=== PATIENT | male | born 1995 | race Caucasian/White ===

== ENCOUNTER 2018-10-23 14:22 | Emergency (ER) | payer BC, SELFPAY ==
[2018-10-23 14:23] VITALS: BP 130/67; PULSE 97; RESP 18; TEMP 36.3; BMI 27.7
--- NOTE | 2018-10-23 14:44 | RAD_ITS ---
STUDY: X-RAY - RIGHT SHOULDER REASON FOR EXAM: Male, 23 years old. Trauma TECHNIQUE: 4 view(s) of the shoulder. COMPARISON: None. FINDINGS: This ossific density noted along the superolateral aspect of the humeral head possibly relate with a calcific tendinitis however avulsion injury is not excluded. Visualized ribs appear intact. IMPRESSION: Small ossific density noted along the superolateral aspect of the humeral head possibly relate with a calcific tendinitis however avulsion injury is not excluded. Otherwise no evidence for acute fractures Electronically Signed: Micah Mazariegos, at 15:13 EST Tel , Service support , RAD/Shoulder min 2 Views
--- NOTE | 2018-10-23 14:50 | RAD_ITS ---
STUDY: X-RAY CHEST REASON FOR EXAM: Male, 23 years old. Trauma TECHNIQUE: 2 views of the chest were obtained COMPARISON: None. FINDINGS: No lung consolidation, pleural effusion or pneumothorax. Mild perihilar streaky opacities. Cardiac size within normal limits IMPRESSION: No evidence for acute traumatic injury seen. Mild perihilar congestive changes Electronically Signed: Micah Mazariegos, at 15:12 EST Tel , Service support , RAD/Chest PA and Lateral
--- NOTE | 2018-10-23 15:09 | ED.VISSUMM ---
- ER Visit Summary Date of Service: 10/23/18 Chief Complaint: Head and right shoulder injury History of Present Illness: The patient is a 23 M who presents with injury to his head and right shoulder that occurred just prior to arrival. Patient states he was working on his friend's car when it slipped off of the jacks and fell onto him. Patient states that it hit him in the right side of his head and right shoulder. Patient denies any loss of consciousness. Patient denies any nausea or vomiting. Patient has a laceration to his right ear. Patient denies any visual changes. Patient states his shoulder pain is worse with movement. Patient denies any shortness of breath. Patient does admit to some mild neck pain. Physical Examination: Vital signs are stable. Patient is afebrile. Patient is in no acute distress. Pupils are equal, round, reactive to light bilaterally. Extraocular muscles are intact. Oral mucosa is pink and moist. Neck is supple. Trachea is midline. There is no JVD noted. There is no cervical spine tenderness. Heart was regular rate and rhythm. Lungs are clear and equal bilaterally. There is good respiratory effort noted. Abdomen is soft and nontender. Cranial nerves II through XII are intact. There are no focal motor or sensory deficits noted. Skin is warm and dry. There is a 4 cm full-thickness laceration over the right external ear. Laceration extends through the cartilage. There are no foreign bodies noted. The remaining physical exam is within normal limits. There is a 1 cm full-thickness laceration over the left external ear. There is a auricular hematoma developing. The wound has some mild bleeding. There is no erythema noted. Test Results: X-rays of the right shoulder and chest were obtained. There is no acute fracture. There is no pneumothorax noted. CT scan of the brain was obtained. There is no acute intracranial abnormality noted. Emergency Department Course and Treatment: The right ear wound was cleaned and irrigated with copious amounts normal saline. The wound was anesthetized with 1% plain lidocaine locally and with an auricular block. The skin was closed with 16 simple interrupted #5-0 nylon sutures under sterile technique. Bacitracin dressing was applied. The laceration to the left external ear was left open to drain the auricular hematoma. Pressure dressings were applied to both ears. Patient was given a prescription for a short course of [place]. Patient was also given a prescription for Keflex. Patient was instructed to follow-up with his primary care physician in 3-5 days. Patient was also given a referral for plastic surgery. Disposition: Discharged home Impression: 1. Concussion 2. Laceration left ear 3. Laceration right ear 4. Right shoulder contusion This note was generated with [employer] dictation software. It may contain incorrect words, spelling, and punctuation that were not noted in review of the chart prior to signing ED Disposition - Plan for ED Patient: Disposition: Home or Assisted Living Chief Complaint: Head Injury Instructions: ED Concussion, ED Laceration All, ED Hematoma Prescriptions: Hydrocodone Bitart/Apap 5-325 [[place] 5MG-325MG] 1 tab PO Q6H PRN PRN 3 Days #10 tab PRN Reason: Pain Cephalexin [Keflex] 500 mg PO Q6 #40 cap Referrals: [facility] Doctor,Out of [NON-STAFF] - Terrence Roberts MD [STAFF PHYSICIAN] -
--- NOTE | 2018-10-23 15:13 | ED.DCSUM_ITS ---
- ER Visit Summary Date of Service: 10/23/18 Chief Complaint: Head and right shoulder injury History of Present Illness: The patient is a 23 M who presents with injury to his head and right shoulder that occurred just prior to arrival. Patient states he was working on his friend's car when it slipped off of the jacks and fell onto him. Patient states that it hit him in the right side of his head and right shoulder. Patient denies any loss of consciousness. Patient denies any nausea or vomiting. Patient has a laceration to his right ear. Patient denies any visual changes. Patient states his shoulder pain is worse with movement. Patient denies any shortness of breath. Patient does admit to some mild neck pain. Physical Examination: Vital signs are stable. Patient is afebrile. Patient is in no acute distress. Pupils are equal, round, reactive to light bilaterally. Extraocular muscles are intact. Oral mucosa is pink and moist. Neck is supple. Trachea is midline. There is no JVD noted. There is no cervical spine tenderness. Heart was regular rate and rhythm. Lungs are clear and equal bilaterally. There is good respiratory effort noted. Abdomen is soft and nontender. Cranial nerves II through XII are intact. There are no focal motor or sensory deficits noted. Skin is warm and dry. There is a 4 cm full- thickness laceration over the right external ear. Laceration extends through the cartilage. There are no foreign bodies noted. The remaining physical exam is within normal limits. There is a 1 cm full-thickness laceration over the left external ear. There is a auricular hematoma developing. The wound has some mild bleeding. There is no erythema noted. Test Results: X-rays of the right shoulder and chest were obtained. There is no acute fracture. There is no pneumothorax noted. CT scan of the brain was obta ined. There is no acute intracranial abnormality noted. Emergency Department Course and Treatment: The right ear wound was cleaned and irrigated with copious amounts normal saline. The wound was anesthetized with 1% plain lidocaine locally and with an auricular block. The skin was closed with 16 simple interrupted #5-0 nylon sutures under sterile technique. Bacitracin dressing was applied. The laceration to the left external ear was left open to drain the auricular hematoma. Pressure dressings were applied to both ears. Patient was given a prescription for a short course of [place]. Patient was also given a prescription for Keflex. Patient was instructed to follow-up with his primary care physician in 3-5 days. Patient was also given a referral for plastic surgery. Disposition: Discharged home Impression: 1. Concussion 2. Laceration left ear 3. Laceration right ear 4. Right shoulder contusion This note was generated with [employer] dictation software. It may contain incorrect words, spelling, and punctuation that were not noted in review of the chart prior to signing ED Disposition - Plan for ED Patient: Disposition: Home or Assisted Living Chief Complaint: Head Injury Instructions: ED Concussion, ED Laceration All, ED Hematoma Prescriptions: Hydrocodone Bitart/Apap 5-325 [[place] 5MG-325MG] 1 tab PO Q6H PRN PRN 3 Days #10 tab PRN Reason: Pain Cephalexin [Keflex] 500 mg PO Q6 #40 cap Referrals: [facility] Doctor,Out of [NON-STAFF] - Terrence Roberts MD [STAFF PHYSICIAN] -
[2018-10-23] MEDS: Morphine 4 MG/ML Syringe IV ×2 (15:17→17:06)
[2018-10-23 15:23] VITALS: BP 112/78; PULSE 69; RESP 20; O2SAT 99
[2018-10-23 15:36] VITALS: O2SAT 99
--- NOTE | 2018-10-23 16:42 | CT_ITS ---
STUDY: CT BRAIN WITHOUT CONTRAST REASON FOR EXAM: Male, 23 years old. Trauma RADIATION DOSAGE (If Supplied By Facility): CTDIvol = ( 44.99 ) mGy, DLP = ( 931.09 ) mGycm TECHNIQUE: Transaxial CT imaging of the brain was performed without administration of intravenous contrast material. Individualized dose optimization techniques were used for this CT. COMPARISON: None. FINDINGS: There is soft tissue edema and subcutaneous gas anterior to the right ear and surrounding the right ear soft tissues including posterior to the ear. There is no evidence of visualized fluid within the external auditory canal. There is no visualized fracture into the right mastoid air cells. There is no evidence of fluid surrounding the ossicles. The zygomatic arch, temporal mandibular joint appears to be intact. Normal calvarium. There is asymmetry of the ventricles consistent with an anatomic variant. Normal white matter tracts of the cerebral hemispheres. Normal basal ganglia and thalami. Normal brainstem. Normal cerebellum. Is a nonspecific hyperdense appearance of the bilateral MCA arteries. There is no intracranial hemorrhage. There are no findings of an acute ischemic infarction. There is trace mucosal thickening of the sphenoid and ethmoid sinuses. CT/Brain/Head without Contrast IMPRESSION: Right superficial facial soft tissue subcutaneous gas injury of the right ear without evidence of visualized fracture. Nonspecific asymmetry of the ventricles. Given clinical history recommend consideration for follow-up MRI of the brain if clinically appropriate. Electronically Signed: Hanh Jauregui MD at 17:52 EST Tel , Service support ,
[2018-10-23 17:04] VITALS: BP 127/69; PULSE 74; RESP 12; O2SAT 95
[2018-10-23 19:08] VITALS: BP 143/78; BP 143/87; PULSE 72; RESP 21; O2SAT 98
--- OUTSIDE RECORDS SUMMARY | 2019-01-26 11:59 | XMS RPT_ITS ---
:1995 Author Organization [facility] Care Team Providers Name Role Phone THIERNO COLLIER, DR. ALEXA Salazar Attending Unavailable MARINE ADHIKARI Primary Care Unavailable Gaby Rdz Attending Unavailable Alexa Del Castillo Referring Unavailable Primay Care Physicia, No Primary Care Unavailable PROBLEMS PROBLEMS DATE TYPE CONDITION / CODE ATTENDING STATUS SOURCE 10/23/2018 Unknown S06.0X0A - Gaby Rdz Active [facility] without loss of Hospital consciousness, Repository initial encounter / S06.0X0A(ICD-10) PROCEDURES PROCEDURES No Procedure Records FoundRESULTS RESULTS XR RIBS 2 VIEWS Observed: 10/29/2018 Status: F Source: [employer] LEFT/PA CHEST(AO) 12:21 PM [facility] REPOSITORY ORIGINAL XR RIBS 2 VIEWS LEFT/PA CHEST(AO) CLINICAL STATEMENT: back pain. COMPARISON: Chest radiograph 09/15/2014 IMPRESSION: No visible rib fracture. The lungs are clear and well expanded. Interpreted By: Scarlett Leija MD Preliminary Report By: Scarlett Leija MD Electronically Signed By: Scarlett Leija MD Dictated Date: 10/29/2018 12:49:33 PM Prelim Date: 10/29/2018 12:49:33 PM Sign Date: 10/29/2018 12:50:45 PM EMERGENCY DEPARTMENT Observed: 10/23/2018 Status: F Source: [place] SUMMARY 6:43 PM [facility] REPOSITORY [facility] Medical Records Department [address] [place] [address] Emergency Department Summary 10/23/18 1509 MR#: [id number] Acct: [id number] Name: GABY BANG Rep #: [id number] : 1995 23 From: Gaby Rdz DO PCP: Alexa Del Castillo MD Status: REG ER - ER Visit Summary Date of Service: 10/23/18 Chief Complaint: Head and right shoulder injury History of Present Illness: The patient is a 23 M who presents with injury to his head and right shoulder that occurred just prior to arrival. Patient states he was working on his friend's car when it slipped off of the jacks and fell onto him. Patient states that it hit him in the right side of his head and right shoulder. Patient denies any loss of consciousness. Patient denies any nausea or vomiting. Patient has a laceration to his right ear. Patient denies any visual changes. Patient states his shoulder pain is worse with movement. Patient denies any shortness of breath. Patient does admit to some mild neck pain. Physical Examination: Vital signs are stable. Patient is afebrile. Patient is in no acute distress. Pupils are equal, round, reactive to light bilaterally. Extraocular muscles are intact. Oral mucosa is pink and moist. Neck is supple. Trachea is midline. There is no JVD noted. There is no cervical spine tenderness. Heart was regular rate and rhythm. Lungs are clear and equal bilaterally. There is good respiratory effort noted. Abdomen is soft and nontender. Cranial nerves II through XII are intact. There are no focal motor or sensory deficits noted. Skin is warm and dry. There is a 4 cm full- thickness laceration over the right external ear. Laceration extends through the cartilage. There are no foreign bodies noted. The remaining physical exam is within normal limits. There is a 1 cm full-thickness laceration over the left external ear. There is a auricular hematoma developing. The wound has some mild bleeding. There is no erythema noted. Test Results: X-rays of the right shoulder and chest were obtained. There is no acute fracture. There is no pneumothorax noted. CT scan of the brain was obtained. There is no acute intracranial abnormality noted. Emergency Department Course and Treatment: The right ear wound was cleaned and irrigated with copious amounts normal saline. The wound was anesthetized with 1% plain lidocaine locally and with an auricular block. The skin was closed with 16 simple interrupted #5-0 nylon sutures under sterile technique. Bacitracin dressing was applied. The laceration to the left external ear was left open to drain the auricular hematoma. Pressure dressings were applied to both ears. Patient was given a prescription for a short course of [place]. Patient was also given a prescription for Keflex. Patient was instructed to follow- up with his primary care physician in 3-5 days. Patient was also given a referral for plastic surgery. Disposition: Discharged home Impression: 1. Concussion 2. Laceration left ear 3. Laceration right ear 4. Right shoulder contusion This note was generated with [employer] dictation software. It may contain incorrect words, spelling, and punctuation that were not noted in review of the chart prior to signing ED Disposition - Plan for ED Patient: Disposition: Home or Assisted Living Chief Complaint: Head Injury Instructions: ED Concussion, ED Laceration All, ED Hematoma Prescriptions: Hydrocodone Bitart/Apap 5-325 [[place] 5MG-325MG] 1 tab PO Q6H PRN PRN 3 Days #10 tab PRN Reason: Pain Cephalexin [Keflex] 500 mg PO Q6 #40 cap Referrals: [facility] Doctor,Out of [NON-STAFF] - Terrence Roberts MD [STAFF PHYSICIAN] - What to do if you have Problems For any increased pain, shortness of breath, bleeding, nausea or vomiting, chest pain, or any unexpected problems, contact your Primary Care Provider. Call [facility] ([phone]) or report to the closest Emergency Room. Call 911 if necessary. 10/23/18 1773 <Electronically signed by Gaby Rdz DO> Date Gaby Rdz DO Cosigner Signature (If Indicated): Date CC: No Primary Care Physician; Alexa Del Castillo MD BRAIN/HEAD WITHOUT Observed: 10/23/2018 Status: F Source: [place] CONTRAST 4:43 PM [facility] REPOSITORY [facility] Imaging Services [address] [place] [address] Brain/Head without Contrast MR#: [id number] Acct: [id number] Name: GABY BANG Rep #: [id number] : 1995 M 23 From: Hanh Jauregui MD PCP: Alexa Del Castillo MD Status: REG ER Study: Brain/Head without Contrast Date of Exam: 10/23/18 Exam# [id number] Ordering Dr: Gaby Rdz DO STUDY: CT BRAIN WITHOUT CONTRAST REASON FOR EXAM: Male, 23 years old. Trauma RADIATION DOSAGE (If Supplied By Facility): CTDIvol = ( 44.99 ) mGy, DLP = ( 931.09 ) mGycm TECHNIQUE: Transaxial CT imaging of the brain was performed without administration of intravenous contrast material. Individualized dose optimization techniques were used for this CT. COMPARISON: None. FINDINGS: There is soft tissue edema and subcutaneous gas anterior to the right ear and surrounding the right ear soft tissues including posterior to the ear. There is no evidence of visualized fluid within the external auditory canal. There is no visualized fracture into the right mastoid air cells. There is no evidence of fluid surrounding the ossicles. The zygomatic arch, temporal mandibular joint appears to be intact. Normal calvarium. There is asymmetry of the ventricles consistent with an anatomic variant. Normal white matter tracts of the cerebral hemispheres. Normal basal ganglia and thalami. Normal brainstem. Normal cerebellum. Is a nonspecific hyperdense appearance of the bilateral MCA arteries. There is no intracranial hemorrhage. There are no findings of an acute ischemic infarction. There is trace mucosal thickening of the sphenoid and ethmoid sinuses. CT/Brain/Head without Contrast IMPRESSION: Right superficial facial soft tissue subcutaneous gas injury of the right ear without evidence of visualized fracture. Nonspecific asymmetry of the ventricles. Given clinical history recommend consideration for follow- up MRI of the brain if clinically appropriate. Electronically Signed: Hanh Jauregui MD at 17:52 EST Tel , Service support , CC: Alexa Del Castillo MD; Gaby Rdz DO Coloring Room Worker: Signed CHEST PA AND LATERAL Observed: 10/23/2018 Status: F Source: [place] 2:45 PM [facility] REPOSITORY [facility] Imaging Services [address] [place] [address] Chest PA and Lateral MR#: [id number] Acct: [id number] Name: GABY BANG Rep #: [id number] : 1995 M 23 From: Micah Mazariegos MD PCP: OUT OF TOWN DOCTOR Status: PRE ER Study: Chest PA and Lateral Date of Exam: 10/23/18 Exam# [id number] Ordering Dr: Camilo Maldonado MD STUDY: X-RAY CHEST REASON FOR EXAM: Male, 23 years old. Trauma TECHNIQUE: 2 views of the chest were obtained COMPARISON: None. FINDINGS: No lung consolidation, pleural effusion or pneumothorax. Mild perihilar streaky opacities. Cardiac size within normal limits IMPRESSION: No evidence for acute traumatic injury seen. Mild perihilar congestive changes Electronically Signed: Micah Mazariegos, at 15:12 EST Tel , Service support , RAD/Chest PA and Lateral CC: Camilo Maldonado MD; OUT OF TOWN DOCTOR Coloring Room Worker: Signed SHOULDER MIN 2 VIEWS Observed: 10/23/2018 Status: F Source: [place] 2:45 PM [facility] REPOSITORY [facility] Imaging Services [address] [place] [address] Shoulder min 2 Views MR#: [id number] Acct: [id number] Name: GABY BANG Rep #: [id number] : 1995 M 23 From: Micah Mazariegos MD PCP: OUT OF TOWN DOCTOR Status: PRE ER Study: Shoulder min 2 Views Date of Exam: 10/23/18 Exam# [id number] Ordering Dr: Camilo Maldonado MD STUDY: X-RAY - RIGHT SHOULDER REASON FOR EXAM: Male, 23 years old. Trauma TECHNIQUE: 4 view(s) of the shoulder. COMPARISON: None. FINDINGS: This ossific density noted along the superolateral aspect of the humeral head possibly relate with a calcific tendinitis however avulsion injury is not excluded. Visualized ribs appear intact. IMPRESSION: Small ossific density noted along the superolateral aspect of the humeral head possibly relate with a calcific tendinitis however avulsion injury is not excluded. Otherwise no evidence for acute fractures Electronically Signed: Micah Mazariegos, at 15:13 EST Tel , Service support , RAD/Shoulder min 2 Views CC: Camilo Maldonado MD; OUT OF TOWN DOCTOR Coloring Room Worker: Signed PROGRESS Observed: 01/25/2018 Status: COMPLETED Source: [place] 7:46 PM [facility] REPOSITORY O ID: [id number] Author: Juana (Himanshu) CYN [email or web address] Service: (none) Author Type: Nurse Practitioner Type: Progress Notes Filed: 01/25/2018 8:08 PM Note Text: Subjective HPI HPI Gaby Bang is a 22 year old male who presents today for CC of irritation in right eye. This started yesterday he was working under his car, and felt something go in his eye. He is also having tearing and redness Symptoms are worsened by nothing He has tried flushing his eye with slight relief. Risk factors possible scratch from foreign object in eye PMH not significant. He denies any loss of vision or change in vision. No severe pain in eye BP 128/74 Pulse 70 Temp 37.4 ?C (99.3 ?F) (Tympanic) Resp 16 Wt 93.4 kg (206 lb) ALLERGIES No Known Allergies There is no problem list on file for this patient. No family history on file. Social History Marital status: Single Spouse name: Years of education: Number of children: Social History Main Topics Smoking status: Current Some Day Smoker Packs/day: 0.00 Years: 0.00 Types: Cigarettes Smokeless status: Current User Types: Chew Review of Systems Constitutional: Negative. Negative for chills, fever and malaise/fatigue. HENT: Negative for congestion, ear pain, sinus pain and sore throat. Eyes: Positive for discharge and redness. Respiratory: Negative for cough, sputum production, shortness of breath and wheezing. Cardiovascular: Negative for chest pain. Musculoskeletal: Negative for myalgias. Skin: Negative for rash. Neurological: Negative for headaches. Objective Physical Exam Constitutional: He is oriented to person, place, and time and well-developed, well-nourished, and in no distress. HENT: Head: Normocephalic and atraumatic. Right Ear: Tympanic membrane, external ear and ear canal normal. Tympanic membrane is not injected, not erythematous, not retracted and not bulging. No middle ear effusion. Left Ear: Tympanic membrane, external ear and ear canal normal. Tympanic membrane is not injected, not erythematous, not retracted and not bulging. No middle ear effusion. Nose: Nose normal. Right sinus exhibits no maxillary sinus tenderness and no frontal sinus tenderness. Left sinus exhibits no maxillary sinus tenderness and no frontal sinus tenderness. Mouth/Throat: Uvula is midline, oropharynx is clear and moist and mucous membranes are normal. No oropharyngeal exudate, posterior oropharyngeal edema, posterior oropharyngeal erythema or tonsillar abscesses. Eyes: EOM are normal. Pupils are equal, round, and reactive to light. Right eye exhibits discharge (clear). Left eye exhibits no discharge. Right conjunctiva is injected. Left conjunctiva is not injected. Fundoscopic exam: The right eye shows red reflex. The left eye shows red reflex. Upper and lower lids were everted. There is no evidence of injury or foreign material. No hyphema is present. There is no evidence of periorbital cellulitis. Flourescein stain was instilled into the right eye and a Wood's Lamp exam performed. There is small corneal abrasion at 8 o'clock. Neck: Normal range of motion. Neck supple. Pulmonary/Chest: Effort normal. Lymphadenopathy: Head (right side): No submental, no submandibular, no tonsillar, no preauricular and no posterior auricular adenopathy present. Head (left side): No submental, no submandibular, no tonsillar, no preauricular and no posterior auricular adenopathy present. He has no cervical adenopathy. Right: No supraclavicular adenopathy present. Left: No supraclavicular adenopathy present. Neurological: He is alert and oriented to person, place, and time. Skin: Skin is warm and dry. Psychiatric: Affect normal. Nursing note and vitals reviewed. ASSESSMENT/PLAN: 1. Abrasion of right cornea, initial encounter - ICD9: 918.1, ICD10: S05.01XA Cool compresses for eye inflammation/irritation frequently throughout the day. Go to ER for any sudden loss of vision or severe vision changes. Follow up with opthamologist if no improvement or sooner for worsening symptoms. - CIPROFLOXACIN 0.3 % EYE DROPS Diagnosis and treatment plan were discussed and questions were answered to the patient's satisfaction. Pt acknowledged understanding of concepts and follow up plan. Specific signs and symptoms that would indicate the need for higher level of care were discussed in detail warranting prompt ER evaluation. CNOV Observed: 01/25/2018 Status: COMPLETED Source: [place] 7:30 PM [facility] REPOSITORY Office Visit ([facility]) GABY BANG ([id number]) 1995 M Date Time Provider Department 01/25/18 7:30 PM JUANA ROSEN ([facility]) [facility] During your visit today, we recorded the following information about you: Temperature Pulse Respiration Blood pressure 99.3 degrees 70/minute 16/minute 128/74 Weight 93.4 kg Juana Rosen APRN.CNP, APRN.CNP 01/25/2018 7:47 PM Addendum ASSESSMENT/PLAN: 1. Abrasion of right cornea, initial encounter - ICD9: 918.1, ICD10: S05.01XA Cool compresses for eye inflammation/irritation frequently throughout the day. Go to ER for any sudden loss of vision or severe vision changes. Follow up with PCP if no improvement in 1 week. - CIPROFLOXACIN 0.3 % EYE DROPS Juana Rosen APRN.CNP, APRN.CNP 01/25/2018 8:08 PM Signed Subjective HPI HPI Gaby Bang is a 22 year old male who presents today for CC of irritation in right eye. This started yesterday he was working under his car, and felt something go in his eye. He is also having tearing and redness Symptoms are worsened by nothing He has tried flushing his eye with slight relief. Risk factors possible scratch from foreign object in eye PMH not significant. He denies any loss of vision or change in vision. No severe pain in eye BP 128/74 Pulse 70 Temp 37.4 ?C (99.3 ?F) (Tympanic) Resp 16 Wt 93.4 kg (206 lb) ALLERGIES No Known Allergies There is no problem list on file for this patient. No family history on file. Social History Marital status: Single Spouse name: Years of education: Number of children: Social History Main Topics Smoking status: Current Some Day Smoker Packs/day: 0.00 Years: 0.00 Types: Cigarettes Smokeless status: Current User Types: Chew Review of Systems Constitutional: Negative. Negative for chills, fever and malaise/fatigue. HENT: Negative for congestion, ear pain, sinus pain and sore throat. Eyes: Positive for discharge and redness. Respiratory: Negative for cough, sputum production, shortness of breath and wheezing. Cardiovascular: Negative for chest pain. Musculoskeletal: Negative for myalgias. Skin: Negative for rash. Neurological: Negative for headaches. Objective Physical Exam Constitutional: He is oriented to person, place, and time and well-developed, well-nourished, and in no distress. HENT: Head: Normocephalic and atraumatic. Right Ear: Tympanic membrane, external ear and ear canal normal. Tympanic membrane is not injected, not erythematous, not retracted and not bulging. No middle ear effusion. Left Ear: Tympanic membrane, external ear and ear canal normal. Tympanic membrane is not injected, not erythematous, not retracted and not bulging. No middle ear effusion. Nose: Nose normal. Right sinus exhibits no maxillary sinus tenderness and no frontal sinus tenderness. Left sinus exhibits no maxillary sinus tenderness and no frontal sinus tenderness. Mouth/Throat: Uvula is midline, oropharynx is clear and moist and mucous membranes are normal. No oropharyngeal exudate, posterior oropharyngeal edema, posterior oropharyngeal erythema or tonsillar abscesses. Eyes: EOM are normal. Pupils are equal, round, and reactive to light. Right eye exhibits discharge (clear). Left eye exhibits no discharge. Right conjunctiva is injected. Left conjunctiva is not injected. Fundoscopic exam: The right eye shows red reflex. The left eye shows red reflex. Upper and lower lids were everted. There is no evidence of injury or foreign material. No hyphema is present. There is no evidence of periorbital cellulitis. Flourescein stain was instilled into the right eye and a Wood's Lamp exam performed. There is small corneal abrasion at 8 o'clock. Neck: Normal range of motion. Neck supple. Pulmonary/Chest: Effort normal. Lymphadenopathy: Head (right side): No submental, no submandibular, no tonsillar, no preauricular and no posterior auricular adenopathy present. Head (left side): No submental, no submandibular, no tonsillar, no preauricular and no posterior auricular adenopathy present. He has no cervical adenopathy. Right: No supraclavicular adenopathy present. Left: No supraclavicular adenopathy present. Neurological: He is alert and oriented to person, place, and time. Skin: Skin is warm and dry. Psychiatric: Affect normal. Nursing note and vitals reviewed. ASSESSMENT/PLAN: 1. Abrasion of right cornea, initial encounter - ICD9: 918.1, ICD10: S05.01XA Cool compresses for eye inflammation/irritation frequently throughout the day. Go to ER for any sudden loss of vision or severe vision changes. Follow up with opthamologist if no improvement or sooner for worsening symptoms. - CIPROFLOXACIN 0.3 % EYE DROPS Diagnosis and treatment plan were discussed and questions were answered to the patient's satisfaction. Pt acknowledged understanding of concepts and follow up plan. Specific signs and symptoms that would indicate the need for higher level of care were discussed in detail warranting prompt ER evaluation. Referring Provider: SELF [200] Allergies As of Date: 01/25/2018 (No Known Allergies) Date Reviewed: 01/25/2018 Reviewed by: Ananya Chand Ma - Fully Assessed Reason for Visit: Eye Problem [43] Cmt: right eye irritation, ? something in eye x yesterday, still bothering eye Primary Visit Diagnosis:Abrasion of right cornea, initial encounter [S05.01XA] Order(s):ciprofloxacin HCl (CILOXAN) 0.3 % ophthalmic solutionUse 1-2 Drops in the right eye four times daily for 7 days.Disp: 1 BottleRfl: 0 Prescriptions as of 01/25/2018 Sig: NASRIN BACK AND BODY ORAL Take by mouth. IBUPROFEN 800 MG TABLET Take 1 tablet by mouth every * CIPROFLOXACIN 0.3 % EYE DROPS Use 1-2 Drops in the right ey* NAPROXEN ORAL Take by mouth. FLEXERIL ORAL Take by mouth. Problem List As Of Date: 01/25/2018 (None) Other instructions from your clinician: ASSESSMENT/PLAN: 1. Abrasion of right cornea, initial encounter - ICD9: 918.1, ICD10: S05.01XA Cool compresses for eye inflammation/irritation frequently throughout the day. Go to ER for any sudden loss of vision or severe vision changes. Follow up with PCP if no improvement in 1 week. - CIPROFLOXACIN 0.3 % EYE DROPS Prescriptions ordered this encounter Disp Refills Start End CIPROFLOXACIN 0.3 % EYE DROPS 1 Antonio* 0 01/25/2018 02/01/2018 Route: RIGHT EYE Sig: Use 1-2 Drops in the right eye four times daily for 7 days. Encounter Status:Closed by JUANA ROSEN CNP on 01/25/18 ALLERGIES ALLERGIES DATE TYPE / CODE NAME / CODE REACTION SEVERITY SOURCE 10/23/2018 Drug No Known Unknown [facility] Allergy/416 Allergies/Y23922 [facility] [id number](SNOM 0388(RXNORM) Repository ED CT) Drug NO KNOWN [facility] Class/23830 ALLERGIES Main [place] 1003(SNOMED Repository CT) ENCOUNTERS ENCOUNTERS ADMIT/DISCHARGE ACCOUNT NUMBER ADMITTING ENCOUNTER LOCATION SOURCE CLASS 10/29/2018/10/29/20 [id number] Ambulatory BBuilding:RA [address] [facility] Repository 10/23/2018/10/23/20 [id number] Emergency Patricio [facility] [address] [facility] ding:ED Repository 01/25/2018/01/27/20 [id number] Ambulatory [address] Repository PAYERS PAYERS ENCOUNTER GUARANTOR PAYER SUBSCRIBER SOURCE 10/29/2018 GABY D Primary GABY D [facility] PEPPARDDOB: Insurance:[employer]HE[employer] BLUE PEPPARDDOB: Foundation [id number] [employer] [id number] Repository BETTY Number: [address], [place] [id number] [address] Date:2018-10-29 99166Lhj: [phone] [id number] (WP) Name:[facility] [address] [place] [id number]: 10/23/2018 GABY D Primary GABY D [place] [id number] Insurance:ANTHEMPolic PEPPARDDOB: [facility] y Number: [id number] [place], [place] [id number] Repository [address]Ljz: 330) Date:[id number] [phone] () [address] [place] [address] [place] [id number]: 10/23/2018 Secondary NOT GIVENUNK Patricio Insurance:SELF PAY [facility] Number: Effective Repository Date:2018-10-23
== END 2018-10-23 19:11 | disposition home or self-care (01) ==
PROVIDERS: Emergency Provider Emergency Medicine; PCP Family Medicine; Referring Provider Family Medicine
DX: S06.0X0A Concussion without loss of consciousness, initial encounter (principal); S01.311A Laceration without foreign body of right ear, initial encounter; S01.312A Laceration without foreign body of left ear, initial encounter; S40.011A Contusion of right shoulder, initial encounter; M54.2 Cervicalgia; W20.8XXA Other cause of strike by thrown, projected or falling object, initial encounter; Y93.9 Activity, unspecified; Y92.9 Unspecified place or not applicable; Y99.9 Unspecified external cause status; Z72.0 Tobacco use
CPT/HCPCS: 12013; 70450; 71046; 73030; 96374; 96376; 99285; A4216

== ENCOUNTER 2019-05-03 23:14 | Emergency (ER) | payer BC, SELFPAY ==
[2019-05-03 23:15] VITALS: BP 153/89; PULSE 89; RESP 17; TEMP 37.1; O2SAT 100; BMI 31.3
--- NOTE | 2019-05-03 23:36 | RAD_ITS ---
STUDY: X-RAY CHEST REASON FOR EXAM: Male, 24 years old. Left shoulder pain TECHNIQUE: Frontal and lateral COMPARISON: None. FINDINGS: The lungs are clear and expanded. There is no demonstrated pleural abnormality. Normal size heart. Normal mediastinum and reid. Normal visualized pulmonary arteries. Normal visualized aortic arch and descending thoracic aorta. Normal visualized thoracic spine. Normal visualized ribs, clavicles, and shoulders. There is no demonstrated abnormality of the visualized soft tissue structures of the upper abdomen. RAD/Chest PA and Lateral IMPRESSION: Normal x-ray examination of the chest. Electronically Signed: Trevin Siu, at 0:06 EDT Tel , Service support ,
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
[2019-05-03] MEDS: Ketorolac 60 MG/2 ML Vial IM (23:43)
[2019-05-03] MEDS: Orphenadrine 60 MG/2 ML Ampul IM (23:43)
[2019-05-03 23:47] VITALS: BP 153/87; PULSE 74; RESP 18; O2SAT 97
[2019-05-04 00:38] VITALS: BP 152/87; PULSE 78; RESP 16; O2SAT 97
== END 2019-05-04 00:39 | disposition home or self-care (01) ==
PROVIDERS: Emergency Provider Emergency Medicine; Family Provider Family Medicine; PCP Family Medicine
DX: M62.830 Muscle spasm of back (principal); M54.6 Pain in thoracic spine; G89.29 Other chronic pain; Z79.899 Other long term (current) drug therapy
CPT/HCPCS: 71046; 96372; 99282

== ENCOUNTER → 2020-08-03 16:30 | Outpatient (CLI) | payer BC, SELFPAY | PROVIDERS: PCP Family Medicine; Referring Provider Physician Assistant; Visit Provider Physician Assistant | DX: Z11.59 Encounter for screening for other viral diseases (principal) | CPT/HCPCS: 87635; U0003 ==

== ENCOUNTER 2021-05-17 21:21 | Emergency (ER) | payer BC, SELFPAY ==
[2021-05-17 21:23] VITALS: BP 165/90; PULSE 101; RESP 16; TEMP 36.8; O2SAT 96; BMI 32.7
[2021-05-17 21:38] LABS: Mucous, Urine 0 SEEN /hpf (<or=2+); Red Blood Cells-Urine 0 SEEN /hpf (0-5); Squamous Epithelial Cells - UA 0 SEEN /hpf (0-5)
[2021-05-17 21:40] LABS: Color, Urine Yellow (Yellow); Glucose, Dipstick Normal (Normal); Ketone-Dipstick 5 mg/dl (Negative); Leukocyte Esterase-Dipstick 25 /ul (Negative); Nitrite-Dipstick Negative (Negative); Occult Blood-Urine Negative /ul (Negative); Protein-Dipstick 30 mg/dl (Negative); Urine Bilirubin Dipstick Negative (Negative); Urine Clarity Clear (Clear); Urine Urobilinogen 4 mg/dl (Normal)
[2021-05-17 21:53] LABS: Absolute Lymphocyte Count 1.66 X10^3/uL (0.83-4.51); Absolute Neutrophil Count 9.2 X10^3/uL (2.0-7.7); Basophil# 0.06 X10^3/uL; Basophil% 0.5 % (0-1); Eosinophil# 0.21 X10^3/uL; Eosinophils% 1.7 % (0-5); Hematocrit 50.9 % (40-54); Hemoglobin 17.9 g/dL (13.0-16.5); Lymphocyte # 1.66 X10^3/ul (0.83-4.51); Lymphocyte % 13.7 % (19-41); Mean Corp Hgb Conc 35.2 g/dL (32-36); Mean Corpuscular Hgb 35.2 pg (27.0-32.0); Monocyte% 7.4 % (0-10); NRBC Flagged by Analyzer 0 % (0-5); Neutrophil # 9.24 X10^3/uL (2.7-7.7); Neutrophil % 76.4 % (47-70); Platelet Count 321 K/mm3 (150-450); RBC Distribution Width CV 11.8 % (11.6-14.6); RBC Distribution Width SD 43.7 fl (35.1-43.9); Red Blood Count 5.09 M/mm3 (4.6-6.2); White Blood Count 12.1 K/mm3 (4.4-11.0)
[2021-05-17 21:57] LABS: Bacteria 1+ /hpf (None Seen); Calcium Oxalate Crystals Ur 1+ /hpf (<or=2+); White Blood Cells 0-5 SEEN /hpf (0-5)
[2021-05-17 22:44] LABS: Anion Gap 7 (5-15); BUN 14 mg/dL (7-18); BUN/Creat Ratio 15.7 RATIO (10-20); Calcium,Total 9.6 mg/dL (8.5-10.1); Chloride 99 mmol/L (98-107); Creatinine, Serum 0.89 mg/dL (0.70-1.30); EST Glomerular Filtration Rate 108 mL/min (>60); Est Glom Filt Rate - Afr Amer 131 mL/min (>60); Estimated Creatinine Clearance 143.67 ml/min; Glucose 92 mg/dL (74-106); Potassium 3.7 mmol/L (3.5-5.1); Sodium Level 136 mmol/L (136-145)
--- NOTE | 2021-05-17 23:08 | ED.VIS.GI ---
HPI HPI - GI History of Present Illness Chief Complaint: Abd Pain Informant: patient Abdominal Pain/Flank Pain Onset: Days (3) Context: Gradual Onset Timing: Intermittent Quality: Aching Location: RLQ Current Severity: Mild Maximum Severity: Severe Worsened by: - (bearing down to have BM. bending over once.) Relieved by: Nothing Nausea/Vomiting/Emesis GI Symptom: Negative for Nausea and Vomiting Diarrhea/Melena/Hematochezia GI Symptom: Negative for Diarrhea, Melena and Hematochezia Associated Symptoms Associated Symptoms: Negative for Dysuria, Frequency, Hematuria and Urgency Narrative Narrative: Intermittent right lower quadrant pain. Patient concerned about appendicitis. He has had no urinary symptoms, no changes in appetite, no fevers. No history of abdominal surgeries. PFSH PFS Medical History (Updated 05/18/21 @ 01:[address] William Srivastava MD) Hypertension no medical history Home Medications metoprolol succinate 100 mg PO DAILY 05/17/21 [History Last Taken Unknown] ciprofloxacin HCl 500 mg PO BID #20 tablet 05/18/21 [Rx Last Taken Unknown] metronidazole 500 mg PO BID #20 tab 05/18/21 [Rx Last Taken Unknown] Allergy/AdvReac Type Severity Reaction Status Date / Time No Known Allergies Allergy Verified 05/17/21 21:25 Surgical History (Updated 05/17/21 @ 23:[address] William Srivastava MD) H/O knee surgery Social History Smoking Status: Current every day smoker tobacco type: cigarettes ROS ROS ED Constitutional Constitutional ED: Denies chills or fever(s) Eyes Eyes: Denies change in vision or diplopia ENT ENT ED: Denies rhinorrhea or sore throat Cardiovascular Cardiovascular: Denies chest pain or palpitations Respiratory/Chest Respiratory/Chest: Denies cough or dyspnea Gastrointestinal Gastrointestinal: Reports as per HPI and abdominal pain; Denies diarrhea, nausea or vomiting Genitourinary Genitourinary ED: Denies dysuria or hematuria Musculoskeletal Musculoskeletal: Denies back pain or neck pain Integumentary Denies abscess or rash Neurologic Neurologic: Denies headache(s), paresthesias or weakness Psychiatric Psychiatric: Denies anxiety or suicidal thoughts EXAM Physical Exam Const Vital Signs: 05/17/21 21:23 05/18/21 00:33 Temperature 98.3 F Temperature Source Temporal Pulse Rate 101 H 82 Respiratory Rate 16 16 Blood Pressure 165/90 H Blood Pressure Mean 115 Pulse Ox 96 100 Oxygen Delivery Method Room Air Room Air Positive well nourished and well developed General Appearance ED: well developed and NAD HEENT Reports moist mucous membranes normocephalic and atraumatic Eyes PERRL and EOMs intact bilaterally Neck full ROM and supple Resp normal respiratory effort and clear to auscultation bilaterally Cardio regular rate, regular rhythm and no murmurs GI non-distended GI Narrative: Mild tenderness at McBurney's point, no guarding or rebound tenderness, and also mild tenderness LLQ. No other areas of tenderness. Mildly positive Rovsing sign. Negative psoas and obturator signs. Auscultation: normoactive bowel sounds Palpation: soft Back/Spine no CVA tenderness General Back: other FROM Extremity normal to inspection General Extremety ED: Negative for edema, pulses abnormal or tenderness General Extremity: Negative for edema or pulses abnormal Neuro oriented x3, CN's II-XII intact bilaterally and no sensory deficits noted Sensorium / Orientation: awake and alert Motor Exam: strength 5/5 throughout Skin no rashes or lesions noted and no wounds MDM MDM MDM Narrative Medical decision making narrative: CT shows no sign of appendicitis, but he has sigmoid diverticulitis and there is a possible 1.3 cm collection nearby. Given this, the patient should be placed on IV antibiotics and admitted for further evaluation. I discussed with surgery Dr. Kimbrough, she agrees with medical admission and she will consult surgically in the morning. Placed and started on Cipro and Flagyl. He is clinically hemodynamically stable. However, the patient did not want to stay. I discussed with him the importance of being admitted with continued doses of IV antibiotics and surgical evaluation and the possible need for either surgical drainage or interventional radiology involvement. He understands that the standard of care for this problem is as above, as an inpatient. He wants to sign out AGAINST MEDICAL ADVICE, I do agree to prescribe him antibiotics which would at least be in his best interest but as I discussed with him his not the standard of care for this problem. We discussed that he is welcome to change his mind and return to the hospital, especially if he gets worse. Lab Data Attestation: I reviewed the patient's lab results. Labs: Laboratory Results - last 24 hr 05/17/21 05/17/2105/17/21 21:30 21:40 21:40 WBC 12.1 H RBC 5.09 Hgb 17.9 H Hct 50.9 MCV 100.0 H MCH 35.2 H MCHC 35.2 RDW Std Deviation 43.7 RDW Coeff of Kristen 11.8 Plt Count 321 MPV 10.0 Immature Gran % (Auto) 0.300 Neut % (Auto) 76.4 H Lymph % (Auto) 13.7 L [place] % (Auto) 7.4 Eos % (Auto) 1.7 Baso % (Auto) 0.5 Absolute Neuts (auto) 9.2 H Absolute Lymphs (auto) 1.66 Nucleated RBC % 0 Sodium 136 Potassium 3.7 Chloride 99 Carbon Dioxide 30.0 Anion Gap 7 BUN 14 Creatinine 0.89 Estim Creat Clear Calc 143.67 Est GFR (MDRD) Af Amer 131 Est GFR (MDRD) Non-Af 108 BUN/Creatinine Ratio 15.7 Glucose 92 Calcium 9.6 Urine Color Yellow Urine Clarity Clear Urine pH 6.0 Ur Specific [place] 1.020 Urine Protein 30 H Urine Glucose (UA) Normal Urine Ketones 5 H Urine Occult Blood Negative Urine Nitrite Negative Urine Bilirubin Negative Urine Urobilinogen 4 H Ur Leukocyte Esterase 25 H Urine RBC 0 SEEN Urine WBC 0-5 SEEN Ur Squamous Epith Cells 0 SEEN Calcium Oxalate Crystal 1+ Urine Bacteria 1+ Urine Mucus 0 SEEN Radiography Diagnostic Testing: Radiology Impression Abdomen/Pelvis CT 05/17/21 23:27 IMPRESSION: Sigmoid diverticulitis is suspected with possible small collection. Fatty liver. Electronically Signed: Walter Moulton DO at 23:48 EDT Tel [phone], Service support , Discharge Plan Triage Chief Complaint: Abd Pain ED Provider: William Srivastava Dx/Rx/DC Orders Clinical Impression: Diverticulitis of large intestine with abscess Instructions: ED Diverticulitis, AMA Prescriptions: New metronidazole [metronidazole] 500 MG tablet 500 mg PO BID Qty: 20 RF: 0 ciprofloxacin HCl [ciprofloxacin HCl] 500 MG tablet 500 mg PO BID Qty: 20 RF: 0 No Action metoprolol succinate 100 mg Tablet Extended Release 24 Hr 100 mg PO DAILY RF: 0 Primary Care Provider: Evie Cox Referrals: Evie Cox DO [Primary Care Provider] - Amna Kimbrough MD [STAFF PHYSICIAN] - As soon as possible Disposition Disposition: Against Medical Advice Capacity Capacity Assessment Tool Can the patient make a choice & communicate that choice?: Yes Can the patient understand benefits, risks and alternatives?: Yes Can the patient make a logical, rational choice?: Yes Is the choice the patient makes consistent w/ their values?: Yes Is there an impending, emergent risk to the patient?: Yes (early diverticular abscess that could worsen and cause sepsis/) Does the patient have an Advance Directive?: No Is there a Surrogate Available?: No
--- NOTE | 2021-05-17 23:27 | CT_ITS ---
STUDY: CT ABDOMEN AND PELVIS WITH CONTRAST REASON FOR EXAM: Male, 26 years old. RLQ pain RADIATION DOSAGE (If Supplied By Facility): CTDIvol = ( 16.02 ) mGy, DLP = ( 1276.51 ) mGycm TECHNIQUE: Transaxial images were obtained from the dome of the diaphragm to the symphysis pubis without oral contrast. IV 100mL Isovue-370 was administered. Sagittal and coronal images were reconstructed. Individualized dose optimization techniques were used for this CT. COMPARISON: None. FINDINGS: The visualized lung bases are unremarkable. The visualized portions of the heart are within normal limits. Fatty liver. Normal gallbladder and extrahepatic biliary system. Normal spleen. Normal pancreas. Normal bilateral adrenal glands. Normal right kidney. Normal left kidney. Normal visualized stomach. Normal small intestine. There is wall thickening of the sigmoid colon with mild inflammation. As the possible focal 1.3 cm collection. The appendix is visualized and appears normal. Normal abdominal aorta. Normal inferior vena cava. Normal retroperitoneum. Normal urinary bladder. Normal abdominal wall. Normal osseous structures. CT/Abdomen/Pelvis W IV Cont ONLY IMPRESSION: Sigmoid diverticulitis is suspected with possible small collection. Fatty liver. Electronically Signed: Walter Moulton DO at 23:48 EDT Tel [phone], Service support ,
[2021-05-18] MEDS: 0.9% Normal Saline 1,000 ML 999 ML IV (00:16)
[2021-05-18] MEDS: Ciprofloxacin 400 MG/200 ML BAG 200 MG IV (00:17)
[2021-05-18] MEDS: metroNIDAZOLE 500 MG/100 ML BAG 100 MG IV (00:31)
[2021-05-18 00:33] VITALS: PULSE 82; RESP 16; O2SAT 100
[2021-05-18 02:20] VITALS: PULSE 82; RESP 15; O2SAT 96
== END 2021-05-18 02:21 | disposition left against medical advice (07) ==
PROVIDERS: Emergency Provider Emergency Medicine; PCP Family Medicine
DX: K57.20 Diverticulitis of large intestine with perforation and abscess without bleeding (principal); I10 Essential (primary) hypertension; Z79.899 Other long term (current) drug therapy; F17.210 Nicotine dependence, cigarettes, uncomplicated
CPT/HCPCS: 74177; 80048; 81001; 85025; 96365; 96368; 99282; J7030; Q9967; A4216; J0744

== ENCOUNTER → 2021-05-27 18:44 | Outpatient (CLI) | payer BC, SELFPAY ==
[2021-05-23 13:45] VITALS: BMI 32.7
--- NOTE | 2021-05-27 18:59 | CT_ITS ---
HISTORY: Diverticulitis, antibiotic treatment EXAMINATION: CT Abdomen And Pelvis W/ Contrast Injection TECHNIQUE: Helically acquired images were obtained of the abdomen and pelvis following oral and IV contrast. A radiation dose optimization technique was used for this scan. IV Contrast dosage and agent: 100mL Isovue-370 Oral contrast: Yes COMPARISON: 05/17/21 FINDINGS: LOWER CHEST: Lung bases are clear. No cardiomegaly or pericardial effusion. LIVER: Homogeneous. No focal mass. GALLBLADDER AND BILIARY TREE: No calcified gallstones. No gallbladder distension or wall edema. No intra- or extrahepatic biliary ductal dilation. PANCREAS: No focal cystic or solid mass. SPLEEN: Normal size without focal cystic or solid mass. ADRENAL GLANDS: No nodules. KIDNEYS AND URETERS: Normal renal size and position. No hydronephrosis. PERITONEUM: No ascites or free air. BOWEL: Normal appendix. No stomach or bowel distension. Persistent thickening of the proximal sigmoid colonic wall with decreased pericolonic stranding. Enteric contrast is passed throughout the colon to the rectum without evidence of extravasation. LYMPH NODES: No enlarged mesenteric or retroperitoneal lymph nodes. VESSELS: Aorta is non-dilated. URINARY BLADDER: Nondistended. REPRODUCTIVE ORGANS: No pelvic masses. ABDOMINAL WALL: No discrete abdominal or pelvic wall hernia. BONES: No acute or aggressive abnormality. CT/Abdomen/Pelvis WITH Contrast IMPRESSION: Acute sigmoid diverticulitis with interval decrease in pericolonic inflammatory changes. No pelvic abscess or evidence of perforation. Individualized dose optimization techniques were used for this CT. at 1604 Reported and signed by: Shubham Christopher MD Electronically Signed: Shubham Christopher MD at 16:02 EDT Tel , Service support ,
== END ==
PROVIDERS: PCP Family Medicine; Visit Provider Surgery
DX: K57.20 Diverticulitis of large intestine with perforation and abscess without bleeding (principal)
CPT/HCPCS: 74177; Q9967; A4216

== ENCOUNTER 2022-01-21 08:14 | Emergency (ER) | payer BC, SELFPAY ==
[2022-01-21 08:15] VITALS: BP 199/104; PULSE 99; RESP 20; TEMP 36.6; O2SAT 98; BMI 35.6
[2022-01-21 08:17] VITALS: BP 199/104; PULSE 99; RESP 20; TEMP 36.6; O2SAT 98
--- NOTE | 2022-01-21 08:26 | ED.VIS.GI ---
HPI HPI - GI History of Present Illness Chief Complaint: Abd Pain Narrative Narrative: Patient with past medical history of hypertension, presents with abdominal pain that may have started yesterday. He states early this morning it was at its worst. He states he may have been coming down with the flu. He took a Covid test this morning that was negative. He states he had a small amount of a bowel movement today with bright red blood per rectum. He denies any chest pain or shortness of breath. No lightheadedness or dizziness. He was concerned about the abdominal pain that he was having and the bright red blood per rectum because he has a history of diverticulosis and had diverticulitis with microperforation and abscess development last year. He states he did not have any abdominal surgeries. No fevers or chills. No nausea or vomiting. He does not take blood thinners. No exacerbating or alleviating factors to his abdominal pain. He describes it as dull and achy. He denies any dysuria or hematuria. PFSH PFS Medical History Colonic diverticular abscess Hypertension Home Medications metoprolol succinate 100 mg PO DAILY 05/17/21 [History Last Taken Unknown] ciprofloxacin HCl 500 mg PO Q12H #20 tab 01/21/22 [Rx Last Taken Unknown] metronidazole 500 mg PO TID #30 tab 01/21/22 [Rx Last Taken Unknown] Allergy/AdvReac Type Severity Reaction Status Date / Time No Known Allergies Allergy Verified 01/21/22 08:17 Family History Brother Cancer leukemia Uncle Diabetes Cancer skin Mother Cancer skin Surgical History H/O colonoscopy H/O knee surgery Social History Smoking Status: Current every day smoker tobacco type: cigarettes alcohol intake: current alcohol intake frequency: a few times a month substance use type: marijuana ROS ROS ED ROS Narrative Constitutional: No fever, no chills. HEENT: No sore throat. No neck pain. No loss of vision. No rhinorrhea. Cardiovascular: No chest pain. No palpitations. No pedal edema. Respiratory: No cough, no shortness of breath. Abdominal: Diffuse abdominal pain. No nausea. No vomiting. Bright red blood per rectum with bowel movement this morning. Genitourinary: No dysuria. No hematuria. Musculoskeletal: No myalgias. No arthralgias. Neurologic: No headaches. No dizziness. No lightheadedness. Skin: No rash. No change in color. Psychiatric: No depression. No anxiety. EXAM Physical Exam Narrative Exam Narrative: Afebrile. Vital signs noted. HEENT: Normocephalic. Atraumatic. PERRL, EOMI. Neck soft and supple. No point tenderness or step off. Cardiovascular: Regular rate and rhythm. No murmurs, rubs, or gallops appreciated. Respiratory: No tachypnea. Lungs clear to auscultation bilaterally. Gastrointestinal: Abdomen soft, diffuse tenderness to palpation, slightly increased in the left lower quadrant, with normoactive bowel sounds. No rebound or guarding. Neurological: Awake. Alert. Nonfocal, nonlateralizing. Skin: No rash. Normal color. No pallor. Musculoskeletal: No pedal edema. Full range of motion extremities. Const Vital Signs: 01/21/22 08:15 01/21/22 08:17 01/21/22 08:32 Temperature 98 F 98 F Temperature Source Temporal Temporal Pulse Rate 99 99 Respiratory Rate 20 H 20 H Blood Pressure 199/104 H 199/104 H 179/116 H Blood Pressure Mean 135 135 137 Pulse Ox 98 98 Oxygen Delivery Method Room Air Room Air 01/21/22 08:46 01/21/22 09:03 Temperature Temperature Source Pulse Rate Respiratory Rate Blood Pressure 156/109 H 149/103 H Blood Pressure Mean 124 118 Pulse Ox Oxygen Delivery Method MDM MDM MDM Narrative Medical decision making narrative: Given his medical history of diverticulitis, comprehensive work-up was pursued including CBC, CMP, and CT of the abdomen and pelvis with IV contrast. He was administered IV fluids at a rate of 125 mL/h. He has elevated blood pressure of 199/104, so he is administered metoprolol 5 mg intravenously. However, RN reports that patient took his metoprolol 30 minutes prior to arrival. His blood pressure has come down to its own to the 140 systolic. CBC shows normal white count of 10.7, hemoglobin slightly hemoconcentrated at 17.6. Platelet count normal at 210. He is mildly hypokalemic at 3.1. This was replaced orally with 40 mill equivalents. BUN low at 4 with a creatinine of 1.0. CT of the abdomen and pelvis with IV contrast does show sigmoid diverticulitis but no evidence of abscess or perforation. At this point in time, I feel he can be discharged safely home with follow-up. I have deferred rectal examination, as the patient has not had any bloody bowel movements here in the emergency department. I will discuss the patient with Dr. Kimbrough, as the patient states he has been referred to and seen by Dr. Kimbrough in the past. She states that as the patient has not followed up and she did not perform surgery, that he can be referred to the surgeon on-call for follow-up. He was given prescriptions for ciprofloxacin and Flagyl for the next 10 days and told to follow-up with her in the next 2 to 5 days. Return instructions to the emergency department were reviewed. He was also given a note to be off work today and tomorrow. Disposition is discharged home in stable condition. Lab Data Attestation: I reviewed the patient's lab results. Labs: Laboratory Results - last 24 hr 01/21/22 01/21/22 08:50 08:50 WBC 10.7 RBC 4.92 Hgb 17.6 H Hct 48.7 MCV 99.0 H MCH 35.8 H MCHC 36.1 H RDW Std Deviation 43.2 RDW Coeff of Kristen 11.8 Plt Count 210 MPV 10.8 Immature Gran % (Auto) 0.300 Neut % (Auto) 76.7 H Lymph % (Auto) 13.3 L [place] % (Auto) 7.2 Eos % (Auto) 2.1 Baso % (Auto) 0.4 Absolute Neuts (auto) 8.2 H Absolute Lymphs (auto) 1.42 Nucleated RBC % 0 Sodium 138 Potassium 3.1 L Chloride 103 Carbon Dioxide 28.0 Anion Gap 7 BUN 4 L Creatinine 1.02 Estim Creat Clear Calc 121.85 Est GFR (MDRD) Af Amer 111 Est GFR (MDRD) Non-Af 92 BUN/Creatinine Ratio 3.9 L Glucose 161 H Calcium 9.3 Total Bilirubin 0.60 AST 107 H ALT 189 H Alkaline Phosphatase 85 Total Protein 7.4 Albumin 3.4 Globulin 4.0 Albumin/Globulin Ratio 0.8 L Radiography Diagnostic Testing: Clinical Impression(s) from Imaging Studies Abdomen/Pelvis CT 01/21/22 09:15 IMPRESSION: Suspect diverticulitis or infectious colitis of the sigmoid colon. No abscess or perforation. Electronically Signed: Bc Slater MD at 9:50 EDT , Discharge Plan Triage Chief Complaint: Abd Pain ED Provider: Shaq Viveros Dx/Rx/DC Orders Clinical Impression: Sigmoid diverticulitis, Rectal bleeding Instructions: ED Diverticulitis, ED Lower GI Bleeding (Stable) Prescriptions: New ciprofloxacin HCl 500 mg tablet 500 mg PO Q12H Qty: 20 RF: 0 metronidazole 500 mg tablet 500 mg PO TID Qty: 30 RF: 0 No Action metoprolol succinate 100 mg Tablet Extended Release 24 Hr 100 mg PO DAILY RF: 0 Stand Alone Forms: ED Work / School Excuse Primary Care Provider: Evie Cox Referrals: Evie Cox DO [Primary Care Provider] - Klaus Elder MD [STAFF PHYSICIAN] - 3-5 Days Disposition Disposition: Home, Self Care
[2022-01-21 08:32] VITALS: BP 179/116
--- NOTE | 2022-01-21 08:37 | SUR.HOLD ---
PT TOOK HOME DOSE OF [address] EVAN AWARE. WILL MONITOR AND RE-EVALATE PRIOR TO GIVING ER DOSE OF LOPRESSOR.
[2022-01-21 08:46] VITALS: BP 156/109
[2022-01-21] MEDS: 0.9% Normal Saline 1,000 ML 125 ML IV (08:50)
[2022-01-21 09:00] LABS: Absolute Lymphocyte Count 1.42 X10^3/uL (0.83-4.51); Absolute Neutrophil Count 8.2 X10^3/uL (2.0-7.7); Basophil# 0.04 X10^3/uL; Basophil% 0.4 % (0-1); Eosinophil# 0.22 X10^3/uL; Eosinophils% 2.1 % (0-5); Hematocrit 48.7 % (40-54); Hemoglobin 17.6 g/dL (13.0-16.5); Lymphocyte # 1.42 X10^3/ul (0.83-4.51); Lymphocyte % 13.3 % (19-41); Mean Corp Hgb Conc 36.1 g/dL (32-36); Mean Corpuscular Hgb 35.8 pg (27.0-32.0); Mean Platelet Vol. 10.8 fl (6.2-12.0); Monocyte# 0.77 X10^3/uL; Monocyte% 7.2 % (0-10); NRBC Flagged by Analyzer 0 % (0-5); Neutrophil # 8.19 X10^3/uL (2.7-7.7); Neutrophil % 76.7 % (47-70); Platelet Count 210 K/mm3 (150-450); RBC Distribution Width CV 11.8 % (11.6-14.6); RBC Distribution Width SD 43.2 fl (35.1-43.9); Red Blood Count 4.92 M/mm3 (4.6-6.2); White Blood Count 10.7 K/mm3 (4.4-11.0)
[2022-01-21 09:03] VITALS: BP 149/103
--- NOTE | 2022-01-21 09:04 | CCN.REFER ---
VERBAL ORDER BY PROVIDER TO HOLD LOPRESSOR AT THIS TIME
[2022-01-21 09:14] LABS: ALB/GLOB Ratio 0.8 RATIO (0.9-2.4); AST(SGOT) 107 U/L (15-37); Alanine Aminotransfer ALT/SGPT 189 U/L (16-61); Albumin, Serum 3.4 g/dL (3.2-5.0); Alkaline Phosphatase 85 U/L (45-117); Anion Gap 7 (5-15); BUN 4 mg/dL (7-18); BUN/Creat Ratio 3.9 RATIO (10-20); Calcium,Total 9.3 mg/dL (8.5-10.1); Chloride 103 mmol/L (98-107); Creatinine, Serum 1.02 mg/dL (0.70-1.30); EST Glomerular Filtration Rate 92 mL/min (>60); Est Glom Filt Rate - Afr Amer 111 mL/min (>60); Estimated Creatinine Clearance 121.85 ml/min; Glucose 161 mg/dL (74-106); Potassium 3.1 mmol/L (3.5-5.1); Protein, Total 7.4 g/dL (6.4-8.2); Sodium Level 138 mmol/L (136-145)
--- NOTE | 2022-01-21 09:15 | CT_ITS ---
STUDY: CT ABDOMEN AND PELVIS WITH CONTRAST REASON FOR EXAM: Male, 26 years old. Pain, Bleeding RADIATION DOSAGE (If Supplied By Facility): CTDIvol = ( 19.76 ) mGy, DLP = ( 1318.36 ) mGycm TECHNIQUE: Transaxial images were obtained from the dome of the diaphragm to the symphysis pubis without oral contrast. IV 100mL Isovue-300 was administered. Sagittal and coronal images were reconstructed. Individualized dose optimization techniques were used for this CT. COMPARISON: 05/27/2021 FINDINGS: The visualized lung bases are unremarkable. The visualized portions of the heart are within normal limits. Normal liver. Normal gallbladder and extrahepatic biliary system. Normal spleen. Normal pancreas. Normal bilateral adrenal glands. Normal right kidney. Normal left kidney. Normal visualized stomach. Normal small intestine. Wall thickening of the sigmoid colon with subtle stranding of the surrounding fat seen on image 94 suggestive of colitis. Differential diagnosis includes diverticulitis or focal infectious colitis. No loculated fluid collection to suggest abscess. No pneumoperitoneum to suggest perforation. The appendix is visualized and appears normal. Normal abdominal aorta. Normal inferior vena cava. Normal retroperitoneum. Normal urinary bladder. Normal abdominal wall. Normal osseous structures. CT/Abdomen/Pelvis W IV Cont ONLY IMPRESSION: Suspect diverticulitis or infectious colitis of the sigmoid colon. No abscess or perforation. Electronically Signed: Bc Slater MD at 9:50 EDT ,
[2022-01-21] MEDS: Potassium Chloride Oral Tablet 20 MEQ 40 MEQ PO (10:18)
[2022-01-21] MEDS: Ciprofloxacin 500 MG Tablet PO (10:18)
[2022-01-21] MEDS: metroNIDAZOLE 500 MG Tablet PO (10:18)
[2022-01-21 10:40] VITALS: BP 158/107; PULSE 68; RESP 15; O2SAT 97
== END 2022-01-21 10:46 | disposition home or self-care (01) ==
PROVIDERS: Emergency Provider Emergency Medicine; PCP Family Medicine; Visit Provider Emergency Medicine
DX: K57.31 Diverticulosis of large intestine without perforation or abscess with bleeding (principal); E87.6 Hypokalemia; I10 Essential (primary) hypertension; F17.210 Nicotine dependence, cigarettes, uncomplicated; Z79.899 Other long term (current) drug therapy; Z87.19 Personal history of other diseases of the digestive system
CPT/HCPCS: 74177; 80053; 85025; 96361; 96374; 99283; J7030; Q9967; A4216

== ENCOUNTER 2022-05-15 15:19 | Emergency (ER) | payer BC, SELFPAY ==
[2022-05-15 15:20] VITALS: BP 167/110; PULSE 96; RESP 15; TEMP 36.6; O2SAT 97; BMI 33.3
--- NOTE | 2022-05-15 15:57 | US_ITS ---
STUDY: ABDOMINAL ULTRASOUND - RIGHT UPPER QUADRANT REASON FOR VISIT: Male, 27 years old PAIN-ruq TECHNIQUE: Ultrasound evaluation of the right upper quadrant was performed with real-time and static hull-scale imaging. TECHNICAL QUALITY: Adequate. COMPARISON: None. FINDINGS: Liver: The liver measures 22.9 cm. There is increased echogenicity consistent with fatty infiltration. The bile ducts are within normal limits. There is hepatic color flow. The direction of portal flow is hepatopetal. There is no demonstrated mass lesion. Gallbladder: Normal distended gallbladder. The gallbladder wall measures 2 mm. There is a negative sonographic Dominique''s sign. There is no pericholecystic fluid. There are no gallstones. Common Bile Duct (C.B.D.): The common bile duct measures 5 mm. Pancreas: Normal size of the head, body and tail of the pancreas. There is normal echogenicity of the pancreas. There is no demonstrated pancreatic mass or cyst. Right Kidney: Normal size of the right kidney. The right kidney measures 15.7 cm. Normal renal cortex. The right cortex measures 1.2 cm. There is no demonstrated renal mass or cyst. There is no right hydronephrosis. US/Gallbladder IMPRESSION: Fatty infiltration of the liver. Electronically Signed: Bc Slater MD at 17:12 EDT ,
--- NOTE | 2022-05-15 15:59 | EX.ED.DYSGE1 ---
HPI <MADAY Santacruz - Last Filed: 05/15/22 17:48> History of Present Illness Chief Complaint: Abd Pain Narrative Narrative: 27-year-old male presents with upper abdominal pain. Yesterday he ate a [employer] sandwich and then developed the upper abdominal pain that was cramping but gradually resolved throughout the day. Today he felt fine when he woke up but after having a bowel movement around noon the upper abdominal pain returned. He states he only drank water today and did not eat food. No fever, chills, nausea, vomiting, blood in stool or urinary symptoms. Does have history of diverticulitis but states this feels different. No abdominal surgical history. Smokes 1 PPD, drinks 4 beers approximately 3 days/week. PFSH <MADAY Santacruz - Last Filed: 05/15/22 17:48> PFSH Medical History Colonic diverticular abscess Hypertension Home Medications metoprolol succinate 100 mg tablet,extended release 24 hr 100 mg PO DAILY 05/17/21 [History Last Taken Unknown] Allergy/AdvReac Type Severity Reaction Status Date / Time No Known Allergies Allergy Verified 05/15/22 15:21 Family History Brother Cancer leukemia Uncle Diabetes Cancer skin Mother Cancer skin Surgical History H/O colonoscopy H/O knee surgery Social History Smoking Status: Current every day smoker tobacco type: cigarettes alcohol intake: current alcohol intake frequency: a few times a month substance use type: marijuana ROS <MADAY Santacruz - Last Filed: 05/15/22 17:48> ROS ED ROS Narrative Constitutional: Negative for fever, chills, malaise. Eyes: Negative for visual change. ENT: Negative for sore throat, rhinorrhea. CVS: Negative for palpitations, chest pain, syncope. Respiratory: Negative for shortness of breath, cough, orthopnea. GI: Positive for abdominal pain. Negative for nausea, vomiting, diarrhea, constipation, melena, hematochezia. : Negative for dysuria, hematuria or frequency. Neuro: Negative for headache, motor/sensory dysfunction. Skin: Negative for rash, abscess, or wound. Musc: Negative for joint pain, swelling, trauma. Heme: Negative for easy bruising, bleeding, lymphadenopathy. EXAM <MADAY Santacruz - Last Filed: 05/15/22 17:48> Physical Exam Narrative Exam Narrative: CONST: Patient sitting in no acute distress. EYES: Normal inspection. NECK: Normal inspection. RESP: No respiratory distress, CTAB. CVS: Regular rate and rhythm, no murmur, no gallop. ABD: Soft with tenderness in RUQ but no guarding or rebound, negative Dominique sign, nondistended, no hepatosplenomegaly. Back: Normal inspection, no CVA tenderness. EXTREMITIES: Normal appearance, no pedal edema. NEURO: Oriented x4. PSYCH: Normal affect. Const Vital Signs: 05/15/22 15:20 05/15/22 17:51 Temperature 97.8 F Temperature Source Temporal Pulse Rate 96 72 Respiratory Rate 15 16 Blood Pressure 167/110 H 134/86 H Blood Pressure Mean 129 102 Pulse Ox 97 98 Oxygen Delivery Method Room Air Room Air <Dr. Tuan Frances MD - Last Filed: 05/16/22 01:18> Physical Exam Const Vital Signs: 05/15/22 15:20 05/15/22 17:51 Temperature 97.8 F Temperature Source Temporal Pulse Rate 96 72 Respiratory Rate 15 16 Blood Pressure 167/110 H 134/86 H Blood Pressure Mean 129 102 Pulse Ox 97 98 Oxygen Delivery Method Room Air Room Air MDM <MADAY Santacruz - Last Filed: 05/15/22 17:48> [facility] Narrative Medical decision making narrative: Patient presents with upper abdominal pain. He appears well and nontoxic. BP 167/110, otherwise normal vital signs. Hypertension is chronic. Heart is regular and lungs are clear. He has RUQ tenderness but no guarding or rebound and negative Dominique sign. Labs show normal white count, hemoglobin 18.6, elevated MCV. He has hypokalemia 3.1, normal renal function. He does have slight elevation of liver enzymes ALT greater than AST but this is slightly lower than previous. Total bili 2.1, lipase 28. RUQ ultrasound is only remarkable for fatty liver with no gallbladder abnormalities are present. Patient feels improved after IV analgesia and antiemetics and was given oral potassium replacement and is tolerating po intake. At this time he is stable to go home with follow-up with his primary care doctor for right upper quadrant abdominal pain of unknown etiology. We discussed fatty liver and that he will need LFT monitoring. He was discharged in stable condition. Diagnoses 1. Right upper quadrant abdominal pain 2. Transaminitis 3. Fatty liver 4. Hypokalemia Lab Data Attestation: I reviewed the patient's lab results. Labs: Laboratory Results - last 24 hr 05/15/22 05/15/22 16:10 16:10 WBC 11.0 RBC 5.03 Hgb 18.6 H* Hct 50.6 MCV 100.6 H MCH 37.0 H MCHC 36.8 H RDW Std Deviation 44.5 H RDW Coeff of Kristen 11.9 Plt Count 226 MPV 10.4 Immature Gran % (Auto) 0.500 Neut % (Auto) 76.6 H Lymph % (Auto) 15.3 L Power % (Auto) 6.8 Eos % (Auto) 0.5 Baso % (Auto) 0.3 Absolute Neuts (auto) 8.4 H Absolute Lymphs (auto) 1.68 Nucleated RBC % 0 [address] Review May foll Sodium 133 L Potassium 3.1 L Chloride 90 L Carbon Dioxide 36.0 H Anion Gap 7 BUN 14 Creatinine 1.27 Estim Creat Clear Calc 99.78 Est GFR (MDRD) Af Amer 86 Est GFR (MDRD) Non-Af 71 BUN/Creatinine Ratio 11.0 Glucose 132 H Calcium 9.3 Total Bilirubin 2.00 H AST 90 H ALT 125 H Alkaline Phosphatase 73 Total Protein 7.5 Albumin 3.5 Globulin 4.0 Albumin/Globulin Ratio 0.9 Lipase 28 L Radiography Diagnostic Testing: Clinical Impression(s) from Imaging Studies Gallbladder Ultrasound 05/15/22 15:57 IMPRESSION: Fatty infiltration of the liver. Electronically Signed: Bc Slater MD at 17:12 EDT , <Dr. Tuan Frances MD - Last Filed: 05/16/22 01:18> MDM MDM Narrative Medical decision making narrative: Patient presents with upper abdominal pain. He appears well and nontoxic. BP 167/110, otherwise normal vital signs. Hypertension is chronic. Heart is regular and lungs are clear. He has RUQ tenderness but no guarding or rebound and negative Dominique sign. Labs show normal white count, hemoglobin 18.6, elevated MCV. He has hypokalemia 3.1, normal renal function. He does have slight elevation of liver enzymes ALT greater than AST but this is slightly lower than previous. Total bili 2.1, lipase 28. RUQ ultrasound is only remarkable for fatty liver with no gallbladder abnormalities are present. Patient feels improved after IV analgesia and antiemetics and was given oral potassium replacement and is tolerating po intake. At this time he is stable to go home with follow-up with his primary care doctor for right upper quadrant abdominal pain of unknown etiology. We discussed fatty liver and that he will need LFT monitoring. He was discharged in stable condition. Diagnoses 1. Right upper quadrant abdominal pain 2. Transaminitis 3. Fatty liver 4. Hypokalemia I have personally performed a face to face assessment of the patient and have reviewed the RADHA Note. I performed a substantive portion of the visit including all aspects of the following. My kaye findings include: History is remarkable for right upper quadrant pain. This occurred after having eaten [employer]. He is uncertain whether his family history of cholelithiasis. He denies history of gallbladder problems. He has had intermittent problems eating greasy or fried foods. He denies history of peptic ulcer disease or reflux. He denies black or maroon-colored stool. He denies respiratory or cardiac symptoms. Exam is the exam is remarkable for right upper quadrant pain with a clinical Dominique sign. Medical Decision Making differential diagnosis is abdominal pain unknown etiology, biliary disease. Liver disease. Peptic ulcer disease. Other additions or changes: Patient's work-up would indicate that his right upper quadrant is due to fatty liver. He was discharged home with appropriate home-going instructions Lab Data Labs: Laboratory Results - last 24 hr 05/15/22 05/15/22 16:10 16:10 WBC 11.0 RBC 5.03 Hgb 18.6 H* Hct 50.6 MCV 100.6 H MCH 37.0 H MCHC 36.8 H RDW Std Deviation 44.5 H RDW Coeff of Kristen 11.9 Plt Count 226 MPV 10.4 Immature Gran % (Auto) 0.500 Neut % (Auto) 76.6 H Lymph % (Auto) 15.3 L Power % (Auto) 6.8 Eos % (Auto) 0.5 Baso % (Auto) 0.3 Absolute Neuts (auto) 8.4 H Absolute Lymphs (auto) 1.68 Nucleated RBC % 0 [address] Review May foll Sodium 133 L Potassium 3.1 L Chloride 90 L Carbon Dioxide 36.0 H Anion Gap 7 BUN 14 Creatinine 1.27 Estim Creat Clear Calc 99.78 Est GFR (MDRD) Af Amer 86 Est GFR (MDRD) Non-Af 71 BUN/Creatinine Ratio 11.0 Glucose 132 H Calcium 9.3 Total Bilirubin 2.00 H AST 90 H ALT 125 H Alkaline Phosphatase 73 Total Protein 7.5 Albumin 3.5 Globulin 4.0 Albumin/Globulin Ratio 0.9 Lipase 28 L Radiography Diagnostic Testing: Clinical Impression(s) from Imaging Studies Gallbladder Ultrasound 05/15/22 15:57 IMPRESSION: Fatty infiltration of the liver. Electronically Signed: Bc Slater MD at 17:12 EDT , Discharge Plan Triage Chief Complaint: Abd Pain ED Midlevel Provider: Savanna Phillips ED Provider: Tuan Frances Dx/Rx/DC Orders Clinical Impression: Right upper quadrant abdominal pain, Fatty liver disease, nonalcoholic Instructions: Abdominal Pain, Nonalcoholic Fatty Liver ... Prescriptions: No Action metoprolol succinate 100 mg Tablet Extended Release 24 Hr 100 mg PO DAILY Primary Care Provider: Evie Cox Referrals: Evie Cox DO [Primary Care Provider] - Activity Restrictions/Additional Instructions: Today the ultrasound of your gallbladder looked normal. It did show that you have a fatty liver and liver enzymes on the blood work high. You need to follow-up with your doctor to monitor this issue. I also recommend decreasing alcohol use. Today there are no signs of infections and we feel you are safe to go home. If any symptoms worsen come back to the ER. Disposition Disposition: Home, Self Care Discharge Date/Time: 05/15/22 18:00
[2022-05-15 16:16] LABS: Absolute Lymphocyte Count 1.68 X10^3/uL (0.83-4.51); Absolute Neutrophil Count 8.4 X10^3/uL (2.0-7.7); Basophil# 0.03 X10^3/uL; Basophil% 0.3 % (0-1); Eosinophil# 0.06 X10^3/uL; Eosinophils% 0.5 % (0-5); Hematocrit 50.6 % (40-54); Hemoglobin 18.6 g/dL (13.0-16.5); Lymphocyte # 1.68 X10^3/ul (0.83-4.51); Lymphocyte % 15.3 % (19-41); Mean Corp Hgb Conc 36.8 g/dL (32-36); Mean Corpuscular Volume 100.6 fL (80-94); Mean Platelet Vol. 10.4 fl (6.2-12.0); Monocyte# 0.75 X10^3/uL; Monocyte% 6.8 % (0-10); NRBC Flagged by Analyzer 0 % (0-5); Neutrophil # 8.42 X10^3/uL (2.7-7.7); Neutrophil % 76.6 % (47-70); Platelet Count 226 K/mm3 (150-450); RBC Distribution Width CV 11.9 % (11.6-14.6); RBC Distribution Width SD 44.5 fl (35.1-43.9); Red Blood Count 5.03 M/mm3 (4.6-6.2)
[2022-05-15 16:33] LABS: ALB/GLOB Ratio 0.9 RATIO (0.9-2.4); AST(SGOT) 90 U/L (15-37); Alanine Aminotransfer ALT/SGPT 125 U/L (16-61); Albumin, Serum 3.5 g/dL (3.2-5.0); Alkaline Phosphatase 73 U/L (45-117); Anion Gap 7 (5-15); BUN 14 mg/dL (7-18); Calcium,Total 9.3 mg/dL (8.5-10.1); Chloride 90 mmol/L (98-107); Creatinine, Serum 1.27 mg/dL (0.70-1.30); EST Glomerular Filtration Rate 71 mL/min (>60); Est Glom Filt Rate - Afr Amer 86 mL/min (>60); Estimated Creatinine Clearance 99.78 ml/min; Glucose 132 mg/dL (74-106); Lipase 28 U/L (73-393); Potassium 3.1 mmol/L (3.5-5.1); Protein, Total 7.5 g/dL (6.4-8.2); Sodium Level 133 mmol/L (136-145)
[2022-05-15] MEDS: 0.9% Normal Saline 1,000 ML 999 ML IV (16:57)
[2022-05-15] MEDS: Morphine 4 MG/ML Syringe IV (16:57)
[2022-05-15] MEDS: Ondansetron 4 MG/2 ML Vial IV (16:57)
[2022-05-15] MEDS: Potassium Chloride Oral Tablet 20 MEQ 40 MEQ PO (17:48)
[2022-05-15 17:51] VITALS: BP 134/86; PULSE 72; RESP 16; O2SAT 98
[2022-05-19 09:58] LABS: Pathologist Review Reviewed
== END 2022-05-15 18:00 | disposition home or self-care (01) ==
PROVIDERS: Physician Assistant; Emergency Provider Emergency Medicine; PCP Family Medicine; Visit Provider Emergency Medicine
DX: R10.11 Right upper quadrant pain (principal); R74.01 Elevation of levels of liver transaminase levels; K76.0 Fatty (change of) liver, not elsewhere classified; E87.6 Hypokalemia; I10 Essential (primary) hypertension; F17.210 Nicotine dependence, cigarettes, uncomplicated; Z79.899 Other long term (current) drug therapy
CPT/HCPCS: 76705; 80053; 83690; 85025; 96361; 96374; 96375; 99283; J7030; A4216; J2405

== ENCOUNTER 2023-05-12 21:24 | Emergency (ER) | payer OTHER, SELFPAY ==
[2023-05-12 21:25] VITALS: BP 129/75; PULSE 95; RESP 16; TEMP 36.4; O2SAT 97; BMI 31.4
--- NOTE | 2023-05-12 22:29 | CT_ITS ---
STUDY: CT ABDOMEN AND PELVIS WITH CONTRAST REASON FOR EXAM: Male, 28 years old. Abdominal pain RADIATION DOSAGE (If Supplied By Facility): CTDIvol = ( 20.11 ) mGy, DLP = ( 1464.42 ) mGycm TECHNIQUE: Spiral CT imaging of the abdomen and pelvis was performed with intravenous contrast material (100mL Isovue-370 / ), followed by coronal and sagittal reformatting. Individualized dose optimization techniques were used for this CT. COMPARISON: No relevant priors. FINDINGS: LOWER CHEST: Bibasilar atelectasis versus scar formation. 8 mm nodule abutting the right minor fissure. Normal heart. Normal pericardium. LIVER: Normal GALLBLADDER AND BILIARY TREE: Normal gallbladder. Normal biliary ductal system. SPLEEN: Normal PANCREAS: Normal ADRENAL GLANDS: Normal KIDNEYS AND URETERS: Normal kidneys. Normal ureters. BOWEL: Normal stomach. Dilated air and fluid-filled loops of small bowel seen within the left mid abdomen with transition point in the left mid mesentery. There is long segment mucosal wall thickening of the ascending and proximal transverse colon as well as throughout the sigmoid colon. There is moderate diffuse pericolonic laboratory stranding. PERITONEUM: There is a small amount of perihepatic, perisplenic, bilateral paracolic gutter and pelvic free fluid. There is no free intraperitoneal air... LYMPH NODES: Shotty retroperitoneal lymph nodes. No mesenteric adenopathy.. VESSELS: Normal URINARY BLADDER: Normal REPRODUCTIVE ORGANS: Normal ABDOMINAL WALL: Normal BONES: Normal CT/Abdomen/Pelvis W IV Cont ONLY IMPRESSION: 1. Findings concerning for multisegmental colitis likely infectious or inflammatory etiology. 2. Small bowel obstruction with apparent transition point seen in the left mid abdomen. 3. Perihepatic, perisplenic, bilateral paracolic gutter and pelvic free fluid. 4. Shotty retroperitoneal lymph nodes. Electronically Signed: Luis Vaughn MD at 0:22 EDT ,
[2023-05-12] MEDS: 0.9% Normal Saline 1,000 ML 999 ML IV (23:12)
[2023-05-12] MEDS: Ketorolac 30 MG/ML Syringe IV (23:12)
[2023-05-12 23:14] LABS: Absolute Lymphocyte Count 0.88 X10^3/uL (0.83-4.51); Absolute Neutrophil Count 11.5 X10^3/uL (2.0-7.7); Basophil# 0.02 X10^3/uL; Basophil% 0.2 % (0-1); Eosinophil# 0.01 X10^3/uL; Eosinophils% 0.1 % (0-5); Hematocrit 35.8 % (40-54); Hemoglobin 13.2 g/dL (13.0-16.5); Lymphocyte # 0.88 X10^3/ul (0.83-4.51); Mean Corp Hgb Conc 36.9 g/dL (32-36); Mean Corpuscular Hgb 40.2 pg (27.0-32.0); Mean Corpuscular Volume 109.1 fL (80-94); Mean Platelet Vol. 10.7 fl (6.2-12.0); Monocyte# 0.19 X10^3/uL; Monocyte% 1.5 % (0-10); NRBC Flagged by Analyzer 0 % (0-5); Neutrophil # 11.49 X10^3/uL (2.7-7.7); Neutrophil % 90.6 % (47-70); Platelet Count 340 K/mm3 (150-450); RBC Distribution Width CV 13.9 % (11.6-14.6); RBC Distribution Width SD 56.6 fl (35.1-43.9); Red Blood Count 3.28 M/mm3 (4.6-6.2); White Blood Count 12.7 K/mm3 (4.4-11.0)
[2023-05-12 23:15] VITALS: BP 118/76; PULSE 64; RESP 18; TEMP 37.3; O2SAT 95
[2023-05-12 23:26] LABS: Lactic Acid 1.8 mmol/L (0.4-1.9)
[2023-05-12 23:37] LABS: AST(SGOT) 13 U/L (15-37); Alanine Aminotransfer ALT/SGPT 16 U/L (16-61); Albumin, Serum 2.1 g/dL (3.2-5.0); Alkaline Phosphatase 50 U/L (45-117); Anion Gap 11 (5-15); BUN 11 mg/dL (7-18); BUN/Creat Ratio 15.2 RATIO (10-20); Bilirubin, Direct 0.71 mg/dL (0.00-0.30); Chloride 80 mmol/L (98-107); Creatinine, Serum 0.73 mg/dL (0.70-1.30); EST Glomerular Filtration Rate 135 mL/min (>60); Est Glom Filt Rate - Afr Amer 163 mL/min (>60); Estimated Creatinine Clearance 172.03 ml/min; Glucose 132 mg/dL (74-106); Lipase < 10 U/L (13-75); Potassium 1.7 mmol/L (3.5-5.1); Protein, Total 7.1 g/dL (6.4-8.2); Sodium Level 129 mmol/L (136-145)
--- NOTE | 2023-05-12 23:37 | EKG12_ITS ---
Test Reason : DYSRHYTHMIA Blood Pressure : / mmHG Vent. Rate : 076 BPM Atrial Rate : 076 BPM P-R Int : 234 ms QRS Dur : 090 ms QT Int : 458 ms P-R-T Axes : 045 076 -79 degrees QTc Int : 515 ms Sinus rhythm with 1st degree A-V block ST & T wave abnormality, consider inferior ischemia ST & T wave abnormality, consider anterolateral ischemia Prolonged QT Abnormal ECG Confirmed by ERIC HI, ALFONSO ([id number]), purchasing expeditor AZIZA SMITH ([id number]) on 05/13/2023 11:06:46 AM Referred By: THOMPSON Confirmed By:ALFONSO REYES MD
[2023-05-13 00:04] VITALS: BP 131/74; PULSE 94; RESP 18; TEMP 37.1; O2SAT 97
[2023-05-13 00:15] LABS: Magnesium 1.5 mg/dL (1.6-2.6); Potassium 1.8 mmol/L (3.5-5.1)
[2023-05-13] MEDS: Potassium Chloride Oral Tablet 20 MEQ 40 MEQ PO (00:30)
[2023-05-13] MEDS: Potassium Chloride 10mEq/100mL 10 MEQ/100 ML IV.SOLN. 100 MEQ IV BOLUS ×4 (00:56→06:45)
[2023-05-13] MEDS: Magnesium Chloride 64 MG Delay Rel.Tablet 128 MG PO (01:00)
[2023-05-13 01:03] VITALS: BP 108/63; PULSE 76; RESP 14; TEMP 36.7; O2SAT 95
--- NOTE | 2023-05-13 01:47 | EX.ED.DYSGE1 ---
HPI History of Present Illness Chief Complaint: Abd Pain Informant: patient Narrative Narrative: Patient is a 28-year-old male with past medical history of hypertension. He was seen roughly 1 year ago secondary to abdominal pain and found to have diverticulitis with abscess but was placed on antibiotics and did well. He states there is no need for surgical treatment. He reports over the past 2 to 3 days she has had generalized abdominal discomfort with bouts of loose stool/diarrhea. He denies any travel outside the country or recent antibiotic use. He denies any history of autoimmune intestinal disease such as ulcerative colitis or Crohn's disease but states his younger brother was recently diagnosed with Crohn's. He states that over the past 2 to 3 days the pain is slowly increased and the diarrhea has been persistent and with concern he may have diverticulitis once again comes in for evaluation. [facility] Medical History Colonic diverticular abscess Hypertension Home Medications metoprolol succinate 100 mg tablet,extended release 24 hr 100 mg PO DAILY 05/17/21 [History Last Taken 05/13/23] escitalopram oxalate 10 mg tablet 10 mg 05/13/23 [History Last Taken 05/13/23] hydrochlorothiazide 25 mg tablet mg 05/13/23 [History Last Taken 05/13/23] Allergy/AdvReac Type Severity Reaction Status Date / Time No Known Allergies Allergy Verified 05/12/23 21:25 Family History Brother Cancer leukemia Uncle Diabetes Cancer skin Mother Cancer skin Surgical History H/O colonoscopy H/O knee surgery Social History Smoking Status: Current every day smoker tobacco type: cigarettes alcohol intake: current alcohol intake frequency: a few times a month substance use type: marijuana ROS ROS ED Constitutional Constitutional ED: Denies chills or fever(s) ENT ENT ED: Denies sore throat Cardiovascular Cardiovascular: Denies chest pain Respiratory/Chest Respiratory/Chest: Denies cough or dyspnea Gastrointestinal Gastrointestinal: Reports abdominal pain and diarrhea; Denies nausea or vomiting Genitourinary Genitourinary ED: Denies dysuria Musculoskeletal Musculoskeletal: Denies arthralgias or myalgias Integumentary Denies rash Neurologic Neurologic: Denies headache(s), paresthesias or weakness Hematologic/Lymphatic Hematologic/Lymphatic: Denies easy bleeding or easy bruising EXAM Physical Exam Const Vital Signs: 05/12/23 21:25 05/12/23 23:15 05/13/23 00:04 Temperature 97.5 F L 99.2 F H 98.7 F Temperature Source Temporal Oral Oral Pulse Rate 95 64 94 Respiratory Rate 16 18 18 Blood Pressure 129/75 H 118/76 131/74 H Blood Pressure Mean 93 90 93 Pulse Ox 97 95 97 Oxygen Delivery Method Room Air Room Air 05/13/23 01:03 Temperature 98.0 F Temperature Source Oral Pulse Rate 76 Respiratory Rate 14 Blood Pressure 108/63 Blood Pressure Mean 78 Pulse Ox 95 Oxygen Delivery Method Room Air Positive well nourished and well developed General Appearance ED: well developed HEENT HEENT Narrative: Mucous membranes are slightly dry and tacky No oral lesions no airway edema or compromise Eyes PERRL and EOMs intact bilaterally General Eye ED: Negative for scleral icterus Neck supple Resp normal respiratory effort and clear to auscultation bilaterally Cardio regular rate and regular rhythm Rate: other Other Details: Radial pulses are plus 2 out of 4 bilaterally are equal and symmetric GI GI Narrative: Abdomen is soft with slight distention and hyperactive bowel sounds. There is mild diffuse pain on palpation without voluntary guarding or rigidity. No pulsatile mass or fluid wave. No increased tympany noted Palpation: soft Back/Spine no CVA tenderness Extremity normal to inspection Neuro oriented x3, CN's II-XII intact bilaterally and no sensory deficits noted Sensorium / Orientation: alert Motor Exam: strength 5/5 throughout Psych mental status grossly normal Skin no rashes or lesions noted and skin turgor normal General Skin Exam: Negative for jaundice MDM MDM MDM Narrative Medical decision making narrative: Patient presented to the ER afebrile he reported a history of diarrhea associated with generalized abdominal discomfort. This is most likely related to colitis but his differential diagnosis also includes diverticulitis with abscess formation potential small bowel obstruction or partial small bowel obstruction and electrolyte derangement secondary to the diarrhea I did like to perform basic laboratory studies with CT scan. Labs showed slight elevation of the white count at 12.7 but normal lactic acid value. Patient's potassium is low at 1.7 and this was repeated to make sure is not lab error and it was 1.8. Magnesium just slightly down at 1.5. Secondary to these abnormal values patient will need admitted to the hospital. General surgery reviewed the CAT scan which showed diffuse inflammation consistent with colitis but also areas of air-fluid level concerning for small bowel obstruction. With the patient's hypokalemia and severe intestinal inflammation and no history of autoimmune disease General surgery recommends transfer to a higher level of care. The case was discussed with the patient he wishes to go to [facility] and therefore they were contacted. The case was discussed with the internal medicine physician who agrees to accept the patient at this time. Patient received IV hydration and was also given oral and IV potassium and magnesium replacement. At this time I feel that the patient has symptoms secondary to an inflammatory cause and will hold on antibiotics at this time. Also as the patient is not vomiting and only has mild distention we will hold on NG tube placement. History & Record Review Discussion w/independent historian: Patient Lab Data Attestation: I reviewed the patient's lab results. Labs: Laboratory Results - last 24 hr 05/12/23 05/12/23 21:50 23:50 WBC 12.7 H RBC 3.28 L Hgb 13.2 Hct 35.8 L MCV 109.1 H MCH 40.2 H MCHC 36.9 H RDW Std Deviation 56.6 H RDW Coeff of Kristen 13.9 Plt Count 340 MPV 10.7 Immature Gran % (Auto) 0.600 Neut % (Auto) 90.6 H Lymph % (Auto) 7.0 L Bleckley % (Auto) 1.5 Eos % (Auto) 0.1 Baso % (Auto) 0.2 Absolute Neuts (auto) 11.5 H Absolute Lymphs (auto) 0.88 Nucleated RBC % 0 Sodium 129 L Potassium 1.7 L* 1.8 L* Chloride 80 L Carbon Dioxide 38.0 H Anion Gap 11 BUN 11 Creatinine 0.73 Estim Creat Clear Calc 172.03 Est GFR (MDRD) Af Amer 163 Est GFR (MDRD) Non-Af 135 BUN/Creatinine Ratio 15.2 Glucose 132 H Lactic Acid 1.8 Calcium 9.0 Magnesium 1.5 L Total Bilirubin 1.40 H Direct Bilirubin 0.71 H AST 13 L ALT 16 Alkaline Phosphatase 50 Total Protein 7.1 Albumin 2.1 L Globulin 5.0 H Lipase < 10 L Radiography Diagnostic Testing: Clinical Impression(s) from Imaging Studies Abdomen/Pelvis CT 05/12/23 22:29 IMPRESSION: 1. Findings concerning for multisegmental colitis likely infectious or inflammatory etiology. 2. Small bowel obstruction with apparent transition point seen in the left mid abdomen. 3. Perihepatic, perisplenic, bilateral paracolic gutter and pelvic free fluid. 4. Shotty retroperitoneal lymph nodes. Electronically Signed: Luis Vaughn MD at 0:22 EDT , Management Discussion w/another healthcare provider: Hospitalist and Client Support Manager Discharge Plan Triage Chief Complaint: Abd Pain ED Provider: Martell Mi Dx/Rx/DC Orders Clinical Impression: Colitis, Hyponatremia, Mild dehydration, Small bowel obstruction, Acute hypokalemia Prescriptions: No Action metoprolol succinate 100 mg Tablet Extended Release 24 Hr 100 mg PO DAILY hydrochlorothiazide 25 mg tablet Patient Comments: TAKE 1 TABLET BY MOUTH ONCE DAILY escitalopram oxalate 10 mg tablet 10 mg Patient Comments: take 1 tablet by mouth once daily Primary Care Provider: Evie Cox Referrals: Evie Cox DO [Primary Care Provider] - Disposition Disposition: Acute Care Hospital Discharge Location: [facility]
[2023-05-13 02:52] VITALS: BP 116/66; PULSE 75; RESP 17; O2SAT 95
[2023-05-13 03:00] VITALS: BP 126/74; PULSE 78; RESP 14; TEMP 37; O2SAT 92
[2023-05-13 04:00] VITALS: BP 123/63; PULSE 74; RESP 24; TEMP 37; O2SAT 91
[2023-05-13] MEDS: Morphine 4 MG/ML Syringe IV (04:53)
[2023-05-13] MEDS: Ondansetron 4 MG/2 ML Vial IV (04:53)
[2023-05-13 06:04] VITALS: BP 117/68; PULSE 73; RESP 24; O2SAT 95
== END 2023-05-13 07:43 | disposition short-term general hospital (02) ==
PROVIDERS: Emergency Provider Emergency Medicine; PCP Family Medicine; Visit Provider Emergency Medicine
DX: K56.609 Unspecified intestinal obstruction, unspecified as to partial versus complete obstruction (principal); K52.9 Noninfective gastroenteritis and colitis, unspecified; E83.42 Hypomagnesemia; E87.6 Hypokalemia; E87.1 Hypo-osmolality and hyponatremia; E86.0 Dehydration; I10 Essential (primary) hypertension; R10.84 Generalized abdominal pain; Z79.899 Other long term (current) drug therapy; F17.210 Nicotine dependence, cigarettes, uncomplicated
CPT/HCPCS: 74177; 80048; 80076; 83605; 83690; 83735; 84132; 85025; 93005; 96361; 96365; 96366; 96367; 96375; 99285; J7030; J7050; Q9967; A4216; J2405

== ENCOUNTER → 2023-06-03 | Outpatient (CLI) | payer OTHER, SELFPAY ==
--- NOTE | 2023-06-03 13:27 | CT_ITS ---
STUDY: CT ABDOMEN AND PELVIS WITH CONTRAST REASON FOR EXAM: Male, 28 years old. Colitis, abdominal pain, diarrhea RADIATION DOSAGE (If Supplied By Facility): CTDIvol = ( 16.42 ) mGy, DLP = ( 1305.30 ) mGycm TECHNIQUE: Transaxial images were obtained from the dome of the diaphragm to the symphysis pubis without oral contrast. Oral and amp; IV Readi-CAT and amp; 100mL Isovue-300 was administered. Sagittal and coronal images were reconstructed. Individualized dose optimization techniques were used for this CT. COMPARISON: Comparison is made with prior study May 12, 2023. FINDINGS: Tiny bilateral pleural effusions slightly more prominent on the left side with bibasilar atelectasis slightly worse on the left side. The visualized portions of the heart are within normal limits. Normal liver. Normal gallbladder and extrahepatic biliary system. Normal spleen. Normal pancreas. Normal bilateral adrenal glands. Normal right kidney. Normal left kidney. Normal visualized stomach. There is diffuse mural thickening of the colon with increased markings in the surrounding peritoneal fat. Small amount of free fluid is seen in the mesentery. There is mildly dilated distal small bowel loops with thickening of the terminal ileum. There has been improvement as compared to prior study. There is less amount of free fluid in the cul-de-sac. The appendix is visualized and appears normal. Normal abdominal aorta. Normal inferior vena cava. There is borderline retroperitoneal lymphadenopathy with enlarged nodes no greater than 10mm in the short axis diameter. Normal urinary bladder. Normal abdominal wall. Normal osseous structures. CT/Abdomen/Pelvis WITH Contrast IMPRESSION: Persistent colitis as well as inflammatory changes in the distal small bowel loops with the fluid in the abdomen as described although there has been improvement as compared to prior study. Tiny bilateral pleural effusions with bibasilar atelectasis slightly worse on the left side. Electronically Signed: Tip Grigsby MD at 14:00 EDT ,
== END | disposition home or self-care (01) ==
LOC: CT 13:26
PROVIDERS: PCP Family Medicine; Referring Provider Surgery; Visit Provider Surgery
DX: R10.9 Unspecified abdominal pain (principal); K52.9 Noninfective gastroenteritis and colitis, unspecified
CPT/HCPCS: 74177; Q9967

== ENCOUNTER → 2023-06-04 | Outpatient (CLI) | payer OTHER, SELFPAY ==
[2023-06-04 13:46] LABS: Erythrocyte Sedimentation Rate 41 mm/hr (0-20)
[2023-06-04 13:49] LABS: Absolute Lymphocyte Count 1.81 X10^3/uL (0.83-4.51); Absolute Neutrophil Count 6.1 X10^3/uL (2.0-7.7); Basophil# 0.04 X10^3/uL; Basophil% 0.5 % (0-1); Eosinophils% 4.6 % (0-5); Hematocrit 35.2 % (40-54); Hemoglobin 11.7 g/dL (13.0-16.5); Lymphocyte # 1.81 X10^3/ul (0.83-4.51); Lymphocyte % 20.7 % (19-41); Mean Corp Hgb Conc 33.2 g/dL (32-36); Mean Corpuscular Hgb 36.6 pg (27.0-32.0); Mean Platelet Vol. 10.1 fl (6.2-12.0); Monocyte# 0.39 X10^3/uL; Monocyte% 4.5 % (0-10); NRBC Flagged by Analyzer 0 % (0-5); Neutrophil # 6.05 X10^3/uL (2.7-7.7); Platelet Count 458 K/mm3 (150-450); RBC Distribution Width CV 15.2 % (11.6-14.6); RBC Distribution Width SD 62.1 fl (35.1-43.9); White Blood Count 8.8 K/mm3 (4.4-11.0)
[2023-06-04 14:14] LABS: ALB/GLOB Ratio 0.6 RATIO (0.9-2.4); AST(SGOT) 56 U/L (15-37); Alanine Aminotransfer ALT/SGPT 44 U/L (16-61); Albumin, Serum 2.8 g/dL (3.2-5.0); Alkaline Phosphatase 73 U/L (45-117); Anion Gap 7 (5-15); BUN 5 mg/dL (7-18); Calcium,Total 9.4 mg/dL (8.5-10.1); Chloride 102 mmol/L (98-107); Creatinine, Serum 0.62 mg/dL (0.70-1.30); EST Glomerular Filtration Rate 161 mL/min (>60); Est Glom Filt Rate - Afr Amer 195 mL/min (>60); Globulin 4.8 g/dL (2.2-4.2); Glucose 115 mg/dL (74-106); Magnesium 1.9 mg/dL (1.6-2.6); Potassium 3.5 mmol/L (3.5-5.1); Protein, Total 7.6 g/dL (6.4-8.2); Sodium Level 137 mmol/L (136-145)
[2023-06-06 13:07] LABS: Anti-Centromere B Ab <0.2 AI (0.0-0.9); Anti-Chromatin <0.2 AI (0.0-0.9); Anti-Jo <0.2 AI (0.0-0.9); Anti-Scleroderma-70 AB <0.2 AI (0.0-0.9); Anti-dsDNA Ab <1 IU/mL (0-9); RNP Ab 0.3 AI (0.0-0.9); SJOGREN'S Anti-SS-A test < 0.2 AI (0.0-0.9); SJOGREN'S Anti-SS-B test < 0.2 AI (0.0-0.9); Smith Ab <0.2 AI (0.0-0.9)
[2023-06-08 15:07] LABS: Cytoplasmic Ab (C-ANCA) <1:20 titer (Neg:<1:20); Perinuclear Ab (P-ANCA) <1:20 titer (Neg:<1:20)
== END | disposition home or self-care (01) ==
LOC: LAB 13:06
PROVIDERS: PCP Family Medicine; Referring Provider Surgery; Visit Provider Surgery
DX: K52.9 Noninfective gastroenteritis and colitis, unspecified (principal)
CPT/HCPCS: 36415; 80053; 83735; 85025; 85652; 86140; 86225; 86235; 86256; 87086

== ENCOUNTER → 2023-06-05 | Outpatient (CLI) | payer OTHER, SELFPAY | END | disposition home or self-care (01) | PROVIDERS: PCP Family Medicine; Referring Provider Surgery; Visit Provider Surgery | DX: K58.9 Irritable bowel syndrome, unspecified (principal); R19.7 Diarrhea, unspecified | CPT/HCPCS: 83630; 87177; 87209; 87493; 87506 ==

== ENCOUNTER 2023-11-17 07:48 | Inpatient (IN) | payer OTHER, SELFPAY ==
[2023-11-17 07:50] VITALS: BP 151/78; PULSE 83; RESP 16; TEMP 37.1; O2SAT 95; BMI 31.1
--- NOTE | 2023-11-17 08:33 | CT_ITS ---
EXAM: CT ABDOMEN AND PELVIS WITH INTRAVENOUS CONTRAST CLINICAL INDICATION: RLQ pain TECHNIQUE: Helically acquired images were obtained of the abdomen and pelvis with intravenous contrast. This CT exam was performed using one or more of the following dose reduction techniques: automated exposure control, adjustment of the mA and/or kV according to patient size, and/or use of iterative reconstruction technique. CONTRAST: IV 100mL Isovue-300 COMPARISON: CT Abdomen Pelvis dated 06/03/2023 FINDINGS: LOWER THORAX: Normal. Lung bases are clear. No cardiomegaly. No pericardial effusion. ABDOMEN: LIVER: Enlarged steatotic liver again noted. PANCREAS: Normal. No focal cystic or solid mass. SPLEEN: Spleen is enlarged measuring 15.7 cm in length from prior cephalocaudad dimension of 16.6 cm. ADRENALS: Normal. No nodules. KIDNEYS AND URETERS: Normal. Normal renal size and position. No hydronephrosis. STOMACH AND BOWEL: Normal. No bowel distention. No focal inflammatory change. PELVIS: APPENDIX: Appendix is visualized and normal in appearance. BLADDER: Normal. REPRODUCTIVE: Unremarkable as visualized. No mass. ABDOMEN and PELVIS: INTRAPERITONEAL SPACE: Significant interval worsening of the inflammatory changes of the sigmoid colon associated with prominent adjacent edema of the mesentery and small bubbles of adjacent extraluminal gas. Appearance consistent with a contained perforation. Distal small bowel loops appear tethered to the abnormal sigmoid colon raises the possibility of enterocolic fistula. Wall thickening of the distal ileum noted. Persistent wall thickening of the right and left colon also seen. No ascites or other fluid collection. BONES/JOINTS: No suspicious lytic or blastic abnormality. SOFT TISSUES: Normal. No discrete abdominal or pelvic wall hernia. VASCULATURE: Normal. Abdominal aorta is non-dilated. LYMPH NODES: Normal. No enlarged lymph nodes. CT/Abdomen/Pelvis W IV Cont ONLY IMPRESSION: 1. Interval worsening of the inflammatory changes of the sigmoid colon with evidence of adjacent contained perforation. Question of enterocolic fistulization of the sigmoid colon with adjacent distal ileum. Findings likely related to enterocolitis rather than primary diverticulitis. 2. Hepatosplenomegaly with mild hepatic steatosis. 3. Normal appendix. Electronically Signed: Solomon Harrington MD at 9:55 EST Reading Location ID and State: [facility] / [place] Tel , Service support ,
[2023-11-17 08:40] LABS: Absolute Lymphocyte Count 2.25 X10^3/uL (0.83-4.51); Absolute Neutrophil Count 11.4 X10^3/uL (2.0-7.7); Basophil# 0.07 X10^3/uL; Basophil% 0.5 % (0-1); Eosinophil# 0.01 X10^3/uL; Eosinophils% 0.1 % (0-5); Hematocrit 44.1 % (40-54); Lymphocyte # 2.25 X10^3/ul (0.83-4.51); Lymphocyte % 14.9 % (19-41); Mean Corp Hgb Conc 36.3 g/dL (32-36); Mean Corpuscular Volume 101.8 fL (80-94); Mean Platelet Vol. 10.2 fl (6.2-12.0); Monocyte# 1.27 X10^3/uL; Monocyte% 8.4 % (0-10); NRBC Flagged by Analyzer 0 % (0-5); Neutrophil # 11.36 X10^3/uL (2.7-7.7); Neutrophil % 75.4 % (47-70); Platelet Count 419 K/mm3 (150-450); RBC Distribution Width CV 13.5 % (11.6-14.6); Red Blood Count 4.33 M/mm3 (4.6-6.2); White Blood Count 15.1 K/mm3 (4.4-11.0)
[2023-11-17] MEDS: 0.9% Normal Saline (1000mL) 1,000 ML 1000 ML IV (08:40)
--- NOTE | 2023-11-17 08:50 | EDS_ITS ---
HPI HPI - GI History of Present Illness Chief Complaint: Abd Pain Informant: patient Narrative Narrative: Reports intermittent pain in his stomach for the last 2 weeks. States no little bit of blood in his stools yesterday this morning however bright red watery. No anticoagulant's. No abdominal surgeries in the past. He states he had a colonoscopy this past July with polypectomies through [facility]. He follow-up 2 months later with upper scope reporting gastritis changes. He is on medications for this along with hypertension medications. He states brother recently diagnosed with Crohn disease. He states had chills this morning. Last meals 1 AM this morning. Prior similar symptoms: Yes PFSH PFSH Medical History (Updated 11/17/23 @ 10:[address] Ron Arroyo DO) Abdominal pain Colonic diverticular abscess Hypertension Home Medications metoprolol succinate 100 mg tablet,extended release 24 hr 100 mg PO QHS high blood press 05/17/21 [History Last Taken 11/16/23] escitalopram oxalate 10 mg tablet 10 mg PO QHS see physician 05/13/23 [History Last Taken 11/16/23] ascorbic acid (vitamin C) 500 mg tablet (Vitamin C) 1 g PO TID 06/02/23 [History Last Taken 11/16/23] ergocalciferol (vitamin D2) 1,250 mcg (50,000 unit) capsule 50,000 unit PO TUTH 06/02/23 [History Last Taken 11/12/23] ferrous sulfate 325 mg (65 mg iron) tablet (FeroSul) 325 mg PO QHS supplement 06/02/23 [History Last Taken 11/16/23] hyoscyamine sulfate 0.125 mg tablet 0.125 mg PO 4X/DAY 06/02/23 [History Last Taken 11/16/23] Allergy/AdvReac Type Severity Reaction Status Date / Time No Known Allergies Allergy Verified 11/17/23 07:49 Family History Brother Cancer leukemia Uncle Diabetes Cancer skin Mother Cancer skin Surgical History (Updated 11/17/23 @ 13:33 by Daya Chiu) H/O colonoscopy H/O knee surgery Social History Smoking Status: Current every day smoker tobacco type: cigarettes alcohol intake: current alcohol intake frequency: a few times a month substance use type: marijuana ROS ROS ED Constitutional Constitutional ED: Denies chills, fever(s) or sweats Eyes Eyes: Denies change in vision ENT ENT ED: Denies dysphagia or sore throat Cardiovascular Cardiovascular: Denies chest pain, leg edema, palpitations or racing heartbeat Respiratory/Chest Respiratory/Chest: Denies cough, dyspnea or dyspnea on exertion Gastrointestinal Gastrointestinal: Reports abdominal pain and other Details: Rectal bleeding ; Denies diarrhea, nausea or vomiting Genitourinary Genitourinary ED: Denies dysuria, hematuria or urinary frequency Musculoskeletal Musculoskeletal: Denies back pain, extremity pain or neck pain Integumentary Denies rash or wounds Neurologic Neurologic: Denies headache(s), paresthesias or weakness EXAM Physical Exam Const Vital Signs: 11/17/23 07:50 Temperature 98.7 F Temperature Source Temporal Pulse Rate 83 Respiratory Rate 16 Blood Pressure 151/78 H Blood Pressure Mean 102 Pulse Ox 95 Oxygen Delivery Method Room Air Positive well nourished and well developed General Appearance ED: well developed and NAD HEENT Reports dry mucous membranes HEENT Narrative: Mild dry mucosal membranes normocephalic and atraumatic Mouth ED: Yes dry mucous membranes Mouth: dry mucous membranes Eyes PERRL, EOMs intact bilaterally and conjunctivae normal General Eye ED: Yes normal appearance of both eyes Neck no lymphadenopathy and supple General: Negative for tenderness Chest Wall Chest: Negative for tenderness Resp normal respiratory effort and normal air movement Effort and Inspection: symmetric chest movement; Negative for respiratory distress Cardio regular rate, regular rhythm and no murmurs Peripheral Pulses: pulses 2+ throughout GI normal to inspection, nondistended, normoactive bowel sounds GI Narrative: Right lower quadrant tenderness on exam. Palpation: Negative for guarding or rebound tenderness present Back/Spine no CVA tenderness and no thoracic nor lumbar tenderness Extremity normal to inspection General Extremety ED: Negative for edema or tenderness General Extremity: Negative for edema Neuro oriented x3 and no sensory deficits noted Sensorium / Orientation: awake and alert Skin no rashes or lesions noted and no wounds MDM MDM MDM Narrative Medical decision making narrative: Interventions / MDM: Differential diagnosis: Complicated diverticulitis, colitis, electrolyte abnormalities Diagnosis considered but do not suspect: N/A My EKG interpretation: N/A Imaging independently reviewed and interpreted by myself: CT scan abdomen pelvis IV contrast: There is sigmoid thickening and stranding with contained perforation concerns. Also concerns for enteric colonic fistula. External documents reviewed: Records from May [address]23 CT scans with colitis with possible bowel obstruction. His potassium was 1.7 at that time. Test considered but not ordered:N/A ED course: Vital stable slight dry mucosal membranes. On exam has right lower quadrant pain for which she did not notice. Reports rectal bleeding. Clinically not anemic. Will check abdominal labs, will obtain CT scan. Will order IV fluids. 0945: Return from CAT scan. Labs hemoglobin 16 white count 15. Lipase normal liver enzymes normal. Potassium 2.1 magnesium added. His creatinine 0.54. Review of records he had low potassium in May, he had CT scan concerns for diffuse colitis along with potential bowel obstruction he ended being transferred to [facility]. He states he ended getting treated with antibiotics he follow-up for colonoscopies and endoscopy. With his low potassium he was held on his diuretic for his blood pressure at that time. Currently not on a diuretic. Denies any weakness. 1015: Results of CT concerns for recurrent colitis, concerning sigmoid diffuse colitis with contained perforation. There is questionable enterocolic fistulization. White count was 15 however normal pulse and temperature. Respiratory 16. 1 out of 4 SIRS. However with recurrent infections concern provided add lactic acid and blood cultures before antibiotics. Zosyn IV. He started on potassium infusion IV. I discussed with covering surgeon Dr. Lange who will evaluate the patient in the ED. Patient abdomen is soft, not requiring any pain medications. Patient evaluated by surgery, admitted to surgery service for further management. Re-evaluation: stable Disposition discussed with patient/family/significant other: Patient Case discussed with consulting clinician: General surgery This note was generated with [employer] dictation software. It may contain incorrect words, spelling, and punctuation that were not noted in checking the note before signing. Lab Data Attestation: I reviewed the patient's lab results. Labs: Laboratory Results - last 24 hr 11/17/23 11/17/23 08:03 10:14 WBC 15.1 H RBC 4.33 L Hgb 16.0 Hct 44.1 MCV 101.8 H MCH 37.0 H MCHC 36.3 H RDW Std Deviation 51.0 H RDW Coeff of Kristen 13.5 Plt Count 419 MPV 10.2 Immature Gran % (Auto) 0.700 Neut % (Auto) 75.4 H Lymph % (Auto) 14.9 L [place] % (Auto) 8.4 Eos % (Auto) 0.1 Baso % (Auto) 0.5 Absolute Neuts (auto) 11.4 H Absolute Lymphs (auto) 2.25 Nucleated RBC % 0 Sodium 134 L Potassium 2.1 L* Chloride 89 L Carbon Dioxide 37.0 H Anion Gap 8 BUN 6 L Creatinine 0.54 L Estim Creat Clear Calc 232.56 Est GFR (MDRD) Af Amer 227 Est GFR (MDRD) Non-Af 187 BUN/Creatinine Ratio 11.0 Glucose 120 H Lactic Acid 1.1 Calcium 9.2 Magnesium 1.7 Total Bilirubin 2.20 H AST 42 H ALT 50 Alkaline Phosphatase 85 Total Protein 7.3 Albumin 2.6 L Globulin 4.7 H Albumin/Globulin Ratio 0.6 L Lipase < 10 L Radiography Diagnostic Testing: Clinical Impression(s) from Imaging Studies Abdomen/Pelvis CT 11/17/23 08:33 IMPRESSION: 1. Interval worsening of the inflammatory changes of the sigmoid colon with evidence of adjacent contained perforation. Question of enterocolic fistulization of the sigmoid colon with adjacent distal ileum. Findings likely related to enterocolitis rather than primary diverticulitis. 2. Hepatosplenomegaly with mild hepatic steatosis. 3. Normal appendix. Electronically Signed: Solomon Harrington MD at 9:55 EST , Discharge Plan Dx/Rx/DC Orders Clinical Impression: Diverticulitis of large intestine with complication, Colitis, Rectal bleeding, Acute hypokalemia Disposition Disposition: [facility] Discharge Date/Time: 11/17/23 13:12
[2023-11-17 09:10] LABS: ALB/GLOB Ratio 0.6 RATIO (0.9-2.4); AST(SGOT) 42 U/L (15-37); Alanine Aminotransfer ALT/SGPT 50 U/L (16-61); Albumin, Serum 2.6 g/dL (3.2-5.0); Alkaline Phosphatase 85 U/L (45-117); Anion Gap 8 (5-15); BUN 6 mg/dL (7-18); Calcium,Total 9.2 mg/dL (8.5-10.1); Chloride 89 mmol/L (98-107); Creatinine, Serum 0.54 mg/dL (0.70-1.30); EST Glomerular Filtration Rate 187 mL/min (>60); Est Glom Filt Rate - Afr Amer 227 mL/min (>60); Estimated Creatinine Clearance 232.56 ml/min; Globulin 4.7 g/dL (2.2-4.2); Glucose 120 mg/dL (74-106); Lipase < 10 U/L (13-75); Potassium 2.1 mmol/L (3.5-5.1); Protein, Total 7.3 g/dL (6.4-8.2); Sodium Level 134 mmol/L (136-145)
[2023-11-17 09:56] LABS: Magnesium 1.7 mg/dL (1.6-2.6)
[2023-11-17 10:48] LABS: Lactic Acid 1.1 mmol/L (0.4-1.9)
--- NOTE | 2023-11-17 10:48 | HP.PCM.SX_ITS ---
HPI - General HPI Narrative GABY BANG, is a 28 M who presents with abdominal pain. The patient states he is having having abdominal pain since Karishma. He says that it comes and goes and it is painful the next he has not he is or what brought him in the hospital he was he started having blood in his bowel movements yesterday. He describes the pain in his left lower quadrant. He denies nausea or vomiting. He denies fevers or chills. Patient was admitted in [facility] in May with the same issues. He said they kept him for 10 days and he said he might have had E. coli in the stool. At that time he also had GI consultation. He followed up with them in July and had a colonoscopy and they assured him that he did not have Crohn's disease. [facility] Medical History Abdominal pain Colonic diverticular abscess Hypertension Home Medications metoprolol succinate 100 mg tablet,extended release 24 hr 100 mg PO DAILY 05/17/21 [History Last Taken 05/13/23] escitalopram oxalate 10 mg tablet 10 mg PO DAILY 05/13/23 [History Last Taken 11/16/23] ascorbic acid (vitamin C) 500 mg tablet (Vitamin C) 1 g PO TID 06/02/23 [History Last Taken 11/16/23] ergocalciferol (vitamin D2) 1,250 mcg (50,000 unit) capsule 50,000 unit PO TUTH 06/02/23 [History Last Taken 11/12/23] ferrous sulfate 325 mg (65 mg iron) tablet (FeroSul) 325 mg PO DAILY 06/02/23 [History Last Taken 11/16/23] hyoscyamine sulfate 0.125 mg tablet 0.125 mg PO 4X/DAY 06/02/23 [History Last Taken 11/16/23] Allergy/AdvReac Type Severity Reaction Status Date / Time No Known Allergies Allergy Verified 11/17/23 07:49 Family History Brother Cancer leukemia Uncle Diabetes Cancer skin Mother Cancer skin Surgical History H/O colonoscopy H/O knee surgery Social History Smoking Status: Current every day smoker tobacco type: cigarettes alcohol intake: current alcohol intake frequency: a few times a month substance use type: marijuana ROS Constitutional Constitutional: Denies anorexia, chills or fatigue Eyes Eyes: Denies blurry vision ENT HEENT: Denies abnormal hearing Cardiovascular Cardiovascular: Denies chest pain Respiratory/Chest Respiratory/Chest: Denies cough or dyspnea Gastrointestinal Gastrointestinal: Reports abdominal pain and rectal bleeding; Denies coffee ground emesis, nausea or vomiting Genitourinary Genitourinary: Denies difficulty urinating Musculoskeletal Musculoskeletal: Denies abnormal gait Integumentary Integumentary: Denies jaundice Neurologic Neurologic: Denies dizziness Psychiatric Psychiatric: Denies anxiety Endocrine Endocrinology: Denies flushing Vital Signs Vital Signs Vital Signs: 11/17/23 07:50 Temperature 98.7 F Temperature Source Temporal Pulse Rate 83 Respiratory Rate 16 Blood Pressure 151/78 H Blood Pressure Mean 102 Pulse Ox 95 Oxygen Delivery Method Room Air Weight Weight: 242 lb 1.081 oz Body Mass Index (BMI) 31.1 Physical Exam Const oriented x3 and no apparent distress Resp normal respiratory effort GI soft to palpation Palpation: tender LLQ and LUQ Extremity normal to inspection Results Lab / Micro Data 11/17/23 08:03 11/17/23 08:03 Labs: Laboratory Results - last 24 hr 11/17/23 08:03: WBC 15.1 H, RBC 4.33 L, Hgb 16.0, Hct 44.1, MCV 101.8 H, MCH 37.0 H, MCHC 36.3 H, RDW Std Deviation 51.0 H, RDW Coeff of Kristen 13.5, Plt Count 419, MPV 10.2, Immature Gran % (Auto) 0.700, Neut % (Auto) 75.4 H, Lymph % (Auto) 14.9 L, [place] % (Auto) 8.4, Eos % (Auto) 0.1, Baso % (Auto) 0.5, Absolute Neuts (auto) 11.4 H, Absolute Lymphs (auto) 2.25, Nucleated RBC % 0, Sodium 134 L, Potassium 2.1 L*, Chloride 89 L, Carbon Dioxide 37.0 H, Anion Gap 8, BUN 6 L, Creatinine 0.54 L, Estim Creat Clear Calc 232.56, Est GFR (MDRD) Af Amer 227, Est GFR (MDRD) Non-Af 187, BUN/Creatinine Ratio 11.0, Glucose 120 H, Calcium 9.2, Magnesium 1.7, Total Bilirubin 2.20 H, AST 42 H, ALT 50, Alkaline Phosphatase 85, Total Protein 7.3, Albumin 2.6 L, Globulin 4.7 H, Alb umin/Globulin Ratio 0.6 L, Lipase < 10 L Imagaing Radiology Impression Abdomen/Pelvis CT 11/17/23 08:33 IMPRESSION: 1. Interval worsening of the inflammatory changes of the sigmoid colon with evidence of adjacent contained perforation. Question of enterocolic fistulization of the sigmoid colon with adjacent distal ileum. Findings likely related to enterocolitis rather than primary diverticulitis. 2. Hepatosplenomegaly with mild hepatic steatosis. 3. Normal appendix. Electronically Signed: Solomon Harrington MD at 9:55 EST , Assessment & Plan Assessment/Plan (1) Diverticulitis of large intestine with complication: PLAN: The patient is a 28-year-old male who has been seen here several times over the last 3 years with recurrent diverticulitis. The other issue is that he has thickening and inflammation around other segments of his colon. He finally had a colonoscopy after 3 years of canceling his procedures here at [facility]. They assured him that he did not have Crohn's disease. I reviewed the patient CT scan does show that his sigmoid colon is severely thickened with some air bubbles. I believe he has chronic diverticulitis of the sigmoid colon with microperforation and will likely need elective colectomy if he does not freely perforate. Ideally I would treat him with antibiotics and n.p.o. and IV fluids and await his pain to resolve and taken for surgery electively. If the patient truly perforates I would recommend sigmoid colectomy with possible stoma. I also explained that he may have a fistula to his small bowel. I discussed with our GI doctor and he would like to obtain an MRI enterography. I will order this for him and I will admit him to the floor and keep him n.p.o. and IV fluids with antibiotics. I will try to obtain records from [facility]. Elroy Lange MD Pager: [facility] [address] [place] [address], [address] [place] [address] Office:
--- NOTE | 2023-11-17 10:54 | MRI_ITS ---
STUDY: MRI ABDOMEN / PELVIS WITH AND WITHOUT CONTRAST, ENTEROGRAPHY PROTOCOL. REASON FOR EXAM: inflammation of bowel TECHNIQUE: Standardized fat and water weighted pulse sequences were obtained in all 3 orthogonal planes pre and post IV contrast. 22 ml clariscan IV contrast administration ; ENTEROGRAPHY protocol. COMPARISON: CT November 17, 2023, June 03, 2023, January 21, 2022.. FINDINGS: Lung bases: Normal. Liver: Incomplete visualization of the superior liver. Homogeneous parenchyma with hepatomegaly.. No bile ductal dilatation. Gallbladder: Normal. Spleen: Incomplete visualization of the superior spleen normal homogeneous parenchyma. Normal homogeneous parenchyma. Adrenal gland: Normal. Kidneys/bladder: Normal. No hydronephrosis or stone formation.. Unremarkable bladder. Pancreas:Normal. Bowel gas pattern: No acute gastric finding. Distal ileal long segment severe wall thickening greater than 9 mm with transmural hyperenhancement. Extensive distal small bowel mesenteric edema and vascular engorgement. . [Severe wall thickening of approximately 1.4 cm along approximately 10 cm in the sigmoid colon with trilaminar hyperenhancing with extensive surrounding edema. No the stricture is suggested on provided static imaging. No apparent visualization. No perianal abscess or fistula appreciated. Free air: None. Free fluid: None. Adenopathy: No significant pathologic adenopathy detected. Osseous: No acute osseous finding. No ankylosis of imaged portion of the sacroiliac joints. MRI/Enterography Abd/Pel IMPRESSION: Extensive acute inflammation along the distal ileum and sigmoid colon concerning for active Crohn''s disease Electronically Signed: Oli Pate MD at 0:08 EST ,
[2023-11-17] MEDS: Piperacil/Tazobactam 4.5 GM in 0.9% Normal Saline (100mL MB+) 100 ML IV (11:31)
[2023-11-17 12:42] VITALS: BP 138/77; PULSE 84; RESP 16; TEMP 36.4; O2SAT 98
[2023-11-17] MEDS: Potassium Phosphate 40 MM in 0.9% Normal Saline (500mL Bag) 500 ML 62.5 MM IV (12:51)
[2023-11-17 13:03] VITALS: RESP 16
[2023-11-17 13:25] VITALS: BMI 30.7
[2023-11-17 13:26] VITALS: BP 155/88; PULSE 71; RESP 18; TEMP 37.1; O2SAT 97
[2023-11-17] MEDS: 0.9% Normal Saline (1000mL) 1,000 ML 125 ML IV ×2 (13:50→21:56)
[2023-11-17] MEDS: 0.9% Saline Lock 10 ML Syringe IV ×4 (15:20→21:57)
[2023-11-17] MEDS: Glucagon 1 MG/ML Syringe IV (15:20)
[2023-11-17] MEDS: Morphine 2 MG/ML Syringe IV (16:18)
[2023-11-17 18:32] VITALS: BP 132/64; PULSE 100; RESP 18; TEMP 37.3; O2SAT 92
[2023-11-17 20:25] VITALS: BP 135/70; PULSE 96; RESP 18; TEMP 37.8; O2SAT 93
[2023-11-17] MEDS: Acetaminophen 325 MG Tablet 650 MG PO (21:58)
[2023-11-17] MEDS: Piperacil/Tazobactam 3.375 GM in 0.9% Normal Saline (50mL MB+) 50 ML IV (22:01)
[2023-11-17] MEDS: Potassium Chloride 10mEq/100mL 10 MEQ/100 ML IV.SOLN. 100 MEQ IV BOLUS ×2 (22:01→23:24)
--- NOTE | 2023-11-17 23:00 | ED.VIS.GI ---
HPI HPI - GI History of Present Illness Chief Complaint: Abd Pain Informant: patient Narrative Narrative: Delayed note being redone. Patient seen on November 17, 2023. On and off pain since [place] history of diverticulitis. Bright red blood per stool yesterday. Multiple diverticular bouts in the past. He states he did follow-up for colonoscopy. He concern he ate something bad at [place]. Prior similar symptoms: Yes PFSH PFSH Medical History Abdominal pain Anemia Colonic diverticular abscess Diverticulitis of large intestine with abscess H/O diverticulitis of colon History of colitis Hypertension Home Medications metoprolol succinate 100 mg tablet,extended release 24 hr 100 mg PO DAILY high blood press 05/17/21 [History Last Taken 11/16/23] ascorbic acid (vitamin C) 500 mg tablet (Vitamin C) 1 g PO TID supple 06/02/23 [History Last Taken 11/16/23] ergocalciferol (vitamin D2) 1,250 mcg (50,000 unit) capsule 50,000 unit PO TUTH supp 06/02/23 [History Last Taken 11/12/23] ferrous sulfate 325 mg (65 mg iron) tablet (FeroSul) 325 mg PO QHS supplement 06/02/23 [History Last Taken 11/16/23] hyoscyamine sulfate 0.125 mg tablet 0.125 mg PO 4X/DAY spasms 06/02/23 [History Last Taken 11/16/23] escitalopram oxalate 20 mg tablet 20 mg PO DAILY depress 12/20/23 [History Last Taken Unknown] hyoscyamine sulfate 0.125 mg sublingual tablet 0.125 mg sublingual Q4H PRN spasms 12/20/23 [History Last Taken Unknown] Allergy/AdvReac Type Severity Reaction Status Date / Time No Known Allergies Allergy Verified 12/19/23 11:43 Family History Brother Cancer leukemia Uncle Diabetes Cancer skin Mother Cancer skin Surgical History H/O colonoscopy H/O knee surgery Social History Smoking Status: Current every day smoker tobacco type: cigarettes alcohol intake: current alcohol intake frequency: a few times a month substance use type: marijuana ROS ROS ED Constitutional Constitutional ED: Denies chills, fever(s) or sweats Eyes Eyes: Denies change in vision ENT ENT ED: Denies dysphagia or sore throat Cardiovascular Cardiovascular: Denies chest pain, leg edema, palpitations or racing heartbeat Respiratory/Chest Respiratory/Chest: Denies cough, dyspnea or dyspnea on exertion Gastrointestinal Gastrointestinal: Reports abdominal pain and other Details: Bright red blood per rectum ; Denies diarrhea, nausea or vomiting Genitourinary Genitourinary ED: Denies dysuria, hematuria or urinary frequency Musculoskeletal Musculoskeletal: Denies back pain, extremity pain or neck pain Integumentary Denies rash or wounds Neurologic Neurologic: Denies headache(s), paresthesias or weakness EXAM Physical Exam Const Positive well nourished and well developed General Appearance ED: well developed and NAD HEENT Reports moist mucous membranes normocephalic and atraumatic Eyes PERRL, EOMs intact bilaterally and conjunctivae normal General Eye ED: Yes normal appearance of both eyes Neck no lymphadenopathy and supple General: Negative for tenderness Chest Wall Chest: Negative for tenderness Resp normal respiratory effort and normal air movement Effort and Inspection: symmetric chest movement; Negative for respiratory distress Cardio regular rate, regular rhythm and no murmurs Peripheral Pulses: pulses 2+ throughout GI normal to inspection, nondistended, normoactive bowel sounds GI Narrative: Slight tenderness lower abdomen however no is no guarding or rebound. Palpation: Negative for guarding or rebound tenderness present Back/Spine no CVA tenderness and no thoracic nor lumbar tenderness Extremity normal to inspection General Extremety ED: Negative for edema or tenderness General Extremity: Negative for edema Neuro oriented x3 and no sensory deficits noted Sensorium / Orientation: awake and alert Skin no rashes or lesions noted and no wounds MDM MDM MDM Narrative Medical decision making narrative: Interventions / MDM: Differential diagnosis: Complicated diverticulitis, bright red blood per rectum, electrolyte abnormalities Diagnosis considered but do not suspect: N/A My EKG interpretation: N/A Imaging independently reviewed and interpreted by myself: CT abdomen pelvis: Worsening sigmoid diverticulitis with contained perforation. Questionable fistulization per radiology. External documents reviewed: N/A Test considered but not ordered:N/A ED course: Patient tender abdomen bright red blood per rectum history diverticulitis. Abdominal labs normal white count stable hemoglobin. CT scan ordered. Results concerning for contained perforation. Possible fistulization. Discussed with on-call surgeon who evaluated the ED. Antibiotics started. Admitted to surgical service. Re-evaluation: stable Disposition discussed with patient/family/significant other: Patient Case discussed with consulting clinician: General surgery This note was generated with [employer] dictation software. It may contain incorrect words, spelling, and punctuation that were not noted in checking the note before signing. Radiography Diagnostic Testing: Clinical Impression(s) from Imaging Studies Abdomen/Pelvis CT 11/17/23 08:33 IMPRESSION: 1. Interval worsening of the inflammatory changes of the sigmoid colon with evidence of adjacent contained perforation. Question of enterocolic fistulization of the sigmoid colon with adjacent distal ileum. Findings likely related to enterocolitis rather than primary diverticulitis. 2. Hepatosplenomegaly with mild hepatic steatosis. 3. Normal appendix. Electronically Signed: Solomon Harrington MD at 9:55 EST , Enterography MRI 11/17/23 10:54 IMPRESSION: Extensive acute inflammation along the distal ileum and sigmoid colon concerning for active Crohn''s disease Electronically Signed: Oli Pate MD at 0:08 EST , ADDENDUM: 11/18/23 0140 IMPRESSION: undefined Discharge Plan Dx/Rx/DC Orders Clinical Impression: Diverticulitis of large intestine with complication, Colitis, Rectal bleeding, Acute hypokalemia Disposition Disposition: Acute Care Hospital [facility] Discharge Date/Time: 11/17/23 13:12
[2023-11-18] VITALS (7 sets, daily range): BP systolic 116–151; BP diastolic 58–80; PULSE 66–90; RESP 18; TEMP 36.5–37.6; O2SAT 94–97
[2023-11-18] MEDS: Potassium Chloride 10mEq/100mL 10 MEQ/100 ML IV.SOLN. 100 MEQ IV BOLUS ×7 (01:02→22:42)
[2023-11-18] MEDS: 0.9% Saline Lock 10 ML Syringe IV ×2 (02:29→14:13)
[2023-11-18] MEDS: Piperacil/Tazobactam 3.375 GM in 0.9% Normal Saline (50mL MB+) 50 ML IV ×3 (07:00→21:10)
[2023-11-18] MEDS: Acetaminophen 325 MG Tablet 650 MG PO ×2 (07:37→21:10)
--- NOTE | 2023-11-18 07:40 | PCM.PN.SRG ---
Subjective Subjective Patient reports his pain is in the back but he did have another bowel movement mixed with blood overnight. Objective Data Objective Data Vital Signs: Vital Signs Temp Pulse Resp BP Pulse Ox O2 Del Method 99.7 F H 90 18 151/80 H 94 Room Air 11/18/23 07:01 11/18/23 07:01 11/18/23 07:01 11/18/23 07:01 11/18/23 07:01 11/18/23 07:01 Oxygen Delivery Method Room Air Weight: 238 lb 12.17 oz Body Mass Index (BMI) 30.7 Intake & Output: Intake and Output for Last 24 Hours 11/16/23 11/17/23 11/18/23 23:59 23:59 23:59 Intake Total 2713.3333 / 2713.3333 350 / 350 Output Total 700 / 700 Balance 3333 / 2012.3333 350 / 350 Lab / Micro Data 11/17/23 08:03 11/17/23 17:00 Labs: Laboratory Results - last 24 hr 11/17/23 08:03: WBC 15.1 H, RBC 4.33 L, Hgb 16.0, Hct 44.1, MCV 101.8 H, MCH 37.0 H, MCHC 36.3 H, RDW Std Deviation 51.0 H, RDW Coeff of Kristen 13.5, Plt Count 419, MPV 10.2, Immature Gran % (Auto) 0.700, Neut % (Auto) 75.4 H, Lymph % (Auto) 14.9 L, [place] % (Auto) 8.4, Eos % (Auto) 0.1, Baso % (Auto) 0.5, Absolute Neuts (auto) 11.4 H, Absolute Lymphs (auto) 2.25, Nucleated RBC % 0, Sodium 134 L, Potassium 2.1 L*, Chloride 89 L, Carbon Dioxide 37.0 H, Anion Gap 8, BUN 6 L, Creatinine 0.54 L, Estim Creat Clear Calc 232.56, Est GFR (MDRD) Af Amer 227, Est GFR (MDRD) Non-Af 187, BUN/Creatinine Ratio 11.0, Glucose 120 H, Calcium 9.2, Magnesium 1.7, Total Bilirubin 2.20 H, AST 42 H, ALT 50, Alkaline Phosphatase 85, Total Protein 7.3, Albumin 2.6 L, Globulin 4.7 H, Albumin/Globulin Ratio 0.6 L, Lipase < 10 L 11/17/23 10:14: Lactic Acid 1.1 11/17/23 14:15: Magnesium 2.0 11/17/23 17:00: Potassium 2.0 L* Radiography Diagnostic Testing: Radiology Impression Abdomen/Pelvis CT 11/17/23 08:33 IMPRESSION: 1. Interval worsening of the inflammatory changes of the sigmoid colon with evidence of adjacent contained perforation. Question of enterocolic fistulization of the sigmoid colon with adjacent distal ileum. Findings likely related to enterocolitis rather than primary diverticulitis. 2. Hepatosplenomegaly with mild hepatic steatosis. 3. Normal appendix. Electronically Signed: Solomon Harrington MD at 9:55 EST , Enterography MRI 11/17/23 10:54 IMPRESSION: Extensive acute inflammation along the distal ileum and sigmoid colon concerning for active Crohn''s disease Electronically Signed: Oli Pate MD at 0:08 EST , ADDENDUM: 11/18/23 0140 IMPRESSION: undefined Physical Exam Const oriented x3 and no apparent distress Resp normal respiratory effort GI soft to palpation Palpation: tender LLQ Assessment & Plan Assessment/Plan (1) Rectal bleeding: (2) Acute hypokalemia: (3) Colitis: PLAN: Plan The patient had another bloody bowel movement overnight. Awaiting labs. He had a MR enterography yesterday evening. This did not show an obvious fistula tract but it did suggest Crohn's disease. There were some air bubbles indicating a microperforation some trying to avoid steroids if possible. Continue n.p.o. and IV fluids and antibiotics for now. Await GI input. Awaiting records from [facility]. Elroy Lange MD Pager: [facility] [address] [place] [address], [address] [place] [address] Office:
[2023-11-18 08:28] LABS: ALB/GLOB Ratio 0.5 RATIO (0.9-2.4); AST(SGOT) 40 U/L (15-37); Alanine Aminotransfer ALT/SGPT 35 U/L (16-61); Albumin, Serum 1.9 g/dL (3.2-5.0); Alkaline Phosphatase 76 U/L (45-117); Anion Gap 6 (5-15); BUN 6 mg/dL (7-18); BUN/Creat Ratio 13.5 RATIO (10-20); Calcium,Total 7.6 mg/dL (8.5-10.1); Chloride 98 mmol/L (98-107); Creatinine, Serum 0.45 mg/dL (0.70-1.30); EST Glomerular Filtration Rate 236 mL/min (>60); Est Glom Filt Rate - Afr Amer 285 mL/min (>60); Estimated Creatinine Clearance 314.52 ml/min; Globulin 3.7 g/dL (2.2-4.2); Glucose 98 mg/dL (74-106); Magnesium 1.6 mg/dL (1.6-2.6); Phosphorus 2.5 mg/dL (2.5-4.9); Potassium 2.1 mmol/L (3.5-5.1); Protein, Total 5.6 g/dL (6.4-8.2); Sodium Level 137 mmol/L (136-145)
[2023-11-18] MEDS: 0.9% Normal Saline (1000mL) 1,000 ML 125 ML IV (09:16)
[2023-11-18] MEDS: Pantoprazole Sodium 40 MG Tablet PO (09:53)
[2023-11-18] MEDS: Metoprolol(XL)Succ 100 MG Tablet PO (09:53)
[2023-11-18] MEDS: 0.9% Normal Saline (250mL Bag) 250 ML 15 ML IV ×2 (09:55)
[2023-11-18] MEDS: Magnesium Sulfate 2 GM in Dextrose 5%-Water (100mL Bag) 100 ML IV (10:18)
--- NOTE | 2023-11-18 11:15 | CASEMGMT ---
ANDRIA CRYSTAL Assessment: Face to Face with pt for initial transition planning/care coordination assessment. RN MARAH introduced self and role at [facility], pt voices understanding and consents to assessment. Pt is A&O x4 and answers all questions appropriately at this time. Pt lying in bed in no distress. Care providers, pharmacy, and demographics verified/updated. Admitting Dx:diverticulitis with microperforation PCP:Brooke Specialists:AGATHA Humphries Pharmacy:[facility] Insurance:[facility] Prescription Benefit: yes LNOK:Ge Degroot, brother Living Arrangements: Pt lives with parents in a single story home with 5 steps to enter. Pt reports he is I in ADL's and denies concerns at home. Transportation: Pt drives self and denies concerns with transportation. DME:Denies HHC/SNF:Denies hx of Pt states no concerns with going home at time of dc. Pt states no further concerns/needs. CM to follow. Advised pt to ask CM if any further question/concerns/needs arise, voices understanding. Pt Goal:Home Plan:Home
--- NOTE | 2023-11-18 12:55 | PCM.CONS.GEN ---
Assessment & Plan Assessment/Plan (1) Colitis: (2) Acute hypokalemia: PLAN: Plan Patient is a 28-year-old male who presented to [facility] ED on 11/17/2023 with intermittent abdominal pain with bloody stools for 2 weeks. General surgery primary patient. Medicine consulted on hospital day 2 for medical management. 1. Suspected Crohn's disease with suspected microperforation of sigmoid colon ? General surgery primary patient. Gastroenterology following. MRI enterography 11/17 with findings consistent with active Crohn's disease. Continue n.p.o. status for now, defer to GI for need for colonoscopy with biopsy on this admission. Hold on treatment for now in case of need for biopsy. Okay to continue Zosyn for now. 2. Severe hypokalemia ? Potassium 2.1 on admit. Presumed secondary to GI losses in setting of suspected Crohn's disease. Notably had very similar presentation at outside hospital in May, potassium 1.7 at that time. Had improvement with significant potassium supplementation. Patient is likely hundreds of mEq depleted of potassium at this time, will aggressively supplement during this admission. Monitor telemetry. Monitor daily BMP and mag, replace magnesium as needed as well. 3. Hypertension ? On Toprol 100 mg nightly. Normotensive on admission and appeared dry. Blood pressure improving with volume resuscitation. Toprol 50 mg daily for now, can increase back to home dose as needed. 4. Depression ? Stable. Continue home escitalopram. Total clinical time spent by myself addressing the patient's medical issues, reviewing all the data, and collaborating with patient's care team: 35 minutes. HPI Consult Data Date of Consult: 11/18/23 HPI Narrative Reason for Consultation: Medical management HPI Narrative: GABY BANG, is a 28 M who presented to [facility] ED on 11/17/2023 with intermittent stomach pain with bloody stools for about [address] abdomen pelvis on admit showed interval worsening of inflammatory changes of sigmoid colon, concern for contained perforation in sigmoid colon, concern for enterocolic fistulization of sigmoid colon with adjacent distal ileum. Patient was admitted to general surgery service for further management. General surgery discussed with gastroenterology, patient had MRI enterography done on 11/17 that showed extensive acute inflammation along the distal ileum and sigmoid colon concerning for active Crohn's disease. Patient notably was hospitalized at [facility] in May for similar concerns. Apparently had colonoscopy done at that time and was told there is no concern for Crohn's at that point. Has reportedly been having symptoms like this for the last 3 years. Medicine was consulted on hospital day 2 for medical management. Saw patient at the bedside on the afternoon of 11/18. Patient was laying comfortably in bed, in no acute distress. Patient had good level of energy, was conversing normally and appeared to have good insight into his medical condition. He denied any abdominal pain or discomfort at this time. Has not had any bowel movements today. Has not gotten out of bed much but denies any shortness of breath at rest. No other acute concerns at this time. [facility] Medical History (Updated 11/17/23 @ 10:[address] Ron Arroyo DO) Abdominal pain Colonic diverticular abscess Hypertension Home Medications metoprolol succinate 100 mg tablet,extended release 24 hr 100 mg PO QHS high blood press 05/17/21 [History Last Taken 11/16/23] escitalopram oxalate 10 mg tablet 10 mg PO QHS see physician 05/13/23 [History Last Taken 11/16/23] ascorbic acid (vitamin C) 500 mg tablet (Vitamin C) 1 g PO TID 06/02/23 [History Last Taken 11/16/23] ergocalciferol (vitamin D2) 1,250 mcg (50,000 unit) capsule 50,000 unit PO TUTH 06/02/23 [History Last Taken 11/12/23] ferrous sulfate 325 mg (65 mg iron) tablet (FeroSul) 325 mg PO QHS supplement 06/02/23 [History Last Taken 11/16/23] hyoscyamine sulfate 0.125 mg tablet 0.125 mg PO 4X/DAY 06/02/23 [History Last Taken 11/16/23] Allergy/AdvReac Type Severity Reaction Status Date / Time No Known Allergies Allergy Verified 11/17/23 07:49 Family History Brother Cancer leukemia Uncle Diabetes Cancer skin Mother Cancer skin Surgical History (Updated 11/17/23 @ 13:33 by Daya Chiu) H/O colonoscopy H/O knee surgery Social History Smoking Status: Current every day smoker tobacco type: cigarettes alcohol intake: current alcohol intake frequency: a few times a month substance use type: marijuana ROS Constitutional Constitutional: Denies chills, fatigue, fever(s) or weakness Eyes Eyes: Denies change in vision Cardiovascular Cardiovascular: Denies chest pain, edema, lightheadedness or palpitations Respiratory/Chest Respiratory/Chest: Reports shortness of breath with exertion; Denies cough, shortness of breath at rest or wheezing Gastrointestinal Gastrointestinal: Reports hematochezia, loose stools and melena; Denies abdominal pain, constipation, nausea or vomiting Genitourinary Genitourinary: Denies dysuria Musculoskeletal Musculoskeletal: Denies arthralgias or back pain Neurologic Neurologic: Denies dizziness, focal weakness or headache(s) Physical Exam Const alert, oriented x3 and no apparent distress Constitutional Narrative: Pleasant young male, obese, laying comfortably bed, conversing normally, no acute distress. General Appearance: cooperative and comfortable HEENT normocephalic, head/scalp atraumatic, hearing grossly normal bilaterally, nasal mucous membranes and turbinates normal and moist oral mucous membranes Eyes PERRL, EOMs intact bilaterally and conjunctivae normal Neck full ROM, no lymphadenopathy and supple Lymph Lymphatic: no lymphadenopathy noted Chest inspection of chest normal Resp normal respiratory effort, normal air movement, no use of accessory muscles and clear to auscultation bilaterally Cardio regular rate, regular rhythm, no murmurs and peripheral pulses 2+ throughout GI normal to inspection, nondistended, normoactive bowel sounds, soft to palpation, non-tender and non-distended Back/Spine normal ROM Extremity normal to inspection, full ROM and no pedal edema Skin no rashes or lesions noted Neuro no focal motor deficits and no sensory deficits noted Speech: speech normal Psych mental status grossly normal Lab / Micro Data 11/17/23 08:03 11/18/23 16:15 Labs: Laboratory Results - last 24 hr 11/17/23 14:15: Magnesium 2.0 11/17/23 17:00: Potassium 2.0 L* 11/18/23 06:40: Sodium 137, Potassium 2.1 L*, Chloride 98, Carbon Dioxide 33.0 H, Anion Gap 6, BUN 6 L, Creatinine 0.45 L, Estim Creat Clear Calc 314.52, Est GFR (MDRD) Af Amer 285, Est GFR (MDRD) Non-Af 236, BUN/Creatinine Ratio 13.5, Glucose 98, Calcium 7.6 L, Phosphorus 2.5, Magnesium 1.6, Total Bilirubin 2.30 H, AST 40 H, ALT 35, Alkaline Phosphatase 76, Total Protein 5.6 L, Albumin 1.9 L, Globulin 3.7, Albumin/Globulin Ratio 0.5 L Micro: Microbiology 11/17/23 16:24 Stool Enteric Bacteriology - Final Imagaing Radiology Impression Enterography MRI 11/17/23 10:54 IMPRESSION: Extensive acute inflammation along the distal ileum and sigmoid colon concerning for active Crohn''s disease Electronically Signed: Oli Pate MD at 0:08 EST , ADDENDUM: 11/18/23 0140 IMPRESSION: undefined Charges/Coding Visit Charges Inpatient E&M: 90219 Subs Hosp L2
[2023-11-18] MEDS: Lactated Ringers 1,000 ML 125 ML IV ×2 (13:11→21:03)
[2023-11-18] MEDS: Potassium Phosphate 40 MM in 0.9% Normal Saline (500mL Bag) 500 ML 62.5 MM IV (13:59)
[2023-11-18 17:03] LABS: Potassium 2.3 mmol/L (3.5-5.1)
--- NOTE | 2023-11-18 17:10 | NURSING ---
verified with pharmacist kierra, can not run more than 10meq kcl/hr with piv on [employer]. [facility]riel[facility] to start after kphos complete
--- NOTE | 2023-11-18 20:20 | CON.PCM.GI_ITS ---
HPI Consult Data Date of Consult: 11/18/23 HPI Narrative HPI Narrative: GABY BANG, is a 28 M who presents to the ED with worsening abdominal pain. Patient has a 14-year history of worsening abdominal pain and a 5-year history of bloody diarrhea and diagnosis is a diverticulitis. Patient's brother has Crohn's disease and is currently on Rinvoq after failing Humira. He presented for the ER at that time amidst a flu diagnosis because he experienced some bright red blood per rectum. He had a diverticulitis flare about 4 months ago and presented to outside hospital. He followed up with a data analytics chief scientist in [place] who performed a colonoscopy and told him that he did not have inflammatory bowel disease. I do not have the report in hand and have not spoken with the data analytics chief scientist who performed the procedure and was taking care of him. He says he typically has 1 soft or diarrhea bowel movements. He has had nocturnal diarrhea. He typically has about 3 to 4 episodes a year where he needs IV antibiotics for diverticulitis. He denies any rash on extremities, nape of neck or underneath his armpits. He also gets occasional oral ulcers that he calls cold sores. He has no vision changes. He denies any arthralgia or arthritis. He does not take any medicines on a daily basis as except for Celexa and iron when he was a given diagnosis of anemia. Over a year ago he was diagnosed with high blood pressure and has been on metoprolol. After his colonoscopy he was put on high-dose amine for cram being. Since being on iron therapy his bowels have become more solid but they also have become black. He stated that he had a colonoscopy multiple years ago in it was normal. On evaluation in the ED was discovered to have a white blood cell count of 15,000 and he has been intermittently febrile up to a temperature 101. CT scan of the abdomen pelvis on 11/17/2023 displays: Significant interval worsening of the inflammatory changes of the sigmoid colon associated with prominent adjacent edema of the mesentery and small bubbles of adjacent extraluminal gas. Appearance consistent with a contained perforation. Distal small bowel loops appear tethered to the abnormal sigmoid colon raises the possibility of enterocolic fistula. Wall thickening of the distal ileum noted. Persistent wall thickening of the right and left colon also seen. No ascites or other fluid collection. MR enterography on 11/17/2023 displays: No acute gastric finding. Distal ileal long segment severe wall thickening greater than 9 mm with transmural hyperenhancement. Extensive distal small bowel mesenteric edema and vascular engorgement. . [Severe wall thickening of approximately 1.4 cm along approximately 10 cm in the sigmoid colon with trilaminar hyperenhancing with extensive surrounding edema. No the stricture is suggested on provided static imaging. No apparent visualization. No perianal a bscess or fistula appreciated. Addendum: There is confluent edema between the inflamed sigmoid colon and distal ileal inflammation without well-defined fistula tract. This is more conspicuous however on CT where small foci of air are seen along the edema with intermittent pockets of fluid concerning for tortuous fistula tract or sequence of microabscesses. [facility] Medical History (Updated 11/18/23 @ 20:[address] Claude Reyna, DO) Abdominal pain Colonic diverticular abscess Hypertension Home Medications metoprolol succinate 100 mg tablet,extended release 24 hr 100 mg PO QHS high blood press 05/17/21 [History Last Taken 11/16/23] escitalopram oxalate 10 mg tablet 10 mg PO QHS see physician 05/13/23 [History Last Taken 11/16/23] ascorbic acid (vitamin C) 500 mg tablet (Vitamin C) 1 g PO TID 06/02/23 [History Last Taken 11/16/23] ergocalciferol (vitamin D2) 1,250 mcg (50,000 unit) capsule 50,000 unit PO TUTH 06/02/23 [History Last Taken 11/12/23] ferrous sulfate 325 mg (65 mg iron) tablet (FeroSul) 325 mg PO QHS supplement 06/02/23 [History Last Taken 11/16/23] hyoscyamine sulfate 0.125 mg tablet 0.125 mg PO 4X/DAY 06/02/23 [History Last Taken 11/16/23] Allergy/AdvReac Type Severity Reaction Status Date / Time No Known Allergies Allergy Verified 11/17/23 07:49 Family History Brother Cancer leukemia Uncle Diabetes Cancer skin Mother Cancer skin Surgical History (Updated 11/17/23 @ 13:33 by Daya Chiu) H/O colonoscopy H/O knee surgery Social History Smoking Status: Current every day smoker tobacco type: cigarettes alcohol intake: current alcohol intake frequency: a few times a month substance use type: marijuana ROS Constitutional Constitutional: Denies chills, fatigue, fever(s) or weakness Eyes Eyes: Denies change in vision Cardiovascular Cardiovascular: Denies chest pain, edema, lightheadedness or palpitations Respiratory/Chest Respiratory/Chest: Reports shortness of breath with exertion; Denies cough, shortness of breath at rest or wheezing Gastrointestinal Gastrointestinal: Reports hematochezia, loose stools and melena; Denies abdominal pain, constipation, nausea or vomiting Genitourinary Genitourinary: Denies dysuria Musculoskeletal Musculoskeletal: Denies arthralgias or back pain Neurologic Neurologic: Denies dizziness, focal weakness or headache(s) Physical Exam Const alert, oriented x3 and no apparent distress Constitutional Narrative: Pleasant young male, obese, laying comfortably bed, conversing normally, no acute distress. General Appearance: cooperative and comfortable HEENT normocephalic, head/scalp atraumatic, hearing grossly normal bilaterally, nasal mucous membranes and turbinates normal and moist oral mucous membranes Eyes PERRL, EOMs intact bilaterally and conjunctivae normal Neck full ROM, no lymphadenopathy and supple Lymph Lymphatic: no lymphadenopathy noted Chest inspection of chest normal Resp normal respiratory effort, normal air movement, no use of accessory muscles and clear to auscultation bilaterally Cardio regular rate, regular rhythm, no murmurs and peripheral pulses 2+ throughout GI normal to inspection, nondistended, normoactive bowel sounds, soft to palpation, non-tender and non-distended Back/Spine normal ROM Extremity normal to inspection, full ROM and no pedal edema Skin no rashes or lesions noted Neuro no focal motor deficits and no sensory deficits noted Speech: speech normal Psych mental status grossly normal Lab / Micro Data 11/17/23 08:03 11/18/23 16:15 Labs: Laboratory Results - last 24 hr 11/18/23 06:40: Sodium 137, Potassium 2.1 L*, Chloride 98, Carbon Dioxide 33.0 H , Anion Gap 6, BUN 6 L, Creatinine 0.45 L, Estim Creat Clear Calc 314.52, Est GFR (MDRD) Af Amer 285, Est GFR (MDRD) Non-Af 236, BUN/Creatinine Ratio 13.5, Glucose 98, Calcium 7.6 L, Phosphorus 2.5, Magnesium 1.6, Total Bilirubin 2.30 H , AST 40 H, ALT 35, Alkaline Phosphatase 76, Total Protein 5.6 L, Albumin 1.9 L, Globulin 3.7, Albumin/Globulin Ratio 0.5 L 11/18/23 16:15: Potassium 2.3 L* Micro: Microbiology 11/17/23 16:24 Stool Enteric Bacteriology - Final Imagaing Radiology Impression Enterography MRI 11/17/23 10:54 IMPRESSION: Extensive acute inflammation along the distal ileum and sigmoid colon concerning for active Crohn''s disease Electronically Signed: Oli Pate MD at 0:08 EST , ADDENDUM: 11/18/23 0140 IMPRESSION: undefined Assessment & Plan Assessment/Plan (1) Rectal bleeding: (2) Diverticulitis of large intestine with complication: (3) Diarrhea: QUALIFIERS: Diarrhea type: unspecified type Qualified Code(s): R19.7 - Diarrhea, unspecified (4) Colitis: PLAN: Plan 28-year-old with a 14-year history of lower GI bleeding and a several year history of acute recurrent diverticulitis. From looking at the images previously from [id number] that we have in our system and looks as if he has been having sigmoid colitis associated with diverticular disease. This is usually secondary to mucosal prolapse creating a local ischemia and ischemic polypoid formation. The clinical presentation of Crohn's disease and chronic or acute diverticuli tis can be almost identical in presentation. Since they can have similar presentation as the biopsies that really help tell whether this is sigmoid colitis associated with diverticulosis and to develop a of ischemic colitis due to to mucosal prolapse, ulcerative colitis or indeterminate colitis or Crohn's disease of the colon. Approximately 15 to 40% of people with chronic ulcerative colitis can develop diverticulosis associated with ulcerative colitis. I will have to see to report from the previous colonoscopy to see if the terminal ileum was intubated and to see if he had any biochemical workup for inflammatory bowel disease. For now would recommend continued antibiotic therapy. With his fevers and increased white blood cell count I would not recommend steroids at this time. I will send an ANCA, DAVONTE comprehensive profile, IBD SGI from [facility] to see if she has any antibodies associated Crohn's disease, ESR, CRP. Also the differential diagnosis for lower GI bleeding in the setting of inflammation would be infectious colitis so we should check his stools for C. difficile, CMV associated colitis, enteric pathogens, fecal calprotectin and fecal elastase. Charges/Coding Visit Charges Inpatient E&M: 15231 Init Hosp L3
[2023-11-18 21:07] LABS: Absolute Neutrophil Count 5.9 X10^3/uL (2.0-7.7); Basophil# 0.03 X10^3/uL; Basophil% 0.4 % (0-1); Eosinophil# 0.06 X10^3/uL; Eosinophils% 0.8 % (0-5); Hematocrit 35.7 % (40-54); Hemoglobin 12.9 g/dL (13.0-16.5); Lymphocyte % 12.5 % (19-41); Mean Corp Hgb Conc 36.1 g/dL (32-36); Mean Corpuscular Hgb 37.3 pg (27.0-32.0); Mean Corpuscular Volume 103.2 fL (80-94); Mean Platelet Vol. 9.9 fl (6.2-12.0); Monocyte# 0.34 X10^3/uL; Monocyte% 4.7 % (0-10); NRBC Flagged by Analyzer 0 % (0-5); Neutrophil # 5.86 X10^3/uL (2.7-7.7); Neutrophil % 81.3 % (47-70); Platelet Count 236 K/mm3 (150-450); RBC Distribution Width CV 13.5 % (11.6-14.6); RBC Distribution Width SD 51.5 fl (35.1-43.9); Red Blood Count 3.46 M/mm3 (4.6-6.2); White Blood Count 7.2 K/mm3 (4.4-11.0)
[2023-11-18 21:28] LABS: Erythrocyte Sedimentation Rate 24 mm/hr (0-20)
[2023-11-18 21:51] LABS: Lactic Acid 0.9 mmol/L (0.4-1.9)
[2023-11-18 22:43] LABS: ALB/GLOB Ratio 0.6 RATIO (0.9-2.4); AST(SGOT) 39 U/L (15-37); Alanine Aminotransfer ALT/SGPT 35 U/L (16-61); Alkaline Phosphatase 64 U/L (45-117); Anion Gap 6 (5-15); BUN 9 mg/dL (7-18); BUN/Creat Ratio 20.7 RATIO (10-20); Calcium,Total 7.6 mg/dL (8.5-10.1); Chloride 100 mmol/L (98-107); Creatinine, Serum 0.44 mg/dL (0.70-1.30); EST Glomerular Filtration Rate 243 mL/min (>60); Est Glom Filt Rate - Afr Amer 293 mL/min (>60); Estimated Creatinine Clearance 321.67 ml/min; Globulin 3.6 g/dL (2.2-4.2); Glucose 92 mg/dL (74-106); Potassium 2.5 mmol/L (3.5-5.1); Protein, Total 5.6 g/dL (6.4-8.2); Sodium Level 135 mmol/L (136-145)
[2023-11-19] VITALS (9 sets, daily range): BP systolic 127–133; BP diastolic 69–81; PULSE 59–73; RESP 16–18; TEMP 35.8–37.3; O2SAT 94–98
[2023-11-19] MEDS: Potassium Chloride 10mEq/100mL 10 MEQ/100 ML IV.SOLN. 100 MEQ IV BOLUS ×3 (00:06→04:10)
[2023-11-19] MEDS: Lactated Ringers 1,000 ML 125 ML IV ×2 (04:12→12:03)
[2023-11-19] MEDS: Piperacil/Tazobactam 3.375 GM in 0.9% Normal Saline (50mL MB+) 50 ML IV ×3 (05:45→22:59)
[2023-11-19 07:35] LABS: Absolute Lymphocyte Count 0.93 X10^3/uL (0.83-4.51); Absolute Neutrophil Count 4.8 X10^3/uL (2.0-7.7); Basophil# 0.04 X10^3/uL; Basophil% 0.6 % (0-1); Eosinophil# 0.07 X10^3/uL; Eosinophils% 1.1 % (0-5); Hematocrit 32.1 % (40-54); Hemoglobin 11.8 g/dL (13.0-16.5); Lymphocyte # 0.93 X10^3/ul (0.83-4.51); Mean Corp Hgb Conc 36.8 g/dL (32-36); Mean Corpuscular Hgb 37.7 pg (27.0-32.0); Mean Corpuscular Volume 102.6 fL (80-94); Mean Platelet Vol. 10.3 fl (6.2-12.0); Monocyte# 0.35 X10^3/uL; Monocyte% 5.6 % (0-10); NRBC Flagged by Analyzer 0 % (0-5); Neutrophil # 4.81 X10^3/uL (2.7-7.7); Neutrophil % 77.4 % (47-70); Platelet Count 210 K/mm3 (150-450); RBC Distribution Width CV 13.7 % (11.6-14.6); Red Blood Count 3.13 M/mm3 (4.6-6.2); White Blood Count 6.2 K/mm3 (4.4-11.0)
[2023-11-19 08:15] LABS: Anion Gap 7 (5-15); BUN 8 mg/dL (7-18); BUN/Creat Ratio 21.4 RATIO (10-20); Calcium,Total 7.6 mg/dL (8.5-10.1); Chloride 100 mmol/L (98-107); Creatinine, Serum 0.37 mg/dL (0.70-1.30); EST Glomerular Filtration Rate 290 mL/min (>60); Est Glom Filt Rate - Afr Amer 350 mL/min (>60); Estimated Creatinine Clearance 382.52 ml/min; Glucose 82 mg/dL (74-106); Potassium 2.4 mmol/L (3.5-5.1); Sodium Level 136 mmol/L (136-145)
[2023-11-19] MEDS: Potassium Chloride Oral Tablet 20 MEQ 60 MEQ PO ×2 (08:45→14:51)
[2023-11-19] MEDS: Escitalopram Oxalate 10 MG Tablet PO (08:46)
[2023-11-19] MEDS: Metoprolol(XL)Succ 50 MG Tablet PO (08:47)
[2023-11-19] MEDS: Pantoprazole Sodium 40 MG Tablet PO (08:47)
--- NOTE | 2023-11-19 10:38 | PN.SURG_ITS ---
Subjective Subjective Patient reports he is not having any pain today. He did have 2 episodes of blood per rectum overnight. Denies nausea or vomiting. He says he tolerated clears. Objective Data Objective Data Vital Signs: Vital Signs Temp Pulse Resp BP Pulse Ox O2 Del Method 98.4 F 73 16 129/77 H 94 Room Air 11/19/23 08:44 11/19/23 09:45 11/19/23 08:44 11/19/23 08:44 11/19/23 08:44 11/19/23 09:43 Oxygen Delivery Method Room Air Weight: 238 lb 12.17 oz Body Mass Index (BMI) 30.7 Intake & Output: Intake and Output for Last 24 Hours 11/17/23 11/18/23 11/19/23 23:59 23:59 23:59 Intake Total 2713.3333 / 2713.3333 3527.83 / 3527.83 2476.3333 / 2476.3333 Output Total 700 / 700 1150 / 1150 Balance 3 / 2377.83 / 2377.83 2476.3333 / 2476.3333 Lab / Micro Data 11/19/23 07:01 11/19/23 07:01 Labs: Laboratory Results - last 24 hr 11/18/23 16:15: Potassium 2.3 L* 11/18/23 20:50: WBC 7.2, RBC 3.46 L, Hgb 12.9 L, Hct 35.7 L, MCV 103.2 H, MCH 37.3 H, MCHC 36.1 H, RDW Std Deviation 51.5 H, RDW Coeff of Kristen 13.5, Plt Count 236, MPV 9.9, Immature Gran % (Auto) 0.300, Neut % (Auto) 81.3 H, Lymph % (Auto) 12.5 L, Mason % (Auto) 4.7, Eos % (Auto) 0.8, Baso % (Auto) 0.4, Absolute Neuts (auto) 5.9, Absolute Lymphs (auto) 0.90, Nucleated RBC % 0, ESR 24 H, Sodium 135 L, Potassium 2.5 L*, Chloride 100, Carbon Dioxide 29.0, Anion Gap 6, BUN 9, Creatinine 0.44 L, Estim Creat Clear Calc 321.67, Est GFR (MDRD) Af Amer 293, Est GFR (MDRD) Non-Af 243, BUN/Creatinine Ratio 20.7 H, Glucose 92, Lactic Acid 0.9, Calcium 7.6 L, Total Bilirubin 1.50 H, AST 39 H, ALT 35, Alkaline Phosphatase 64, C-React Prot Ext Range 158.00 H, Total Protein 5.6 L, Albumin 2.0 L, Globulin 3.6, Albumin/Globulin Ratio 0.6 L 11/19/23 07:01: WBC 6.2, RBC 3.13 L, Hgb 11.8 L, Hct 32.1 L, MCV 102.6 H, MCH 37.7 H, MCHC 36.8 H, RDW Std Deviation 52.0 H, RDW Coeff of Kristen 13.7, Plt Count 210, MPV 10.3, Immature Gran % (Auto) 0.300, Neut % (Auto) 77.4 H, Lymph % (Auto) 15.0 L, Mason % (Auto) 5.6, Eos % (Auto) 1.1, Baso % (Auto) 0.6, Absolute Neuts (auto) 4.8, Absolute Lymphs (auto) 0.93, Nucleated RBC % 0, Sodium 136, Potassium 2.4 L*, Chloride 100, Carbon Dioxide 29.0, Anion Gap 7, BUN 8, Creatinine 0.37 L, Estim Creat Clear Calc 382.52, Est GFR (MDRD) Af Amer 350, Es t GFR (MDRD) Non-Af 290, BUN/Creatinine Ratio 21.4 H, Glucose 82, Calcium 7.6 L Micro: Microbiology 11/17/23 10:00 Blood Culture (Wb) - Anticubital Right Blood Culture - Preliminary No growth in 48 hours. 11/17/23 10:14 Blood Culture (Wb) - Anticubital Left Blood Culture - Preliminary No growth in 48 hours. 11/18/23 22:47 Stool C. difficile GDH Antigen & Toxins - Final 11/18/23 22:47 Stool Clostridioides difficile (PCR) - Final 11/18/23 22:47 Stool Enteric Bacteriology - Final 11/18/23 22:47 Stool Stool Lactoferrin - Final 11/17/23 16:24 Stool Enteric Bacteriology - Final Physical Exam Const oriented x3 and no apparent distress Resp normal respiratory effort GI soft to palpation and non-tender Assessment & Plan Assessment/Plan (1) Rectal bleeding: (2) Colitis: PLAN: Plan The patient has inflammation of the colon. He had MR enterography which heavily suggested Crohn's disease. It is hard to determine if the bubbles of air are in the fistula tract or if there is a perforation. The patient is not having any tenderness. His white count is normal today. He says he tolerated clears which was started yesterday afternoon. I am going advance his diet to full liquids today and decrease his IV fluids. Continue IV antibiotics. Dr. Elder will be covering tomorrow and the weekend and I recommended continuing full liquids and IV antibiotics and possibly repeating a CT with contrast before starting any steroids. Patient is in agreement with the plan. Elroy Lange MD Pager: [facility] [address] [place] [address], [address] [place] [phone] Office:
--- NOTE | 2023-11-19 15:41 | PCM.PN.HOSP ---
Reason for Visit Reason for Visit: Diagnoses Hypokalemia (11/17/23) Noninfective gastroenteritis and colitis, unspecified (11/17/23) Diverticulitis of large intestine without perforation or abscess without bleeding (11/17/23) Hemorrhage of anus and rectum (11/17/23) Diarrhea, unspecified (11/17/23) Subjective Subjective Patient seen at bedside this morning. Laying comfortably in bed, conversing normally, no acute distress. Patient continues to have minimal abdominal pain today. Has had few episodes of small bloody bowel movements since yesterday evening. He has tolerated a liquid diet well to this point. He is hopeful for getting an answer on next steps and treatment plan in place while here. No other acute concerns morning. Objective Data Objective Data Vital Signs: Vital Signs Temp Pulse Resp BP Pulse Ox O2 Del Method 98 F 71 16 127/69 H 96 Room Air 11/19/23 14:54 11/19/23 15:30 11/19/23 14:54 11/19/23 14:54 11/19/23 14:54 11/19/23 14:54 Oxygen Delivery Method Room Air Weight: 108.3 kg Body Mass Index (BMI) 30.7 Intake & Output: Intake and Output for Last 24 Hours 11/17/23 11/18/23 11/19/23 23:59 23:59 23:59 Intake Total 2713.3333 / 2713.3333 3527.83 / 3527.83 4280.5033 / 4280.5033 Output Total 700 / 700 1150 / 1150 Balance 3 / 2377.83 / 2377.83 4280.5033 / 4280.5033 Lab / Micro Data 11/19/23 07:01 11/19/23 07:01 Labs: Laboratory Results - last 24 hr 11/18/23 16:15: Potassium 2.3 L* 11/18/23 20:50: WBC 7.2, RBC 3.46 L, Hgb 12.9 L, Hct 35.7 L, MCV 103.2 H, MCH 37.3 H, MCHC 36.1 H, RDW Std Deviation 51.5 H, RDW Coeff of Kristen 13.5, Plt Count 236, MPV 9.9, Immature Gran % (Auto) 0.300, Neut % (Auto) 81.3 H, Lymph % (Auto) 12.5 L, Blair % (Auto) 4.7, Eos % (Auto) 0.8, Baso % (Auto) 0.4, Absolute Neuts (auto) 5.9, Absolute Lymphs (auto) 0.90, Nucleated RBC % 0, ESR 24 H, Sodium 135 L, Potassium 2.5 L*, Chloride 100, Carbon Dioxide 29.0, Anion Gap 6, BUN 9, Creatinine 0.44 L, Estim Creat Clear Calc 321.67, Est GFR (MDRD) Af Amer 293, Est GFR (MDRD) Non-Af 243, BUN/Creatinine Ratio 20.7 H, Glucose 92, Lactic Acid 0.9, Calcium 7.6 L, Total Bilirubin 1.50 H, AST 39 H, ALT 35, Alkaline Phosphatase 64, C-React Prot Ext Range 158.00 H, Total Protein 5.6 L, Albumin 2.0 L, Globulin 3.6, Albumin/Globulin Ratio 0.6 L 11/19/23 07:01: WBC 6.2, RBC 3.13 L, Hgb 11.8 L, Hct 32.1 L, MCV 102.6 H, MCH 37.7 H, MCHC 36.8 H, RDW Std Deviation 52.0 H, RDW Coeff of Kristen 13.7, Plt Count 210, MPV 10.3, Immature Gran % (Auto) 0.300, Neut % (Auto) 77.4 H, Lymph % (Auto) 15.0 L, Blair % (Auto) 5.6, Eos % (Auto) 1.1, Baso % (Auto) 0.6, Absolute Neuts (auto) 4.8, Absolute Lymphs (auto) 0.93, Nucleated RBC % 0, Sodium 136, Potassium 2.4 L*, Chloride 100, Carbon Dioxide 29.0, Anion Gap 7, BUN 8, Creatinine 0.37 L, Estim Creat Clear Calc 382.52, Est GFR (MDRD) Af Amer 350, Est GFR (MDRD) Non-Af 290, BUN/Creatinine Ratio 21.4 H, Glucose 82, Calcium 7.6 L Micro: Microbiology 11/17/23 10:00 Blood Culture (Wb) - Anticubital Right Blood Culture - Preliminary No growth in 48 hours. 11/17/23 10:14 Blood Culture (Wb) - Anticubital Left Blood Culture - Preliminary No growth in 48 hours. 11/18/23 22:47 Stool C. difficile GDH Antigen & Toxins - Final 11/18/23 22:47 Stool Clostridioides difficile (PCR) - Final 11/18/23 22:47 Stool Enteric Bacteriology - Final 11/18/23 22:47 Stool Stool Lactoferrin - Final 11/17/23 16:24 Stool Enteric Bacteriology - Final Physical Exam Const alert, oriented x3 and no apparent distress Constitutional Narrative: Pleasant young male, obese, laying comfortably bed, conversing normally, no acute distress. General Appearance: cooperative and comfortable HEENT normocephalic, head/scalp atraumatic, hearing grossly normal bilaterally, nasal mucous membranes and turbinates normal and moist oral mucous membranes Eyes PERRL, EOMs intact bilaterally and conjunctivae normal Neck full ROM, no lymphadenopathy and supple Lymph Lymphatic: no lymphadenopathy noted Chest inspection of chest normal Resp normal respiratory effort, normal air movement, no use of accessory muscles and clear to auscultation bilaterally Cardio regular rate, regular rhythm, no murmurs and peripheral pulses 2+ throughout GI normal to inspection, nondistended, normoactive bowel sounds, soft to palpation, non-tender and non-distended Back/Spine normal ROM Extremity normal to inspection, full ROM and no pedal edema Skin no rashes or lesions noted Neuro no focal motor deficits and no sensory deficits noted Speech: speech normal Psych mental status grossly normal Assessment & Plan Assessment/Plan (1) Colitis: (2) Acute hypokalemia: PLAN: Plan Patient is a 28-year-old male who presented to [facility] ED on 11/17/2023 with intermittent abdominal pain with bloody stools for 2 weeks. General surgery primary patient. Medicine consulted on hospital day 2 for medical management. 1. Colitis with suspected microperforation of sigmoid colon ? General surgery primary patient. Gastroenterology following. MRI enterography 11/17 with findings showed extensive acute inflammation along distal ileum and sigmoid colon. Radiologist had has concern for Crohn's disease, however as noted by Dr. Reyna, findings could also be consistent with acute on chronic diverticulitis. Advanced to liquid diet on 11/19. Still awaiting further records from outside hospital prior to determination on whether patient will need colonoscopy during this admission. Continue treatment with Zosyn. Extensive labs sent by GI, follow-up. Hold on steroids at this time. 2. Severe hypokalemia ? Potassium 2.1 on admit. Presumed secondary to GI losses in setting of suspected Crohn's disease. Notably had very similar presentation at outside hospital in May, potassium 1.7 at that time. Had improvement with significant potassium supplementation. Patient is likely hundreds of mEq depleted of potassium at this time, will aggressively supplement during this admission. Monitor telemetry. Monitor daily BMP and mag, replace magnesium as needed as well. 3. Hypertension ? On Toprol 100 mg nightly. Normotensive on admission and appeared dry. Blood pressure improving with volume resuscitation. Toprol 50 mg daily for now, can increase back to home dose as needed. 4. Depression ? Stable. Continue home escitalopram. Total clinical time spent by myself addressing the patient's medical issues, reviewing all the data, and collaborating with patient's care team: 25 minutes. Charges/Coding Visit Charges Inpatient E&M: 42927 [facility] L1
[2023-11-19] MEDS: Hyoscyamine Sulfate 0.125 MG Tablet PO ×2 (17:36→23:00)
--- NOTE | 2023-11-19 17:51 | EX.PCM.PN.GI ---
Subjective Subjective Patient is having less pain today. He is tolerating a liquid diet. He had 3 bowel movements today and 2 were both bloody bowel movements. Objective Data Objective Data Vital Signs: Vital Signs Temp Pulse Resp BP Pulse Ox O2 Del Method 98 F 71 16 127/69 H 96 Room Air 11/19/23 14:54 11/19/23 15:30 11/19/23 14:54 11/19/23 14:54 11/19/23 14:54 11/19/23 14:54 Oxygen Delivery Method Room Air Weight: 238 lb 12.17 oz Body Mass Index (BMI) 30.7 Intake & Output: Intake and Output for Last 24 Hours 11/17/23 11/18/23 11/19/23 23:59 23:59 23:59 Intake Total 2713.3333 / 2713.3333 3527.83 / 3527.83 4280.5033 / 4280.5033 Output Total 700 / 700 1150 / 1150 Balance 3 / 3333 2377.83 / 2377.83 4280.5033 / 4280.5033 Lab / Micro Data 11/19/23 07:01 11/19/23 07:01 Labs: Laboratory Results - last 24 hr 11/18/23 20:50: WBC 7.2, RBC 3.46 L, Hgb 12.9 L, Hct 35.7 L, MCV 103.2 H, MCH 37.3 H, MCHC 36.1 H, RDW Std Deviation 51.5 H, RDW Coeff of Kristen 13.5, Plt Count 236, MPV 9.9, Immature Gran % (Auto) 0.300, Neut % (Auto) 81.3 H, Lymph % (Auto) 12.5 L, [place] % (Auto) 4.7, Eos % (Auto) 0.8, Baso % (Auto) 0.4, Absolute Neuts (auto) 5.9, Absolute Lymphs (auto) 0.90, Nucleated RBC % 0, ESR 24 H, Sodium 135 L, Potassium 2.5 L*, Chloride 100, Carbon Dioxide 29.0, Anion Gap 6, BUN 9, Creatinine 0.44 L, Estim Creat Clear Calc 321.67, Est GFR (MDRD) Af Amer 293, Est GFR (MDRD) Non-Af 243, BUN/Creatinine Ratio 20.7 H, Glucose 92, Lactic Acid 0.9, Calcium 7.6 L, Total Bilirubin 1.50 H, AST 39 H, ALT 35, Alkaline Phosphatase 64, C-React Prot Ext Range 158.00 H, Total Protein 5.6 L, Albumin 2.0 L, Globulin 3.6, Albumin/Globulin Ratio 0.6 L 11/19/23 07:01: WBC 6.2, RBC 3.13 L, Hgb 11.8 L, Hct 32.1 L, MCV 102.6 H, MCH 37.7 H, MCHC 36.8 H, RDW Std Deviation 52.0 H, RDW Coeff of Kristen 13.7, Plt Count 210, MPV 10.3, Immature Gran % (Auto) 0.300, Neut % (Auto) 77.4 H, Lymph % (Auto) 15.0 L, [place] % (Auto) 5.6, Eos % (Auto) 1.1, Baso % (Auto) 0.6, Absolute Neuts (auto) 4.8, Absolute Lymphs (auto) 0.93, Nucleated RBC % 0, Sodium 136, Potassium 2.4 L*, Chloride 100, Carbon Dioxide 29.0, Anion Gap 7, BUN 8, Creatinine 0.37 L, Estim Creat Clear Calc 382.52, Est GFR (MDRD) Af Amer 350, Est GFR (MDRD) Non-Af 290, BUN/Creatinine Ratio 21.4 H, Glucose 82, Calcium 7.6 L Micro: Microbiology 11/17/23 10:00 Blood Culture (Wb) - Anticubital Right Blood Culture - Preliminary No growth in 48 hours. 11/17/23 10:14 Blood Culture (Wb) - Anticubital Left Blood Culture - Preliminary No growth in 48 hours. 11/18/23 22:47 Stool C. difficile GDH Antigen & Toxins - Final 11/18/23 22:47 Stool Clostridioides difficile (PCR) - Final 11/18/23 22:47 Stool Enteric Bacteriology - Final 11/18/23 22:47 Stool Stool Lactoferrin - Final 11/17/23 16:24 Stool Enteric Bacteriology - Final Physical Exam Const alert, oriented x3 and no apparent distress Constitutional Narrative: no acute distress. General Appearance: cooperative and comfortable HEENT normocephalic, head/scalp atraumatic, hearing grossly normal bilaterally, nasal mucous membranes and turbinates normal and moist oral mucous membranes Eyes PERRL, EOMs intact bilaterally and conjunctivae normal Neck full ROM, no lymphadenopathy and supple Lymph Lymphatic: no lymphadenopathy noted Chest inspection of chest normal Resp normal respiratory effort, normal air movement, no use of accessory muscles and clear to auscultation bilaterally Cardio regular rate, regular rhythm, no murmurs and peripheral pulses 2+ throughout GI normal to inspection, nondistended, normoactive bowel sounds, soft to palpation, non-tender and non-distended Back/Spine normal ROM Extremity normal to inspection, full ROM and no pedal edema Skin no rashes or lesions noted Neuro no focal motor deficits and no sensory deficits noted Speech: speech normal Psych mental status grossly normal Assessment & Plan Assessment/Plan (1) Rectal bleeding: (2) Diverticulitis of large intestine with complication: (3) Diarrhea: QUALIFIERS: Diarrhea type: unspecified type Qualified Code(s): R19.7 - Diarrhea, unspecified (4) Colitis: PLAN: Plan 28-year-old with a 14-year history of lower GI bleeding and a several year history of acute recurrent diverticulitis. From looking at the images previously from [id number] that we have in our system and looks as if he has been having sigmoid colitis associated with diverticular disease. This is usually secondary to mucosal prolapse creating a local ischemia and ischemic polypoid formation. The clinical presentation of Crohn's disease and chronic or acute diverticulitis can be almost identical in presentation. Since they can have similar presentation as the biopsies that really help tell whether this is sigmoid colitis associated with diverticulosis and to develop a of ischemic colitis due to to mucosal prolapse, ulcerative colitis or indeterminate colitis or Crohn's disease of the colon. Approximately 15 to 40% of people with chronic ulcerative colitis can develop diverticulosis associated with ulcerative colitis. I will have to see to report from the previous colonoscopy to see if the terminal ileum was intubated and to see if he had any biochemical workup for inflammatory bowel disease. For now would recommend continued antibiotic therapy. With his fevers and increased white blood cell count I would not recommend steroids at this time. I will send an ANCA, DAVONTE comprehensive profile, IBD SGI from [facility] to see if she has any antibodies associated Crohn's disease, ESR, CRP. Also the differential diagnosis for lower GI bleeding in the setting of inflammation would be infectious colitis so we should check his stools for C. difficile, CMV associated colitis, enteric pathogens, fecal calprotectin and fecal elastase. 11/19-patient's white blood cell count is normal but his ESR and CRP are very high and are consistent with acute colitis. He is fecal lactoferrin positive. He is PCR positive for C. difficile and negative for C. difficile antigen A/B toxins. His stool culture is negative. 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 That is not indication to put him on antibiotics for C. difficile. He remains on antibiotic therapy and continues to improve. I agree with having a CT with rectal contrast to see if there is any signs of microperforation. If his CRP continues to decrease along with his ESR and there is no sign of perforation we can initiate steroid therapy. Workup is pending regarding inflammatory bowel disease. Most of the test are send out test and will take some time to come back. Charges/Coding Visit Charges Inpatient E&M: 86830 Subs Hosp L3
[2023-11-19] MEDS: Acetaminophen 325 MG Tablet 650 MG PO (23:44)
[2023-11-20] VITALS (9 sets, daily range): BP systolic 129–137; BP diastolic 57–74; PULSE 60–81; RESP 16–18; TEMP 36.1–36.7; O2SAT 96–98
[2023-11-20] MEDS: 0.9% Saline Lock 10 ML Syringe IV ×4 (04:38→23:59)
[2023-11-20 05:07] LABS: HEPATITIS B SURFACE AG Negative (Negative); Hep C Antibodies Non Reactive (Non Reactive); Hepatitis A IgM Antibody Negative (Negative); Hepatitis B Core AB IgM Negative (Negative)
[2023-11-20 05:27] LABS: Hematocrit 37.7 % (40-54); Hemoglobin 13.2 g/dL (13.0-16.5); Mean Corpuscular Hgb 36.9 pg (27.0-32.0); Mean Corpuscular Volume 105.3 fL (80-94); Platelet Count 390 K/mm3 (150-450); RBC Distribution Width CV 13.2 % (11.6-14.6); RBC Distribution Width SD 51.7 fl (35.1-43.9); Red Blood Count 3.58 M/mm3 (4.6-6.2); White Blood Count 12.2 K/mm3 (4.4-11.0)
[2023-11-20 06:09] LABS: Anion Gap 7 (5-15); BUN 4 mg/dL (7-18); BUN/Creat Ratio 7.1 RATIO (10-20); Chloride 100 mmol/L (98-107); Creatinine, Serum 0.56 mg/dL (0.70-1.30); EST Glomerular Filtration Rate 181 mL/min (>60); Est Glom Filt Rate - Afr Amer 219 mL/min (>60); Estimated Creatinine Clearance 252.74 ml/min; Glucose 90 mg/dL (74-106); Potassium 2.8 mmol/L (3.5-5.1); Sodium Level 135 mmol/L (136-145)
[2023-11-20] MEDS: Piperacil/Tazobactam 3.375 GM in 0.9% Normal Saline (50mL MB+) 50 ML IV ×3 (06:19→23:22)
[2023-11-20] MEDS: Lactated Ringers 1,000 ML 40 ML IV (06:43)
--- NOTE | 2023-11-20 07:37 | PCM.PN.SRG ---
Subjective Subjective Seen and examined during AM rounds. He is found sitting out of bed to chair. He reports that his abdominal pain remains minimal and he declares that he has not poorly since arrived. Objective Data Objective Data Vital Signs: Vital Signs Temp Pulse Resp BP Pulse Ox O2 Del Method 97.3 F L 60 18 135/57 H 97 Room Air 11/20/23 04:36 11/20/23 04:36 11/20/23 04:36 11/20/23 04:36 11/20/23 04:36 11/20/23 04:36 Oxygen Delivery Method Room Air Weight: 238 lb 12.17 oz Body Mass Index (BMI) 30.7 Intake & Output: Intake and Output for Last 24 Hours 11/18/23 11/19/23 11/20/23 23:59 23:59 23:59 Intake Total 3527.83 / 3527.83 5430.5033 / 5430.5033 731.33 / 731.33 Output Total 1150 / 1150 1400 / 1400 400 / 400 Balance 2377.83 / 2377.83 4030.5033 / 4030.5033 331.33 / 331.33 Lab / Micro Data 11/20/23 05:10 11/20/23 05:10 Labs: Laboratory Results - last 24 hr 11/18/23 20:50: Hepatitis A IgM Ab Negative, Hep Bs Antigen Negative, Hep B Core IgM Ab Negative, Hepatitis C Ab (EIA) Non Reactive, Hep C Ab Comment Comment 11/19/23 07:01: WBC 6.2, RBC 3.13 L, Hgb 11.8 L, Hct 32.1 L, MCV 102.6 H, MCH 37.7 H, MCHC 36.8 H, RDW Std Deviation 52.0 H, RDW Coeff of Kristen 13.7, Plt Count 210, MPV 10.3, Immature Gran % (Auto) 0.300, Neut % (Auto) 77.4 H, Lymph % (Auto) 15.0 L, [place] % (Auto) 5.6, Eos % (Auto) 1.1, Baso % (Auto) 0.6, Absolute Neuts (auto) 4.8, Absolute Lymphs (auto) 0.93, Nucleated RBC % 0, Sodium 136, Potassium 2.4 L*, Chloride 100, Carbon Dioxide 29.0, Anion Gap 7, BUN 8, Creatinine 0.37 L, Estim Creat Clear Calc 382.52, Est GFR (MDRD) Af Amer 350, Est GFR (MDRD) Non-Af 290, BUN/Creatinine Ratio 21.4 H, Glucose 82, Calcium 7.6 L 11/20/23 05:10: WBC 12.2 H, RBC 3.58 L, Hgb 13.2, Hct 37.7 L, MCV 105.3 H, MCH 36.9 H, MCHC 35.0, RDW Std Deviation 51.7 H, RDW Coeff of Kristen 13.2, Plt Count 390, MPV 10.0, Sodium 135 L, Potassium 2.8 L, Chloride 100, Carbon Dioxide 28.0, Anion Gap 7, BUN 4 L, Creatinine 0.56 L, Estim Creat Clear Calc 252.74, Est GFR (MDRD) Af Amer 219, Est GFR (MDRD) Non-Af 181, BUN/Creatinine Ratio 7.1 L, Glucose 90, Calcium 8.0 L, Magnesium 2.0 Micro: Microbiology 11/17/23 10:00 Blood Culture (Wb) - Anticubital Right Blood Culture - Preliminary No growth in 48 hours. 11/17/23 10:14 Blood Culture (Wb) - Anticubital Left Blood Culture - Preliminary No growth in 48 hours. 11/18/23 22:47 Stool C. difficile GDH Antigen & Toxins - Final 11/18/23 22:47 Stool Clostridioides difficile (PCR) - Final 11/18/23 22:47 Stool Enteric Bacteriology - Final 11/18/23 22:47 Stool Stool Lactoferrin - Final 11/17/23 16:24 Stool Enteric Bacteriology - Final Physical Exam Resp normal respiratory effort GI GI Narrative: Nondistended, soft, nontender to palpation x 4 quadrants Assessment & Plan Assessment/Plan (1) Rectal bleeding: (2) Colitis: PLAN: Plan The patient has inflammation of the colon. He had MR enterography which heavily suggested Crohn's disease. It is hard to determine if the bubbles of air are in the fistula tract or if there is a perforation. The patient is not having any tenderness. His white count is mildly elevated today today. He says he tolerated clears but has not had much opportunity/taken much opportunity to try full liquids. He shares that he is still having 2-3 bowel movements per day but seems to appreciate less blood with each bowel movement. Continue full liquids and start supplementation with protein. Planning to repeat CT imaging with oral, rectal, and IV contrast today. Appreciate assistance of gastroenterology. Klaus Elder MD General Surgery Endocrine Surgery Pager: [facility] [address] [place] [address], [address] [place] [address] Office: [phone] Charges/Coding Visit Charges Inpatient E&M: 48656 Subs Hosp L2
[2023-11-20] MEDS: Hyoscyamine Sulfate 0.125 MG Tablet PO ×4 (08:58→23:40)
[2023-11-20] MEDS: Escitalopram Oxalate 10 MG Tablet PO ×2 (08:58→08:59)
[2023-11-20] MEDS: Potassium Chloride Oral Tablet 20 MEQ 60 MEQ PO ×2 (08:58→14:51)
[2023-11-20] MEDS: Metoprolol(XL)Succ 50 MG Tablet PO (09:20)
[2023-11-20] MEDS: Pantoprazole Sodium 40 MG Tablet PO (09:20)
[2023-11-20 11:09] LABS: Anti-Centromere B Ab <0.2 AI (0.0-0.9); Anti-Chromatin <0.2 AI (0.0-0.9); Anti-Jo <0.2 AI (0.0-0.9); Anti-Scleroderma-70 AB <0.2 AI (0.0-0.9); Anti-dsDNA Ab <1 IU/mL (0-9); RNP Ab 0.2 AI (0.0-0.9); SJOGREN'S Anti-SS-A test < 0.2 AI (0.0-0.9); SJOGREN'S Anti-SS-B test < 0.2 AI (0.0-0.9); Smith Ab <0.2 AI (0.0-0.9)
--- NOTE | 2023-11-20 11:46 | CT_ITS ---
STUDY: CT ABDOMEN AND PELVIS WITH CONTRAST REASON FOR EXAM: Male, 28 years old. f/u colitis and possible coloenteric fistula. RADIATION DOSAGE (If Supplied By Facility): CTDIvol = ( 14.54 ) mGy, DLP = ( 1211.14 ) mGycm TECHNIQUE: Transaxial images were obtained from the dome of the diaphragm to the symphysis pubis without oral contrast. 100 CC ISOVUE 300 was administered. Sagittal and coronal images were reconstructed. Individualized dose optimization techniques were used for this CT. COMPARISON: Comparison is made with prior study dated November 17, 2023. FINDINGS: Tiny bilateral pleural effusions. The visualized portions of the heart are within normal limits. Normal liver. Normal gallbladder and extrahepatic biliary system. Normal spleen. Normal pancreas. Normal bilateral adrenal glands. Normal right kidney. Normal left kidney. Normal visualized stomach. Circumferential wall thickening of the terminal ileum. Diffuse colitis worse at the level of the sigmoid colon. Increased markings are seen in the surrounding mesenteric fat in the pelvis suggestive of inflammatory changes. No definite fistulous connection is seen on this examination. Normal abdominal aorta. Normal inferior vena cava. Normal retroperitoneum. Normal urinary bladder. Normal abdominal wall. Normal osseous structures. CT/Abdomen/Pelvis WITH Contrast IMPRESSION: Diffuse colitis worse in the sigmoid colon without thickening of the terminal ileum. No definite choledochoenteric fistula is seen. Electronically Signed: Tip Grigsby MD at 14:48 EST ,
[2023-11-20] MEDS: Morphine 2 MG/ML Syringe IV (15:03)
--- NOTE | 2023-11-20 16:37 | PCM.PN.HOSP ---
Reason for Visit Reason for Visit: Diagnoses Hypokalemia (11/17/23) Noninfective gastroenteritis and colitis, unspecified (11/17/23) Diverticulitis of large intestine without perforation or abscess without bleeding (11/17/23) Hemorrhage of anus and rectum (11/17/23) Diarrhea, unspecified (11/17/23) Subjective Subjective Patient seen at bedside this morning. Laying comfortably bed, conversing normally, no acute distress. Had a few small episodes of bloody diarrhea again overnight. Denies any significant abdominal pain. Denies any fevers or chills. No other acute concerns this time. Objective Data Objective Data Vital Signs: Vital Signs Temp Pulse Resp BP Pulse Ox O2 Del Method 98.1 F 75 18 137/74 H 96 Room Air 11/20/23 10:27 11/20/23 14:00 11/20/23 10:27 11/20/23 10:27 11/20/23 10:27 11/20/23 10:27 Oxygen Delivery Method Room Air Weight: 108.3 kg Body Mass Index (BMI) 30.7 Intake & Output: Intake and Output for Last 24 Hours 11/18/23 11/19/23 11/20/23 23:59 23:59 23:59 Intake Total 3527.83 / 3527.83 5430.5033 / 5430.5033 1131.33 / 1131.33 Output Total 1150 / 1150 1400 / 1400 400 / 400 Balance 2377.83 / 2377.83 4030.5033 / 4030.5033 731.33 / 731.33 Lab / Micro Data 11/20/23 05:10 11/20/23 05:10 Labs: Laboratory Results - last 24 hr 11/18/23 20:50: TIKA-1 Antibody <0.2, SS-A/Ro IgG Antibody < 0.2, SS-B/La IgG Antibody < 0.2, Sm (Mcadams) Antibody <0.2, A[employer]IST Antibody 0.2, Scl-70 Scleroderma Ab <0.2, Double Strand DNA Ab <1, Centromere B Antibody <0.2, Hepatitis A IgM Ab Negative, Hep Bs Antigen Negative, Hep B Core IgM Ab Negative, Hepatitis C Ab (EIA) Non Reactive, Hep C Ab Comment Comment 11/20/23 05:10: WBC 12.2 H, RBC 3.58 L, Hgb 13.2, Hct 37.7 L, MCV 105.3 H, MCH 36.9 H, MCHC 35.0, RDW Std Deviation 51.7 H, RDW Coeff of Kristen 13.2, Plt Count 390, MPV 10.0, Sodium 135 L, Potassium 2.8 L, Chloride 100, Carbon Dioxide 28.0, Anion Gap 7, BUN 4 L, Creatinine 0.56 L, Estim Creat Clear Calc 252.74, Est GFR (MDRD) Af Amer 219, Est GFR (MDRD) Non-Af 181, BUN/Creatinine Ratio 7.1 L, Glucose 90, Calcium 8.0 L, Magnesium 2.0 Micro: Microbiology 11/17/23 10:00 Blood Culture (Wb) - Anticubital Right Blood Culture - Preliminary No growth in 48 hours. 11/17/23 10:14 Blood Culture (Wb) - Anticubital Left Blood Culture - Preliminary No growth in 48 hours. 11/18/23 22:47 Stool C. difficile GDH Antigen & Toxins - Final 11/18/23 22:47 Stool Clostridioides difficile (PCR) - Final 11/18/23 22:47 Stool Enteric Bacteriology - Final 11/18/23 22:47 Stool Stool Lactoferrin - Final 11/17/23 16:24 Stool Enteric Bacteriology - Final Radiography Diagnostic Testing: Radiology Impression Abdomen/Pelvis CT 11/20/23 11:46 IMPRESSION: Diffuse colitis worse in the sigmoid colon without thickening of the terminal ileum. No definite choledochoenteric fistula is seen. Electronically Signed: Tip Grigsby MD at 14:48 EST , Physical Exam Const alert, oriented x3 and no apparent distress Constitutional Narrative: Pleasant young male, obese, laying comfortably bed, conversing normally, no acute distress. General Appearance: cooperative and comfortable HEENT normocephalic, head/scalp atraumatic, hearing grossly normal bilaterally, nasal mucous membranes and turbinates normal and moist oral mucous membranes Eyes PERRL, EOMs intact bilaterally and conjunctivae normal Neck full ROM, no lymphadenopathy and supple Lymph Lymphatic: no lymphadenopathy noted Chest inspection of chest normal Resp normal respiratory effort, normal air movement, no use of accessory muscles and clear to auscultation bilaterally Cardio regular rate, regular rhythm, no murmurs and peripheral pulses 2+ throughout GI normal to inspection, nondistended, normoactive bowel sounds, soft to palpation, non-tender and non-distended Back/Spine normal ROM Extremity normal to inspection, full ROM and no pedal edema Skin no rashes or lesions noted Neuro no focal motor deficits and no sensory deficits noted Speech: speech normal Psych mental status grossly normal Assessment & Plan Assessment/Plan (1) Colitis: (2) Acute hypokalemia: PLAN: Plan Patient is a 28-year-old male who presented to [facility] ED on 11/17/2023 with intermittent abdominal pain with bloody stools for 2 weeks. General surgery primary patient. Medicine consulted on hospital day 2 for medical management. 1. Colitis with suspected microperforation of sigmoid colon ? General surgery primary patient. Gastroenterology following. MRI enterography 11/17 with findings showed extensive acute inflammation along distal ileum and sigmoid colon. Radiologist had has concern for Crohn's disease, however as noted by Dr. Reyna, findings could also be consistent with acute on chronic diverticulitis. Advanced to liquid diet on 11/19, tolerating well. CT abdomen pelvis with oral contrast on 11/20 completed, read pending. Per GI and surgery, if no significant perforation noted on scan, likely planning to start IV steroid therapy. Continue treatment with Zosyn for now. 2. Severe hypokalemia ? Potassium 2.1 on admit. Presumed secondary to GI losses in setting of suspected Crohn's disease. Notably had very similar presentation at outside hospital in May, potassium 1.7 at that time. Had improvement with significant potassium supplementation. Patient is likely hundreds of mEq depleted of potassium at this time, will aggressively supplement during this admission. Monitor telemetry. Monitor daily BMP and mag, replace magnesium as needed as well. 3. Hypertension ? On Toprol 100 mg nightly. Normotensive on admission and appeared dry. Blood pressure improving with volume resuscitation. Toprol 50 mg daily for now, can increase back to home dose as needed. 4. Depression ? Stable. Continue home escitalopram. Total clinical time spent by myself addressing the patient's medical issues, reviewing all the data, and collaborating with patient's care team: 25 minutes. Charges/Coding Visit Charges Inpatient E&M: 01515 Subs Hosp L1
[2023-11-20] MEDS: Ensure Plus High Protein 120 ML LIQUID PO (17:28)
--- NOTE | 2023-11-20 21:00 | PN.GI_ITS ---
Subjective Subjective Patient states that he feels about the same. His abdominal pain is about two out of 10. He's been a febrile and still having bloody bowel movements. Objective Data Objective Data Vital Signs: Vital Signs Temp Pulse Resp BP Pulse Ox O2 Del Method 98.1 F 81 16 129/72 H 96 Room Air 11/20/23 16:30 11/20/23 18:00 11/20/23 16:30 11/20/23 16:30 11/20/23 16:30 11/20/23 16:30 Oxygen Delivery Method Room Air Weight: 238 lb 12.17 oz Body Mass Index (BMI) 30.7 Intake & Output: Intake and Output for Last 24 Hours 11/18/23 11/19/23 11/20/23 23:59 23:59 23:59 Intake Total 3527.83 / 3527.83 5430.5033 / 5430.5033 1781.33 / 1781.33 Output Total 1150 / 1150 1400 / 1400 400 / 400 Balance 2377.83 / 2377.83 4030.5033 / 4030.5033 1381.33 / 1381.33 Lab / Micro Data 11/20/23 05:10 11/20/23 05:10 Labs: Laboratory Results - last 24 hr 11/18/23 20:50: TIKA-1 Antibody <0.2, SS-A/Ro IgG Antibody < 0.2, SS-B/La IgG Antibody < 0.2, Sm (Mcadams) Antibody <0.2, MANUFACTURING APPLICATIONS ENGINEER Antibody 0.2, Scl-70 Scleroderma Ab <0.2, Double Strand DNA Ab <1, Centromere B Antibody <0.2, Hepatitis A IgM Ab Negative, Hep Bs Antigen Negative, Hep B Core IgM Ab Negative, Hepatitis C Ab (EIA) Non Reactive, Hep C Ab Comment Comment 11/20/23 05:10: WBC 12.2 H, RBC 3.58 L, Hgb 13.2, Hct 37.7 L, MCV 105.3 H, MCH 36.9 H, MCHC 35.0, RDW Std Deviation 51.7 H, RDW Coeff of Kristen 13.2, Plt Count 390, MPV 10.0, Sodium 135 L, Potassium 2.8 L, Chloride 100, Carbon Dioxide 28.0, Anion Gap 7, BUN 4 L, Creatinine 0.56 L, Estim Creat Clear Calc 252.74, Est GFR (MDRD) Af Amer 219, Est GFR (MDRD) Non-Af 181, BUN/Creatinine Ratio 7.1 L, Glucose 90, Calcium 8.0 L, Magnesium 2.0 Micro: Microbiology 11/17/23 10:00 Blood Culture (Wb) - Anticubital Right Blood Culture - Preliminary No growth in 48 hours. 11/17/23 10:14 Blood Culture (Wb) - Anticubital Left Blood Culture - Preliminary No growth in 48 hours. 11/18/23 22:47 Stool C. difficile GDH Antigen & Toxins - Final 11/18/23 22:47 Stool Clostridioides difficile (PCR) - Final 11/18/23 22:47 Stool Enteric Bacteriology - Final 11/18/23 22:47 Stool Stool Lactoferrin - Final 11/17/23 16:24 Stool Enteric Bacteriology - Final Radiography Diagnostic Testing: Radiology Impression Abdomen/Pelvis CT 11/20/23 11:46 IMPRESSION: Diffuse colitis worse in the sigmoid colon without thickening of the terminal ileum. No definite choledochoenteric fistula is seen. Electronically Signed: Tip Grigsby MD at 14:48 EST , Physical Exam Const alert, oriented x3 and no apparent distress Constitutional Narrative: No acute distress. General Appearance: cooperative and comfortable HEENT normocephalic, head/scalp atraumatic, hearing grossly normal bilaterally, nasal mucous membranes and turbinates normal and moist oral mucous membranes Eyes PERRL, EOMs intact bilaterally and conjunctivae normal Neck full ROM, no lymphadenopathy and supple Lymph Lymphatic: no lymphadenopathy noted Chest inspection of chest normal Resp normal respiratory effort, normal air movement, no use of accessory muscles and clear to auscultation bilaterally Cardio regular rate, regular rhythm, no murmurs and peripheral pulses 2+ throughout GI normal to inspection, nondistended, normoactive bowel sounds, soft to palpation, non-tender and non-distended Back/Spine normal ROM Extremity normal to inspection, full ROM and no pedal edema Skin no rashes or lesions noted Neuro no focal motor deficits and no sensory deficits noted Speech: speech normal Psych mental status grossly normal Assessment & Plan Assessment/Plan (1) Rectal bleeding: (2) Diverticulitis of large intestine with complication: (3) Diarrhea: QUALIFIERS: Diarrhea type: unspecified type Qualified Code(s): R19.7 - Diarrhea, unspecified (4) Colitis: PLAN: Plan 28-year-old with a 14-year history of lower GI bleeding and a several year history of acute recurrent diverticulitis. From looking at the images previously from [id number] that we have in our system and looks as if he has been having sigmoid colitis associated with diverticular disease. This is usually secondary to mucosal prolapse creating a local ischemia and ischemic polypoid formation. The clinical presentation of Crohn's disease and chronic or acute di verticulitis can be almost identical in presentation. Since they can have similar presentation as the biopsies that really help tell whether this is sigmoid colitis associated with diverticulosis and to develop a of ischemic colitis due to to mucosal prolapse, ulcerative colitis or indeterminate colitis or Crohn's disease of the colon. Approximately 15 to 40% of people with chronic ulcerative colitis can develop diverticulosis associated with ulcerative colitis. I will have to see to report from the previous colonoscopy to see if the terminal ileum was intubated and to see if he had any biochemical workup for inflammatory bowel disease. For now would recommend continued antibiotic therapy. With his fevers and increased white blood cell count I would not recommend steroids at this time. I will send an ANCA, DAVONTE comprehensive profile, IBD SGI from [facility] to see if she has any antibodies associated Crohn's disease, ESR, CRP. Also the differential diagnosis for lower GI bleeding in the setting of inflammation would be infectious colitis so we should check his stools for C. difficile, CMV associated colitis, enteric pathogens, fecal calprotectin and fecal elastase. 11/19-patient's white blood cell count is normal but his ESR and CRP are very high and are consistent with acute colitis. He is fecal lactoferrin positive. He is PCR positive for C. difficile and negative for C. difficile antigen A/B toxins. His stool culture is negative. 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 That is not indication to put him on antibiotics for C. difficile. He remains on antibiotic therapy and continues to improve. I agree with having a CT with rectal contrast to see if there is any signs of microperforation. If his CRP continues to decrease along with his ESR and there is no sign of perforation we can initiate steroid therapy. Workup is pending regarding inflammatory bowel disease. Most of the test are send out test and will take some time to come back. 11/20- Repeat CT scan of the admin pelvis does show inflammatory changes more significant in the sigmoid colon versus determiner ileum consistent with his acute colitis and terminally ileitis. Likely secondary to infection, ischemia, and likely inflammatory bowel disease. I suspect he also has concomitant sigmoid colitis associated with diverticulosis he's responding very well to antibiotic therapy. Recommend to recheck ESR/CRP and repeat potassium as needed. Charges/Coding Visit Charges Inpatient E&M: 35938 Subs Hosp L3
[2023-11-20] MEDS: Acetaminophen 325 MG Tablet 650 MG PO (23:24)
[2023-11-21] VITALS (9 sets, daily range): BP systolic 116–136; BP diastolic 59–80; PULSE 62–84; RESP 16–18; TEMP 35.8–36.4; O2SAT 94–100
[2023-11-21] MEDS: Morphine 2 MG/ML Syringe IV ×4 (02:36→20:22)
[2023-11-21] MEDS: Piperacil/Tazobactam 3.375 GM in 0.9% Normal Saline (50mL MB+) 50 ML IV ×3 (06:19→22:22)
[2023-11-21] MEDS: Lactated Ringers 1,000 ML 40 ML IV (06:21)
[2023-11-21 06:56] LABS: Hematocrit 28.3 % (40-54); Hemoglobin 9.9 g/dL (13.0-16.5); Mean Corpuscular Hgb 37.2 pg (27.0-32.0); Mean Corpuscular Volume 106.4 fL (80-94); Mean Platelet Vol. 10.2 fl (6.2-12.0); Platelet Count 266 K/mm3 (150-450); RBC Distribution Width CV 13.5 % (11.6-14.6); RBC Distribution Width SD 53.1 fl (35.1-43.9); Red Blood Count 2.66 M/mm3 (4.6-6.2); White Blood Count 6.3 K/mm3 (4.4-11.0)
--- NOTE | 2023-11-21 08:35 | PN.SURG_ITS ---
Subjective Subjective Patient seen and examined during AM rounds. He is found resting in bed. He states that his abdominal discomfort after his CT scan is now resolved. He denies any problems with resuming his full liquid diet. He shares that he is still seeing some blood with his bowel movements but that their frequency has decreased and the volume of blood is also decreased. Objective Data Objective Data Vital Signs: Vital Signs Temp Pulse Resp BP Pulse Ox O2 Del Method 96.7 F L 64 18 131/73 H 99 Room Air 11/21/23 06:15 11/21/23 06:15 11/21/23 06:15 11/21/23 06:15 11/21/23 06:15 11/21/23 06:15 Oxygen Delivery Method Room Air Weight: 238 lb 12.17 oz Body Mass Index (BMI) 30.7 Intake & Output: Intake and Output for Last 24 Hours 11/19/23 11/20/23 11/21/23 23:59 23:59 23:59 Intake Total 5430.5033 / 5430.5033 1781.33 / 1781.33 989.33 / 989.33 Output Total 1400 / 1400 400 / 1700 1300 / 1300 Balance 4030.5033 / 4030.5033 1381.33 / 81.33 -310.67 / -310.67 Lab / Micro Data 11/21/23 06:28 11/21/23 06:28 Labs: Laboratory Results - last 24 hr 11/18/23 20:50: TIKA-1 Antibody <0.2, SS-A/Ro IgG Antibody < 0.2, SS-B/La IgG Antibody < 0.2, Sm (Mcadams) Antibody <0.2, FACILITY MAINTENANCE WORKER Antibody 0.2, Scl-70 Scleroderma Ab <0.2, Double Strand DNA Ab <1, Centromere B Antibody <0.2 11/21/23 06:28: WBC 6.3, RBC 2.66 L, Hgb 9.9 L, Hct 28.3 L, MCV 106.4 H, MCH 37.2 H, MCHC 35.0, RDW Std Deviation 53.1 H, RDW Coeff of Kristen 13.5, Plt Count 266, MPV 10.2 Micro: Microbiology 11/17/23 10:00 Blood Culture (Wb) - Anticubital Right Blood Culture - Preliminary No growth in 48 hours. 11/17/23 10:14 Blood Culture (Wb) - Anticubital Left Blood Culture - Preliminary No growth in 48 hours. 11/18/23 22:47 Stool C. difficile GDH Antigen & Toxins - Final 11/18/23 22:47 Stool Clostridioides difficile (PCR) - Final 11/18/23 22:47 Stool Enteric Bacteriology - Final 11/18/23 22:47 Stool Stool Lactoferrin - Final 11/17/23 16:24 Stool Enteric Bacteriology - Final Radiography Diagnostic Testing: Radiology Impression Abdomen/Pelvis CT 11/20/23 11:46 IMPRESSION: Diffuse colitis worse in the sigmoid colon without thickening of the terminal ileum. No definite choledochoenteric fistula is seen. Electronically Signed: Tip Grigsby MD at 14:48 EST , Physical Exam Const oriented x3 and no apparent distress Resp normal respiratory effort GI GI Narrative: Distended, soft, nontender to palpation x 4 quadrants Assessment & Plan Assessment/Plan (1) Rectal bleeding: (2) Colitis: PLAN: Plan The patient has inflammation of the colon. He had MR enterography which heavily suggested Crohn's disease. Fistula suspected but repeat CT yesterday failed to opacify a connection with contrast. Patient had some tenderness immediately following the CT imaging but has returned to a nontender status today. His white count is normal today. He is not tolerating full liquids and protein supplements. He shares that he is still having 2-3 bowel movements per day but that his stools are looser and there is less blood. Continue full liquids and start supplementation with protein. Appreciate assistance of gastroenterology?repeat CRP and ESR per their recommendation now ordered. Klaus Elder MD General Surgery Endocrine Surgery Pager: [facility] [address] [place] [address], [facility], [address] [place] [address] Office: [phone] Charges/Coding Visit Charges Inpatient E&M: 11521 Subs Hosp L2
[2023-11-21 08:37] LABS: Anion Gap 6 (5-15); BUN 2 mg/dL (7-18); BUN/Creat Ratio 4.6 RATIO (10-20); Chloride 106 mmol/L (98-107); Creatinine, Serum 0.43 mg/dL (0.70-1.30); EST Glomerular Filtration Rate 244 mL/min (>60); Est Glom Filt Rate - Afr Amer 295 mL/min (>60); Estimated Creatinine Clearance 329.15 ml/min; Glucose 85 mg/dL (74-106); Potassium 3.1 mmol/L (3.5-5.1); Sodium Level 138 mmol/L (136-145)
[2023-11-21] MEDS: Escitalopram Oxalate 10 MG Tablet PO (08:40)
[2023-11-21] MEDS: Ensure Plus High Protein 120 ML LIQUID PO ×2 (08:40→12:33)
[2023-11-21] MEDS: Pantoprazole Sodium 40 MG Tablet PO (08:40)
[2023-11-21] MEDS: Hyoscyamine Sulfate 0.125 MG Tablet PO ×4 (08:40→22:22)
[2023-11-21] MEDS: Metoprolol(XL)Succ 50 MG Tablet PO (08:40)
[2023-11-21] MEDS: Potassium Chloride Oral Tablet 20 MEQ 60 MEQ PO (10:40)
[2023-11-21 11:39] LABS: Erythrocyte Sedimentation Rate 12 mm/hr (0-20)
--- NOTE | 2023-11-21 11:51 | PN.GI_ITS ---
Subjective Subjective Patient denies any abdominal pain. He would like to have his diet increase. He denies any chest pain or shortness of breath. He still having multiple bloody bowel movements. Objective Data Objective Data Vital Signs: Vital Signs Temp Pulse Resp BP Pulse Ox O2 Del Method 97.1 F L 78 16 129/69 H 100 Room Air 11/21/23 10:47 11/21/23 10:47 11/21/23 10:47 11/21/23 10:47 11/21/23 10:47 11/21/23 10:47 Oxygen Delivery Method Room Air Weight: 238 lb 12.17 oz Body Mass Index (BMI) 30.7 Intake & Output: Intake and Output for Last 24 Hours 11/19/23 11/20/23 11/21/23 23:59 23:59 23:59 Intake Total 5430.5033 / 5430.5033 1781.33 / 1781.33 1039.33 / 1039.33 Output Total 1400 / 1400 400 / 1700 1300 / 1300 Balance 4030.5033 / 4030.5033 1381.33 / 81.33 -260.67 / -260.67 Lab / Micro Data 11/21/23 06:28 11/21/23 06:28 Labs: Laboratory Results - last 24 hr 11/21/23 06:28: WBC 6.3, RBC 2.66 L, Hgb 9.9 L, Hct 28.3 L, MCV 106.4 H, MCH 37.2 H, MCHC 35.0, RDW Std Deviation 53.1 H, RDW Coeff of Kristen 13.5, Plt Count 26 6, MPV 10.2, ESR 12, Sodium 138, Potassium 3.1 L, Chloride 106, Carbon Dioxide 26.0, Anion Gap 6, BUN 2 L, Creatinine 0.43 L, Estim Creat Clear Calc 329.15, Est GFR (MDRD) Af Amer 295, Est GFR (MDRD) Non-Af 244, BUN/Creatinine Ratio 4.6 L, Glucose 85, Calcium 8.0 L Micro: Microbiology 11/17/23 10:00 Blood Culture (Wb) - Anticubital Right Blood Culture - Preliminary No growth in 48 hours. 11/17/23 10:14 Blood Culture (Wb) - Anticubital Left Blood Culture - Preliminary No growth in 48 hours. 11/18/23 22:47 Stool C. difficile GDH Antigen & Toxins - Final 11/18/23 22:47 Stool Clostridioides difficile (PCR) - Final 11/18/23 22:47 Stool Enteric Bacteriology - Final 11/18/23 22:47 Stool Stool Lactoferrin - Final 11/17/23 16:24 Stool Enteric Bacteriology - Final Radiography Diagnostic Testing: Radiology Impression Abdomen/Pelvis CT 11/20/23 11:46 IMPRESSION: Diffuse colitis worse in the sigmoid colon without thickening of the terminal ileum. No definite choledochoenteric fistula is seen. Electronically Signed: Tip Grigsby MD at 14:48 EST , Physical Exam Const oriented x3 and no apparent distress Resp normal respiratory effort GI GI Narrative: Distended, soft, nontender to palpation x 4 quadrants Assessment & Plan Assessment/Plan (1) Rectal bleeding: (2) Diverticulitis of large intestine with complication: (3) Diarrhea: QUALIFIERS: Diarrhea type: unspecified type Qualified Code(s): R19.7 - Diarrhea, unspecified (4) Colitis: PLAN: Plan 28-year-old with a 14-year history of lower GI bleeding and a several year history of acute recurrent diverticulitis. From looking at the images previously from [id number] that we have in our system and looks as if he has been having sigmoid colitis associated with diverticular disease. This is usually secondary to mucosal prolapse creating a local ischemia and ischemic polypoid formation. The clinical presentation of Crohn's disease and chronic or acute diverticulitis can be almost identical in presentation. Since they can have similar presentation as the biopsies that really help tell whether this is sigmoid colitis associated with diverticulosis and to develop a of ischemic colitis due to to mucosal prolapse, ulcerative colitis or indeterminate colitis or Crohn's disease of the colon. Approximately 15 to 40% of people with chronic ulcerative colitis can develop diverticulosis associated with ulcerative colitis. I will have to see to report from the previous colonoscopy to see if the terminal ileum was intubated and to see if he had any biochemical workup for inflammatory bowel disease. For now would recommend continued antibiotic therapy. With his fevers and increased white blood cell count I would not recommend steroids at this time. I will send an ANCA, DAVONTE comprehensive profile, IBD SGI from [facility] to see if she has any antibodies associated Crohn's disease, ESR, CRP. Also the differential diagnosis for lower GI bleeding in the setting of inflammation would be infectious colitis so we should check his stools for C. difficile, CMV assoc iated colitis, enteric pathogens, fecal calprotectin and fecal elastase. 11/19-patient's white blood cell count is normal but his ESR and CRP are very high and are consistent with acute colitis. He is fecal lactoferrin positive. He is PCR positive for C. difficile and negative for C. difficile antigen A/B toxins. His stool culture is negative. 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 That is not indication to put him on antibiotics for C. difficile. He remains on antibiotic therapy and continues to improve. I agree with having a CT with rectal contrast to see if there is any signs of microperforation. If his CRP continues to decrease along with his ESR and there is no sign of perforation we can initiate steroid therapy. Workup is pending regarding inflammatory bowel disease. Most of the test are send out test and will take some time to come back. 11/20- Repeat CT scan of the admin pelvis does show inflammatory changes more significant in the sigmoid colon versus determiner ileum consistent with his acute colitis and terminally ileitis. Likely secondary to infection, ischemia, and likely inflammatory bowel disease. I suspect he also has concomitant sigmoid colitis associated with diverticulosis he's responding very well to antibiotic therapy. Recommend to recheck ESR/CRP and repeat potassium as needed. 11/21-patient continues to improve. He had 2 bloody bowel movements overnight. I am okay with increasing his diet to a soft diet. His ESR has normalized. Awaiting CRP. Continue IV antibiotics. Charges/Coding Visit Charges Inpatient E&M: 13807 Subs Hosp L3
--- NOTE | 2023-11-21 19:59 | PN.HOSP_ITS ---
Reason for Visit Reason for Visit: Diagnoses Hypokalemia (11/17/23) Noninfective gastroenteritis and colitis, unspecified (11/17/23) Diverticulitis of large intestine without perforation or abscess without bleeding (11/17/23) Hemorrhage of anus and rectum (11/17/23) Diarrhea, unspecified (11/17/23) Subjective Subjective Patient was seen and examined today, he does not appear to be in any distress, I talked briefly with general surgery about his care. Patient's white blood cell count today was normal, hemoglobin was 9.9, potassium was slightly low at 3.1- patient was given oral potassium supplementation. Objective Data Objective Data Vital Signs: Vital Signs Temp Pulse Resp BP Pulse Ox O2 Del Method 97 F L 84 16 116/59 L 99 Room Air 11/21/23 14:51 11/21/23 14:51 11/21/23 14:51 11/21/23 14:51 11/21/23 14:51 11/21/23 14:51 Oxygen Delivery Method Room Air Weight: 108.3 kg Body Mass Index (BMI) 30.7 Intake & Output: Intake and Output for Last 24 Hours 11/19/23 11/20/23 11/21/23 23:59 23:59 23:59 Intake Total 5430.5033 / 5430.5033 1781.33 / 1781.33 1839.33 / 1839.33 Output Total 1400 / 1400 400 / 1700 1300 / 1300 Balance 4030.5033 / 4030.5033 1381.33 / 81.33 539.33 / 539.33 Lab / Micro Data 11/21/23 06:28 11/21/23 06:28 Labs: Laboratory Results - last 24 hr 11/21/23 06:28: WBC 6.3, RBC 2.66 L, Hgb 9.9 L, Hct 28.3 L, MCV 106.4 H, MCH 37.2 H, MCHC 35.0, RDW Std Deviation 53.1 H, RDW Coeff of Kristen 13.5, Plt Count 266, MPV 10.2, ESR 12, Sodium 138, Potassium 3.1 L, Chloride 106, Carbon Dioxide 26.0, Anion Gap 6, BUN 2 L, Creatinine 0.43 L, Estim Creat Clear Calc 329.15, Est GFR (MDRD) Af Amer 295, Est GFR (MDRD) Non-Af 244, BUN/Creatinine Ratio 4.6 L, Glucose 85, Calcium 8.0 L Micro: Microbiology 11/17/23 10:00 Blood Culture (Wb) - Anticubital Right Blood Culture - Preliminary No growth in 48 hours. 11/17/23 10:14 Blood Culture (Wb) - Anticubital Left Blood Culture - Preliminary No growth in 48 hours. 11/18/23 22:47 Stool C. difficile GDH Antigen & Toxins - Final 11/18/23 22:47 Stool Clostridioides difficile (PCR) - Final 11/18/23 22:47 Stool Enteric Bacteriology - Final 11/18/23 22:47 Stool Stool Lactoferrin - Final 11/17/23 16:24 Stool Enteric Bacteriology - Final Physical Exam Const alert, oriented x3, no apparent distress and healthy appearing General Appearance: cooperative, well kempt and well developed Orientation / Consciousness: awake, oriented to person, oriented to place and oriented to time HEENT normocephalic, head/scalp atraumatic and moist oral mucous membranes Eyes PERRL, EOMs intact bilaterally and conjunctivae normal Neck supple, no JVD, thyroid normal and no carotid bruits General: trachea midline Resp normal respiratory effort, no retractions, no use of accessory muscles and clear to auscultation bilaterally Auscultation: Negative for rales, rhonchi or wheezes Cardio regular rate, regular rhythm, S1 normal heart sound, S2 normal heart sound, no murmurs, no rub and no gallops GI normal to inspection, nondistended, normoactive bowel sounds, soft to palpation, non-tender and non-distended Extremity no clubbing, cyanosis or edema Skin no rashes or lesions noted General Skin Exam: no breakdown Neuro oriented x3, CN's II-XII intact bilaterally, moves all extremities, no focal motor deficits and no sensory deficits noted Sensorium / Orientation: awake and alert Speech: speech normal Psych affect normal Assessment & Plan Assessment/Plan (1) Colitis: PLAN: Plan 1. Acute colitis and ileitis of the distal ileum-continue IV antibiotics, further treatment per gastroenterology #2 hypokalemia-patient was given oral potassium today, labs will be rechecked #3 essential hypertension-patient is on metoprolol, blood pressure will be monitored #4 chronic depression-patient is currently on Lexapro Total clinical time spent by myself addressing patient's medical issues, reviewing all of his data, and collaborating with patient's care team: 25 minutes Charges/Coding Visit Charges Inpatient E&M: 91373 Subs Hosp L1
[2023-11-21] MEDS: 0.9% Saline Lock 10 ML Syringe IV (20:23)
[2023-11-21] MEDS: Acetaminophen 325 MG Tablet 650 MG PO (22:22)
[2023-11-21] MEDS: Morphine 4 MG/ML Syringe IV (22:22)
[2023-11-22] MEDS: Morphine 4 MG/ML Syringe IV (01:28)
[2023-11-22 03:00] VITALS: BP 133/73; PULSE 68; RESP 16; TEMP 36.1; O2SAT 100
[2023-11-22] MEDS: Acetaminophen 325 MG Tablet 650 MG PO ×3 (06:25→18:23)
[2023-11-22] MEDS: Piperacil/Tazobactam 3.375 GM in 0.9% Normal Saline (50mL MB+) 50 ML IV ×3 (06:25→22:38)
[2023-11-22 07:32] LABS: Erythrocyte Sedimentation Rate 10 mm/hr (0-20)
--- NOTE | 2023-11-22 08:01 | PCM.PN.SRG ---
Subjective Subjective Patient seen and examined during AM rounds. He is found sleeping on my arrival to the room. He immediately arouses and states that he is feeling much better this morning than he had last night. Last night he states he had some more cramping. He does share that he tried to drink some more protein, and suspects this may be what is disagreeing with this system. Despite this cramping he is requesting an increase in his diet. Objective Data Objective Data Vital Signs: Vital Signs Temp Pulse Resp BP Pulse Ox O2 Del Method 96.9 F L 68 16 133/73 H 100 Room Air 11/22/23 03:00 11/22/23 03:00 11/22/23 03:00 11/22/23 03:00 11/22/23 03:00 11/22/23 03:00 Oxygen Delivery Method Room Air Weight: 238 lb 12.17 oz Body Mass Index (BMI) 30.7 Intake & Output: Intake and Output for Last 24 Hours 11/20/23 11/21/23 11/22/23 23:59 23:59 23:59 Intake Total 1781.33 / 1781.33 1839.33 / 2139.33 1150 / 1150 Output Total 400 / 1700 1300 / 1300 900 / 900 Balance 1381.33 / 81.33 539.33 / 839.33 250 / 250 Lab / Micro Data 11/21/23 06:28 11/22/23 06:30 Labs: Laboratory Results - last 24 hr 11/21/23 06:28: ESR 12, Sodium 138, Potassium 3.1 L, Chloride 106, Carbon Dioxide 26.0, Anion Gap 6, BUN 2 L, Creatinine 0.43 L, Estim Creat Clear Calc 329.15, Est GFR (MDRD) Af Amer 295, Est GFR (MDRD) Non-Af 244, BUN/Creatinine Ratio 4.6 L, Glucose 85, Calcium 8.0 L 11/22/23 06:30: ESR 10 Micro: Microbiology 11/17/23 10:00 Blood Culture (Wb) - Anticubital Right Blood Culture - Final No growth in 5 days. 11/17/23 10:14 Blood Culture (Wb) - Anticubital Left Blood Culture - Preliminary No growth in 48 hours. 11/18/23 22:47 Stool C. difficile GDH Antigen & Toxins - Final 11/18/23 22:47 Stool Clostridioides difficile (PCR) - Final 11/18/23 22:47 Stool Enteric Bacteriology - Final 11/18/23 22:47 Stool Stool Lactoferrin - Final 11/17/23 16:24 Stool Enteric Bacteriology - Final Physical Exam Const oriented x3 and no apparent distress Resp normal respiratory effort GI GI Narrative: Nondistended, soft, minimally tender to palpation in the left lower quadrant Assessment & Plan Assessment/Plan (1) Rectal bleeding: (2) Colitis: PLAN: Plan The patient has inflammation of the colon and small bowel. He had MR enterography which heavily suggested Crohn's disease. Fistula suspected but repeat CT failed to opacify a connection with contrast. Patient describes some cramping tenderness yesterday, but that spontaneously resolved today. He shares that he is interested in increasing his diet and specifically would like some applesauce. Based on his abdominal exam and the significant improvement in his inflammatory markers I have discussed a diet advancement with GI and jointly we have decided that this is in patient's best interest to improve his nutrition. He also shares that his bowel movements are somewhat more difficult to pass and he questions whether or not he may be developing constipation. Advance to transitional diet. Changed to Ensure clears Continue other treatment as before but okay to saline lock IV fluids Klaus Elder MD General Surgery Endocrine Surgery Pager: [facility] [address] [place] [address], [address] [place] [address] Office: [phone] Charges/Coding Visit Charges Inpatient E&M: 31063 Subs Hosp L2
[2023-11-22 09:13] VITALS: BP 140/68; PULSE 73; RESP 18; TEMP 36.6; O2SAT 98
[2023-11-22] MEDS: Lactated Ringers 1,000 ML 40 ML IV (09:18)
[2023-11-22 09:19] VITALS: PULSE 73
[2023-11-22] MEDS: Metoprolol(XL)Succ 50 MG Tablet PO (09:19)
[2023-11-22] MEDS: Pantoprazole Sodium 40 MG Tablet PO (09:19)
[2023-11-22] MEDS: Escitalopram Oxalate 10 MG Tablet PO (09:19)
[2023-11-22] MEDS: Hyoscyamine Sulfate 0.125 MG Tablet PO ×4 (09:19→22:38)
[2023-11-22] MEDS: Ensure Clear 120 ML Liquid PO ×3 (09:20→17:02)
[2023-11-22] MEDS: Morphine 2 MG/ML Syringe IV (09:58)
[2023-11-22] MEDS: 0.9% Saline Lock 10 ML Syringe IV (09:58)
[2023-11-22 10:07] LABS: Anion Gap 5 (5-15); BUN 3 mg/dL (7-18); BUN/Creat Ratio 6.6 RATIO (10-20); Calcium,Total 8.3 mg/dL (8.5-10.1); Chloride 106 mmol/L (98-107); Creatinine, Serum 0.46 mg/dL (0.70-1.30); EST Glomerular Filtration Rate 230 mL/min (>60); Est Glom Filt Rate - Afr Amer 279 mL/min (>60); Estimated Creatinine Clearance 307.68 ml/min; Glucose 81 mg/dL (74-106); Magnesium 2.1 mg/dL (1.6-2.6); Potassium 3.7 mmol/L (3.5-5.1); Sodium Level 141 mmol/L (136-145)
[2023-11-22 10:52] LABS: Phosphorus 3.3 mg/dL (2.5-4.9)
[2023-11-22] MEDS: 0.9% Normal Saline (250mL Bag) 250 ML 15 ML IV (11:46)
[2023-11-22] MEDS: oxyCODONE 5 MG Tablet PO ×2 (13:43→20:00)
[2023-11-22 14:30] VITALS: BP 124/76; PULSE 74; RESP 18; TEMP 36.3; O2SAT 98
--- NOTE | 2023-11-22 18:48 | PCM.PN.HOSP ---
Reason for Visit Reason for Visit: Diagnoses Hypokalemia (11/17/23) Noninfective gastroenteritis and colitis, unspecified (11/17/23) Diverticulitis of large intestine without perforation or abscess without bleeding (11/17/23) Hemorrhage of anus and rectum (11/17/23) Diarrhea, unspecified (11/17/23) Subjective Subjective Patient was seen and examined today, he does not complain of abdominal pain to this examiner, abdomen is soft, there is a little bit of tenderness over the left lateral abdomen on palpation. Patient is now on a transitional diet. Objective Data Objective Data Vital Signs: Vital Signs Temp Pulse Resp BP Pulse Ox O2 Del Method 97.4 F L 74 18 124/76 H 98 Room Air 11/22/23 14:30 11/22/23 14:30 11/22/23 14:30 11/22/23 14:30 11/22/23 14:30 11/22/23 14:30 Oxygen Delivery Method Room Air Weight: 108.3 kg Body Mass Index (BMI) 30.7 Intake & Output: Intake and Output for Last 24 Hours 11/20/23 11/21/23 11/22/23 23:59 23:59 23:59 Intake Total 1781.33 / 1781.33 1839.33 / 2139.33 2291.83 / 2291.83 Output Total 400 / 1700 1300 / 1300 3000 / 3000 Balance 1381.33 / 81.33 539.33 / 839.33 -708.17 / -708.17 Lab / Micro Data 11/21/23 06:28 11/22/23 06:30 Labs: Laboratory Results - last 24 hr 11/22/23 06:30: ESR 10, Sodium 141, Potassium 3.7, Chloride 106, Carbon Dioxide 30.0, Anion Gap 5, BUN 3 L, Creatinine 0.46 L, Estim Creat Clear Calc 307.68, Est GFR (MDRD) Af Amer 279, Est GFR (MDRD) Non-Af 230, BUN/Creatinine Ratio 6.6 L, Glucose 81, Calcium 8.3 L, Phosphorus 3.3, Magnesium 2.1, C-React Prot Ext Range 30.40 H Micro: Microbiology 11/17/23 10:14 Blood Culture (Wb) - Anticubital Left Blood Culture - Final No growth in 5 days. 11/17/23 10:00 Blood Culture (Wb) - Anticubital Right Blood Culture - Final No growth in 5 days. 11/18/23 22:47 Stool C. difficile GDH Antigen & Toxins - Final 11/18/23 22:47 Stool Clostridioides difficile (PCR) - Final 11/18/23 22:47 Stool Enteric Bacteriology - Final 11/18/23 22:47 Stool Stool Lactoferrin - Final 11/17/23 16:24 Stool Enteric Bacteriology - Final Physical Exam Const alert, oriented x3, no apparent distress and healthy appearing General Appearance: cooperative, well kempt and well developed Orientation / Consciousness: awake, oriented to person, oriented to place and oriented to time HEENT normocephalic and moist oral mucous membranes Eyes PERRL, EOMs intact bilaterally and conjunctivae normal Neck supple, no JVD, thyroid normal and no carotid bruits General: trachea midline Resp normal respiratory effort and clear to auscultation bilaterally Auscultation: Negative for rales, rhonchi or wheezes Cardio regular rate, regular rhythm, no murmurs, no rub and no gallops GI normal to inspection, nondistended, normoactive bowel sounds, soft to palpation, non-tender and non-distended Extremity no clubbing, cyanosis or edema Skin no rashes or lesions noted General Skin Exam: no breakdown Neuro oriented x3, CN's II-XII intact bilaterally, no focal motor deficits and no sensory deficits noted Sensorium / Orientation: awake and alert Speech: speech normal Psych affect normal Assessment & Plan Assessment/Plan (1) Colitis: PLAN: Plan 1. Acute colitis and ileitis of the distal ileum-continue IV antibiotics, further treatment per gastroenterology #2 hypokalemia-corrected #3 essential hypertension-patient is on metoprolol, blood pressure will be monitored #4 chronic depression-patient is currently on Lexapro Total clinical time spent by myself addressing patient's medical issues, reviewing all of his data, and collaborating with patient's care team: 25 minutes Charges/Coding Visit Charges Inpatient E&M: 66543 [facility] Hosp L1
[2023-11-22 20:09] VITALS: BP 126/73; PULSE 68; RESP 18; TEMP 36.7; O2SAT 97
[2023-11-23] VITALS (8 sets, daily range): BP systolic 103–140; BP diastolic 53–64; PULSE 68–82; RESP 16–18; TEMP 36.7–37.3; O2SAT 96–100
[2023-11-23] MEDS: oxyCODONE 5 MG Tablet PO ×2 (04:05→21:51)
[2023-11-23] MEDS: Acetaminophen 325 MG Tablet 650 MG PO ×3 (04:05→21:50)
[2023-11-23] MEDS: Piperacil/Tazobactam 3.375 GM in 0.9% Normal Saline (50mL MB+) 50 ML IV ×3 (05:24→21:43)
[2023-11-23] MEDS: Ensure Clear 120 ML Liquid PO ×3 (09:52→18:39)
[2023-11-23] MEDS: Morphine 2 MG/ML Syringe IV (09:53)
[2023-11-23] MEDS: 0.9% Saline Lock 10 ML Syringe IV ×3 (09:54→21:26)
[2023-11-23] MEDS: Pantoprazole Sodium 40 MG Tablet PO (10:01)
[2023-11-23] MEDS: Escitalopram Oxalate 10 MG Tablet PO (10:01)
[2023-11-23] MEDS: Metoprolol(XL)Succ 50 MG Tablet PO (10:01)
--- NOTE | 2023-11-23 10:14 | PN.SURG_ITS ---
Subjective Subjective The patient had some right lower quadrant discomfort and cramping over the weekend. He reports he still had a small amount of blood but it is improving but he is not having any bowel movements. He denies significant abdominal pain or nausea or vomiting. Objective Data Objective Data Vital Signs: Vital Signs Temp Pulse Resp BP Pulse Ox O2 Del Method 98.4 F 82 18 121/61 H 97 Room Air 11/23/23 02:15 11/23/23 10:01 11/23/23 02:15 11/23/23 10:01 11/23/23 02:15 11/23/23 03:00 Oxygen Delivery Method Room Air Weight: 238 lb 12.17 oz Body Mass Index (BMI) 30.7 Intake & Output: Intake and Output for Last 24 Hours 11/21/23 11/22/23 11/23/23 23:59 23:59 23:59 Intake Total 1839.33 / 2139.33 2291.83 / 2591.83 950 / 950 Output Total 1300 / 1300 3000 / 3000 Balance 539.33 / 839.33 -708.17 / -408.17 950 / 950 Lab / Micro Data 11/21/23 06:28 11/22/23 06:30 Labs: Laboratory Results - last 24 hr 11/22/23 06:30: Phosphorus 3.3 Micro: Microbiology 11/17/23 10:14 Blood Culture (Wb) - Anticubital Left Blood Culture - Final No growth in 5 days. 11/17/23 10:00 Blood Culture (Wb) - Anticubital Right Blood Culture - Final No growth in 5 days. 11/18/23 22:47 Stool C. difficile GDH Antigen & Toxins - Final 11/18/23 22:47 Stool Clostridioides difficile (PCR) - Final 11/18/23 22:47 Stool Enteric Bacteriology - Final 11/18/23 22:47 Stool Stool Lactoferrin - Final 11/17/23 16:24 Stool Enteric Bacteriology - Final Physical Exam Const oriented x3 and no apparent distress Resp normal respiratory effort GI soft to palpation Extremity normal to inspection Assessment & Plan Assessment/Plan (1) Rectal bleeding: PLAN: The patient had a repeat CT scan with rectal contrast on Thursday that did not show any worsening of the perforation. It also did not elucidate a fistula tract. The patient seems to be doing well with normal white count and minimal abdominal pain in the right lower quadrant. He he has been moved to transitional diet. I discussed starting steroids with a GI doctor and the GI doctor recommended colonoscopy with biopsies first. Elroy Lange MD Pager: [facility] [address] [place] [address] [address] [place] [phone] Office:
[2023-11-23] MEDS: Hyoscyamine Sulfate 0.125 MG Tablet PO ×4 (11:14→21:45)
[2023-11-23] MEDS: Bisacodyl 5 MG Tablet 20 MG PO (15:04)
--- NOTE | 2023-11-23 16:21 | EX.PCM.PN.GI ---
Subjective Subjective Patient is feeling a lot better. He is tolerating a diet. We did question starting him on steroid therapy. His CRP and ESR are improving nicely with antibiotic therapy. Workup for inflammatory bowel disease including IBD SGI is pending. Objective Data Objective Data Vital Signs: Vital Signs Temp Pulse Resp BP Pulse Ox O2 Del Method 99.2 F H 80 18 103/53 L 100 Room Air 11/23/23 15:19 11/23/23 15:19 11/23/23 15:19 11/23/23 15:19 11/23/23 15:19 11/23/23 15:19 Oxygen Delivery Method Room Air Weight: 238 lb 12.17 oz Body Mass Index (BMI) 30.7 Intake & Output: Intake and Output for Last 24 Hours 11/21/23 11/22/23 11/23/23 23:59 23:59 23:59 Intake Total 1839.33 / 2139.33 2291.83 / 2591.83 1190 / 1190 Output Total 1300 / 1300 3000 / 3000 Balance 539.33 / 839.33 -708.17 / -408.17 1190 / 1190 Lab / Micro Data 11/21/23 06:28 11/22/23 06:30 Micro: Microbiology 11/17/23 10:14 Blood Culture (Wb) - Anticubital Left Blood Culture - Final No growth in 5 days. 11/17/23 10:00 Blood Culture (Wb) - Anticubital Right Blood Culture - Final No growth in 5 days. 11/18/23 22:47 Stool C. difficile GDH Antigen & Toxins - Final 11/18/23 22:47 Stool Clostridioides difficile (PCR) - Final 11/18/23 22:47 Stool Enteric Bacteriology - Final 11/18/23 22:47 Stool Stool Lactoferrin - Final 11/17/23 16:24 Stool Enteric Bacteriology - Final Physical Exam Const oriented x3 and no apparent distress Resp normal respiratory effort GI soft to palpation Extremity normal to inspection Assessment & Plan Assessment/Plan (1) Rectal bleeding: (2) Diverticulitis of large intestine with complication: (3) Diarrhea: QUALIFIERS: Diarrhea type: unspecified type Qualified Code(s): R19.7 - Diarrhea, unspecified (4) Colitis: PLAN: Plan 28-year-old with a 14-year history of lower GI bleeding and a several year history of acute recurrent diverticulitis. From looking at the images previously from [id number] that we have in our system and looks as if he has been having sigmoid colitis associated with diverticular disease. This is usually secondary to mucosal prolapse creating a local ischemia and ischemic polypoid formation. The clinical presentation of Crohn's disease and chronic or acute diverticulitis can be almost identical in presentation. Since they can have similar presentation as the biopsies that really help tell whether this is sigmoid colitis associated with diverticulosis and to develop a of ischemic colitis due to to mucosal prolapse, ulcerative colitis or indeterminate colitis or Crohn's disease of the colon. Approximately 15 to 40% of people with chronic ulcerative colitis can develop diverticulosis associated with ulcerative colitis. I will have to see to report from the previous colonoscopy to see if the terminal ileum was intubated and to see if he had any biochemical workup for inflammatory bowel disease. For now would recommend continued antibiotic therapy. With his fevers and increased white blood cell count I would not recommend steroids at this time. I will send an ANCA, DAVONTE comprehensive profile, IBD SGI from [facility] to see if she has any antibodies associated Crohn's disease, ESR, CRP. Also the differential diagnosis for lower GI bleeding in the setting of inflammation would be infectious colitis so we should check his stools for C. difficile, CMV associated colitis, enteric pathogens, fecal calprotectin and fecal elastase. 11/19-patient's white blood cell count is normal but his ESR and CRP are very high and are consistent with acute colitis. He is fecal lactoferrin positive. He is PCR positive for C. difficile and negative for C. difficile antigen A/B toxins. His stool culture is negative. 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 That is not indication to put him on antibiotics for C. difficile. He remains on antibiotic therapy and continues to improve. I agree with having a CT with rectal contrast to see if there is any signs of microperforation. If his CRP continues to decrease along with his ESR and there is no sign of perforation we can initiate steroid therapy. Workup is pending regarding inflammatory bowel disease. Most of the test are send out test and will take some time to come back. 11/20- Repeat CT scan of the admin pelvis does show inflammatory changes more significant in the sigmoid colon versus determiner ileum consistent with his acute colitis and terminally ileitis. Likely secondary to infection, ischemia, and likely inflammatory bowel disease. I suspect he also has concomitant sigmoid colitis associated with diverticulosis he's responding very well to antibiotic therapy. Recommend to recheck ESR/CRP and repeat potassium as needed. 11/21-patient continues to improve. He had 2 bloody bowel movements overnight. I am okay with increasing his diet to a soft diet. His ESR has normalized. Awaiting CRP. Continue IV antibiotics. 11/23-plan is for colonoscopy tomorrow to get biopsies and look for classic signs of inflammatory bowel disease. Charges/Coding Visit Charges Inpatient E&M: 08269 Subs Hosp L3
[2023-11-23] MEDS: Polyethylene Glycol 3350 BOWEL PREP PO (18:38)
--- NOTE | 2023-11-23 19:56 | PCM.PN.HOSP ---
Reason for Visit Reason for Visit: Diagnoses Hypokalemia (11/17/23) Noninfective gastroenteritis and colitis, unspecified (11/17/23) Diverticulitis of large intestine without perforation or abscess without bleeding (11/17/23) Hemorrhage of anus and rectum (11/17/23) Diarrhea, unspecified (11/17/23) Subjective Subjective Patient was seen and examined today, had a brief conversation with gastroenterology, there is a colonoscope plan for the patient tomorrow. Patient states he has some gas pains today but he complains of constipation. Objective Data Objective Data Vital Signs: Vital Signs Temp Pulse Resp BP Pulse Ox O2 Del Method 99.2 F H 80 18 103/53 L 100 Room Air 11/23/23 15:19 11/23/23 15:19 11/23/23 15:19 11/23/23 15:19 11/23/23 15:19 11/23/23 15:19 Oxygen Delivery Method Room Air Weight: 108.3 kg Body Mass Index (BMI) 30.7 Intake & Output: Intake and Output for Last 24 Hours 11/21/23 11/22/23 11/23/23 23:59 23:59 23:59 Intake Total 1839.33 / 2139.33 2291.83 / 2591.83 1480 / 1480 Output Total 1300 / 1300 3000 / 3000 Balance 539.33 / 839.33 -708.17 / -408.17 1480 / 1480 Lab / Micro Data 11/21/23 06:28 11/22/23 06:30 Micro: Microbiology 11/17/23 10:14 Blood Culture (Wb) - Anticubital Left Blood Culture - Final No growth in 5 days. 11/17/23 10:00 Blood Culture (Wb) - Anticubital Right Blood Culture - Final No growth in 5 days. 11/18/23 22:47 Stool C. difficile GDH Antigen & Toxins - Final 11/18/23 22:47 Stool Clostridioides difficile (PCR) - Final 11/18/23 22:47 Stool Enteric Bacteriology - Final 11/18/23 22:47 Stool Stool Lactoferrin - Final 11/17/23 16:24 Stool Enteric Bacteriology - Final Physical Exam Const alert, oriented x3, no apparent distress and healthy appearing General Appearance: cooperative, well kempt and well developed Orientation / Consciousness: awake, oriented to person, oriented to place and oriented to time HEENT normocephalic and moist oral mucous membranes Eyes PERRL, EOMs intact bilaterally and conjunctivae normal Neck supple, no JVD, thyroid normal and no carotid bruits General: trachea midline Resp normal respiratory effort and clear to auscultation bilaterally Auscultation: Negative for rales, rhonchi or wheezes Cardio regular rate, regular rhythm, no murmurs, no rub and no gallops GI normal to inspection, nondistended, normoactive bowel sounds, soft to palpation, non-tender and non-distended Extremity no clubbing, cyanosis or edema Skin no rashes or lesions noted General Skin Exam: no breakdown Neuro oriented x3, CN's II-XII intact bilaterally, no focal motor deficits and no sensory deficits noted Sensorium / Orientation: awake and alert Speech: speech normal Psych affect normal Assessment & Plan Assessment/Plan (1) Colitis: PLAN: Plan 1. Acute colitis and ileitis of the distal ileum-continue IV antibiotics, further treatment per gastroenterology, patient will undergo colonoscopy tomorrow #2 hypokalemia-corrected #3 essential hypertension-patient is on metoprolol, blood pressure will be monitored #4 chronic depression-patient is currently on Lexapro Total clinical time spent by myself addressing patient's medical issues, reviewing all of his data, and collaborating with patient's care team: 25 minutes [employer] Executive Reflex Medical hold order details:: IF a medical hold is selected below, a suggested order for a MEDICAL HOLD will reflex upon signing the document. Next of kin: [place] law dictates a PRIORITY LIST for identifying legal decision-maker/legal next of kin in the following order (LNOK): 1st: The patient?s legal guardian, if any 2nd: The patient's spouse (if status is questionable, consult Risk Management) 3rd: The patient?s adult child(saw) (majority, if multiple children) 4th: The patient?s parents 5th: The patient?s adult siblings (majority, if multiple children siblings) Charges/Coding Visit Charges Inpatient E&M: 40119 Subs Hosp L1
[2023-11-24] VITALS (11 sets, daily range): BP systolic 106–127; BP diastolic 48–78; PULSE 75–89; RESP 14–18; TEMP 36.1–36.9; O2SAT 93–100; BMI 30.7
[2023-11-24 00:07] LABS: Calprotectin, Stool 1200 ug/g (0-120)
[2023-11-24] MEDS: Acetaminophen 325 MG Tablet 650 MG PO ×3 (03:02→22:40)
[2023-11-24] MEDS: Piperacil/Tazobactam 3.375 GM in 0.9% Normal Saline (50mL MB+) 50 ML IV ×3 (06:33→22:35)
[2023-11-24] MEDS: Pantoprazole Sodium 40 MG Tablet PO (08:15)
[2023-11-24] MEDS: Metoprolol(XL)Succ 50 MG Tablet PO (08:15)
[2023-11-24] MEDS: Escitalopram Oxalate 10 MG Tablet PO (08:15)
[2023-11-24] MEDS: Dicyclomine 10 MG Capsule PO (08:16)
--- NOTE | 2023-11-24 10:27 | NURSING ---
OFF UNIT VIA BED FOR COLONSCOPY
[2023-11-24] MEDS: Lactated Ringers 1,000 ML 15 ML IV (10:54)
--- NOTE | 2023-11-24 11:16 | PN.SURG_ITS ---
Subjective Subjective Patient feeling same as yesterday. Tolerated bowel prep. Objective Data Objective Data Vital Signs: Vital Signs Temp Pulse Resp BP Pulse Ox O2 Del Method 97.0 F L 85 14 119/70 97 Room Air 11/24/23 09:26 11/24/23 09:26 11/24/23 09:26 11/24/23 09:26 11/24/23 09:26 11/24/23 09:30 Oxygen Delivery Method Room Air Weight: 238 lb 12.17 oz Body Mass Index (BMI) 30.7 Intake & Output: Intake and Output for Last 24 Hours 11/22/23 11/23/23 11/24/23 23:59 23:59 23:59 Intake Total 2291.83 / 2591.83 1480 / 1480 99.17 / 99.17 Output Total 3000 / 3000 Balance -708.17 / -408.17 1480 / 1480 99.17 / 99.17 Lab / Micro Data 11/21/23 06:28 11/22/23 06:30 Labs: Laboratory Results - last 24 hr 11/18/23 22:47: Stool Calprotectin 1200 H Micro: Microbiology 11/17/23 10:14 Blood Culture (Wb) - Anticubital Left Blood Culture - Final No growth in 5 days. 11/17/23 10:00 Blood Culture (Wb) - Anticubital Right Blood Culture - Final No growth in 5 days. 11/18/23 22:47 Stool C. difficile GDH Antigen & Toxins - Final 11/18/23 22:47 Stool Clostridioides difficile (PCR) - Final 11/18/23 22:47 Stool Enteric Bacteriology - Final 11/18/23 22:47 Stool Stool Lactoferrin - Final 11/17/23 16:24 Stool Enteric Bacteriology - Final Physical Exam Const oriented x3 and no apparent distress Resp normal respiratory effort GI soft to palpation Assessment & Plan Assessment/Plan (1) Colitis: PLAN: Patient is having colonoscopy with biopsies today. If Dr. Reyna would like he can start the patient on steroids whenever he would like. Continue antispasmodics and IV antibiotics. Okay to resume diet per Dr. Reyna once patient done with scope. Elroy Lange MD Pager: [facility] [address] [place] [address], [address] [place] [phone] Office: [employer] Custodian Reflex Medical hold order details:: IF a medical hold is selected below, a suggested order for a MEDICAL HOLD will reflex upon signing the document. Next of kin: [place] law dictates a PRIORITY LIST for identifying legal decision-maker/legal next of kin in the following order (LNOK): 1st: The patient?s legal guardian, if any 2nd: The patient's spouse (if status is questionable, consult Risk Management) 3rd: The patient?s adult child(saw) (majority, if multiple children) 4th: The patient?s parents 5th: The patient?s adult siblings (majority, if multiple children siblings)
--- NOTE | 2023-11-24 11:30 | COLBX_PTH ---
PATHOLOGY RESULTS PATIENT: GABY BANG LOC: MS3 U#:[id number] AGE/SX: 28/M ROOM: [facility] RE11/17/[address]: Dr. Elroy Lange MD : 1995 BED: 1 DIS: 11/28/2023 SPEC #: [id number] RECD: 11/25/23 08:30 STATUS: [place] HU #: [id number] SLIME: 11/24/23 11:[address]: Elroy Lange DEPT: SURGICAL PATHOLOGY RECD BY: Kristal Herrera ENTERED: 11/25/23 08:31 SP TYPE: COLON BX OTHR DR: Dr. Art Mart, DO Dr. Evie Cox, DO Dr. Bhavin Tellez, DO Tissues: Ileum, NOS COLON BIOPSY Sigmoid colon biopsy Procedures: Surgery Specimen Level IV HEADER OPERATION: Colonoscopy, stool culture, biopsy PRE-OP DIAGNOSIS: Rectal bleeding, diverticulitis of large intestine, diarrhea, colitis TISSUE SUBMITTED: A - Terminal ileum biopsy, B - Random colon biopsy, C - Sigmoid colon biopsy MICROSCOPIC DIAGNOSIS A. Terminal ileum, biopsy: A fragment of small intestinal mucosa, no pathologic diagnosis. B. Colon, random biopsy: Fragments of colonic mucosa, no pathologic diagnosis. C. Sigmoid colon, biopsy: Fragments of colonic mucosa, no pathologic diagnosis. KETAN:anshu 11/26/2023 MICROSCOPIC DESCRIPTION Slides are reviewed. GROSS DESCRIPTION A - Received in fixative is one container labeled with the patient's name and designated biopsy terminal ileum. The specimen consists of one irregular fragment of light smallwood soft tissue that measures 0.3 x 0.3 x 0.1 cm. The specimen is totally submitted in one cassette. B - Received in fixative is one container labeled with the patient's name and designated biopsy random colon. The specimen consists of multiple irregular fragments of light smallwood soft tissue that in aggregate measure 2.0 x 0.5 x 0.1 cm. The specimen is totally submitted in one cassette. C - Received in fixative is one container labeled with the patient's name and designated biopsy sigmoid colon. The specimen consists of two irregular fragments of light smallwood soft tissue that in aggregate measure 0.4 x 0.3 x 0.1 cm. The specimen is totally submitted in one cassette. / KETAN:anshu 11/25/2023 TC:4 CPT: 32326 x3
[2023-11-24] MEDS: Hyoscyamine Sulfate 0.125 MG Tablet PO ×2 (13:14→22:39)
[2023-11-24] MEDS: 0.9% Saline Lock 10 ML Syringe IV (13:19)
[2023-11-24] MEDS: Morphine 2 MG/ML Syringe IV (13:19)
[2023-11-24] MEDS: Ensure Clear 120 ML Liquid PO ×2 (14:38→18:17)
--- NOTE | 2023-11-24 16:08 | CASEMGMT ---
Social Work SW spoke w/pt and pt's father, as pt's father had questions about insurance. 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 SW educated pt and pt's father about COBRA, and that he would be able to pay to keep his insurance active. SW also spoke w/them about looking into insurance through the Affordable Care Act should it be needed. Both state understanding, no further questions at this time. YANCY Hand
[2023-11-24 16:45] LABS: Anion Gap 10 (5-15); BUN 5 mg/dL (7-18); BUN/Creat Ratio 6.5 RATIO (10-20); Calcium,Total 8.2 mg/dL (8.5-10.1); Chloride 106 mmol/L (98-107); Creatinine, Serum 0.77 mg/dL (0.70-1.30); EST Glomerular Filtration Rate 125 mL/min (>60); Est Glom Filt Rate - Afr Amer 151 mL/min (>60); Estimated Creatinine Clearance 179.24 ml/min; Glucose 175 mg/dL (74-106); Potassium 2.7 mmol/L (3.5-5.1); Sodium Level 138 mmol/L (136-145)
--- NOTE | 2023-11-24 16:52 | PN.HOSP_ITS ---
Reason for Visit Reason for Visit: Diagnoses Hypokalemia (11/17/23) Noninfective gastroenteritis and colitis, unspecified (11/17/23) Diverticulitis of large intestine without perforation or abscess without bleeding (11/17/23) Hemorrhage of anus and rectum (11/17/23) Diarrhea, unspecified (11/17/23) Subjective Subjective Patient was seen and examined today, he underwent a colonoscopy which she states showed diverticulosis and inflammation, he said he was told he did not have Crohn's disease. Patient was told that he would be placed on steroids, patient's potassium was low at 2.7, I have ordered oral potassium and will repeat the patient's labs tomorrow Objective Data Objective Data Vital Signs: Vital Signs Temp Pulse Resp BP Pulse Ox O2 Del Method 97.8 F 76 14 121/67 H 98 Room Air 11/24/23 15:13 11/24/23 15:13 11/24/23 15:13 11/24/23 15:13 11/24/23 15:13 11/24/23 15:13 Oxygen Delivery Method Room Air Weight: 102.54 kg Body Mass Index (BMI) 30.7 Intake & Output: Intake and Output for Last 24 Hours 11/22/23 11/23/23 11/24/23 23:59 23:59 23:59 Intake Total 2291.83 / 2591.83 1480 / 1480 99.17 / 99.17 Output Total 3000 / 3000 450 / 450 Balance -708.17 / -408.17 1480 / 1480 -350.83 / -350.83 Lab / Micro Data 11/25/23 07:17 11/25/23 07:17 Labs: Laboratory Results - last 24 hr 11/18/23 20:50: Miscellaneous Test 11/18/23 22:47: Stool Calprotectin 1200 H 11/24/23 15:08: Sodium 138, Potassium 2.7 L*, Chloride 106, Carbon Dioxide 22.0, Anion Gap 10, BUN 5 L, Creatinine 0.77, Estim Creat Clear Calc 179.24, Est GFR (MDRD) Af Amer 151, Est GFR (MDRD) Non-Af 125, BUN/Creatinine Ratio 6.5 L, Glucose 175 H, Calcium 8.2 L Micro: Microbiology 11/17/23 10:14 Blood Culture (Wb) - Anticubital Left Blood Culture - Final No growth in 5 days. 11/17/23 10:00 Blood Culture (Wb) - Anticubital Right Blood Culture - Final No growth in 5 days. 11/18/23 22:47 Stool C. difficile GDH Antigen & Toxins - Final 11/18/23 22:47 Stool Clostridioides difficile (PCR) - Final 11/18/23 22:47 Stool Enteric Bacteriology - Final 11/18/23 22:47 Stool Stool Lactoferrin - Final 11/17/23 16:24 Stool Enteric Bacteriology - Final Physical Exam Const alert, oriented x3, no apparent distress and healthy appearing General Appearance: cooperative, well kempt and well developed Orientation / Consciousness: awake, oriented to person, oriented to place and oriented to time HEENT normocephalic and moist oral mucous membranes Eyes PERRL, EOMs intact bilaterally and conjunctivae normal Neck supple, no JVD, thyroid normal and no carotid bruits General: trachea midline Resp normal respiratory effort and clear to auscultation bilaterally Auscultation: Negative for rales, rhonchi or wheezes Cardio regular rate, regular rhythm, no murmurs, no rub and no gallops GI normal to inspection, nondistended, normoactive bowel sounds, soft to palpation, non-tender and non-distended Extremity no clubbing, cyanosis or edema Skin no rashes or lesions noted General Skin Exam: no breakdown Neuro oriented x3, CN's II-XII intact bilaterally, no focal motor deficits and no sensory deficits noted Sensorium / Orientation: awake and alert Speech: speech normal Psych affect normal Assessment & Plan Assessment/Plan (1) Rectal bleeding: (2) Colitis: PLAN: Plan 1. Acute colitis and diverticulitis-further medication adjustment per gastroenterology, general surgery is following also #2 hypokalemia-corrected #3 essential hypertension-patient is on metoprolol, blood pressure will be monitored #4 chronic depression-patient is currently on Lexapro Total clinical time spent by myself addressing patient's medical issues, reviewing all of his data, and collaborating with patient's care team: 25 minutes [employer] Reflex Medical hold order details:: IF a medical hold is selected below, a suggested order for a MEDICAL HOLD will reflex upon signing the document. Next of kin: [place] law dictates a PRIORITY LIST for identifying legal decision-maker/legal next of kin in the following order (LNOK): 1st: The patient?s legal guardian, if any 2nd: The patient's spouse (if status is questionable, consult Risk Management) 3rd: The patient?s adult child(saw) (majority, if multiple children) 4th: The patient?s parents 5th: The patient?s adult siblings (majority, if multiple children siblings) Charges/Coding Visit Charges Inpatient E&M: 33259 Subs Hosp L1
[2023-11-24] MEDS: Potassium Chloride Oral Tablet 20 MEQ 60 MEQ PO (18:15)
[2023-11-24] MEDS: Potassium Chloride Oral Tablet 20 MEQ 40 MEQ PO (22:35)
[2023-11-24] MEDS: oxyCODONE 5 MG Tablet PO (22:40)
[2023-11-25 04:54] VITALS: BP 108/64; PULSE 68; RESP 18; TEMP 36.6; O2SAT 99
[2023-11-25] MEDS: Piperacil/Tazobactam 3.375 GM in 0.9% Normal Saline (50mL MB+) 50 ML IV ×3 (04:59→21:31)
--- NOTE | 2023-11-25 06:40 | OP.COLON_ITS ---
Patient Name: Hang Degroot Procedure Date: 11/24/2023 11:04 AM Date of : 1995 Age: 28 Procedure: Colonoscopy Indications: Abnormal CT of the GI tract Providers: Claude Reyna DO Medicines: Monitored Anesthesia Care Patient Profile: This is a 28 year old male. Refer to note in patient chart for documentation of history and physical. Last Colonoscopy: date unknown. Unable to locate last colonoscopy report. Complications: No immediate complications. Procedure: Pre-Anesthesia Assessment: - Prior to the procedure, a History and Physical was performed, and patient medications and allergies were reviewed. The patient is competent. The risks and benefits of the procedure and the sedation options and risks were discussed with the patient. All questions were answered and informed consent was obtained. Patient identification and proposed procedure were verified by the physician in the pre-procedure area. Mental Status Examination: alert and oriented. Airway Examination: normal oropharyngeal airway and neck mobility. Respiratory Examination: clear to auscultation. CV Examination: normal. Prophylactic Antibiotics: The patient does not require prophylactic antibiotics. Prior Anticoagulants: The patient has taken no anticoagulant or antiplatelet agents. After reviewing the risks and benefits, the patient was deemed in satisfactory condition to undergo the procedure. The anesthesia plan was to use monitored anesthesia care (MAC). Immediately prior to administration of medications, the patient was re-assessed for adequacy to receive sedatives. The heart rate, respiratory rate, oxygen saturations, blood pressure, adequacy of pulmonary ventilation, and response to care were monitored throughout the procedure. The physical status of the patient was re-assessed after the procedure. After I obtained informed consent, the scope was passed under direct vision. Throughout the procedure, the patient's blood pressure, pulse, and oxygen saturations were monitored continuously. The colonoscope was introduced through the anus and advanced to 10 cm into the ileum. The colonoscopy was performed without difficulty. The patient tolerated the procedure well. The quality of the bowel preparation was adequate. Scope In: 11:49:34 AM Scope Out: 12:23:40 PM Total Procedure Duration Time 0 hours 34 minutes 6 seconds Findings: The perianal and digital rectal examinations were normal. A few small-mouthed diverticula were found in the sigmoid colon. Localized severe inflammation characterized by erosions and granularity was found in the sigmoid colon. Biopsies were taken with a cold forceps for histology. Verification of patient identification for the specimen was done. Estimated blood loss was minimal. The terminal ileum appeared normal. Biopsies were taken with a cold forceps for histology. Verification of patient identification for the specimen was done. Estimated blood loss was minimal. Impression: - Diverticulosis in the sigmoid colon. - Localized severe inflammation was found in the sigmoid colon. Biopsied. - The examined portion of the ileum was normal. Biopsied. Recommendation: - [facility]. - Use Lialda 1.2 gm at 2 tabs PO daily daily. - Repeat colonoscopy is recommended to check healing. The colonoscopy date will be determined after pathology results from today's exam become available for review. - Continue present medications. Procedure Code(s): --- Professional --- 07105, Colonoscopy, flexible; with biopsy, single or multiple CPT copyright 2021 [employer]. All rights reserved. The codes documented in this report are preliminary and upon yeast distiller review may be revised to meet current compliance requirements. Claude Reyna DO 11/25/2023 6:40:04 AM This report has been signed electronically. Number of Addenda: 0 Note Initiated On: 11/24/2023 11:04 AM
--- NOTE | 2023-11-25 06:41 | OP.CCLET_ITS ---
11/25/2023 Evie Peterson Do Re : Colonoscopy procedure for Hang Degroot Dear Nicholas This procedure was performed on Friday, November 24, 2023. My impressions and recommendations are as follows: Impressions : - Diverticulosis in the sigmoid colon. - Localized severe inflammation was found in the sigmoid colon. Biopsied. - The examined portion of the ileum was normal. Biopsied. Recommendations : - [facility]. - Use Lialda 1.2 gm at 2 tabs PO daily daily. - Repeat colonoscopy is recommended to check healing. The colonoscopy date will be determined after pathology results from today's exam become available for review. - Continue present medications. My findings are described in the full procedure note, which is enclosed. If I can be of further assistance, please feel free to contact me at . Sincerely, Claude Reyna, 11/25/2023 6:40:04 AM This report has been signed electronically.
[2023-11-25 07:32] VITALS: BP 138/82; PULSE 71; RESP 18; TEMP 36.6; O2SAT 98
[2023-11-25] MEDS: Ensure Clear 120 ML Liquid PO ×3 (07:40→16:54)
[2023-11-25 08:10] LABS: Absolute Neutrophil Count 6.5 X10^3/uL (2.0-7.7); Basophil# 0.04 X10^3/uL; Basophil% 0.4 % (0-1); Eosinophil# 0.11 X10^3/uL; Eosinophils% 1.1 % (0-5); Hematocrit 24.1 % (40-54); Lymphocyte % 23.1 % (19-41); Mean Corp Hgb Conc 33.2 g/dL (32-36); Mean Corpuscular Hgb 36.7 pg (27.0-32.0); Mean Corpuscular Volume 110.6 fL (80-94); Mean Platelet Vol. 10.6 fl (6.2-12.0); Monocyte# 0.91 X10^3/uL; Monocyte% 9.2 % (0-10); NRBC Flagged by Analyzer 0 % (0-5); Neutrophil # 6.51 X10^3/uL (2.7-7.7); Neutrophil % 65.5 % (47-70); Platelet Count 427 K/mm3 (150-450); RBC Distribution Width CV 13.9 % (11.6-14.6); RBC Distribution Width SD 56.1 fl (35.1-43.9); Red Blood Count 2.18 M/mm3 (4.6-6.2); White Blood Count 9.9 K/mm3 (4.4-11.0)
[2023-11-25 08:30] LABS: Anion Gap 5 (5-15); BUN 4 mg/dL (7-18); Calcium,Total 8.8 mg/dL (8.5-10.1); Chloride 108 mmol/L (98-107); Creatinine, Serum 0.58 mg/dL (0.70-1.30); EST Glomerular Filtration Rate 176 mL/min (>60); Est Glom Filt Rate - Afr Amer 213 mL/min (>60); Estimated Creatinine Clearance 237.95 ml/min; Glucose 119 mg/dL (74-106); Potassium 3.5 mmol/L (3.5-5.1); Sodium Level 137 mmol/L (136-145)
[2023-11-25 09:08] LABS: Cytoplasmic Ab (C-ANCA) <1:20 titer (Neg:<1:20); Deamidated Gliadin IgA 13 units (0-19); Deamidated Gliadin IgG 3 units (0-19); Endomysial Antibody IgA Negative (Negative); Immunoglobulin A 417 mg/dL (90-386); Immunoglobulin E 202 IU/mL (6-495); Immunoglobulin G 994 mg/dL (603-1613); Immunoglobulin M 176 mg/dL (20-172); Perinuclear Ab (P-ANCA) <1:20 titer (Neg:<1:20); QNTFERON TB Mitogen Value > 10.00 IU/mL (.); QNTFERON TB Nil Value 0.18 IU/mL (.); QNTFERON TB1+ Ag Value 0.21 IU/mL (.); QNTFERON TB2+ Ag Value 0.23 IU/mL (.); QNTIFERON TB Positive Criteria Negative (Negative); t-Transglutaminase IgA <2 U/mL (0-3)
[2023-11-25 10:45] VITALS: PULSE 80
[2023-11-25] MEDS: Escitalopram Oxalate 10 MG Tablet PO (10:45)
[2023-11-25] MEDS: Pantoprazole Sodium 40 MG Tablet PO (10:45)
[2023-11-25] MEDS: Metoprolol(XL)Succ 50 MG Tablet PO (10:45)
[2023-11-25] MEDS: Hyoscyamine Sulfate 0.125 MG Tablet PO ×2 (10:47→15:52)
[2023-11-25] MEDS: Mesalamine 1.2 GM Tablet 2.39999999999999991 GM PO (10:51)
[2023-11-25] MEDS: oxyCODONE 5 MG Tablet PO ×2 (10:52→18:24)
[2023-11-25 13:44] VITALS: BP 128/64; PULSE 80; RESP 18; TEMP 36.8; O2SAT 94
[2023-11-25] MEDS: Morphine 2 MG/ML Syringe IV ×2 (13:49→20:46)
[2023-11-25] MEDS: 0.9% Saline Lock 10 ML Syringe IV (13:49)
--- NOTE | 2023-11-25 14:20 | PCM.PN.SRG ---
Subjective Subjective Patient evaluated in conjunction with Dr. Elder this morning. Patient is feeling improved. He notes very minimal amount of blood per rectum. He stated he did not have any bleeding during his colonoscopy prep. Patient notes his abdominal pain has improved since admission. he notes minimal amount of tenderness in the right lower quadrant. Patient did have a colonoscopy with Dr. Reyna this morning which demonstrated severe diverticulitis with sigmoid colitis associated with diverticulosis and mild ischemic colitis. No signs of Crohn's were seen during the scope. He denies any nausea, vomiting with diet. he is tolerating a transitional diet well. Objective Data Objective Data Vital Signs: Vital Signs Temp Pulse Resp BP Pulse Ox O2 Del Method 98.2 F 80 18 128/64 H 94 Room Air 11/25/23 13:44 11/25/23 13:44 11/25/23 13:44 11/25/23 13:44 11/25/23 13:44 11/25/23 13:44 Oxygen Delivery Method Room Air Weight: 226 lb 1 oz Body Mass Index (BMI) 30.7 Intake & Output: Intake and Output for Last 24 Hours 11/23/23 11/24/23 11/25/23 23:59 23:59 23:59 Intake Total 1480 / 1480 324.67 / 324.67 460 / 460 Output Total 450 / 450 Balance 1480 / 1480 -125.33 / -125.33 460 / 460 Lab / Micro Data 11/25/23 07:17 11/25/23 07:17 Labs: Laboratory Results - last 24 hr 11/18/23 20:50: IgG 994, IgA 417 H, IgM 176 H, IgE 202, c-ANCA Antibody <1:20, Atypical p-ANCA <1:20, p-ANCA Antibody <1:20, Endomysial IgA Ab Negative, Tiss Transglutamin IgG 3, Tiss Transglutamin IgA <2, Anti-Gliadin IgG Ab 3, Anti-Gliadin IgA Ab 13, TB Test (QFT) Nil 0.18, TB Test (QFT) Mitogen > 10.00, TB Test (QFT) Ag 1 0.21, TB Test (QFT) Ag 2 0.23, TB Test (QFT) Comment, TB Positive Criteria Negative 11/24/23 15:08: Sodium 138, Potassium 2.7 L*, Chloride 106, Carbon Dioxide 22.0, Anion Gap 10, BUN 5 L, Creatinine 0.77, Estim Creat Clear Calc 179.24, Est GFR (MDRD) Af Amer 151, Est GFR (MDRD) Non-Af 125, BUN/Creatinine Ratio 6.5 L, Glucose 175 H, Calcium 8.2 L 11/25/23 07:17: WBC 9.9, RBC 2.18 L, Hgb 8.0 L, Hct 24.1 L, MCV 110.6 H, MCH 36.7 H, MCHC 33.2 D, RDW Std Deviation 56.1 H, RDW Coeff of Kristne 13.9, Plt Count 427, MPV 10.6, Immature Gran % (Auto) 0.700, Neut % (Auto) 65.5, Lymph % (Auto) 23.1, [place] % (Auto) 9.2, Eos % (Auto) 1.1, Baso % (Auto) 0.4, Absolute Neuts (auto) 6.5, Absolute Lymphs (auto) 2.30, Nucleated RBC % 0, Sodium 137, Potassium 3.5, Chloride 108 H, Carbon Dioxide 24.0, Anion Gap 5, BUN 4 L, Creatinine 0.58 L, Estim Creat Clear Calc 237.95, Est GFR (MDRD) Af Amer 213, Est GFR (MDRD) Non-Af 176, BUN/Creatinine Ratio 7.0 L, Glucose 119 H, Calcium 8.8 Micro: Microbiology 11/18/23 22:47 Stool Ova and Parasites - Final 11/17/23 10:14 Blood Culture (Wb) - Anticubital Left Blood Culture - Final No growth in 5 days. 11/17/23 10:00 Blood Culture (Wb) - Anticubital Right Blood Culture - Final No growth in 5 days. 11/18/23 22:47 Stool C. difficile GDH Antigen & Toxins - Final 11/18/23 22:47 Stool Clostridioides difficile (PCR) - Final 11/18/23 22:47 Stool Enteric Bacteriology - Final 11/18/23 22:47 Stool Stool Lactoferrin - Final 11/17/23 16:24 Stool Enteric Bacteriology - Final Physical Exam GI GI Narrative: Abdomen- soft, slight tenderness in the left lower quadrant upon palpation. Positive bowel sounds. Non-distended. Assessment & Plan Assessment/Plan (1) Diverticulitis of large intestine with complication: PLAN: I am following this patient in conjunction with Dr. Elder in Dr. Lange's absence Patient seems to be improving on IV antibiotics Colonoscopy diagnosed patient with severe sigmoid diverticulitis. Continue IV antibiotics. Dr. Reyna recommended mesalamine 2.4 g per day, hyoscyamine 0.125 mg twice daily with colace 100 mg daily. Along with Augmentin x 10 days at discharge. Patient's lab work was reviewed with a Hgb of 8.0. Recommend repeat blood work tomorrow morning Probable discharge tomorrow [employer] Gastroenterology Nurse Practitioner Reflex Medical hold order details:: IF a medical hold is selected below, a suggested order for a MEDICAL HOLD will reflex upon signing the document. Next of kin: [place] law dictates a PRIORITY LIST for identifying legal decision-maker/legal next of kin in the following order (LNOK): 1st: The patient?s legal guardian, if any 2nd: The patient's spouse (if status is questionable, consult Risk Management) 3rd: The patient?s adult child(saw) (majority, if multiple children) 4th: The patient?s parents 5th: The patient?s adult siblings (majority, if multiple children siblings) Charges/Coding Visit Charges Inpatient E&M: 91979 Subs Hosp L2
--- NOTE | 2023-11-25 14:55 | PN.GI_ITS ---
Subjective Subjective Patient does complain of some mild abdominal pain. He has not been able to take his hyoscyamine or Bentyl since being in the hospital. He underwent colonoscopy all way to the terminal ileum. He is still saying some mild blood in his stool , but it is almost 90% better than when he came into the hospital. Objective Data Objective Data Vital Signs: Vital Signs Temp Pulse Resp BP Pulse Ox O2 Del Method 98.2 F 80 18 128/64 H 94 Room Air 11/25/23 13:44 11/25/23 13:44 11/25/23 13:44 11/25/23 13:44 11/25/23 13:44 11/25/23 13:44 Oxygen Delivery Method Room Air Weight: 226 lb 1 oz Body Mass Index (BMI) 30.7 Intake & Output: Intake and Output for Last 24 Hours 11/23/23 11/24/23 11/25/23 23:59 23:59 23:59 Intake Total 1480 / 1480 324.67 / 324.67 460 / 460 Output Total 450 / 450 Balance 1480 / 1480 -125.33 / -125.33 460 / 460 Lab / Micro Data 11/25/23 07:17 11/25/23 07:17 Labs: Laboratory Results - last 24 hr 11/18/23 20:50: IgG 994, IgA 417 H, IgM 176 H, IgE 202, c-ANCA Antibody <1:20, Atypical p-ANCA <1:20, p-ANCA Antibody <1:20, Endomysial IgA Ab Negative, Tiss Transglutamin IgG 3, Tiss Transglutamin IgA <2, Anti-Gliadin IgG Ab 3, Anti- Gliadin IgA Ab 13, TB Test (QFT) Nil 0.18, TB Test (QFT) Mitogen > 10.00, TB Test (QFT) Ag 1 0.21, TB Test (QFT) Ag 2 0.23, TB Test (QFT) Comment, TB Positive Criteria Negative 11/24/23 15:08: Sodium 138, Potassium 2.7 L*, Chloride 106, Carbon Dioxide 22.0, Anion Gap 10, BUN 5 L, Creatinine 0.77, Estim Creat Clear Calc 179.24, Est GFR (MDRD) Af Amer 151, Est GFR (MDRD) Non-Af 125, BUN/Creatinine Ratio 6.5 L, Glucose 175 H, Calcium 8.2 L 11/25/23 07:17: WBC 9.9, RBC 2.18 L, Hgb 8.0 L, Hct 24.1 L, MCV 110.6 H, MCH 36.7 H, MCHC 33.2 D, RDW Std Deviation 56.1 H, RDW Coeff of Kristen 13.9, Plt Count 427, MPV 10.6, Immature Gran % (Auto) 0.700, Neut % (Auto) 65.5, Lymph % (Auto) 23.1, [place] % (Auto) 9.2, Eos % (Auto) 1.1, Baso % (Auto) 0.4, Absolute Neuts (auto) 6.5, Absolute Lymphs (auto) 2.30, Nucleated RBC % 0, Sodium 137, Potassium 3.5, Chloride 108 H, Carbon Dioxide 24.0, Anion Gap 5, BUN 4 L, Creatinine 0.58 L, Estim Creat Clear Calc 237.95, Est GFR (MDRD) Af Amer 213, Est GFR (MDRD) Non-Af 176, BUN/Creatinine Ratio 7.0 L, Glucose 119 H, Calcium 8.8 Micro: Microbiology 11/18/23 22:47 Stool Ova and Parasites - Final 11/17/23 10:14 Blood Culture (Wb) - Anticubital Left Blood Culture - Final No growth in 5 days. 11/17/23 10:00 Blood Culture (Wb) - Anticubital Right Blood Culture - Final No growth in 5 days. 11/18/23 22:47 Stool C. difficile GDH Antigen & Toxins - Final 11/18/23 22:47 Stool Clostridioides difficile (PCR) - Final 11/18/23 22:47 Stool Enteric Bacteriology - Final 11/18/23 22:47 Stool Stool Lactoferrin - Final 11/17/23 16:24 Stool Enteric Bacteriology - Final Physical Exam Const oriented x3 and no apparent distress Resp normal respiratory effort GI soft to palpation Assessment & Plan Assessment/Plan (1) Rectal bleeding: (2) Diverticulitis of large intestine with complication: (3) Diarrhea: QUALIFIERS: Diarrhea type: unspecified type Qualified Code(s): R19.7 - Diarrhea, unspecified (4) Colitis: PLAN: Plan 28-year-old with a 14-year history of lower GI bleeding and a several year history of acute recurrent diverticulitis. From looking at the images previously from [id number] that we have in our system and looks as if he has been having sigmoid colitis associated with diverticular disease. This is usually secondary to mucosal prolapse creating a local ischemia and ischemic polypoid formation. The clinical presentation of Crohn's disease and chronic or acute diverticulitis can be almost identical in presentation. Since they can have similar presentation as the biopsies that really help tell whether this is sigmoid colitis associated with diverticulosis and to develop a of ischemic colitis due to to mucosal prolapse, ulcerative colitis or indeterminate colitis or Crohn's disease of the colon. Approximately 15 to 40% of people with chronic ulcerative colitis can develop diverticulosis associated with ulcerative colitis. I will have to see to report from the previous colonoscopy to see if the terminal ileum was intubated and to see if he had any biochemical workup for inflammatory bowel disease. For now would recommend continued antibiotic therapy. With his fevers and increased white blood cell count I would not recommend steroids at this time. I will send an ANCA, DAVONTE comprehensive profile, IBD SGI from [facility] to see if she has any antibodies associated Crohn's disease, ESR, CRP. Also the differential diagnosis for lower GI bleeding in the setting of inflammation would be infec tious colitis so we should check his stools for C. difficile, CMV associated colitis, enteric pathogens, fecal calprotectin and fecal elastase. 11/19-patient's white blood cell count is normal but his ESR and CRP are very high and are consistent with acute colitis. He is fecal lactoferrin positive. He is PCR positive for C. difficile and negative for C. difficile antigen A/B toxins. His stool culture is negative. 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 That is not indication to put him on antibiotics for C. difficile. He remains on antibiotic therapy and continues to improve. I agree with having a CT with rectal contrast to see if there is any signs of microperforation. If his CRP continues to decrease along with his ESR and there is no sign of perforation we can initiate steroid therapy. Workup is pending regarding inflammatory bowel disease. Most of the test are send out test and will take some time to come back. 11/20- Repeat CT scan of the admin pelvis does show inflammatory changes more significant in the sigmoid colon versus determiner ileum consistent with his acute colitis and terminally ileitis. Likely secondary to infection, ischemia, and likely inflammatory bowel disease. I suspect he also has concomitant sigmoid colitis associated with diverticulosis he's responding very well to antibiotic therapy. Recommend to recheck ESR/CRP and repeat potassium as needed. 11/21-patient continues to improve. He had 2 bloody bowel movements overnight. I am okay with increasing his diet to a soft diet. His ESR has normalized. Awaiting CRP. Continue IV antibiotics. 11/23-plan is for colonoscopy tomorrow to get biopsies and look for classic signs of inflammatory bowel disease. 11/25-severe diverticulitis with sigmoid colitis associated with diverticulosis and also mild ischemic colitis. I do not think he has Crohn's disease from the colonoscopy. There was no inflammation grossly seen in his terminal ileum. I think he would benefit from mesalamine 2.4 g a day and hyoscyamine 0.125 mg twice daily or dicyclomine 10 mg 3 times daily with Colace 100 mg a day. Continue antibiotics with Zosyn and transition to Augmentin for 10 days after he gets out of the hospital. He will continue to take the probiotic that he serafin gonsalves takes at home. Charges/Coding Visit Charges Inpatient E&M: 93347 Subs Hosp L3
--- NOTE | 2023-11-25 19:57 | PN.HOSP_ITS ---
Reason for Visit Reason for Visit: Diagnoses Hypokalemia (11/17/23) Noninfective gastroenteritis and colitis, unspecified (11/17/23) Diverticulitis of large intestine without perforation or abscess without bleeding (11/17/23) Hemorrhage of anus and rectum (11/17/23) Diarrhea, unspecified (11/17/23) Subjective Subjective Patient was seen and examined today, notes from gastroenterology reflect that he has diverticulitis associated colitis, they placed him on mesalamine 2.4 g daily. Patient states he still having blood in his stool and he still does not feel well. Patient remains on IV Zosyn at this time Objective Data Objective Data Vital Signs: Vital Signs Temp Pulse Resp BP Pulse Ox O2 Del Method 98.2 F 80 18 128/64 H 94 Room Air 11/25/23 13:44 11/25/23 13:44 11/25/23 13:44 11/25/23 13:44 11/25/23 13:44 11/25/23 13:44 Oxygen Delivery Method Room Air Weight: 102.54 kg Body Mass Index (BMI) 30.7 Intake & Output: Intake and Output for Last 24 Hours 11/23/23 11/24/23 11/25/23 23:59 23:59 23:59 Intake Total 1480 / 1480 324.67 / 324.67 910 / 910 Output Total 450 / 450 Balance 1480 / 1480 -125.33 / -125.33 910 / 910 Lab / Micro Data 11/25/23 07:17 11/25/23 07:17 Labs: Laboratory Results - last 24 hr 11/18/23 20:50: IgG 994, IgA 417 H, IgM 176 H, IgE 202, c-ANCA Antibody <1:20, Atypical p-ANCA <1:20, p-ANCA Antibody <1:20, Endomysial IgA Ab Negative, Tiss Transglutamin IgG 3, Tiss Transglutamin IgA <2, Anti-Gliadin IgG Ab 3, Anti- Gliadin IgA Ab 13, TB Test (QFT) Nil 0.18, TB Test (QFT) Mitogen > 10.00, TB Test (QFT) Ag 1 0.21, TB Test (QFT) Ag 2 0.23, TB Test (QFT) Comment, TB Positive Criteria Negative 11/25/23 07:17: WBC 9.9, RBC 2.18 L, Hgb 8.0 L, Hct 24.1 L, MCV 110.6 H, MCH 36.7 H, MCHC 33.2 D, RDW Std Deviation 56.1 H, RDW Coeff of Kristen 13.9, Plt Count 427, MPV 10.6, Immature Gran % (Auto) 0.700, Neut % (Auto) 65.5, Lymph % (Auto) 23.1, [place] % (Auto) 9.2, Eos % (Auto) 1.1, Baso % (Auto) 0.4, Absolute Neuts (auto) 6.5, Absolute Lymphs (auto) 2.30, Nucleated RBC % 0, Sodium 137, Potassium 3.5, Chloride 108 H, Carbon Dioxide 24.0, Anion Gap 5, BUN 4 L, Creatinine 0.58 L, Estim Creat Clear Calc 237.95, Est GFR (MDRD) Af Amer 213, Est GFR (MDRD) Non-Af 176, BUN/Creatinine Ratio 7.0 L, Glucose 119 H, Calcium 8.8 Micro: Microbiology 11/18/23 22:47 Stool Ova and Parasites - Final 11/17/23 10:14 Blood Culture (Wb) - Anticubital Left Blood Culture - Final No growth in 5 days. 11/17/23 10:00 Blood Culture (Wb) - Anticubital Right Blood Culture - Final No growth in 5 days. 11/18/23 22:47 Stool C. difficile GDH Antigen & Toxins - Final 11/18/23 22:47 Stool Clostridioides difficile (PCR) - Final 11/18/23 22:47 Stool Enteric Bacteriology - Final 11/18/23 22:47 Stool Stool Lactoferrin - Final 11/17/23 16:24 Stool Enteric Bacteriology - Final Physical Exam Const alert, oriented x3, no apparent distress and healthy appearing General Appearance: cooperative, well kempt and well developed Orientation / Consciousness: awake, oriented to person, oriented to place and oriented to time HEENT normocephalic, head/scalp atraumatic and moist oral mucous membranes Eyes PERRL, EOMs intact bilaterally and conjunctivae normal Neck supple, no JVD, thyroid normal and no carotid bruits General: trachea midline Resp normal respiratory effort and clear to auscultation bilaterally Auscultation: Negative for rales, rhonchi or wheezes Cardio regular rate, regular rhythm, no murmurs, no rub and no gallops GI normal to inspection, nondistended, normoactive bowel sounds, soft to palpation, non-tender and non-distended Extremity no clubbing, cyanosis or edema Skin no rashes or lesions noted General Skin Exam: no breakdown Neuro oriented x3, CN's II-XII intact bilaterally, no focal motor deficits and no sensory deficits noted Sensorium / Orientation: awake and alert Speech: speech normal Psych affect normal Assessment & Plan Assessment/Plan (1) Rectal bleeding: (2) Colitis: PLAN: Plan 1. Acute diverticulitis with [id number] will remain on antibiotics at the present time and mesalamine, patient is also on Levsin, I talked briefly with general surgery about his care today. #2 hypokalemia-corrected #3 essential hypertension-patient is on metoprolol, blood pressure will be monitored #4 chronic depression-patient is currently on Lexapro Total clinical time spent by myself addressing patient's medical issues, reviewing all of his data, and collaborating with patient's care team: 25 minutes Capacity Legal Gas Collection System Operator Reflex Medical hold order details:: IF a medical hold is selected below, a suggested order for a MEDICAL HOLD will reflex upon signing the document. Next of kin: [place] law dictates a PRIORITY LIST for identifying legal decision-maker/legal next of kin in the following order (LNOK): 1st: The patient?s legal guardian, if any 2nd: The patient's spouse (if status is questionable, consult Risk Management) 3rd: The patient?s adult child(saw) (majority, if multiple children) 4th: The patient?s parents 5th: The patient?s adult siblings (majority, if multiple children siblings) Charges/Coding Visit Charges Inpatient E&M: 21787 Subs Hosp L1
[2023-11-25 20:40] VITALS: BP 133/70; PULSE 72; RESP 16; TEMP 36.8; O2SAT 99
[2023-11-25] MEDS: Acetaminophen 325 MG Tablet 650 MG PO (20:47)
[2023-11-26 02:40] VITALS: BP 127/72; PULSE 79; RESP 16; TEMP 36.9; O2SAT 97
[2023-11-26] MEDS: Hyoscyamine Sulfate 0.125 MG Tablet PO ×4 (02:58→19:08)
[2023-11-26] MEDS: Acetaminophen 325 MG Tablet 650 MG PO ×4 (02:58→20:37)
[2023-11-26] MEDS: Morphine 2 MG/ML Syringe IV ×2 (02:58→06:43)
[2023-11-26] MEDS: Piperacil/Tazobactam 3.375 GM in 0.9% Normal Saline (50mL MB+) 50 ML IV ×3 (05:24→22:35)
[2023-11-26 07:40] VITALS: BP 120/72; PULSE 73; RESP 18; TEMP 36.8; O2SAT 98
[2023-11-26] MEDS: Ensure Clear 120 ML Liquid PO ×3 (07:51→16:39)
[2023-11-26] MEDS: oxyCODONE 5 MG Tablet PO ×3 (07:52→22:39)
[2023-11-26 07:55] LABS: Absolute Lymphocyte Count 1.87 X10^3/uL (0.83-4.51); Absolute Neutrophil Count 5.5 X10^3/uL (2.0-7.7); Basophil# 0.03 X10^3/uL; Basophil% 0.4 % (0-1); Eosinophil# 0.07 X10^3/uL; Eosinophils% 0.9 % (0-5); Hematocrit 23.4 % (40-54); Hemoglobin 7.9 g/dL (13.0-16.5); Lymphocyte # 1.87 X10^3/ul (0.83-4.51); Lymphocyte % 23.1 % (19-41); Mean Corp Hgb Conc 33.8 g/dL (32-36); Mean Corpuscular Hgb 36.7 pg (27.0-32.0); Mean Corpuscular Volume 108.8 fL (80-94); Mean Platelet Vol. 10.5 fl (6.2-12.0); Monocyte% 7.4 % (0-10); NRBC Flagged by Analyzer 0 % (0-5); Neutrophil # 5.49 X10^3/uL (2.7-7.7); Neutrophil % 67.6 % (47-70); Platelet Count 434 K/mm3 (150-450); RBC Distribution Width CV 13.2 % (11.6-14.6); RBC Distribution Width SD 53.3 fl (35.1-43.9); Red Blood Count 2.15 M/mm3 (4.6-6.2); White Blood Count 8.1 K/mm3 (4.4-11.0)
[2023-11-26 08:38] LABS: Anion Gap 5 (5-15); BUN 3 mg/dL (7-18); Chloride 105 mmol/L (98-107); EST Glomerular Filtration Rate 206 mL/min (>60); Est Glom Filt Rate - Afr Amer 249 mL/min (>60); Estimated Creatinine Clearance 276.03 ml/min; Glucose 90 mg/dL (74-106); Potassium 3.3 mmol/L (3.5-5.1); Sodium Level 136 mmol/L (136-145)
[2023-11-26] MEDS: Pantoprazole Sodium 40 MG Tablet PO (09:10)
[2023-11-26] MEDS: Mesalamine 1.2 GM Tablet 2.39999999999999991 GM PO (09:10)
[2023-11-26] MEDS: Escitalopram Oxalate 10 MG Tablet PO (09:10)
[2023-11-26 09:11] VITALS: PULSE 73
[2023-11-26] MEDS: Metoprolol(XL)Succ 50 MG Tablet PO (09:11)
--- NOTE | 2023-11-26 11:16 | PN.SURG_ITS ---
Subjective Subjective Patient still reports he is having cramping and right lower quadrant pain. He reports he is still having some blood in his stool. Objective Data Objective Data Vital Signs: Vital Signs Temp Pulse Resp BP Pulse Ox O2 Del Method 98.3 F 73 18 120/72 98 Room Air 11/26/23 07:40 11/26/23 09:11 11/26/23 07:40 11/26/23 07:40 11/26/23 07:40 11/26/23 07:40 Oxygen Delivery Method Room Air Weight: 226 lb 1 oz Body Mass Index (BMI) 30.7 Intake & Output: Intake and Output for Last 24 Hours 11/24/23 11/25/23 11/26/23 23:59 23:59 23:59 Intake Total 324.67 / 324.67 910 / 910 100 / 100 Output Total 450 / 450 Balance -125.33 / -125.33 910 / 910 100 / 100 Lab / Micro Data 11/26/23 07:30 11/26/23 07:30 Labs: Laboratory Results - last 24 hr 11/26/23 07:30: WBC 8.1, RBC 2.15 L, Hgb 7.9 L, Hct 23.4 L, MCV 108.8 H, MCH 36.7 H, MCHC 33.8, RDW Std Deviation 53.3 H, RDW Coeff of Kristen 13.2, Plt Count 434, MPV 10.5, Immature Gran % (Auto) 0.600, Neut % (Auto) 67.6, Lymph % (Auto) 23.1, [place] % (Auto) 7.4, Eos % (Auto) 0.9, Baso % (Auto) 0.4, Absolute Neuts (auto) 5.5, Absolute Lymphs (auto) 1.87, Nucleated RBC % 0, Sodium 136, Potassium 3.3 L, Chloride 105, Carbon Dioxide 26.0, Anion Gap 5, BUN 3 L, Creatinine 0.50 L, Estim Creat Clear Calc 276.03, Est GFR (MDRD) Af Amer 249, Est GFR (MDRD) Non-Af 206, BUN/Creatinine Ratio 6.0 L, Glucose 90, Calcium 9.0 Micro: Microbiology 11/18/23 22:47 Stool Ova and Parasites - Final 11/17/23 10:14 Blood Culture (Wb) - Anticubital Left Blood Culture - Final No growth in 5 days. 11/17/23 10:00 Blood Culture (Wb) - Anticubital Right Blood Culture - Final No growth in 5 days. 11/18/23 22:47 Stool C. difficile GDH Antigen & Toxins - Final 11/18/23 22:47 Stool Clostridioides difficile (PCR) - Final 11/18/23 22:47 Stool Enteric Bacteriology - Final 11/18/23 22:47 Stool Stool Lactoferrin - Final 11/17/23 16:24 Stool Enteric Bacteriology - Final Physical Exam Const oriented x3 and no apparent distress Resp normal respiratory effort GI soft to palpation and non-tender Assessment & Plan Assessment/Plan (1) Rectal bleeding: PLAN: Awaiting pathology but GI is not thinking that Crohn's is the diagnosis. Patient showed me a stool this morning there was still some blood in it. His hemoglobin dropped to 8 yesterday and it is stable today at 7.9 but I would like to observe him for 1 more day given that he had cramping and blood in his stool still. Await final path from the colonoscopy Elroy Lange MD Pager: [facility] [address] [place] [address], [address] [place] [address] Office: Capacity Legal Application Development Project Manager Reflex Medical hold order details:: IF a medical hold is selected below, a suggested order for a MEDICAL HOLD will reflex upon signing the document. Next of kin: [place] law dictates a PRIORITY LIST for identifying legal decision-maker/legal next of kin in the following order (LNOK): 1st: The patient?s legal guardian, if any 2nd: The patient's spouse (if status is questionable, consult Risk Management) 3rd: The patient?s adult child(saw) (majority, if multiple children) 4th: The patient?s parents 5th: The patient?s adult siblings (majority, if multiple children siblings)
[2023-11-26] MEDS: Potassium Chloride Oral Tablet 20 MEQ 60 MEQ PO (11:25)
[2023-11-26 13:11] VITALS: BP 121/65; PULSE 78; RESP 18; TEMP 36.8; O2SAT 99
--- NOTE | 2023-11-26 17:11 | PN.GI_ITS ---
Subjective Subjective Patient is still having some crampy abdominal pain and some intermittent lower GI bleeding. He is not eating much. He denies any fever or chills. Objective Data Objective Data Vital Signs: Vital Signs Temp Pulse Resp BP Pulse Ox O2 Del Method 98.2 F 78 18 121/65 H 99 Room Air 11/26/23 13:11 11/26/23 13:11 11/26/23 13:11 11/26/23 13:11 11/26/23 13:11 11/26/23 13:11 Oxygen Delivery Method Room Air Weight: 226 lb 1 oz Body Mass Index (BMI) 30.7 Intake & Output: Intake and Output for Last 24 Hours 11/24/23 11/25/23 11/26/23 23:59 23:59 23:59 Intake Total 324.67 / 324.67 910 / 910 100 / 100 Output Total 450 / 450 Balance -125.33 / -125.33 910 / 910 100 / 100 Lab / Micro Data 11/26/23 07:30 11/26/23 07:30 Labs: Laboratory Results - last 24 hr 11/26/23 07:30: WBC 8.1, RBC 2.15 L, Hgb 7.9 L, Hct 23.4 L, MCV 108.8 H, MCH 36.7 H, MCHC 33.8, RDW Std Deviation 53.3 H, RDW Coeff of Kristen 13.2, Plt Count 434, MPV 10.5, Immature Gran % (Auto) 0.600, Neut % (Auto) 67.6, Lymph % (Auto) 23.1, [place] % (Auto) 7.4, Eos % (Auto) 0.9, Baso % (Auto) 0.4, Absolute Neuts (auto) 5.5, Absolute Lymphs (auto) 1.87, Nucleated RBC % 0, Sodium 136, Potassium 3.3 L, Chloride 105, Carbon Dioxide 26.0, Anion Gap 5, BUN 3 L, Creatinine 0.50 L, Estim Creat Clear Calc 276.03, Est GFR (MDRD) Af Amer 249, Est GFR (MDRD) Non-Af 206, BUN/Creatinine Ratio 6.0 L, Glucose 90, Calcium 9.0 Micro: Microbiology 11/18/23 22:47 Stool Ova and Parasites - Final 11/17/23 10:14 Blood Culture (Wb) - Anticubital Left Blood Culture - Final No growth in 5 days. 11/17/23 10:00 Blood Culture (Wb) - Anticubital Right Blood Culture - Final No growth in 5 days. 11/18/23 22:47 Stool C. difficile GDH Antigen & Toxins - Final 11/18/23 22:47 Stool Clostridioides difficile (PCR) - Final 11/18/23 22:47 Stool Enteric Bacteriology - Final 11/18/23 22:47 Stool Stool Lactoferrin - Final 11/17/23 16:24 Stool Enteric Bacteriology - Final Physical Exam Const alert, oriented x3, no apparent distress and healthy appearing General Appearance: cooperative, well kempt and well developed Orientation / Consciousness: awake, oriented to person, oriented to place and oriented to time HEENT normocephalic, head/scalp atraumatic and moist oral mucous membranes Eyes PERRL, EOMs intact bilaterally and conjunctivae normal Neck supple, no JVD, thyroid normal and no carotid bruits General: trachea midline Resp normal respiratory effort and clear to auscultation bilaterally Auscultation: Negative for rales, rhonchi or wheezes Cardio regular rate, regular rhythm, no murmurs, no rub and no gallops GI normal to inspection, nondistended, normoactive bowel sounds, soft to palpation, non-tender and non-distended Extremity no clubbing, cyanosis or edema Skin no rashes or lesions noted General Skin Exam: no breakdown Neuro oriented x3, CN's II-XII intact bilaterally, no focal motor deficits and no sensory deficits noted Sensorium / Orientation: awake and alert Speech: speech normal Psych affect normal Assessment & Plan Assessment/Plan (1) Rectal bleeding: (2) Diverticulitis of large intestine with complication: (3) Diarrhea: QUALIFIERS: Diarrhea type: unspecified type Qualified Code(s): R19.7 - Diarrhea, unspecified (4) Colitis: PLAN: Plan 28-year-old with a 14-year history of lower GI bleeding and a several year history of acute recurrent diverticulitis. From looking at the images previously from [id number] that we have in our system and looks as if he has been having sigmoid colitis associated with diverticular disease. This is usually secondary to mucosal prolapse creating a local ischemia and ischemic polypoid formation. The clinical presentation of Crohn's disease and chronic or acute diverticulitis can be almost identical in presentation. Since they can have similar presentation as the biopsies that really help tell whether this is sigmoid colitis associated with diverticulosis and to develop a of ischemic col itis due to to mucosal prolapse, ulcerative colitis or indeterminate colitis or Crohn's disease of the colon. Approximately 15 to 40% of people with chronic ulcerative colitis can develop diverticulosis associated with ulcerative colitis. I will have to see to report from the previous colonoscopy to see if the terminal ileum was intubated and to see if he had any biochemical workup for inflammatory bowel disease. For now would recommend continued antibiotic therapy. With his fevers and increased white blood cell count I would not recommend steroids at this time. I will send an ANCA, DAVONTE comprehensive profile, IBD SGI from [facility] to see if she has any antibodies associated Crohn's disease, ESR, CRP. Also the differential diagnosis for lower GI bleeding in the setting of inflammation would be infectious colitis so we should check his stools for C. difficile, CMV associated colitis, enteric pathogens, fecal calprotectin and fecal elastase. 11/19-patient's white blood cell count is normal but his ESR and CRP are very high and are consistent with acute colitis. He is fecal lactoferrin positive. He is PCR positive for C. difficile and negative for C. difficile antigen A/B to chris. His stool culture is negative. 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 That is not indication to put him on antibiotics for C. difficile. He remains on antibiotic therapy and continues to improve. I agree with having a CT with rectal contrast to see if there is any signs of microperforation. If his CRP continues to decrease along with his ESR and there is no sign of perforation we can initiate steroid therapy. Workup is pending regarding inflammatory bowel disease. Most of the test are send out test and will take some time to come back. 11/20- Repeat CT scan of the admin pelvis does show inflammatory changes more significant in the sigmoid colon versus determiner ileum consistent with his acute colitis and terminally ileitis. Likely secondary to infection, ischemia, and likely inflammatory bowel disease. I suspect he also has concomitant sigmoid colitis associated with diverticulosis he's responding very well to antibiotic therapy. Recommend to recheck ESR/CRP and repeat potassium as needed. 11/21-patient continues to improve. He had 2 bloody bowel movements overnight. I am okay with increasing his diet to a soft diet. His ESR has normalized. Awaiting CRP. Continue IV antibiotics. 11/23-plan is for colonoscopy tomorrow to get biopsies and look for classic signs of inflammatory bowel disease. 11/25-severe diverticulitis with sigmoid colitis associated with diverticulosis and also mild ischemic colitis. I do not think he has Crohn's disease from the colonoscopy. There was no inflammation grossly seen in his terminal ileum. I think he would benefit from mesalamine 2.4 g a day and hyoscyamine 0.125 mg twice daily or dicyclomine 10 mg 3 times daily with Colace 100 mg a day. Continue antibiotics with Zosyn and transition to Augmentin for 10 days after he gets out of the hospital. He will continue to take the probiotic that he already takes at home. 11/26-he is still having crampy abdominal pain. He was started on mesalamine and I will start him on dicyclomine. He remains afebrile. His biochemical workup did show an elevated IgM and IgA associated with acute inflammation in the GI tract. Typically indicates a bacterial infection. He also had his IBD SGI which is suggestive of Crohn's disease. In the setting of acute diverticulitis with sigmoid colitis I would keep him only on mesalamine at this time. There is some question of possible small bowel inflammatory bowel disease such as Crohn's disease. However I would not start him on steroids at this time. The only anti-inflammatory in the setting of perforated diverticulitis that I would recommend at this time is maybe budesonide but I would like to see how he does on mesalamine first and an antispasmodic. As I believe the bleeding is coming from ischemic colitis from the sigmoid colon with sigmoid colitis in the left side of the colon associated with diverticulosis. Charges/Coding Visit Charges Inpatient E&M: 65868 Subs Hosp L3
--- NOTE | 2023-11-26 18:09 | PCM.PN.HOSP ---
Reason for Visit Reason for Visit: Diagnoses Hypokalemia (11/17/23) Noninfective gastroenteritis and colitis, unspecified (11/17/23) Diverticulitis of large intestine without perforation or abscess without bleeding (11/17/23) Hemorrhage of anus and rectum (11/17/23) Diarrhea, unspecified (11/17/23) Subjective Subjective Patient was seen and examined today, I briefly talked with general surgery, they feel uncomfortable with the patient going home because he still having rectal bleeding. Objective Data Objective Data Vital Signs: Vital Signs Temp Pulse Resp BP Pulse Ox O2 Del Method 98.2 F 78 18 121/65 H 99 Room Air 11/26/23 13:11 11/26/23 13:11 11/26/23 13:11 11/26/23 13:11 11/26/23 13:11 11/26/23 13:11 Oxygen Delivery Method Room Air Weight: 102.54 kg Body Mass Index (BMI) 30.7 Intake & Output: Intake and Output for Last 24 Hours 11/24/23 11/25/23 11/26/23 23:59 23:59 23:59 Intake Total 324.67 / 324.67 910 / 910 100 / 100 Output Total 450 / 450 Balance -125.33 / -125.33 910 / 910 100 / 100 Lab / Micro Data 11/26/23 07:30 11/26/23 07:30 Labs: Laboratory Results - last 24 hr 11/26/23 07:30: WBC 8.1, RBC 2.15 L, Hgb 7.9 L, Hct 23.4 L, MCV 108.8 H, MCH 36.7 H, MCHC 33.8, RDW Std Deviation 53.3 H, RDW Coeff of Kristen 13.2, Plt Count 434, MPV 10.5, Immature Gran % (Auto) 0.600, Neut % (Auto) 67.6, Lymph % (Auto) 23.1, [place] % (Auto) 7.4, Eos % (Auto) 0.9, Baso % (Auto) 0.4, Absolute Neuts (auto) 5.5, Absolute Lymphs (auto) 1.87, Nucleated RBC % 0, Sodium 136, Potassium 3.3 L, Chloride 105, Carbon Dioxide 26.0, Anion Gap 5, BUN 3 L, Creatinine 0.50 L, Estim Creat Clear Calc 276.03, Est GFR (MDRD) Af Amer 249, Est GFR (MDRD) Non-Af 206, BUN/Creatinine Ratio 6.0 L, Glucose 90, Calcium 9.0 Micro: Microbiology 11/18/23 22:47 Stool Ova and Parasites - Final 11/17/23 10:14 Blood Culture (Wb) - Anticubital Left Blood Culture - Final No growth in 5 days. 11/17/23 10:00 Blood Culture (Wb) - Anticubital Right Blood Culture - Final No growth in 5 days. 11/18/23 22:47 Stool C. difficile GDH Antigen & Toxins - Final 11/18/23 22:47 Stool Clostridioides difficile (PCR) - Final 11/18/23 22:47 Stool Enteric Bacteriology - Final 11/18/23 22:47 Stool Stool Lactoferrin - Final 11/17/23 16:24 Stool Enteric Bacteriology - Final Physical Exam Const alert, oriented x3, no apparent distress and healthy appearing General Appearance: cooperative, well kempt and well developed Orientation / Consciousness: awake, oriented to person, oriented to place and oriented to time HEENT normocephalic, head/scalp atraumatic and moist oral mucous membranes Eyes PERRL, EOMs intact bilaterally and conjunctivae normal Neck supple, no JVD, thyroid normal and no carotid bruits General: trachea midline Resp normal respiratory effort, no retractions, no use of accessory muscles and clear to auscultation bilaterally Auscultation: Negative for rales, rhonchi or wheezes Cardio regular rate, regular rhythm, S1 normal heart sound, S2 normal heart sound, no murmurs, no rub and no gallops GI normal to inspection, nondistended, normoactive bowel sounds, soft to palpation, non-tender and non-distended Extremity no clubbing, cyanosis or edema Skin no rashes or lesions noted General Skin Exam: no breakdown Neuro oriented x3, CN's II-XII intact bilaterally, no focal motor deficits and no sensory deficits noted Sensorium / Orientation: awake and alert Speech: speech normal Psych affect normal Assessment & Plan Assessment/Plan (1) Rectal bleeding: (2) Colitis: PLAN: Plan 1. Acute diverticulitis with [id number] will remain on antibiotics at the present time and mesalamine, patient is also on Levsin, I talked briefly with general surgery about his care today. #2 hypokalemia-corrected #3 essential hypertension-patient is on metoprolol, blood pressure will be monitored #4 chronic depression-patient is currently on Lexapro #5 acute anemia secondary to rectal bleeding-patient's hemoglobin today was 7.9, he does not require transfusion at this time, CBC will be rechecked tomorrow Total clinical time spent by myself addressing patient's medical issues, reviewing all of his data, and collaborating with patient's care team: 25 minutes Capacity Legal Gear Cutting Machine Set Up Operator Reflex Medical hold order details:: IF a medical hold is selected below, a suggested order for a MEDICAL HOLD will reflex upon signing the document. Next of kin: [place] law dictates a PRIORITY LIST for identifying legal decision-maker/legal next of kin in the following order (LNOK): 1st: The patient?s legal guardian, if any 2nd: The patient's spouse (if status is questionable, consult Risk Management) 3rd: The patient?s adult child(saw) (majority, if multiple children) 4th: The patient?s parents 5th: The patient?s adult siblings (majority, if multiple children siblings) Charges/Coding Visit Charges Inpatient E&M: 18032 Subs Hosp L1
[2023-11-26 18:58] LABS: Erythrocyte Sedimentation Rate 31 mm/hr (0-20)
[2023-11-26] MEDS: 0.9% Saline Lock 10 ML Syringe IV ×2 (20:38→22:35)
[2023-11-26 20:41] VITALS: BP 126/67; PULSE 82; PULSE 90; RESP 16; TEMP 36.8; O2SAT 98
[2023-11-27] MEDS: Hyoscyamine Sulfate 0.125 MG Tablet PO ×4 (00:29→20:14)
[2023-11-27 02:53] VITALS: BP 121/68; PULSE 80; RESP 18; TEMP 36.6; O2SAT 98
[2023-11-27] MEDS: Acetaminophen 325 MG Tablet 650 MG PO ×4 (02:57→22:14)
[2023-11-27 06:26] LABS: Absolute Lymphocyte Count 2.02 X10^3/uL (0.83-4.51); Absolute Neutrophil Count 6.9 X10^3/uL (2.0-7.7); Basophil# 0.04 X10^3/uL; Basophil% 0.4 % (0-1); Eosinophil# 0.08 X10^3/uL; Eosinophils% 0.8 % (0-5); Hemoglobin 7.7 g/dL (13.0-16.5); Lymphocyte # 2.02 X10^3/ul (0.83-4.51); Lymphocyte % 20.4 % (19-41); Mean Corp Hgb Conc 33.5 g/dL (32-36); Mean Corpuscular Hgb 36.3 pg (27.0-32.0); Mean Corpuscular Volume 108.5 fL (80-94); Mean Platelet Vol. 10.3 fl (6.2-12.0); Monocyte# 0.81 X10^3/uL; Monocyte% 8.2 % (0-10); NRBC Flagged by Analyzer 0 % (0-5); Neutrophil % 69.7 % (47-70); Platelet Count 401 K/mm3 (150-450); RBC Distribution Width CV 13.6 % (11.6-14.6); RBC Distribution Width SD 54.2 fl (35.1-43.9); Red Blood Count 2.12 M/mm3 (4.6-6.2); White Blood Count 9.9 K/mm3 (4.4-11.0)
[2023-11-27] MEDS: Dicyclomine 10 MG Capsule 20 MG PO ×3 (06:29→17:02)
[2023-11-27] MEDS: Piperacil/Tazobactam 3.375 GM in 0.9% Normal Saline (50mL MB+) 50 ML IV ×3 (06:32→22:14)
[2023-11-27 06:45] LABS: Anion Gap 5 (5-15); BUN 5 mg/dL (7-18); BUN/Creat Ratio 10.2 RATIO (10-20); Calcium,Total 8.3 mg/dL (8.5-10.1); Chloride 107 mmol/L (98-107); Creatinine, Serum 0.49 mg/dL (0.70-1.30); EST Glomerular Filtration Rate 212 mL/min (>60); Est Glom Filt Rate - Afr Amer 257 mL/min (>60); Estimated Creatinine Clearance 281.66 ml/min; Glucose 94 mg/dL (74-106); Potassium 3.5 mmol/L (3.5-5.1); Sodium Level 138 mmol/L (136-145)
--- NOTE | 2023-11-27 07:21 | PCM.PN.SRG ---
Subjective Subjective Patient reports his cramping improved. He did have still a little bit of blood overnight but it was less than yesterday. Objective Data Objective Data Vital Signs: Vital Signs Temp Pulse Resp BP Pulse Ox O2 Del Method 97.8 F 80 18 121/68 H 98 Room Air 11/27/23 02:53 11/27/23 02:53 11/27/23 02:53 11/27/23 02:53 11/27/23 02:53 11/27/23 02:53 Oxygen Delivery Method Room Air Weight: 226 lb 1 oz Body Mass Index (BMI) 30.7 Intake & Output: Intake and Output for Last 24 Hours 11/25/23 11/26/23 11/27/23 23:59 23:59 23:59 Intake Total 910 / 910 150 / 150 50 / 50 Balance 910 / 910 150 / 150 50 / 50 Lab / Micro Data 11/27/23 06:05 11/27/23 06:05 Labs: Laboratory Results - last 24 hr 11/26/23 07:30: WBC 8.1, RBC 2.15 L, Hgb 7.9 L, Hct 23.4 L, MCV 108.8 H, MCH 36.7 H, MCHC 33.8, RDW Std Deviation 53.3 H, RDW Coeff of Kristen 13.2, Plt Count 434, MPV 10.5, Immature Gran % (Auto) 0.600, Neut % (Auto) 67.6, Lymph % (Auto) 23.1, Alger % (Auto) 7.4, Eos % (Auto) 0.9, Baso % (Auto) 0.4, Absolute Neuts (auto) 5.5, Absolute Lymphs (auto) 1.87, Nucleated RBC % 0, ESR 31 H, Sodium 136, Potassium 3.3 L, Chloride 105, Carbon Dioxide 26.0, Anion Gap 5, BUN 3 L, Creatinine 0.50 L, Estim Creat Clear Calc 276.03, Est GFR (MDRD) Af Amer 249, Est GFR (MDRD) Non-Af 206, BUN/Creatinine Ratio 6.0 L, Glucose 90, Calcium 9.0, C-React Prot Ext Range 55.10 H 11/27/23 06:05: WBC 9.9, RBC 2.12 L, Hgb 7.7 L, Hct 23.0 L, MCV 108.5 H, MCH 36.3 H, MCHC 33.5, RDW Std Deviation 54.2 H, RDW Coeff of Kristen 13.6, Plt Count 401, MPV 10.3, Immature Gran % (Auto) 0.500, Neut % (Auto) 69.7, Lymph % (Auto) 20.4, Alger % (Auto) 8.2, Eos % (Auto) 0.8, Baso % (Auto) 0.4, Absolute Neuts (auto) 6.9, Absolute Lymphs (auto) 2.02, Nucleated RBC % 0, Sodium 138, Potassium 3.5, Chloride 107, Carbon Dioxide 26.0, Anion Gap 5, BUN 5 L, Creatinine 0.49 L, Estim Creat Clear Calc 281.66, Est GFR (MDRD) Af Amer 257, Est GFR (MDRD) Non-Af 212, BUN/Creatinine Ratio 10.2, Glucose 94, Calcium 8.3 L Micro: Microbiology 11/18/23 22:47 Stool Ova and Parasites - Final 11/17/23 10:14 Blood Culture (Wb) - Anticubital Left Blood Culture - Final No growth in 5 days. 11/17/23 10:00 Blood Culture (Wb) - Anticubital Right Blood Culture - Final No growth in 5 days. 11/18/23 22:47 Stool C. difficile GDH Antigen & Toxins - Final 11/18/23 22:47 Stool Clostridioides difficile (PCR) - Final 11/18/23 22:47 Stool Enteric Bacteriology - Final 11/18/23 22:47 Stool Stool Lactoferrin - Final 11/17/23 16:24 Stool Enteric Bacteriology - Final Physical Exam Const oriented x3 and no apparent distress Resp normal respiratory effort GI soft to palpation and non-tender Assessment & Plan Assessment/Plan (1) Colitis: PLAN: The patient's IBD expanded panel came back positive for all 4 markers for Crohn's disease and negative for p-ANCA. The biopsy came back negative for Crohn's disease. Patient is now on mesalamine and Bentyl. I will discharge him home today if that is okay with the other services. Patient will follow-up with Dr. Reyna for chronic medications. The patient will follow-up with me and I will establish a referral to a tertiary center for surgery. Elroy Lange MD Pager: [facility] [address] [place] [address], [address] [place] [phone] Office: Capacity Legal Service Line Layer Reflex Medical hold order details:: IF a medical hold is selected below, a suggested order for a MEDICAL HOLD will reflex upon signing the document. Next of kin: [place] law dictates a PRIORITY LIST for identifying legal decision-maker/legal next of kin in the following order (LNOK): 1st: The patient?s legal guardian, if any 2nd: The patient's spouse (if status is questionable, consult Risk Management) 3rd: The patient?s adult child(saw) (majority, if multiple children) 4th: The patient?s parents 5th: The patient?s adult siblings (majority, if multiple children siblings)
[2023-11-27 07:58] VITALS: BP 114/71; PULSE 80; RESP 16; TEMP 36.7; O2SAT 99
[2023-11-27] MEDS: Ensure Clear 120 ML Liquid PO ×3 (08:09→17:04)
[2023-11-27 08:15] VITALS: BP 114/71; PULSE 80
[2023-11-27] MEDS: Metoprolol(XL)Succ 50 MG Tablet PO (08:15)
[2023-11-27] MEDS: Pantoprazole Sodium 40 MG Tablet PO (08:15)
[2023-11-27] MEDS: Escitalopram Oxalate 10 MG Tablet PO (08:16)
[2023-11-27] MEDS: Mesalamine 1.2 GM Tablet 2.39999999999999991 GM PO (08:16)
[2023-11-27] MEDS: oxyCODONE 5 MG Tablet PO ×3 (10:56→23:20)
--- NOTE | 2023-11-27 13:17 | CASEMGMT ---
Insurance review for hospitals In-network with?[facility] Choice insurance if transfer is recommended is as follows:?[facility], [facility], [facility], [facility], [facility], [facility], [facility] ([facility]), [facility], [facility], and . Iman Brower, Discharge Planning Asst.
[2023-11-27 14:22] VITALS: BP 118/62; PULSE 88; RESP 16; TEMP 37.1; O2SAT 98
--- NOTE | 2023-11-27 15:02 | DS.PCM_ITS ---
Providers Date of Admission: 11/17/23 Primary Care Physician: Dr. Evie Cox, Consultations 11/17/23 13:25 Consult: Gastroenterology Routine Consulting Provider: Marcelo [facility] Reason for Consult: colon thickening EMERGENT Consult: No Notified: Yes Date Notified: 11/17/23 Time Notified: 10:58 Method of Notification: Verbal 11/18/23 12:08 Consult: Hospitalist Routine Consulting Provider: Art Mart Reason for Consult: Medical Management EMERGENT Consult: No Notified: Yes Date Notified: 11/18/23 Time Notified: 12:08 Method of Notification: Verbal Reason For Visit: DIVERTICULITIS WITH MICROPERFORATION Diagnosis Discharge Diagnosis (1) Colitis: Status: Acute Code(s): K52.9 - Noninfective gastroenteritis and colitis, unspecified Plan: The patient's IBD expanded panel came back positive for all 4 markers for Cr ohn's disease and negative for p-ANCA. The biopsy came back negative for Crohn's disease. Patient is now on mesalamine and Bentyl. I will discharge him home today if that is okay with the other services. Patient will follow-up with Dr. Reyna for chronic medications. The patient will follow-up with me and I will establish a referral to a tertiary center for surgery. Elroy Lange MD Pager: [facility] [address] [place] [address], [address] [place] [address] Office: Medications at Discharge Home Medications metoprolol succinate 100 mg tablet,extended release 24 hr 100 mg PO QHS high blood press 05/17/21 escitalopram oxalate 10 mg tablet 10 mg PO QHS see physician 05/13/23 ascorbic acid (vitamin C) 500 mg tablet (Vitamin C) 1 g PO TID 06/02/23 ergocalciferol (vitamin D2) 1,250 mcg (50,000 unit) capsule 50,000 unit PO TUTH 06/02/23 ferrous sulfate 325 mg (65 mg iron) tablet (FeroSul) 325 mg PO QHS supplement 06/02/23 hyoscyamine sulfate 0.125 mg tablet 0.125 mg PO 4X/DAY 06/02/23 Hospital Course Summary of Care Provided Hospital Course: The patient was admitted with possible microperforation of the sigmoid colon with some bubbles that were extraluminal. The patient also was recently seen at [facility]. Their GI doctors believed he did not have Crohn's disease. He was admitted here and treated conservatively with antibiotics and n.p.o. GI was consulted here. They felt that this did look like Crohn's based on the imaging. After the patient had his potassium repleted after several days and his pain decreased and his white count was normalized he had a colonoscopy. Biopsies were obtained. Biopsies were normal and did not show Crohn's disease but he also had an IBD extended panel and all of the Crohn's markers were elevated. The patient also had elevated CRP and ESR. They went down when he was feeling better and now they are coming back up and he is having some cramping. He is still having bleeding per rectum. At this point I would like to transfer the patient to a tertiary center for evaluation by a surgeon who treats Crohn's patient to see if he needs sigmoid colectomy but there was concern for fistula to right colon and terminal ileum. I will transfer the patient to tertiary center for treatment. Weight / BMI Weight Weight: 226 lb 1 oz Body Mass Index (BMI) 30.7 ABG / Lab / Microbiology Data 11/27/23 06:05 11/27/23 06:05 Laboratory: Laboratory Results - last 24 hr 11/26/23 07:30: ESR 31 H, C-React Prot Ext Range 55.10 H 11/27/23 06:05: WBC 9.9, RBC 2.12 L, Hgb 7.7 L, Hct 23.0 L, MCV 108.5 H, MCH 36.3 H, MCHC 33.5, RDW Std Deviation 54.2 H, RDW Coeff of Kristen 13.6, Plt Count 401, MPV 10.3, Immature Gran % (Auto) 0.500, Neut % (Auto) 69.7, Lymph % (Auto) 20.4, Taliaferro % (Auto) 8.2, Eos % (Auto) 0.8, Baso % (Auto) 0.4, Absolute Neuts (auto) 6.9, Absolute Lymphs (auto) 2.02, Nucleated RBC % 0, Sodium 138, Potassium 3.5, Chloride 107, Carbon Dioxide 26.0, Anion Gap 5, BUN 5 L, Creatinine 0.49 L, Estim Creat Clear Calc 281.66, Est GFR (MDRD) Af Amer 257, Est GFR (MDRD) Non-Af 212, BUN/Creatinine Ratio 10.2, Glucose 94, Calcium 8.3 L Microbiology: Microbiology 11/18/23 22:47 Stool Ova and Parasites - Final 11/17/23 10:14 Blood Culture (Wb) - Anticubital Left Blood Culture - Final No growth in 5 days. 11/17/23 10:00 Blood Culture (Wb) - Anticubital Right Blood Culture - Final No growth in 5 days. 11/18/23 22:47 Stool C. difficile GDH Antigen & Toxins - Final 11/18/23 22:47 Stool Clostridioides difficile (PCR) - Final 11/18/23 22:47 Stool Enteric Bacteriology - Final 11/18/23 22:47 Stool Stool Lactoferrin - Final 11/17/23 16:24 Stool Enteric Bacteriology - Final Meaningful Use Info Meaningful Use Diagnoses (Choose all that apply): None applicable Discharge Plan Admission Admit Date/Time: 11/17/23 10:56 Attending Provider: Elroy Lange Primary Care Provider: Evie Cox Consulting Providers: Art Mart; Bhavin Tellez Instructions Forms: Work / School Excuse Discharge Orders/Prescriptions Prescriptions: No Action ascorbic acid (vitamin C) [Vitamin C] 500 mg tablet 1 g PO TID Patient Comments: TAKE with IRON hyoscyamine sulfate 0.125 mg tablet 0.125 mg PO 4X/DAY Patient Comments: take 1 tablet four times a day if needed for SPASM(S) ferrous sulfate [FeroSul] 325 mg (65 mg iron) tablet 325 mg PO QHS Patient Comments: TAKE with VITAMIN C ergocalciferol (vitamin D2) 1,250 mcg (50,000 unit) capsule 50,000 unit PO TUTH metoprolol succinate 100 mg Tablet Extended Release 24 Hr 100 mg PO QHS escitalopram oxalate 10 mg tablet 10 mg PO QHS Referrals / Follow Up: Evie Cox DO [Primary Care Provider] - Disposition Disposition (needs filled in before D/C Order can be placed): [facility]
--- NOTE | 2023-11-27 18:08 | PCM.PN.BLA ---
Progress Note The patient is still having ongoing cramping and some blood in his stool. I do not believe he is fully resolved. At this point the patient may need transfer. I discussed this with GI and the hospitalist. I also discussed with the patient. I was able to get the patient accepted to [facility] to the medicine group. He is awaiting transfer. They may need to perform surgery on his sigmoid colon or start anti-inflammatory medications. All of the images were pushed to [facility]. Elroy Lange MD Pager: [facility] [address] [place] [address], [address] [place] [address] Office:
--- NOTE | 2023-11-27 19:14 | PN.HOSP_ITS ---
Reason for Visit Reason for Visit: Diagnoses Hypokalemia (11/17/23) Noninfective gastroenteritis and colitis, unspecified (11/17/23) Diverticulitis of large intestine without perforation or abscess without bleeding (11/17/23) Hemorrhage of anus and rectum (11/17/23) Diarrhea, unspecified (11/17/23) Subjective Subjective Patient was seen and examined today, his father was in the room at the time of my examination. I talked briefly with general surgery about his care today, general surgery recommends sending him out to another hospital for another opinion regarding his GI problem, his path report from his recent colonoscopy shows no abnormality, patient's colonoscopy report however indicates patient had inflammation in the sigmoid area along with diverticulosis. Patient's blood studies regarding inflammatory bowel disease returned, 4 of the 5 markers were positive for Crohn's disease. According to general surgery, they wanted to sta rt IV corticosteroids on the patient but gastroenterology advised against it. Objective Data Objective Data Vital Signs: Vital Signs Temp Pulse Resp BP Pulse Ox O2 Del Method 98.8 F 88 16 118/62 98 Room Air 11/27/23 14:22 11/27/23 14:22 11/27/23 14:22 11/27/23 14:22 11/27/23 14:22 11/27/23 14:22 Oxygen Delivery Method Room Air Weight: 102.54 kg Body Mass Index (BMI) 30.7 Intake & Output: Intake and Output for Last 24 Hours 11/25/23 11/26/23 11/27/23 23:59 23:59 23:59 Intake Total 910 / 910 150 / 150 1000 / 1000 Output Total 700 / 700 Balance 910 / 910 150 / 150 300 / 300 Lab / Micro Data 11/27/23 06:05 11/27/23 06:05 Labs: Laboratory Results - last 24 hr 11/27/23 06:05: WBC 9.9, RBC 2.12 L, Hgb 7.7 L, Hct 23.0 L, MCV 108.5 H, MCH 36.3 H, MCHC 33.5, RDW Std Deviation 54.2 H, RDW Coeff of Kristen 13.6, Plt Count 401, MPV 10.3, Immature Gran % (Auto) 0.500, Neut % (Auto) 69.7, Lymph % (Auto) 20.4, Wharton % (Auto) 8.2, Eos % (Auto) 0.8, Baso % (Auto) 0.4, Absolute Neuts (auto) 6.9, Absolute Lymphs (auto) 2.02, Nucleated RBC % 0, Sodium 138, Potassium 3.5, Chloride 107, Carbon Dioxide 26.0, Anion Gap 5, BUN 5 L, Creatinine 0.49 L, Estim Creat Clear Calc 281.66, Est GFR (MDRD) Af Amer 257, Est GFR (MDRD) Non-Af 212, BUN/Creatinine Ratio 10.2, Glucose 94, Calcium 8.3 L Micro: Microbiology 11/18/23 22:47 Stool Ova and Parasites - Final 11/17/23 10:14 Blood Culture (Wb) - Anticubital Left Blood Culture - Final No growth in 5 days. 11/17/23 10:00 Blood Culture (Wb) - Anticubital Right Blood Culture - Final No growth in 5 days. 11/18/23 22:47 Stool C. difficile GDH Antigen & Toxins - Final 11/18/23 22:47 Stool Clostridioides difficile (PCR) - Final 11/18/23 22:47 Stool Enteric Bacteriology - Final 11/18/23 22:47 Stool Stool Lactoferrin - Final 11/17/23 16:24 Stool Enteric Bacteriology - Final Physical Exam Const alert, oriented x3, no apparent distress and healthy appearing General Appearance: cooperative, well kempt and well developed Orientation / Consciousness: awake, oriented to person, oriented to place and oriented to time HEENT normocephalic, head/scalp atraumatic and moist oral mucous membranes Eyes PERRL, EOMs intact bilaterally and conjunctivae normal Neck supple, no JVD, thyroid normal and no carotid bruits General: trachea midline Resp normal respiratory effort, no retractions, no use of accessory muscles and clear to auscultation bilaterally Auscultation: Negative for rales, rhonchi or wheezes Cardio regular rate, regular rhythm, S1 normal heart sound, S2 normal heart sound, no murmurs, no rub and no gallops GI normal to inspection, nondistended, normoactive bowel sounds, soft to palpation, non-tender and non-distended Extremity no clubbing, cyanosis or edema Skin no rashes or lesions noted General Skin Exam: no breakdown Neuro oriented x3, CN's II-XII intact bilaterally, moves all extremities, no focal motor deficits and no sensory deficits noted Sensorium / Orientation: awake and alert Speech: speech normal Psych affect normal Assessment & Plan Assessment/Plan (1) Rectal bleeding: (2) Colitis: PLAN: Plan 1. Acute diverticulitis with [id number] will remain on antibiotics at the present time and mesalamine, patient is also on Levsin, I talked briefly with general surgery about his care today. Patient's hemoglobin today was 7.7, his CBC will be repeated tomorrow #2 hypokalemia-corrected #3 essential hypertension-patient is on metoprolol, blood pressure will be monitored #4 chronic depression-patient is currently on Lexapro #5 acute anemia secondary to rectal bleeding-patient's hemoglobin today was 7.7, he does not require transfusion at this time, CBC will be rechecked tomorrow Total clinical time spent by myself addressing patient's medical issues, reviewing all of his data, and collaborating with patient's care team: 25 minutes Charges/Coding Visit Charges Inpatient E&M: 06050 Subs Hosp L1
[2023-11-27 20:10] VITALS: BP 130/73; PULSE 81; RESP 18; TEMP 36.8; O2SAT 97
[2023-11-28] MEDS: Hyoscyamine Sulfate 0.125 MG Tablet PO ×4 (00:28→18:07)
[2023-11-28 02:28] VITALS: BP 130/69; PULSE 73; RESP 16; TEMP 37.1; O2SAT 97
[2023-11-28] MEDS: Acetaminophen 325 MG Tablet 650 MG PO ×3 (02:37→15:23)
[2023-11-28] MEDS: Piperacil/Tazobactam 3.375 GM in 0.9% Normal Saline (50mL MB+) 50 ML IV ×2 (05:53→13:55)
[2023-11-28] MEDS: Dicyclomine 10 MG Capsule 20 MG PO ×3 (05:53→15:23)
[2023-11-28] MEDS: oxyCODONE 5 MG Tablet PO ×3 (06:00→18:07)
[2023-11-28 06:05] LABS: Absolute Lymphocyte Count 1.76 X10^3/uL (0.83-4.51); Absolute Neutrophil Count 6.8 X10^3/uL (2.0-7.7); Basophil# 0.03 X10^3/uL; Basophil% 0.3 % (0-1); Eosinophils% 1.1 % (0-5); Hematocrit 22.5 % (40-54); Hemoglobin 7.5 g/dL (13.0-16.5); Lymphocyte # 1.76 X10^3/ul (0.83-4.51); Lymphocyte % 18.6 % (19-41); Mean Corp Hgb Conc 33.3 g/dL (32-36); Mean Corpuscular Hgb 36.1 pg (27.0-32.0); Mean Corpuscular Volume 108.2 fL (80-94); Mean Platelet Vol. 10.2 fl (6.2-12.0); Monocyte# 0.73 X10^3/uL; Monocyte% 7.7 % (0-10); NRBC Flagged by Analyzer 0 % (0-5); Neutrophil # 6.77 X10^3/uL (2.7-7.7); Neutrophil % 71.6 % (47-70); Platelet Count 385 K/mm3 (150-450); RBC Distribution Width CV 13.2 % (11.6-14.6); RBC Distribution Width SD 52.7 fl (35.1-43.9); Red Blood Count 2.08 M/mm3 (4.6-6.2); White Blood Count 9.5 K/mm3 (4.4-11.0)
[2023-11-28 06:32] LABS: Anion Gap 7 (5-15); BUN 5 mg/dL (7-18); BUN/Creat Ratio 9.5 RATIO (10-20); Calcium,Total 8.4 mg/dL (8.5-10.1); Chloride 107 mmol/L (98-107); Creatinine, Serum 0.53 mg/dL (0.70-1.30); EST Glomerular Filtration Rate 194 mL/min (>60); Est Glom Filt Rate - Afr Amer 235 mL/min (>60); Glucose 104 mg/dL (74-106); Potassium 3.4 mmol/L (3.5-5.1); Sodium Level 140 mmol/L (136-145)
[2023-11-28 08:30] VITALS: BP 136/75; PULSE 73; RESP 18; TEMP 37.1; O2SAT 97
[2023-11-28] MEDS: Potassium Chloride Oral Tablet 20 MEQ 40 MEQ PO (08:31)
[2023-11-28] MEDS: Ensure Clear 120 ML Liquid PO ×3 (08:31→16:41)
[2023-11-28 08:35] VITALS: PULSE 78
[2023-11-28] MEDS: Mesalamine 1.2 GM Tablet 2.39999999999999991 GM PO (08:35)
[2023-11-28] MEDS: Metoprolol(XL)Succ 50 MG Tablet PO (08:35)
[2023-11-28] MEDS: Pantoprazole Sodium 40 MG Tablet PO (08:36)
[2023-11-28] MEDS: Escitalopram Oxalate 10 MG Tablet PO (08:36)
--- NOTE | 2023-11-28 08:44 | PCM.PN.SRG ---
Subjective Subjective Awaiting transfer bed to [facility], patient states still having lower abdominal pain and occasional bloody bowel movements, hemoglobin 7.5 from 7.7 yesterday. Objective Data Objective Data Vital Signs: Vital Signs Temp Pulse Resp BP Pulse Ox O2 Del Method 98.8 F 78 16 130/69 H 97 Room Air 11/28/23 02:28 11/28/23 08:35 11/28/23 02:28 11/28/23 02:28 11/28/23 02:28 11/28/23 02:41 Oxygen Delivery Method Room Air Weight: 226 lb 1 oz Body Mass Index (BMI) 30.7 Intake & Output: Intake and Output for Last 24 Hours 11/26/23 11/27/23 11/28/23 23:59 23:59 23:59 Intake Total 150 / 150 1000 / 1000 1550 / 1550 Output Total 700 / 700 Balance 150 / 150 300 / 300 1550 / 1550 Lab / Micro Data 11/28/23 05:48 11/28/23 05:48 Labs: Laboratory Results - last 24 hr 11/28/23 05:48: WBC 9.5, RBC 2.08 L, Hgb 7.5 L, Hct 22.5 L, MCV 108.2 H, MCH 36.1 H, MCHC 33.3, RDW Std Deviation 52.7 H, RDW Coeff of Kristen 13.2, Plt Count 385, MPV 10.2, Immature Gran % (Auto) 0.700, Neut % (Auto) 71.6 H, Lymph % (Auto) 18.6 L, Kings % (Auto) 7.7, Eos % (Auto) 1.1, Baso % (Auto) 0.3, Absolute Neuts (auto) 6.8, Absolute Lymphs (auto) 1.76, Nucleated RBC % 0, Sodium 140, Potassium 3.4 L, Chloride 107, Carbon Dioxide 26.0, Anion Gap 7, BUN 5 L, Creatinine 0.53 L, Estim Creat Clear Calc 260.40, Est GFR (MDRD) Af Amer 235, Est GFR (MDRD) Non-Af 194, BUN/Creatinine Ratio 9.5 L, Glucose 104, Calcium 8.4 L Micro: Microbiology 11/18/23 22:47 Stool Ova and Parasites - Final 11/17/23 10:14 Blood Culture (Wb) - Anticubital Left Blood Culture - Final No growth in 5 days. 11/17/23 10:00 Blood Culture (Wb) - Anticubital Right Blood Culture - Final No growth in 5 days. 11/18/23 22:47 Stool C. difficile GDH Antigen & Toxins - Final 11/18/23 22:47 Stool Clostridioides difficile (PCR) - Final 11/18/23 22:47 Stool Enteric Bacteriology - Final 11/18/23 22:47 Stool Stool Lactoferrin - Final 11/17/23 16:24 Stool Enteric Bacteriology - Final Physical Exam Const oriented x3 and no apparent distress Resp normal respiratory effort GI soft to palpation Palpation: tender LLQ Assessment & Plan Assessment/Plan (1) Colitis: PLAN: Awaiting transfer bed at [facility]. Continue transitional diet Hemoglobin 7.5 from 7.7 we will continue to monitor Continue pain control Continue IV Zosyn and mesalamine Continue PPI, hold any anticoagulation for DVT prophylaxis due to bleeding and anemia Amna Kimbrough M.D. Pager: [phone] [facility] [address] [place] [address], [facility], [address] [place] [address] Office: [phone] Charges/Coding Visit Charges Inpatient E&M: 39437 Subs Hosp L2
--- NOTE | 2023-11-28 11:32 | PCM.PN.HOSP ---
Reason for Visit Reason for Visit: Diagnoses Hypokalemia (11/17/23) Noninfective gastroenteritis and colitis, unspecified (11/17/23) Diverticulitis of large intestine without perforation or abscess without bleeding (11/17/23) Hemorrhage of anus and rectum (11/17/23) Diarrhea, unspecified (11/17/23) Subjective Subjective Patient seen at bedside this morning. Sitting up comfortably in bed, conversing normally, no acute distress. Patient has continued intra-abdominal cramping this morning, slightly worse than yesterday. Has not had any bloody bowel movements this morning. Has been tolerating p.o. intake without issue. Patient feels fatigued but otherwise has no other significant pain or discomfort. He is somewhat frustrated by his prolonged hospitalization and hopeful for transfer to [facility] here soon. No other acute concerns morning. Objective Data Objective Data Vital Signs: Vital Signs Temp Pulse Resp BP Pulse Ox O2 Del Method 98.8 F 78 18 136/75 H 97 Room Air 11/28/23 08:30 11/28/23 08:35 11/28/23 08:30 11/28/23 08:30 11/28/23 08:30 11/28/23 08:30 Oxygen Delivery Method Room Air Weight: 102.54 kg Body Mass Index (BMI) 30.7 Intake & Output: Intake and Output for Last 24 Hours 11/26/23 11/27/23 11/28/23 23:59 23:59 23:59 Intake Total 150 / 150 1000 / 1000 1600 / 1600 Output Total 700 / 700 Balance 150 / 150 300 / 300 1600 / 1600 Lab / Micro Data 11/28/23 05:48 11/28/23 05:48 Labs: Laboratory Results - last 24 hr 11/28/23 05:48: WBC 9.5, RBC 2.08 L, Hgb 7.5 L, Hct 22.5 L, MCV 108.2 H, MCH 36.1 H, MCHC 33.3, RDW Std Deviation 52.7 H, RDW Coeff of Kristen 13.2, Plt Count 385, MPV 10.2, Immature Gran % (Auto) 0.700, Neut % (Auto) 71.6 H, Lymph % (Auto) 18.6 L, Sampson % (Auto) 7.7, Eos % (Auto) 1.1, Baso % (Auto) 0.3, Absolute Neuts (auto) 6.8, Absolute Lymphs (auto) 1.76, Nucleated RBC % 0, Sodium 140, Potassium 3.4 L, Chloride 107, Carbon Dioxide 26.0, Anion Gap 7, BUN 5 L, Creatinine 0.53 L, Estim Creat Clear Calc 260.40, Est GFR (MDRD) Af Amer 235, Est GFR (MDRD) Non-Af 194, BUN/Creatinine Ratio 9.5 L, Glucose 104, Calcium 8.4 L Micro: Microbiology 11/18/23 22:47 Stool Ova and Parasites - Final 11/17/23 10:14 Blood Culture (Wb) - Anticubital Left Blood Culture - Final No growth in 5 days. 11/17/23 10:00 Blood Culture (Wb) - Anticubital Right Blood Culture - Final No growth in 5 days. 11/18/23 22:47 Stool C. difficile GDH Antigen & Toxins - Final 11/18/23 22:47 Stool Clostridioides difficile (PCR) - Final 11/18/23 22:47 Stool Enteric Bacteriology - Final 11/18/23 22:47 Stool Stool Lactoferrin - Final 11/17/23 16:24 Stool Enteric Bacteriology - Final Physical Exam Const alert, oriented x3, no apparent distress and average body habitus Constitutional Narrative: Pleasant young male, sitting comfortably in bed, conversing normally, no acute distress. General Appearance: cooperative and comfortable HEENT normocephalic, head/scalp atraumatic, hearing grossly normal bilaterally, nasal mucous membranes and turbinates normal and moist oral mucous membranes Eyes PERRL, EOMs intact bilaterally and conjunctivae normal Neck full ROM, no lymphadenopathy and supple Lymph Lymphatic: no lymphadenopathy noted Chest inspection of chest normal Resp normal respiratory effort, normal air movement, no use of accessory muscles and clear to auscultation bilaterally Cardio regular rate, regular rhythm, no murmurs and peripheral pulses 2+ throughout GI GI Narrative: Mildly tender to palpation diffusely, somewhat worse in lower quadrants. Soft, nondistended on palpation. Normoactive bowel sounds. Back/Spine normal ROM Extremity normal to inspection, full ROM and no pedal edema Skin no rashes or lesions noted Neuro no focal motor deficits and no sensory deficits noted Speech: speech normal Psych mental status grossly normal Assessment & Plan Assessment/Plan (1) Colitis: (2) Rectal bleeding: (3) Acute hypokalemia: (4) Anemia: PLAN: Plan Patient is a 28-year-old male who presented to [facility] ED on 11/17/2023 with intermittent abdominal pain and bloody stools. General surgery primary patient, medicine consulted for medical management. 1. Colitis with rectal bleeding Patient with history of recurrent diverticulitis. Presented with 2-week history of intermittent abdominal pain and bloody stools. General surgery primary, gastroenterology following. Has had prolonged hospital course with extensive workup, see surgery and GI notes for further details. Difficult to determine diagnosis, per GI seems most consistent with severe diverticulitis with sigmoid colitis and mild ischemic colitis but cannot rule out Crohn's disease. ? Surgery and GI following. Planning for transfer to [facility] when bed becomes available for further evaluation. Continue IV Zosyn and methylamine. Continue PPI. Continue transitional diet. 2. Anemia ? Presumed secondary to GI blood loss. Hemoglobin 16.0 on admit, presumed hemoconcentrated, baseline hemoglobin 11-13. Hemoglobin has slowly downtrended during hospitalization. Most recent hemoglobin 7.5 on 11/28. Monitor daily CBC. Treating colitis as above. Holding any anticoagulation for DVT prophylaxis due to bleeding and anemia. 3. Hypokalemia, improving ? Presumed secondary to significant GI losses. Potassium 2.0 on admit. Improved with aggressive repletion. Most recent potassium 3.4 on 11/28, continue to replete as needed. 4. Hypertension ? Continue home metoprolol. 5. Depression ? Continue home Lexapro. DVT prophylaxis: Encouraged ambulation CODE STATUS: Full code, verified Expected disposition: Transfer to [facility] when bed becomes available Total clinical time spent by myself addressing the patient's medical issues, reviewing all the data, and collaborating with patient's care team: 35 minutes. Charges/Coding Visit Charges Inpatient E&M: 49560 Subs Hosp L2
[2023-11-28 14:30] VITALS: BP 130/70; PULSE 88; RESP 16; TEMP 36.9; O2SAT 98
[2023-11-28] MEDS: Ondansetron 4 MG/2 ML Vial IV (15:23)
--- NOTE | 2023-11-28 16:36 | NURSING ---
report called and given to Michaela at [facility] [id number]
--- NOTE | 2023-11-28 18:13 | NURSING ---
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
== END 2023-11-28 18:19 | disposition short-term general hospital (02) | DRG 385 ==
LOC: ED 08:40 → MS3 12:44
PROVIDERS: Hospitalist; Internal Medicine Gastroenterology; Physician Assistant; Surgery; Admitting Provider Surgery; Emergency Provider Emergency Medicine; PCP Family Medicine; Visit Provider Surgery
PROC: 0DJD8ZZ Inspection of Lower Intestinal Tract, Via Natural or Artificial Opening Endoscopic (ICD-10-PCS; CPT 45378; principal; 2023-11-24 11:25)
DX: K50.111 Crohn's disease of large intestine with rectal bleeding (principal); K57.21 Diverticulitis of large intestine with perforation and abscess with bleeding; K55.9 Vascular disorder of intestine, unspecified; K50.118 Crohn's disease of large intestine with other complication; K50.113 Crohn's disease of large intestine with fistula; I10 Essential (primary) hypertension; F32.A Depression, unspecified; E87.6 Hypokalemia; F17.210 Nicotine dependence, cigarettes, uncomplicated; Z79.899 Other long term (current) drug therapy
CPT/HCPCS: 36415; 74177; 74183; 80048; 80053; 80074; 82784; 82785; 83516; 83605; 83630; 83690; 83735; 83993; 84100; 84132; 85025; 85027; 85652; 86140; 86225; 86235; 86255; 86256; 86480; 87040; 87177; 87209; 87493; 87506; 88305; 99284; 99406; A9575; J7030; J7040; J7050; J7120; Q9967; A4216; J1610; J2405

== ENCOUNTER 2023-12-19 11:42 | Inpatient (IN) | payer OTHER, SELFPAY ==
[2023-12-19 11:43] VITALS: BP 131/77; PULSE 69; RESP 14; TEMP 37.2; O2SAT 99; BMI 30.5
--- NOTE | 2023-12-19 12:45 | CT_ITS ---
STUDY: CT ABDOMEN AND PELVIS WITH CONTRAST - URINARY TRACT REASON FOR EXAM: Male, 28 years old. Abdominal pain RADIATION DOSAGE (If Supplied By Facility): CTDIvol = ( 17.24 ) mGy, DLP = ( 1179.43 ) mGycm TECHNIQUE: IV 100mL [id number]-[id number] was administered. Transaxial images were obtained from the dome of the diaphragm to the symphysis pubis in the arterial, nephrographic and excretory phases. Multiplanar coronal and sagittal images were reformatted. Individualized Dose Optimization Techniques Were Used For This CT. COMPARISON: November 17 and 2023 and MRI dated November 17, 2023 FINDINGS: There are small bilateral pleural effusions. The visualized portions of the heart are within normal limits. There is decreased attenuation of the liver consistent with steatosis. The gallbladder is contracted. There are gallstones within the gallbladder. There is trace pericholecystic fluid. Normal spleen. Normal pancreas. Normal bilateral adrenal glands. Normal visualized stomach. There is circumferential wall thickening of the distal ileum. There is diverticulosis, with persistent thickening of the sigmoid colon wall, and pericolonic inflammation changes consistent with acute diverticulitis. The anterior to the sigmoid colon and abutting the urinary bladder there is an extraluminal focus of air that is walled off. There are additional foci of air ventral to the sigmoid colon and slightly right of midline the The appendix is visualized and appears normal. Normal abdominal aorta. No retroperitoneal adenopathy. There is mild right-sided hydronephrosis. Normal left kidney. Normal urinary bladder. Normal abdominal wall. Normal osseous structures. CT/Abdomen/Pelvis W IV Cont ONLY IMPRESSION: Acute diverticulitis of the sigmoid colon associated inflammation of the distal ileum, likely reactive, and extraluminal air consistent with prior perforation. Mild right-sided hydronephrosis. Contracted gallbladder associated with gallstones and trace pericholecystic fluid may be reactive. Fatty infiltration of the liver. Small bilateral pleural effusions. N.B. : The above Results were Read Back by Natasha Montague MD to Arnulfo Sheldon NP, and understanding confirmed on 12/19/2023 15:00:26 (ET). Electronically Signed: Natasha Montague MD at 15:02 EST ,
--- NOTE | 2023-12-19 12:47 | EX.ED.DYSGE1 ---
HPI <KAYLYN Elizalde - Last Filed: 12/19/23 22:17> History of Present Illness Chief Complaint: Abd Pain Narrative Narrative: Patient is a 28-year-old male with history of hypertension, history of diverticulitis with abscess who sees GI at the [facility]. Patient recently discharged from the [facility] main on December 05, 2023. Patient was recently put on Cipro, Flagyl and is currently on vancomycin for C. difficile. Patient states that he is here because he is having significant lower abdominal pain that is bending him over. Patient called his GI specialist who told him to go the emergency department for further workup. Patient states that he is having normal bowel movements, no blood, no fever or chills, nausea or vomiting. Patient is having significant belly pain as to why is here. PFSH <KAYLYN Elizalde - Last Filed: 12/19/23 22:17> [facility] Medical History Abdominal pain Colonic diverticular abscess Hypertension Home Medications metoprolol succinate 100 mg tablet,extended release 24 hr 100 mg PO DAILY high blood press 05/17/21 [History Last Taken 11/16/23] ascorbic acid (vitamin C) 500 mg tablet (Vitamin C) 1 g PO TID supple 06/02/23 [History Last Taken 11/16/23] ergocalciferol (vitamin D2) 1,250 mcg (50,000 unit) capsule 50,000 unit PO TUTH supp 06/02/23 [History Last Taken 11/12/23] ferrous sulfate 325 mg (65 mg iron) tablet (FeroSul) 325 mg PO QHS supplement 06/02/23 [History Last Taken 11/16/23] hyoscyamine sulfate 0.125 mg tablet 0.125 mg PO 4X/DAY spasms 06/02/23 [History Last Taken 11/16/23] escitalopram oxalate 20 mg tablet 20 mg PO DAILY depress 12/20/23 [History Last Taken Unknown] hyoscyamine sulfate 0.125 mg sublingual tablet 0.125 mg sublingual Q4H PRN spasms 12/20/23 [History Last Taken Unknown] Allergy/AdvReac Type Severity Reaction Status Date / Time No Known Allergies Allergy Verified 12/19/23 11:43 Family History Brother Cancer leukemia Uncle Diabetes Cancer skin Mother Cancer skin Surgical History H/O colonoscopy H/O knee surgery Social History Smoking Status: Current every day smoker tobacco type: cigarettes alcohol intake: current alcohol intake frequency: a few times a month substance use type: marijuana ROS <KAYLYN Elizalde - Last Filed: 12/19/23 22:17> ROS ED ROS Narrative Constitutional: No fever, no chills. HEENT: No sore throat. No neck pain. No loss of vision. No rhinorrhea. Cardiovascular: No chest pain. No palpitations. No pedal edema. Respiratory: No cough, no shortness of breath. Abdominal: Positive for lower abdominal pain, lower abdominal cramping. No nausea. No vomiting. Genitourinary: No dysuria. No hematuria. Musculoskeletal: No myalgias. No arthralgias. Neurologic: No headaches. No dizziness. No lightheadedness. Skin: No rash. No change in color. Psychiatric: No depression. No anxiety. EXAM <KAYLYN Elizalde - Last Filed: 12/19/23 22:17> Physical Exam Narrative Exam Narrative: Afebrile. Vital signs noted. HEENT: Normocephalic. Atraumatic. PERRL, EOMI. Neck soft and supple. No point tenderness or step off. Cardiovascular: Regular rate and rhythm. No murmurs, rubs, or gallops appreciated. Respiratory: No tachypnea. Lungs clear to auscultation bilaterally. Gastrointestinal: Abdomen soft, tenderness to the lower abdominal area, no peritoneal signs, patient does have normoactive bowel sounds. No rebound or guarding. Neurological: Awake. Alert. Nonfocal, nonlateralizing. Skin: No rash. Normal color. No pallor. Musculoskeletal: No pedal edema. Full range of motion extremities. Const Vital Signs: 12/19/23 11:43 12/19/23 20:25 12/19/23 20:00 Temperature 99 F 98 F Temperature Source Temporal Oral Pulse Rate 69 89 89 Respiratory Rate 14 18 16 Blood Pressure 131/77 H 113/69 118/75 Blood Pressure Mean 95 83 89 Pulse Ox 99 99 98 Oxygen Delivery Method Room Air Room Air Room Air Positive well nourished and well developed General Appearance ED: well developed <Dr. Kieran Martínez MD - Last Filed: 12/19/23 15:22> Physical Exam Const Vital Signs: 12/19/23 11:43 12/19/23 20:25 12/19/23 20:00 Temperature 99 F 98 F Temperature Source Temporal Oral Pulse Rate 69 89 89 Respiratory Rate 14 18 16 Blood Pressure 131/77 H 113/69 118/75 Blood Pressure Mean 95 83 89 Pulse Ox 99 99 98 Oxygen Delivery Method Room Air Room Air Room Air <Dr. Aime Garcia DO - Last Filed: 12/21/23 08:58> Physical Exam Const Vital Signs: 12/19/23 11:43 12/19/23 20:25 12/19/23 20:00 Temperature 99 F 98 F Temperature Source Temporal Oral Pulse Rate 69 89 89 Respiratory Rate 14 18 16 Blood Pressure 131/77 H 113/69 118/75 Blood Pressure Mean 95 83 89 Pulse Ox 99 99 98 Oxygen Delivery Method Room Air Room Air Room Air MDM <KAYLYN Elizalde - Last Filed: 12/19/23 22:17> MDM Lab Data Labs: Laboratory Results - last 24 hr 12/19/23 12/19/23 13:00 17:12 WBC 15.5 H RBC 3.41 L Hgb 11.8 L Hct 35.2 L MCV 103.2 H MCH 34.6 H MCHC 33.5 RDW Std Deviation 47.3 H RDW Coeff of Kristen 12.4 Plt Count 327 MPV 10.7 Immature Gran % (Auto) 0.500 Neut % (Auto) 89.9 H Lymph % (Auto) 6.6 L Pope % (Auto) 2.9 Eos % (Auto) 0.0 Baso % (Auto) 0.1 Absolute Neuts (auto) 13.9 H Absolute Lymphs (auto) 1.02 Nucleated RBC % 0 Sodium 140 Potassium 3.6 Chloride 107 Carbon Dioxide 29.0 Anion Gap 4 L BUN 6 L Creatinine 0.67 L Estim Creat Clear Calc 205.09 Est GFR (MDRD) Af Amer 177 Est GFR (MDRD) Non-Af 147 BUN/Creatinine Ratio 8.9 L Glucose 160 H Lactic Acid 2.2 H* 0.8 Calcium 9.3 Total Bilirubin 0.40 AST 13 L ALT 32 Alkaline Phosphatase 91 Total Protein 6.8 Albumin 2.7 L Globulin 4.1 Albumin/Globulin Ratio 0.7 L Lipase 29 Radiography Diagnostic Testing: Clinical Impression(s) from Imaging Studies Abdomen/Pelvis CT 12/19/23 12:45 IMPRESSION: Acute diverticulitis of the sigmoid colon associated inflammation of the distal ileum, likely reactive, and extraluminal air consistent with prior perforation. Mild right-sided hydronephrosis. Contracted gallbladder associated with gallstones and trace pericholecystic fluid may be reactive. Fatty infiltration of the liver. Small bilateral pleural effusions. N.B. : The above Results were Read Back by Natasha Montague MD to Arnulfo Sheldon NP, and understanding confirmed on 12/19/2023 15:00:26 (ET). Electronically Signed: Natasha Montague MD at 15:02 EST , ADDENDUM: 12/19/23 1509 IMPRESSION: Acute diverticulitis of the sigmoid colon associated inflammation of the distal ileum, likely reactive, and extraluminal air consistent with prior perforation. Mild right-sided hydronephrosis. Contracted gallbladder associated with gallstones and trace pericholecystic fluid may be reactive. Fatty infiltration of the liver. Small bilateral pleural effusions. N.B. : The above Results were Read Back by Natasha Montague MD to Arnulfo Sheldon NP, and understanding confirmed on 12/19/2023 15:00:26 (ET). Electronically Signed: Natasha Montague MD at 15:02 EST , Treatment and Re-Evaluation :: Patient peers generally well, patient peers nontoxic, vital signs are stable. Presenting to the emerged part with lower abdominal pain, patient does have a history of diverticulitis with abscess, possible bowel obstruction. Patient is currently on multiple antibiotics such as Cipro, Flagyl, vancomycin. Patient differential diagnosis includes sequelae of multiple antibiotic use, C. difficile, gastroenteritis, diverticulitis, perforation, free air. Patient will receive basic laboratory values including lactic acid, patient received a CT scan of the abdomen pelvis with IV contrast. Given IV fluids, Zofran as well as morphine, patient be reevaluated. Insert the radiology exams ordered for this patient will be read by the emergency department attending. From these reads a plan of care will be put into place. Patient CBC shows a leukocytosis with a white blood count of 15.5. Hemoglobin 11.8. Patient's potassium is unremarkable, lactic acid was 2.2. Creatinine 0.67 which is baseline. Lipase negative. Patient CT scan of the abdomen pelvis shows acute diverticulitis of the sigmoid colon associated inflammation of the distal ileum likely reactive. Extraluminal air consistent with prior perforation mild right-sided hydronephrosis contracted gallbladder associate with gallstones. On reevaluation, the patient is still having significant pain. I will need to reach out to [facility] for further recommendation. I was able to talk to colorectal surgery, I spoke with Dr. Lyon, he will accept the patient. Currently waiting for a bed at the [facility]. I spoke with the patient he is in agreement. He remained stable. If the patient does not receive a bed in the next 1 hour, I will call her hospitalist to have him admitted, he can then be transferred from there. Reevaluation of the patient at 8 PM, patient is resting in the room, patient is in no distress. Patient is currently excepted to the [facility] however currently waiting for a bed. Patient needs to be in the emergency department 6 hours after the acceptance to [facility]. Patient vital signs remained stable. Patient's pain as long she is not moving is under control. Abdominal exam is unchanged, patient does have some less pain at this time. No peritoneal signs. Patient will need to be admitted to the hospital after 6 hours of waiting for a bed. <Dr. Kieran Martínez MD - Last Filed: 12/19/23 15:22> [facility] MDM Narrative Medical decision making narrative: I have personally performed a face to face assessment of the patient and have reviewed the RADHA Note. I performed a substantive portion of the visit including all aspects of the following. My kaye findings include: History is 28-year-old male has been worked up both here and at the [facility] and was recently admitted at the [facility] for diverticulitis. He is on Cipro and Flagyl. He is also vancomycin for C. difficile. He has had upper and lower endoscopy and return interment if he may have inflammatory bowel disease there is some family history. Presents today with more left lower abdominal pain. Exam is [well-appearing 28-year-old male. Vital signs stable afebrile. H EENT exam unremarkable. Neck nontender. Lungs clear. Heart regular rhythm no murmur rate about 70. Abdomen is soft diffusely tender most so in the left lower quadrant. No peritoneal signs. No distention. No obstruction. No specific right upper or right lower quadrant tenderness. No hernia or mass. Moving all 4 Extremities. Nontender no edema.Neurologically is awake alert no focal motor deficits.] Medical Decision Making [ 28-year-old recent hospitalization [facility] for diverticulitis and also being evaluated for possible inflammatory bowel disease. Presents today abdominal pain. She is already on Cipro, Flagyl and vancomycin. CAT scan labs are pending.] Other additions or changes: [None] History & Record Review Discussion w/independent historian: Patient Additional record(s) reviewed:: Prior inpatient record, Prior outpatient record, Prior ED visit and Prior labs Lab Data Attestation: I reviewed the patient's lab results. Lab results narrative: CBC shows no elevated white count 15.5. H&H 11.8 and 35. Platelets 327. Electrolytes show gap 4. Normal BUN of 6 creatinine 0.6. Glucose 160. Liver enzymes normal. Labs: Laboratory Results - last 24 hr 12/19/23 12/19/23 13:00 17:12 WBC 15.5 H RBC 3.41 L Hgb 11.8 L Hct 35.2 L MCV 103.2 H MCH 34.6 H MCHC 33.5 RDW Std Deviation 47.3 H RDW Coeff of Kristen 12.4 Plt Count 327 MPV 10.7 Immature Gran % (Auto) 0.500 Neut % (Auto) 89.9 H Lymph % (Auto) 6.6 L Pope % (Auto) 2.9 Eos % (Auto) 0.0 Baso % (Auto) 0.1 Absolute Neuts (auto) 13.9 H Absolute Lymphs (auto) 1.02 Nucleated RBC % 0 Sodium 140 Potassium 3.6 Chloride 107 Carbon Dioxide 29.0 Anion Gap 4 L BUN 6 L Creatinine 0.67 L Estim Creat Clear Calc 205.09 Est GFR (MDRD) Af Amer 177 Est GFR (MDRD) Non-Af 147 BUN/Creatinine Ratio 8.9 L Glucose 160 H Lactic Acid 2.2 H* 0.8 Calcium 9.3 Total Bilirubin 0.40 AST 13 L ALT 32 Alkaline Phosphatase 91 Total Protein 6.8 Albumin 2.7 L Globulin 4.1 Albumin/Globulin Ratio 0.7 L Lipase 29 Radiography Diagnostic Testing: Clinical Impression(s) from Imaging Studies Abdomen/Pelvis CT 12/19/23 12:45 IMPRESSION: Acute diverticulitis of the sigmoid colon associated inflammation of the distal ileum, likely reactive, and extraluminal air consistent with prior perforation. Mild right-sided hydronephrosis. Contracted gallbladder associated with gallstones and trace pericholecystic fluid may be reactive. Fatty infiltration of the liver. Small bilateral pleural effusions. N.B. : The above Results were Read Back by Natasha Montague MD to Arnulfo Sheldon NP, and understanding confirmed on 12/19/2023 15:00:26 (ET). Electronically Signed: Natasha Montague MD at 15:02 EST , ADDENDUM: 12/19/23 1509 IMPRESSION: Acute diverticulitis of the sigmoid colon associated inflammation of the distal ileum, likely reactive, and extraluminal air consistent with prior perforation. Mild right-sided hydronephrosis. Contracted gallbladder associated with gallstones and trace pericholecystic fluid may be reactive. Fatty infiltration of the liver. Small bilateral pleural effusions. N.B. : The above Results were Read Back by Natasha Montague MD to Arnulfo Sheldon NP, and understanding confirmed on 12/19/2023 15:00:26 (ET). Electronically Signed: Natasha Montague MD at 15:02 EST , <Dr. Aime Garcia, DO - Last Filed: 12/21/23 08:58> [facility] Lab Data Labs: Laboratory Results - last 24 hr 12/19/23 12/19/23 13:00 17:12 WBC 15.5 H RBC 3.41 L Hgb 11.8 L Hct 35.2 L MCV 103.2 H MCH 34.6 H MCHC 33.5 RDW Std Deviation 47.3 H RDW Coeff of Kristen 12.4 Plt Count 327 MPV 10.7 Immature Gran % (Auto) 0.500 Neut % (Auto) 89.9 H Lymph % (Auto) 6.6 L Pope % (Auto) 2.9 Eos % (Auto) 0.0 Baso % (Auto) 0.1 Absolute Neuts (auto) 13.9 H Absolute Lymphs (auto) 1.02 Nucleated RBC % 0 Sodium 140 Potassium 3.6 Chloride 107 Carbon Dioxide 29.0 Anion Gap 4 L BUN 6 L Creatinine 0.67 L Estim Creat Clear Calc 205.09 Est GFR (MDRD) Af Amer 177 Est GFR (MDRD) Non-Af 147 BUN/Creatinine Ratio 8.9 L Glucose 160 H Lactic Acid 2.2 H* 0.8 Calcium 9.3 Total Bilirubin 0.40 AST 13 L ALT 32 Alkaline Phosphatase 91 Total Protein 6.8 Albumin 2.7 L Globulin 4.1 Albumin/Globulin Ratio 0.7 L Lipase 29 Radiography Diagnostic Testing: Clinical Impression(s) from Imaging Studies Abdomen/Pelvis CT 12/19/23 12:45 IMPRESSION: Acute diverticulitis of the sigmoid colon associated inflammation of the distal ileum, likely reactive, and extraluminal air consistent with prior perforation. Mild right-sided hydronephrosis. Contracted gallbladder associated with gallstones and trace pericholecystic fluid may be reactive. Fatty infiltration of the liver. Small bilateral pleural effusions. N.B. : The above Results were Read Back by Natasha Montague MD to Arnulfo Sheldon NP, and understanding confirmed on 12/19/2023 15:00:26 (ET). Electronically Signed: Natasha Montague MD at 15:02 EST , ADDENDUM: 12/19/23 1509 IMPRESSION: Acute diverticulitis of the sigmoid colon associated inflammation of the distal ileum, likely reactive, and extraluminal air consistent with prior perforation. Mild right-sided hydronephrosis. Contracted gallbladder associated with gallstones and trace pericholecystic fluid may be reactive. Fatty infiltration of the liver. Small bilateral pleural effusions. N.B. : The above Results were Read Back by Natasha Montague MD to Arnulfo Sheldon NP, and understanding confirmed on 12/19/2023 15:00:26 (ET). Electronically Signed: Natasha Montague MD at 15:02 EST , Treatment and Re-Evaluation :: Patient peers generally well, patient peers nontoxic, vital signs are stable. Presenting to the emerged part with lower abdominal pain, patient does have a history of diverticulitis with abscess, possible bowel obstruction. Patient is currently on multiple antibiotics such as Cipro, Flagyl, vancomycin. Patient differential diagnosis includes sequelae of multiple antibiotic use, C. difficile, gastroenteritis, diverticulitis, perforation, free air. Patient will receive basic laboratory values including lactic acid, patient received a CT scan of the abdomen pelvis with IV contrast. Given IV fluids, Zofran as well as morphine, patient be reevaluated. Insert the radiology exams ordered for this patient will be read by the emergency department attending. From these reads a plan of care will be put into place. Patient CBC shows a leukocytosis with a white blood count of 15.5. Hemoglobin 11.8. Patient's potassium is unremarkable, lactic acid was 2.2. Creatinine 0.67 which is baseline. Lipase negative. Patient CT scan of the abdomen pelvis shows acute diverticulitis of the sigmoid colon associated inflammation of the distal ileum likely reactive. Extraluminal air consistent with prior perforation mild right-sided hydronephrosis contracted gallbladder associate with gallstones. On reevaluation, the patient is still having significant pain. I will need to reach out to [facility] for further recommendation. I was able to talk to colorectal surgery, I spoke with Dr. Lyon, he will accept the patient. Currently waiting for a bed at the [facility]. I spoke with the patient he is in agreement. He remained stable. If the patient does not receive a bed in the next 1 hour, I will call her hospitalist to have him admitted, he can then be transferred from there. Reevaluation of the patient at 8 PM, patient is resting in the room, patient is in no distress. Patient is currently excepted to the [facility] however currently waiting for a bed. Patient needs to be in the emergency department 6 hours after the acceptance to [facility]. Patient vital signs remained stable. Patient's pain as long she is not moving is under control. Abdominal exam is unchanged, patient does have some less pain at this time. No peritoneal signs. Patient will need to be admitted to the hospital after 6 hours of waiting for a bed. Dr. Garcia dictating: Patient signed out to me for monitoring and is currently awaiting a bed at [facility]. He has been stable and his vital signs have been normal. He did receive a dose of morphine in the ER and then later a dose of Dilaudid secondary to pain. At the 6-hour noemi of waiting he was admitted to the floor for monitoring to the hospitalist. I discussed this with the surgeon on-call (Dr. Elder) who is aware that the patient is going to be here and will see and examine the patient while he is being monitored. Patient was already given antibiotics. Discharge Plan Dx/Rx/DC Orders Clinical Impression: Acute diverticulitis of intestine, Abdominal pain Disposition Disposition: Acute Care Hospital [facility] Discharge Date/Time: 12/20/23 00:18
[2023-12-19] MEDS: Ondansetron 4 MG/2 ML Vial IV (13:01)
[2023-12-19] MEDS: 0.9% Normal Saline (1000mL) 1,000 ML 1000 ML IV (13:01)
[2023-12-19] MEDS: Morphine 4 MG/ML Syringe IV ×2 (13:02→23:24)
[2023-12-19 13:10] LABS: Absolute Lymphocyte Count 1.02 X10^3/uL (0.83-4.51); Absolute Neutrophil Count 13.9 X10^3/uL (2.0-7.7); Basophil# 0.02 X10^3/uL; Basophil% 0.1 % (0-1); Hematocrit 35.2 % (40-54); Hemoglobin 11.8 g/dL (13.0-16.5); Lymphocyte # 1.02 X10^3/ul (0.83-4.51); Lymphocyte % 6.6 % (19-41); Mean Corp Hgb Conc 33.5 g/dL (32-36); Mean Corpuscular Hgb 34.6 pg (27.0-32.0); Mean Corpuscular Volume 103.2 fL (80-94); Mean Platelet Vol. 10.7 fl (6.2-12.0); Monocyte# 0.45 X10^3/uL; Monocyte% 2.9 % (0-10); NRBC Flagged by Analyzer 0 % (0-5); Neutrophil # 13.92 X10^3/uL (2.7-7.7); Neutrophil % 89.9 % (47-70); Platelet Count 327 K/mm3 (150-450); RBC Distribution Width CV 12.4 % (11.6-14.6); RBC Distribution Width SD 47.3 fl (35.1-43.9); Red Blood Count 3.41 M/mm3 (4.6-6.2); White Blood Count 15.5 K/mm3 (4.4-11.0)
[2023-12-19 13:25] LABS: ALB/GLOB Ratio 0.7 RATIO (0.9-2.4); AST(SGOT) 13 U/L (15-37); Alanine Aminotransfer ALT/SGPT 32 U/L (16-61); Albumin, Serum 2.7 g/dL (3.2-5.0); Alkaline Phosphatase 91 U/L (45-117); Anion Gap 4 (5-15); BUN 6 mg/dL (7-18); BUN/Creat Ratio 8.9 RATIO (10-20); Calcium,Total 9.3 mg/dL (8.5-10.1); Chloride 107 mmol/L (98-107); Creatinine, Serum 0.67 mg/dL (0.70-1.30); EST Glomerular Filtration Rate 147 mL/min (>60); Est Glom Filt Rate - Afr Amer 177 mL/min (>60); Estimated Creatinine Clearance 205.09 ml/min; Globulin 4.1 g/dL (2.2-4.2); Glucose 160 mg/dL (74-106); Lipase 29 U/L (13-75); Potassium 3.6 mmol/L (3.5-5.1); Protein, Total 6.8 g/dL (6.4-8.2); Sodium Level 140 mmol/L (136-145)
[2023-12-19 13:33] LABS: Lactic Acid 2.2 mmol/L (0.4-1.9)
[2023-12-19] MEDS: HYDROmorphone 0.5 MG/0.5 ML SYRINGE IV ×2 (14:04→16:45)
[2023-12-19] MEDS: Piperacil/Tazobactam 3.375 GM in 0.9% Normal Saline (50mL MB+) 50 ML IV (16:53)
[2023-12-19 17:04] LABS: Reflex Lactate? Y
[2023-12-19 18:02] LABS: Lactic Acid 0.8 mmol/L (0.4-1.9)
[2023-12-19 20:00] VITALS: BP 118/75; PULSE 89; RESP 16; TEMP 36.6; O2SAT 98
[2023-12-19 20:25] VITALS: BP 113/69; PULSE 89; RESP 18; O2SAT 99
--- NOTE | 2023-12-19 21:18 | ED.RN ---
ED Dispo filled out for pt D/C and then admission. Pt now being transferred to [facility], documentation undone.
[2023-12-19 22:00] VITALS: BP 120/67; PULSE 59; RESP 16; TEMP 36.6; O2SAT 98
[2023-12-19 22:32] VITALS: RESP 16
--- NOTE | 2023-12-19 23:21 | PCM.HP.STD ---
HPI - General General Date of Admission: 12/19/23 Date of Service: 12/19/23 Chief Complaint: Bilateral abdominal pain HPI Narrative GABY BANG, is a 28 M with history of colonic diverticular abscess came to ED for abdominal pain which is ongoing intermittently for 1 week. He describes abdominal pain in the lower quadrants very severe 7-8/10 at rest and gets worse 10 out of 10 on moving. Verity severity becomes generalized. Denies fever or chills. No nausea or vomiting. He states his bowel movement is regular, well-formed with no blood. Prior to this, patient was in the [facility] being managed by GI and surgeon for diverticulitis with abscess and found to have C. difficile and was discharged on December 05, 2023 on Cipro Flagyl and oral vancomycin. Patient is smokes 2 to 3 cigarettes currently but was smoking more. Family history: His brother has Crohn's disease and grandmother had diverticulitis but she was in 60s. ED physician discussed with the surgeon and patient was recommended transfer to [facility] but admitted here interim as they do not have a bed but is not operative list. Patient was given Zosyn and Dilaudid in ED. [facility] Medical History Abdominal pain Colonic diverticular abscess Hypertension Home Medications metoprolol succinate 100 mg tablet,extended release 24 hr 100 mg PO DAILY high blood press 05/17/21 [History Last Taken 11/16/23] ascorbic acid (vitamin C) 500 mg tablet (Vitamin C) 1 g PO TID supple 06/02/23 [History Last Taken 11/16/23] ergocalciferol (vitamin D2) 1,250 mcg (50,000 unit) capsule 50,000 unit PO TUTH supp 06/02/23 [History Last Taken 11/12/23] ferrous sulfate 325 mg (65 mg iron) tablet (FeroSul) 325 mg PO QHS supplement 06/02/23 [History Last Taken 11/16/23] hyoscyamine sulfate 0.125 mg tablet 0.125 mg PO 4X/DAY spasms 06/02/23 [History Last Taken 11/16/23] escitalopram oxalate 20 mg tablet 20 mg PO DAILY depress 12/20/23 [History Last Taken Unknown] hyoscyamine sulfate 0.125 mg sublingual tablet 0.125 mg sublingual Q4H PRN spasms 12/20/23 [History Last Taken Unknown] Allergy/AdvReac Type Severity Reaction Status Date / Time No Known Allergies Allergy Verified 12/19/23 11:43 Family History Brother Cancer leukemia Uncle Diabetes Cancer skin Mother Cancer skin Surgical History H/O colonoscopy H/O knee surgery Social History Smoking Status: Current every day smoker tobacco type: cigarettes alcohol intake: current alcohol intake frequency: a few times a month substance use type: marijuana ROS ROS Narrative Constitutional: Reports fatigue and weakness. No fever. HEENT: Reports systems reviewed and no addt'l complaints, except as documented Respiratory/Chest: No acute shortness of breath or respiratory distress or wheezing. CVS: Denies chest pain pressure or tightness Gastrointestinal: Abdominal pain as described in HPI. Denies coffee ground emesis, hematemesis or vomiting Genitourinary: Patient states when he urinates he feels lower abdominal/hypogastric area pain. Denies burning urination or new urinary tract symptoms Musculoskeletal: Denies acute joint pain or limited range of motion. No acute injury Neurologic: Denies seizure-like symptoms. skin: No ulcer. No rash Endocrinology: Reports systems reviewed and no addt'l complaints, except as documented Hematologic/Lymphatic: Reports systems reviewed and no addt'l complaints, except as documented Rest 14 ROS are negative except as mentioned in HPI Vital Signs Vital Signs Vital Signs: 12/19/23 11:43 12/19/23 20:25 12/19/23 20:00 Temperature 99 F 98 F Temperature Source Temporal Oral Pulse Rate 69 89 89 Respiratory Rate 14 18 16 Blood Pressure 131/77 H 113/69 118/75 Blood Pressure Mean 95 83 89 Pulse Ox 99 99 98 Oxygen Delivery Method Room Air Room Air Room Air 12/19/23 22:32 12/19/23 22:00 Temperature 97.8 F Temperature Source Oral Pulse Rate 59 L Respiratory Rate 16 16 Blood Pressure 120/67 Blood Pressure Mean 84 Pulse Ox 98 Oxygen Delivery Method Room Air Room Air Weight Weight: 231 lb 7.766 oz Body Mass Index (BMI) 30.5 Physical Exam Narrative General: Alert, Oriented x3, Cooperative HEENT: Atraumatic, PERRLA, EOMI, Normocephalic Oral: Oral mucosa dry. No Gingival or Mucosal Lesions/ Ulcerations Neck: Supple, No JVD, Negative Carotid Bruits Chest wall/Lungs: Air entry equal in bilateral lung bases. No crepitation/rhonchi Cardiovascular: Regular rate, Regular Rhythm, Normal S1, Normal S2, No M/G/R Abdomen: Soft but very tender predominantly in both lower quadrants. Bowel sounds present. Non-Distended : No dysuria. No renal angle tenderness. No suprapubic tenderness. Extremities: No edema, Capillary Refill Less than 3 Seconds Skin: No rashes, No breakdown Musculoskeletal: No Tenderness to Palpation of Joints or Extremities Neurological: Cranial nerves II-XII grossly intact, DTR 2+/4. No acute focal neurological deficit. Psych/Mental Status: Normal Affect, Appropriate. Results Lab / Micro Data 12/19/23 13:00 12/19/23 13:00 Labs: Laboratory Results - last 24 hr 12/19/23 13:00: WBC 15.5 H, RBC 3.41 L, Hgb 11.8 L, Hct 35.2 L, MCV 103.2 H, MCH 34.6 H, MCHC 33.5, RDW Std Deviation 47.3 H, RDW Coeff of Kristen 12.4, Plt Count 327, MPV 10.7, Immature Gran % (Auto) 0.500, Neut % (Auto) 89.9 H, Lymph % (Auto) 6.6 L, Dickinson % (Auto) 2.9, Eos % (Auto) 0.0, Baso % (Auto) 0.1, Absolute Neuts (auto) 13.9 H, Absolute Lymphs (auto) 1.02, Nucleated RBC % 0, Sodium 140, Potassium 3.6, Chloride 107, Carbon Dioxide 29.0, Anion Gap 4 L, BUN 6 L, Creatinine 0.67 L, Estim Creat Clear Calc 205.09, Est GFR (MDRD) Af Amer 177, Est GFR (MDRD) Non-Af 147, BUN/Creatinine Ratio 8.9 L, Glucose 160 H, Lactic Acid 2.2 H*, Calcium 9.3, Total Bilirubin 0.40, AST 13 L, ALT 32, Alkaline Phosphatase 91, Total Protein 6.8, Albumin 2.7 L, Globulin 4.1, Albumin/Globulin Ratio 0.7 L, Lipase 29 12/19/23 17:12: Lactic Acid 0.8 Imaging Radiology Impression Abdomen/Pelvis CT 12/19/23 12:45 IMPRESSION: Acute diverticulitis of the sigmoid colon associated inflammation of the distal ileum, likely reactive, and extraluminal air consistent with prior perforation. Mild right-sided hydronephrosis. Contracted gallbladder associated with gallstones and trace pericholecystic fluid may be reactive. Fatty infiltration of the liver. Small bilateral pleural effusions. N.B. : The above Results were Read Back by Natasha Montague MD to Arnulfo Sheldon NP, and understanding confirmed on 12/19/2023 15:00:26 (ET). Electronically Signed: Natasha Montague MD at 15:02 EST , ADDENDUM: 12/19/23 1509 IMPRESSION: Acute diverticulitis of the sigmoid colon associated inflammation of the distal ileum, likely reactive, and extraluminal air consistent with prior perforation. Mild right-sided hydronephrosis. Contracted gallbladder associated with gallstones and trace pericholecystic fluid may be reactive. Fatty infiltration of the liver. Small bilateral pleural effusions. N.B. : The above Results were Read Back by Natasha Montague MD to Arnulfo Sheldon NP, and understanding confirmed on 12/19/2023 15:00:26 (ET). Electronically Signed: Natasha Montague MD at 15:02 EST , Assessment & Plan Assessment/Plan (1) Diverticulitis of large intestine with complication: PLAN: Plan This is a 28-year-old gentleman being admitted for abdominal pain on and off with recent hospitalization in [facility]. 1. Acute diverticulitis of sigmoid colon complicated with probability of microperforation: Patient was recently in [facility] in November was found to have sigmoid diverticulitis with abscess probably that is getting walled off. CT abdomen done in ED shows persistent thickening of sigmoid colonic wall with pericolonic inflammatory changes. Extraluminal focus of air between sigmoid colon and urinary bladder that is walled off. Extraluminal air suggestive of possible microperforation therefore patient is [facility]. His hoop puncher there is Dr. Lara and [place] rectal surgeon Dr. Sean Duarte. ED physician already has discussed with surgeon Dr. Klaus Elder. Patient is admitted on [facility]Sur given that he has been staying in ED for a long time awaiting bed to [facility] Although he is on high priority list of transfer. Patient was given dose of IV Zosyn in ED. Started on cefepime 2 g IV every 8 hourly and metronidazole 5 mg IV every 8 hourly. IV fluid normal saline with 20 mEq KCl. Patient lactic acid was elevated 2.2, leukocytosis with neutrophil 90%. Repeat lactic acid came normal. Lipase is normal. 2. Recent history of C. difficile colitis: Patient also diagnosed with C. difficile and is being followed by ID Dr. Agustina Clark in [facility]. He was given 54 tablets of vancomycin 125 mg 4 times daily but he might have missed some tablets. Continue vancomycin 125 mg for 2 more days while he is here. 3. Hypertension: Blood pressure normal 113/69 4. Hyperglycemia: Glucose 160 mg/dL in BMP. A1c tomorrow AM. 5. Chronic smoker: Currently smoking 2 cigarettes/day. Nicotine ordered 6 DVT prophylaxis moderate risk due to inflammation in colon therefore enoxaparin 40 mg subcu daily. CODE STATUS: Full code verified. Does not have living will or advanced directive or power of attorney law clerk for health. Laboratory Results 12/19/23 13:00: WBC 15.5 H, RBC 3.41 L, Hgb 11.8 L, Hct 35.2 L, MCV 103.2 H, MCH 34.6 H, MCHC 33.5, RDW Std Deviation 47.3 H, RDW Coeff of Kristen 12.4, Plt Count 327, MPV 10.7, Immature Gran % (Auto) 0.500, Neut % (Auto) 89.9 H, Lymph % (Auto) 6.6 L, Dickinson % (Auto) 2.9, Eos % (Auto) 0.0, Baso % (Auto) 0.1, Absolute Neuts (auto) 13.9 H, Absolute Lymphs (auto) 1.02, Nucleated RBC % 0, Sodium 140, Potassium 3.6, Chloride 107, Carbon Dioxide 29.0, Anion Gap 4 L, BUN 6 L, Creatinine 0.67 L, Estim Creat Clear Calc 205.09, Est GFR (MDRD) Af Amer 177, Est GFR (MDRD) Non-Af 147, BUN/Creatinine Ratio 8.9 L, Glucose 160 H, Lactic Acid 2.2 H*, Calcium 9.3, Total Bilirubin 0.40, AST 13 L, ALT 32, Alkaline Phosphatase 91, Total Protein 6.8, Albumin 2.7 L, Globulin 4.1, Albumin/Globulin Ratio 0.7 L, Lipase 29 12/19/23 17:12: Lactic Acid 0.8 Clinical Impression(s) from Imaging Studies Abdomen/Pelvis CT 12/19/23 12:45 IMPRESSION: IMPRESSION: Acute diverticulitis of the sigmoid colon associated inflammation of the distal ileum, likely reactive, and extraluminal air consistent with prior perforation. Mild right-sided hydronephrosis. Contracted gallbladder associated with gallstones and trace pericholecystic fluid may be reactive. Fatty infiltration of the liver. Small bilateral pleural effusions. Charges/Coding Visit Charges Inpatient E&M: 38243 Init Hosp L3
[2023-12-19] MEDS: 0.9% Normal Saline (1000mL) 1,000 ML 150 ML IV (23:26)
[2023-12-19 23:27] VITALS: BP 113/69; PULSE 89; RESP 18; TEMP 36.6; O2SAT 99
[2023-12-20 00:30] VITALS: BMI 29.2
[2023-12-20 00:39] VITALS: BP 121/72; PULSE 80; RESP 18; TEMP 36.6; O2SAT 98
[2023-12-20] MEDS: Cefepime HCl 2 GM in 0.9% Normal Saline (100mL MB+) 100 ML IV ×4 (01:02→21:03)
[2023-12-20] MEDS: HYDROmorphone 1 MG/ML Syringe IV ×5 (01:02→21:03)
[2023-12-20] MEDS: 0.9% Saline Lock 10 ML Syringe IV (01:03)
[2023-12-20 01:12] LABS: Magnesium 2.2 mg/dL (1.6-2.6)
[2023-12-20] MEDS: KCL 20MEQ in 0.9% NS 20 MEQ/1,000 ML IV.SOLN. 150 MEQ IV ×2 (01:42→09:18)
[2023-12-20] MEDS: metroNIDAZOLE 500 MG/100 ML BAG 100 MG IV ×3 (05:54→21:04)
[2023-12-20] MEDS: Vancomycin 125 MG/5 ML Susp PO.SYRINGE PO ×3 (05:54→18:14)
[2023-12-20 06:02] VITALS: BP 125/74; PULSE 59; RESP 18; TEMP 36.6; O2SAT 98
[2023-12-20 06:38] LABS: Absolute Lymphocyte Count 1.88 X10^3/uL (0.83-4.51); Absolute Neutrophil Count 4.9 X10^3/uL (2.0-7.7); Basophil# 0.02 X10^3/uL; Basophil% 0.3 % (0-1); Eosinophil# 0.11 X10^3/uL; Eosinophils% 1.5 % (0-5); Hematocrit 31.4 % (40-54); Lymphocyte # 1.88 X10^3/ul (0.83-4.51); Lymphocyte % 25.9 % (19-41); Mean Corp Hgb Conc 31.8 g/dL (32-36); Mean Corpuscular Hgb 33.8 pg (27.0-32.0); Mean Corpuscular Volume 106.1 fL (80-94); Mean Platelet Vol. 10.6 fl (6.2-12.0); Monocyte# 0.36 X10^3/uL; NRBC Flagged by Analyzer 0 % (0-5); Neutrophil # 4.85 X10^3/uL (2.7-7.7); Neutrophil % 66.9 % (47-70); Platelet Count 252 K/mm3 (150-450); RBC Distribution Width CV 12.5 % (11.6-14.6); RBC Distribution Width SD 49.2 fl (35.1-43.9); Red Blood Count 2.96 M/mm3 (4.6-6.2); White Blood Count 7.3 K/mm3 (4.4-11.0)
[2023-12-20 07:11] LABS: ALB/GLOB Ratio 0.7 RATIO (0.9-2.4); AST(SGOT) 12 U/L (15-37); Alanine Aminotransfer ALT/SGPT 29 U/L (16-61); Albumin, Serum 2.4 g/dL (3.2-5.0); Alkaline Phosphatase 69 U/L (45-117); Anion Gap 3 (5-15); BUN 9 mg/dL (7-18); BUN/Creat Ratio 16.6 RATIO (10-20); Calcium,Total 8.4 mg/dL (8.5-10.1); Chloride 109 mmol/L (98-107); Creatinine, Serum 0.54 mg/dL (0.70-1.30); EST Glomerular Filtration Rate 188 mL/min (>60); Est Glom Filt Rate - Afr Amer 228 mL/min (>60); Estimated Creatinine Clearance 249.49 ml/min; Globulin 3.5 g/dL (2.2-4.2); Glucose 88 mg/dL (74-106); Phosphorus 3.4 mg/dL (2.5-4.9); Potassium 3.3 mmol/L (3.5-5.1); Protein, Total 5.9 g/dL (6.4-8.2); Sodium Level 142 mmol/L (136-145)
--- NOTE | 2023-12-20 07:24 | PCM.PN.HOSP ---
Reason for Visit Reason for Visit: Diagnoses Diverticulitis of large intestine without perforation or abscess without bleeding (12/19/23) Subjective Subjective Patient is a 28-year-old gentleman admitted with abdominal pain diagnosed with acute diverticulitis with suspected contained perforation. Started on broad-spectrum antibiotic therapy admitted to regular nursing floor with consultation placed to general surgery Objective Data Objective Data Vital Signs: Vital Signs Temp Pulse Resp BP Pulse Ox O2 Del Method 98 F 59 L 18 125/74 H 98 Room Air 12/20/23 06:02 12/20/23 06:02 12/20/23 06:02 12/20/23 06:02 12/20/23 06:02 12/20/23 06:02 Oxygen Delivery Method Room Air Weight: 100.607 kg Body Mass Index (BMI) 29.2 Intake & Output: Intake and Output for Last 24 Hours 12/18/23 12/19/23 12/20/23 23:59 23:59 23:59 Intake Total 1050 / 1050 470 / 470 Balance 1050 / 1050 470 / 470 Lab / Micro Data 12/20/23 06:23 12/20/23 06:23 Labs: Laboratory Results - last 24 hr 12/19/23 13:00: WBC 15.5 H, RBC 3.41 L, Hgb 11.8 L, Hct 35.2 L, MCV 103.2 H, MCH 34.6 H, MCHC 33.5, RDW Std Deviation 47.3 H, RDW Coeff of Kristen 12.4, Plt Count 327, MPV 10.7, Immature Gran % (Auto) 0.500, Neut % (Auto) 89.9 H, Lymph % (Auto) 6.6 L, Rains % (Auto) 2.9, Eos % (Auto) 0.0, Baso % (Auto) 0.1, Absolute Neuts (auto) 13.9 H, Absolute Lymphs (auto) 1.02, Nucleated RBC % 0, Sodium 140, Potassium 3.6, Chloride 107, Carbon Dioxide 29.0, Anion Gap 4 L, BUN 6 L, Creatinine 0.67 L, Estim Creat Clear Calc 205.09, Est GFR (MDRD) Af Amer 177, Est GFR (MDRD) Non-Af 147, BUN/Creatinine Ratio 8.9 L, Glucose 160 H, Lactic Acid 2.2 H*, Calcium 9.3, Total Bilirubin 0.40, AST 13 L, ALT 32, Alkaline Phosphatase 91, Total Protein 6.8, Albumin 2.7 L, Globulin 4.1, Albumin/Globulin Ratio 0.7 L, Lipase 29 12/19/23 17:12: Lactic Acid 0.8 12/20/23 00:50: Magnesium 2.2 12/20/23 06:23: WBC 7.3, RBC 2.96 L, Hgb 10.0 L, Hct 31.4 L, MCV 106.1 H, MCH 33.8 H, MCHC 31.8 L D, RDW Std Deviation 49.2 H, RDW Coeff of Kristen 12.5, Plt Count 252, MPV 10.6, Immature Gran % (Auto) 0.400, Neut % (Auto) 66.9, Lymph % (Auto) 25.9, Rains % (Auto) 5.0, Eos % (Auto) 1.5, Baso % (Auto) 0.3, Absolute Neuts (auto) 4.9, Absolute Lymphs (auto) 1.88, Nucleated RBC % 0, Sodium 142, Potassium 3.3 L, Chloride 109 H, Carbon Dioxide 30.0, Anion Gap 3 L, BUN 9, Creatinine 0.54 L, Estim Creat Clear Calc 249.49, Est GFR (MDRD) Af Amer 228, Est GFR (MDRD) Non-Af 188, BUN/Creatinine Ratio 16.6, Glucose 88, Calcium 8.4 L, Phosphorus 3.4, Total Bilirubin 0.50, AST 12 L, ALT 29, Alkaline Phosphatase 69, Total Protein 5.9 L, Albumin 2.4 L, Globulin 3.5, Albumin/Globulin Ratio 0.7 L Radiography Diagnostic Testing: Radiology Impression Abdomen/Pelvis CT 12/19/23 12:45 IMPRESSION: Acute diverticulitis of the sigmoid colon associated inflammation of the distal ileum, likely reactive, and extraluminal air consistent with prior perforation. Mild right-sided hydronephrosis. Contracted gallbladder associated with gallstones and trace pericholecystic fluid may be reactive. Fatty infiltration of the liver. Small bilateral pleural effusions. N.B. : The above Results were Read Back by Natasha Montague MD to Arnulfo Sheldon NP, and understanding confirmed on 12/19/2023 15:00:26 (ET). Electronically Signed: Natasha Montague MD at 15:02 EST , ADDENDUM: 12/19/23 1509 IMPRESSION: Acute diverticulitis of the sigmoid colon associated inflammation of the distal ileum, likely reactive, and extraluminal air consistent with prior perforation. Mild right-sided hydronephrosis. Contracted gallbladder associated with gallstones and trace pericholecystic fluid may be reactive. Fatty infiltration of the liver. Small bilateral pleural effusions. N.B. : The above Results were Read Back by Natasha Montague MD to Arnulfo Sheldon NP, and understanding confirmed on 12/19/2023 15:00:26 (ET). Electronically Signed: Natasha Montague MD at 15:02 EST , Physical Exam Narrative GENERAL: cooperative HEENT: Atraumatic; normocephalic EYES; Anicteric, Normal Conjunctiva NECK; supple, normal thyroid, RESPIRATORY: Diminished to auscultation CARDIOVASCULAR: Regular S1 S2, GI: soft, normoactive bowel sounds, RLQ tenderness : No Renal angle tenderness; EXTREMITIES: No edema, no clubbing, MUSCULOSKELETAL: no muscle wasting NEURO: Awake; no lateralizing signs. SKIN: No Rash PSYCH; Flat affect Assessment & Plan Assessment/Plan (1) Diverticulitis of large intestine with complication: PLAN: Plan Patient is a 28-year-old gentleman admitted with abdominal pain diagnosed with acute diverticulitis with suspected contained perforation. Started on broad-spectrum antibiotic therapy admitted to regular nursing floor with consultation placed to general surgery 1. Acute diverticulitis with suspected microperforation ? CT of the abdomen and pelvis obtained in the ED demonstrated Acute diverticulitis of the sigmoid colon associated inflammation of the distal ileum, likely reactive, and extraluminal air consistent with prior perforation. Patient admitted to regular nursing floor started on cefepime and metronidazole with consultation placed to general surgery. Patient had had a similar presentation 2 months prior and was managed at the [facility] 2. Recent C. difficile colitis ? Patient is on vancomycin plan is to complete therapy on 12/21/2023 3. Hypertension - Blood pressure controlled, home medications continued with dose adjustment as needed 4. Abnormal gallbladder findings on CAT scan ? CT did show Contracted gallbladder associated with gallstones and trace pericholecystic fluid may be reactive. General surgery on board 5. Mild right-sided hydronephrosis. 6. Nonalcoholic fatty liver disease ? Will continue with monitoring patient to follow-up with primary care physician for subsequent care 7. Anemia - Secondary to chronic disorder monitoring H&H and transfuse if patient becomes symptomatic or hemoglobin falls below 7 8. Hypokalemia -Corrected per protocol 9. Tobacco dependence - Counseled on cessation, offered nicotine patch for tobacco cravings 10. DVT prophylaxis - On enoxaparin Time spent in the patient's overall evaluation,decision-making process, review of diagnostic data, adjustment of management, discussion with other providers, nursing nursing and ancillary staff involved in patient's care documentation, 50 Minutes Charges/Coding Visit Charges Inpatient E&M: 29137 [facility] L3
[2023-12-20] MEDS: Enoxaparin 40 MG/0.4 ML Syringe SC (09:04)
[2023-12-20 09:05] VITALS: PULSE 59
[2023-12-20] MEDS: Metoprolol(XL)Succ 100 MG Tablet PO (09:05)
[2023-12-20 09:20] VITALS: BP 125/76; PULSE 59; RESP 16; TEMP 36.7; O2SAT 97
--- NOTE | 2023-12-20 09:48 | CON.PCM.SX_ITS ---
Assessment & Plan Assessment/Plan (1) Colitis: PLAN: Patient is a 28-year-old male with his second presentation in 2 months for diverticulitis versus inflammatory bowel disease versus colitis not otherwise specified with apparent secondary implication of the terminal ileum. CT imaging yesterday also shows evidence of extraluminal air over the bladder suggestive of a contained perforation. Today, patient is clinically stable but remains quite tender on exam. His laboratories today suggest response to antibiotics as well as IV fluid rehydration (patient has had a drop in his hemoglobin of nearly 2 points despite denying any signs of bleeding per his GI tract) as per HPI, I have previously cared for Mr. Bang and do remain concerned for possible underlying inflammatory bowel disease due to a number of atypical features for diverticulitis?including patient's anemia, imaging that repeatedly appears to show inflammatory involvement of the terminal ileal segment, recently positive expanded IBD panel (4 out of 4 positive), and positive family history for inflammatory bowel disease. It is out of this concern and I have reiterated a recommendation to have patient evaluated at a tertiary facility and agree with transfer to [facility] colorectal surgery. In the interim, agree with present treatment measures including n.p.o. status, empiric IV antibiotics/IV fluids, and monitoring exam/labs. Given the evidence of extraluminal air would not advise continuing steroid therapy as initiated by outside facility. I have shared with Mr. Bang that if his clinical condition were to deteriorate prior to transfer I would be planning for a segmental colectomy with diverting colostomy and plans for any more definitive surgery after the inflammatory phase past. He states an understanding of this information and shares an interest in transfer. (2) Abnormal CT of the abdomen: HPI Consult Data Date of Consult: 12/20/23 HPI Narrative Reason for Consultation: Colitis/diverticulitis/possible exacerbation of inflammatory bowel disease HPI Narrative: GABY BANG, is a 28 M who presented to [facility] yesterday after a several day leading up of stabbing lower abdominal pain. Patient is known to me from a prior outpatient consultation visit February 2022 and more recently a inpatient stay at this facility November 2023. During his stay here he underwent multiple CT scans as well as a colonoscopy with gastroenterology. His findings were somewhat equivocal given that the biopsies during his colonoscopy were completely within normal limits, however, expanded IBD panel was positive on all 4 antibodies measured and his MR kurtzography study was also suggestive of inflammatory bowel disease. He was directly transferred from that inpatient stay to [facility] where he reports he underwent repeat CT imaging as well as an attempted colonoscopy. He shares that a colonoscopy could not be completed because of the strictured segment within the sigmoid colon at 25 cm. He reports that the findings of his care team were overall inconclusive but he was placed on prednisone to try to decrease the inflammation. He states that he underwent treatment for C. difficile colitis but finished his last dose of antibiotics yesterday and has not had any loose stools recently. He shares that he was due for repeat CT imaging on 01/11/2024 and then potential repeat colonoscopy (contingent on CT findings) 02/01/2024. He notes that his care team was comprised of both GI and colorectal surgery. He states that the ladder had intended to potentially pursue an operation in 3 to 4 months once inflammatory phase had subsided. Patient's ER workup was notable for CBC with leukocytosis of 15.5. CT imaging demonstrated inflammatory changes of the sigmoid colon and likely secondarily the terminal ileum. Additionally, radiology noted some extraluminal air over the dome of the bladder. Given, the experience through the above hospital stays, transfer was sought with [facility] and patient has been accepted but is awaiting bed placement. Due to the delay in receiving this bed assignment he has been admitted here to [facility] for ongoing treatment. FORMERLY [facility], [facility]1983 Medical History Abdominal pain Colonic diverticular abscess Hypertension Home Medications metoprolol succinate 100 mg tablet,extended release 24 hr 100 mg PO DAILY high blood press 05/17/21 [History Last Taken 11/16/23] ascorbic acid (vitamin C) 500 mg tablet (Vitamin C) 1 g PO TID supple 06/02/23 [History Last Taken 11/16/23] ergocalciferol (vitamin D2) 1,250 mcg (50,000 unit) capsule 50,000 unit PO TUTH supp 06/02/23 [History Last Taken 11/12/23] ferrous sulfate 325 mg (65 mg iron) tablet (FeroSul) 325 mg PO QHS supplement 06/02/23 [History Last Taken 11/16/23] hyoscyamine sulfate 0.125 mg tablet 0.125 mg PO 4X/DAY spasms 06/02/23 [History Last Taken 11/16/23] escitalopram oxalate 20 mg tablet 20 mg PO DAILY depress 12/20/23 [History Last Taken Unknown] hyoscyamine sulfate 0.125 mg sublingual tablet 0.125 mg sublingual Q4H PRN spasms 12/20/23 [History Last Taken Unknown] Allergy/AdvReac Type Severity Reaction Status Date / Time No Known Allergies Allergy Verified 12/19/23 11:43 Family History Brother Cancer leukemia Uncle Diabetes Cancer skin Mother Cancer skin Surgical History H/O colonoscopy H/O knee surgery Social History Smoking Status: Current every day smoker tobacco type: cigarettes alcohol intake: current alcohol intake frequency: a few times a month substance use type: marijuana ROS Constitutional Constitutional: Denies fever(s) Gastrointestinal Gastrointestinal: Reports abdominal pain and other Details: Expresses an appetite ; Denies diarrhea, hematochezia, melena or rectal bleeding Genitourinary Genitourinary: Reports dysuria Physical Exam Const alert and oriented x3 Constitutional Narrative: Mild distress from abdominal discomfort General Appearance: cooperative GI GI Narrative: Nondistended, tender to palpation times all 4 quadrants but greatest in lower ab dominal quadrants. Voluntary guarding present. Medical Records Data Medical Nutrition Assessment Dietitian: Malnutrition Criteria Met Start: 12/20/23 09:28 Freq: Status: Active Protocol: Document 12/20/23 09:28 (Rec: 12/20/23 09:28 [id number]) Nutrition Malnutrition Evidence of Malnutrition Exists Yes Malnutrition (severe): Acute Illness/Injury Evidenced By Suboptimal Energy Intake ( Severe),Weight Loss (Severe) Clinical Problem Acute Disease or Injury Related Malnutrition Etiology severe, acute malnutrition related to inadequate energy intake d/t GI dysfunction Signs/Symptoms as evidenced by estimated PO intake meeting <75% of estimated energy needs > 1 week, unintentional 7.7kg/7% wt loss x 1 month Status Active Problem Recommendation Dietitian Recommendations/Changes Recommend advance diet as tolerated to transitional; ensure w/ medpass when diet advanced. If prolonged NPO status anticipated, recommend nutrition support- consult RDN for further recommendations/ management as indicated. Lab / Micro Data 12/20/23 06:23 12/20/23 06:23 Labs: Laboratory Results - last 24 hr 12/19/23 13:00: WBC 15.5 H, RBC 3.41 L, Hgb 11.8 L, Hct 35.2 L, MCV 103.2 H, MCH 34.6 H, MCHC 33.5, RDW Std Deviation 47.3 H, RDW Coeff of Kristen 12.4, Plt Count 327, MPV 10.7, Immature Gran % (Auto) 0.500, Neut % (Auto) 89.9 H, Lymph % (Auto) 6.6 L, [place] % (Auto) 2.9, Eos % (Auto) 0.0, Baso % (Auto) 0.1, Absolute Neuts (auto) 13.9 H, Absolute Lymphs (auto) 1.02, Nucleated RBC % 0, Sodium 140, Potassium 3.6, Chloride 107, Carbon Dioxide 29.0, Anion Gap 4 L, BUN 6 L, Creatinine 0.67 L, Estim Creat Clear Calc 205.09, Est GFR (MDRD) Af Amer 177, Est GFR (MDRD) Non-Af 147, BUN/Creatinine Ratio 8.9 L, Glucose 160 H, Lactic Acid 2.2 H*, Calcium 9.3, Total Bilirubin 0.40, AST 13 L, ALT 32, Alkaline Phosphatase 91, Total Protein 6.8, Albumin 2.7 L, Globulin 4.1, Albumin/Globulin Ratio 0.7 L, Lipase 29 12/19/23 17:12: Lactic Acid 0.8 12/20/23 00:50: Magnesium 2.2 12/20/23 06:23: WBC 7.3, RBC 2.96 L, Hgb 10.0 L, Hct 31.4 L, MCV 106.1 H, MCH 33.8 H, MCHC 31.8 L D, RDW Std Deviation 49.2 H, RDW Coeff of Kristen 12.5, Plt Count 252, MPV 10.6, Immature Gran % (Auto) 0.400, Neut % (Auto) 66.9, Lymph % (Auto) 25.9, [place] % (Auto) 5.0, Eos % (Auto) 1.5, Baso % (Auto) 0.3, Absolute Neuts (auto) 4.9, Absolute Lymphs (auto) 1.88, Nucleated RBC % 0, Sodium 142, Potassium 3.3 L, Chloride 109 H, Carbon Dioxide 30.0, Anion Gap 3 L, BUN 9, Creatinine 0.54 L, Estim Creat Clear Calc 249.49, Est GFR (MDRD) Af Amer 228, Est GFR (MDRD) Non-Af 188, BUN/Creatinine Ratio 16.6, Glucose 88, Calcium 8.4 L, Phosphorus 3.4, Total Bilirubin 0.50, AST 12 L, ALT 29, Alkaline Phosphatase 69, Total Protein 5.9 L, Albumin 2.4 L, Globulin 3.5, Albumin/Globulin Ratio 0.7 L Imaging Radiology Impression Abdomen/Pelvis CT 12/19/23 12:45 IMPRESSION: Acute diverticulitis of the sigmoid colon associated inflammation of the distal ileum, likely reactive, and extraluminal air consistent with prior perforation. Mild right-sided hydronephrosis. Contracted gallbladder associated with gallstones and trace pericholecystic fluid may be reactive. Fatty infiltration of the liver. Small bilateral pleural effusions. N.B. : The above Results were Read Back by Natasha Montague MD to Arnulfo Sheldon NP, and understanding confirmed on 12/19/2023 15:00:26 (ET). Electronically Signed: Natasha Montague MD at 15:02 EST , ADDENDUM: 12/19/23 1509 IMPRESSION: Acute diverticulitis of the sigmoid colon associated inflammation of the distal ileum, likely reactive, and extraluminal air consistent with prior perforation. Mild right-sided hydronephrosis. Contracted gallbladder associated with gallstones and trace pericholecystic fluid may be reactive. Fatty infiltration of the liver. Small bilateral pleural effusions. N.B. : The above Results were Read Back by Natasha Montague MD to Arnulfo Sheldon NP, and understanding confirmed on 12/19/2023 15:00:26 (ET). Electronically Signed: Natasha Montague MD at 15:02 EST , Charges/Coding Visit Charges Inpatient E&M: 66919 Init Hosp L2
[2023-12-20] MEDS: Acetaminophen 325 MG Tablet 650 MG PO ×2 (10:57→18:13)
[2023-12-20] MEDS: proCHLORPERazine 10 MG/2 ML Vial 5 MG IV (12:57)
[2023-12-20 15:26] VITALS: BP 128/90; PULSE 60; RESP 18; TEMP 36.6; O2SAT 96
[2023-12-20 21:15] VITALS: BP 128/68; PULSE 60; RESP 16; TEMP 36.8; O2SAT 98
[2023-12-21] VITALS (9 sets, daily range): BP systolic 113–125; BP diastolic 56–84; PULSE 49–66; RESP 16–18; TEMP 36.4–37.2; O2SAT 95–100
[2023-12-21] MEDS: Vancomycin 125 MG/5 ML Susp PO.SYRINGE PO ×5 (00:42→23:50)
[2023-12-21] MEDS: HYDROmorphone 1 MG/ML Syringe IV ×6 (00:42→21:28)
[2023-12-21] MEDS: Cefepime HCl 2 GM in 0.9% Normal Saline (100mL MB+) 100 ML IV ×3 (05:32→21:20)
[2023-12-21] MEDS: metroNIDAZOLE 500 MG/100 ML BAG 100 MG IV ×3 (05:54→22:08)
--- NOTE | 2023-12-21 06:27 | NURSING ---
Text sent to Dr. Kidd regarding pts NPO status and no running IV fluid order.
[2023-12-21] MEDS: Pantoprazole Sodium 40 MG Tablet PO (07:49)
[2023-12-21] MEDS: Acetaminophen 325 MG Tablet 650 MG PO ×3 (07:49→20:03)
[2023-12-21] MEDS: Enoxaparin 40 MG/0.4 ML Syringe SC (07:49)
[2023-12-21] MEDS: Dext 5%-0.45% NS 1,000 ML 75 ML IV ×2 (07:50→23:50)
[2023-12-21] MEDS: Potassium Chloride Oral Tablet 20 MEQ 40 MEQ PO ×2 (07:50→09:16)
--- NOTE | 2023-12-21 07:56 | PCM.PN.SRG ---
Subjective Subjective Patient evaluated in conjunction with Dr. Elder. He is awaiting transfer to [facility]. Patient states his pain is a 5 out of 10 at rest and 7 out of 10 with movement. He denies nausea, vomiting, fever. He states he is hungry. Objective Data Objective Data Vital Signs: Vital Signs Temp Pulse Resp BP Pulse Ox O2 Del Method 99.0 F 60 16 114/56 L 97 Room Air 12/21/23 04:00 12/21/23 04:00 12/21/23 04:00 12/21/23 04:00 12/21/23 04:00 12/21/23 04:00 Oxygen Delivery Method Room Air Weight: 221 lb 12.807 oz Body Mass Index (BMI) 29.2 Intake & Output: Intake and Output for Last 24 Hours 12/19/23 12/20/23 12/21/23 23:59 23:59 23:59 Intake Total 1050 / 1050 3070 / 3070 230 / 230 Balance 1050 / 1050 3070 / 3070 230 / 230 Medical Nutrition Assessment Dietitian: Malnutrition Criteria Met Start: 12/20/23 09:28 Freq: Status: Active Protocol: Document 12/20/23 09:28 AG (Rec: 12/20/23 09:28 [id number]) Nutrition Malnutrition Evidence of Malnutrition Exists Yes Malnutrition (severe): Acute Illness/Injury Evidenced By Suboptimal Energy Intake ( Severe),Weight Loss (Severe) Clinical Problem Acute Disease or Injury Related Malnutrition Etiology severe, acute malnutrition related to inadequate energy intake d/t GI dysfunction Signs/Symptoms as evidenced by estimated PO intake meeting <75% of estimated energy needs > 1 week, unintentional 7.7kg/7% wt loss x 1 month Status Active Problem Recommendation Dietitian Recommendations/Changes Recommend advance diet as tolerated to transitional; ensure w/ medpass when diet advanced. If prolonged NPO status anticipated, recommend nutrition support- consult RDN for further recommendations/ management as indicated. Lab / Micro Data 12/20/23 06:23 12/20/23 06:23 Physical Exam GI GI Narrative: Abdomen- tenderness to palpation, left lower quadrant Assessment & Plan Assessment/Plan (1) Colitis: PLAN: I have evaluated this patient in conjunction with Dr. Elder. He has independently evaluated this patient. Awaiting transfer to [facility] Continue NPO at this time No surgical intervention planned at this time We will continue to monitor this patient Charges/Coding Visit Charges Inpatient E&M: 32832 [facility] Hosp L1
--- NOTE | 2023-12-21 08:56 | PCM.PN.HOSP ---
Reason for Visit Reason for Visit: Diagnoses Noninfective gastroenteritis and colitis, unspecified (12/19/23) Diverticulitis of large intestine without perforation or abscess without bleeding (12/19/23) Abnormal findings on diagnostic imaging of other abdominal regions, including retroperitoneum (12/19/23) Subjective Subjective Still with abdominal pain primarily left lower quadrant. Pain is constant but worse with movement. States that the loosefitting jeans that he has on are the most comfortable and has to wear suspenders to support him. Cannot tolerate a belt. Objective Data Objective Data Vital Signs: Vital Signs Temp Pulse Resp BP Pulse Ox O2 Del Method 36.6 C 57 L 18 125/75 H 97 Room Air 12/21/23 07:45 12/21/23 07:45 12/21/23 07:45 12/21/23 07:45 12/21/23 07:45 12/21/23 07:45 Oxygen Delivery Method Room Air Weight: 100.607 kg Body Mass Index (BMI) 29.2 Intake & Output: Intake and Output for Last 24 Hours 12/19/23 12/20/23 12/21/23 23:59 23:59 23:59 Intake Total 1050 / 1050 3070 / 3070 230 / 230 Balance 1050 / 1050 3070 / 3070 230 / 230 Medical Nutrition Assessment Dietitian: Malnutrition Criteria Met Start: 12/20/23 09:28 Freq: Status: Active Protocol: Document 12/20/23 09:28 (Rec: 12/20/23 09:28 [id number]) Nutrition Malnutrition Evidence of Malnutrition Exists Yes Malnutrition (severe): Acute Illness/Injury Evidenced By Suboptimal Energy Intake ( Severe),Weight Loss (Severe) Clinical Problem Acute Disease or Injury Related Malnutrition Etiology severe, acute malnutrition related to inadequate energy intake d/t GI dysfunction Signs/Symptoms as evidenced by estimated PO intake meeting <75% of estimated energy needs > 1 week, unintentional 7.7kg/7% wt loss x 1 month Status Active Problem Recommendation Dietitian Recommendations/Changes Recommend advance diet as tolerated to transitional; ensure w/ medpass when diet advanced. If prolonged NPO status anticipated, recommend nutrition support- consult RDN for further recommendations/ management as indicated. Lab / Micro Data 12/20/23 06:23 12/20/23 06:23 Physical Exam Const alert and no apparent distress HEENT head/scalp atraumatic Eyes PERRL Resp normal respiratory effort and no retractions Cardio regular rate, regular rhythm, S1 normal heart sound and S2 normal heart sound GI GI Narrative: LLQ abdominal pain w rebound Assessment & Plan Assessment/Plan (1) Diverticulitis of large intestine with complication: PLAN: Plan Acute diverticulitis with suspected microperforation CT of the abdomen and pelvis obtained in the ED demonstrated Acute diverticulitis of the sigmoid colon associated inflammation of the distal ileum, likely reactive, and extraluminal air consistent with prior perforation. Cefepime and metronidazole TF to [facility] pending NPO Chronic/other conditions: Recent C. difficile colitis? Patient is on vancomycin plan is to complete therapy on 12/21/2023 Hypertension- Blood pressure controlled, home medications continued with dose adjustment as needed Abnormal gallbladder findings on CAT scan? CT did show Contracted gallbladder associated with gallstones and trace pericholecystic fluid may be reactive. General surgery on board Nonalcoholic fatty liver disease? Will continue with monitoring patient to follow-up with primary care physician for subsequent care anemia- Secondary to chronic disorder monitoring H&H and transfuse if patient becomes symptomatic or hemoglobin falls below 7 Hypokalemia-Corrected per protocol Tobacco dependence - Counseled on cessation, offered nicotine patch for tobacco cravings DVT prophylaxis- On enoxaparin Charges/Coding Visit Charges Inpatient E&M: 55406 Subs Hosp L2
[2023-12-21] MEDS: 0.9% Saline Lock 10 ML Syringe IV ×4 (09:16→21:28)
[2023-12-21] MEDS: proCHLORPERazine 10 MG/2 ML Vial 5 MG IV (12:24)
--- NOTE | 2023-12-21 14:20 | CASEMGMT ---
Readmission Note: Index: 11/17-11/28/23. Dx: Diverticulitis with Microperforation Readmission: 12/19/23. Dx: Sigmoid Diverticulitis Pt with a history of ABD pain, colonic diverticular abscess, C-Diff, and HTN was admitted on the above noted dates for the corresponding dx?s. Pt was DC from [facility] on 11/28 and was transferred to [facility] for further evaluation. Pt was DC from [facility] on 12/05/23 with Cipro, Flagyl, and Vanc. Pt then returned to [facility] on 12/19 with ABD pain that has been ongoing intermittently for around 1 week [employer]. Face to face at this time with the pt. Pt is A&Ox4 and is resting comfortably in bed and is calm. Pt states that he was able to take all of his medications as ordered. Pt states that he is a smoker but has not been smoking as much lately. Pt states he smokes 2-3 cigarettes per day. During this stay, the plan is to transfer the pt back to [facility] for further evaluation. We are waiting on a bed at this time. Pt denies any needs from this RN CM.
[2023-12-21] MEDS: SimETHICONE 80 MG Chewable Tablet PO (18:40)
[2023-12-22] MEDS: HYDROmorphone 1 MG/ML Syringe IV ×7 (00:58→22:30)
[2023-12-22] MEDS: SimETHICONE 80 MG Chewable Tablet PO ×4 (01:01→20:12)
[2023-12-22] MEDS: Acetaminophen 325 MG Tablet 650 MG PO ×4 (02:17→23:47)
[2023-12-22 04:18] VITALS: BP 113/77; PULSE 63; RESP 16; TEMP 36.6; O2SAT 94
[2023-12-22] MEDS: Cefepime HCl 2 GM in 0.9% Normal Saline (100mL MB+) 100 ML IV ×3 (05:11→20:06)
[2023-12-22] MEDS: Vancomycin 125 MG/5 ML Susp PO.SYRINGE PO ×4 (05:12→23:47)
[2023-12-22] MEDS: metroNIDAZOLE 500 MG/100 ML BAG 100 MG IV ×3 (06:07→22:32)
[2023-12-22 07:14] LABS: Basophil# 0.03 X10^3/uL; Basophil% 0.4 % (0-1); Eosinophil# 0.19 X10^3/uL; Eosinophils% 2.2 % (0-5); Hematocrit 34.9 % (40-54); Hemoglobin 11.4 g/dL (13.0-16.5); Mean Corp Hgb Conc 32.7 g/dL (32-36); Mean Corpuscular Hgb 33.1 pg (27.0-32.0); Mean Corpuscular Volume 101.5 fL (80-94); Mean Platelet Vol. 10.6 fl (6.2-12.0); Monocyte# 0.51 X10^3/uL; NRBC Flagged by Analyzer 0 % (0-5); Neutrophil # 6.03 X10^3/uL (2.7-7.7); Neutrophil % 70.9 % (47-70); Platelet Count 295 K/mm3 (150-450); RBC Distribution Width CV 12.1 % (11.6-14.6); RBC Distribution Width SD 45.1 fl (35.1-43.9); Red Blood Count 3.44 M/mm3 (4.6-6.2); White Blood Count 8.5 K/mm3 (4.4-11.0)
--- NOTE | 2023-12-22 07:27 | PN.SURG_ITS ---
Subjective Subjective Patient is a 28 y/o M I am following in conjunction with Dr. Elder. Patient denies nausea, vomiting with clear liquid diet. He notes passing flatus and having formed bowel movements without any blood. He denies feeling feverish. He notes 3 out of 10 pain at rest and 7-8 out of 10 pain with movement. Objective Data Objective Data Vital Signs: Vital Signs Temp Pulse Resp BP Pulse Ox O2 Del Method 97.9 F 63 16 113/77 94 Room Air 12/22/23 04:18 12/22/23 04:18 12/22/23 04:18 12/22/23 04:18 12/22/23 04:18 12/22/23 04:18 Oxygen Delivery Method Room Air Weight: 221 lb 12.807 oz Body Mass Index (BMI) 29.2 Intake & Output: Intake and Output for Last 24 Hours 12/20/23 12/21/23 12/22/23 23:59 23:59 23:59 Intake Total 3070 / 3070 2271.25 / 2271.25 100 / 100 Balance 3070 / 3070 2271.25 / 2271.25 100 / 100 Medical Nutrition Assessment Dietitian: Malnutrition Criteria Met Start: 12/20/23 09:28 Freq: Status: Active Protocol: Document 12/20/23 09:28 AG (Rec: 12/20/23 09:28 [id number]) Nutrition Malnutrition Evidence of Malnutrition Exists Yes Malnutrition (severe): Acute Illness/Injury Evidenced By Suboptimal Energy Intake ( Severe),Weight Loss (Severe) Clinical Problem Acute Disease or Injury Related Malnutrition Etiology severe, acute malnutrition related to inadequate energy intake d/t GI dysfunction Signs/Symptoms as evidenced by estimated PO intake meeting <75% of estimated energy needs > 1 week, unintentional 7.7kg/7% wt loss x 1 month Status Active Problem Recommendation Dietitian Recommendations/Changes Recommend advance diet as tolerated to transitional; ensure w/ medpass when diet advanced. If prolonged NPO status anticipated, recommend nutrition support- consult RDN for further recommendations/ management as indicated. Lab / Micro Data 12/22/23 07:00 12/20/23 06:23 Labs: Laboratory Results - last 24 hr 12/22/23 07:00: WBC 8.5, RBC 3.44 L, Hgb 11.4 L, Hct 34.9 L, MCV 101.5 H, MCH 33.1 H, MCHC 32.7, RDW Std Deviation 45.1 H, RDW Coeff of Kristen 12.1, Plt Count 295, MPV 10.6, Immature Gran % (Auto) 0.500, Neut % (Auto) 70.9 H, Lymph % (Auto) 20.0, [place] % (Auto) 6.0, Eos % (Auto) 2.2, Baso % (Auto) 0.4, Absolute Neuts (auto) 6.0, Absolute Lymphs (auto) 1.70, Nucleated RBC % 0 Physical Exam GI GI Narrative: Abdomen- soft, tender in the left lower quadrant with guarding. Hypoactive bowel sounds Assessment & Plan Assessment/Plan (1) Diverticulitis of large intestine with complication: PLAN: I am following this patient in conjunction with Dr. Elder. He has independently evaluated this patient Plan to increase diet to full liquids Awaiting bed at [facility] for transfer as patient has been accepted Labs pending Encouraged patient to be sitting in the chair and ambulating today Plan for repeat CT scan tomorrow of ab/pel if patient continues to be here We will continue to monitor this patient Charges/Coding Visit Charges Inpatient E&M: 06564 Subs Hosp L1
[2023-12-22 07:40] LABS: Anion Gap 4 (5-15); BUN 5 mg/dL (7-18); BUN/Creat Ratio 8.7 RATIO (10-20); Chloride 105 mmol/L (98-107); Creatinine, Serum 0.58 mg/dL (0.70-1.30); EST Glomerular Filtration Rate 176 mL/min (>60); Est Glom Filt Rate - Afr Amer 213 mL/min (>60); Estimated Creatinine Clearance 232.28 ml/min; Glucose 99 mg/dL (74-106); Potassium 3.8 mmol/L (3.5-5.1); Sodium Level 139 mmol/L (136-145)
[2023-12-22 07:41] VITALS: O2SAT 94
--- NOTE | 2023-12-22 07:50 | PCM.PN.HOSP ---
Reason for Visit Reason for Visit: Diagnoses Noninfective gastroenteritis and colitis, unspecified (12/19/23) Diverticulitis of large intestine without perforation or abscess without bleeding (12/19/23) Abnormal findings on diagnostic imaging of other abdominal regions, including retroperitoneum (12/19/23) Subjective Subjective Still with left lower quadrant abdominal pain. Worse with movement send still going to the restroom but overall slightly improved. Has been since advance to clear liquid diet which she is tolerating. Objective Data Objective Data Vital Signs: Vital Signs Temp Pulse Resp BP Pulse Ox O2 Del Method 36.6 C 63 16 113/77 94 Room Air 12/22/23 04:18 12/22/23 04:18 12/22/23 04:18 12/22/23 04:18 12/22/23 07:41 12/22/23 07:41 Oxygen Delivery Method Room Air Weight: 100.607 kg Body Mass Index (BMI) 29.2 Intake & Output: Intake and Output for Last 24 Hours 12/20/23 12/21/23 12/22/23 23:59 23:59 23:59 Intake Total 3070 / 3070 2271.25 / 2271.25 100 / 100 Balance 3070 / 3070 2271.25 / 2271.25 100 / 100 Medical Nutrition Assessment Dietitian: Malnutrition Criteria Met Start: 12/20/23 09:28 Freq: Status: Active Protocol: Document 12/20/23 09:28 (Rec: 12/20/23 09:28 [id number]) Nutrition Malnutrition Evidence of Malnutrition Exists Yes Malnutrition (severe): Acute Illness/Injury Evidenced By Suboptimal Energy Intake ( Severe),Weight Loss (Severe) Clinical Problem Acute Disease or Injury Related Malnutrition Etiology severe, acute malnutrition related to inadequate energy intake d/t GI dysfunction Signs/Symptoms as evidenced by estimated PO intake meeting <75% of estimated energy needs > 1 week, unintentional 7.7kg/7% wt loss x 1 month Status Active Problem Recommendation Dietitian Recommendations/Changes Recommend advance diet as tolerated to transitional; ensure w/ medpass when diet advanced. If prolonged NPO status anticipated, recommend nutrition support- consult RDN for further recommendations/ management as indicated. Lab / Micro Data 12/22/23 07:00 12/22/23 07:00 Labs: Laboratory Results - last 24 hr 12/22/23 07:00: WBC 8.5, RBC 3.44 L, Hgb 11.4 L, Hct 34.9 L, MCV 101.5 H, MCH 33.1 H, MCHC 32.7, RDW Std Deviation 45.1 H, RDW Coeff of Kristen 12.1, Plt Count 295, MPV 10.6, Immature Gran % (Auto) 0.500, Neut % (Auto) 70.9 H, Lymph % (Auto) 20.0, Green % (Auto) 6.0, Eos % (Auto) 2.2, Baso % (Auto) 0.4, Absolute Neuts (auto) 6.0, Absolute Lymphs (auto) 1.70, Nucleated RBC % 0, Sodium 139, Potassium 3.8, Chloride 105, Carbon Dioxide 30.0, Anion Gap 4 L, BUN 5 L, Creatinine 0.58 L, Estim Creat Clear Calc 232.28, Est GFR (MDRD) Af Amer 213, Est GFR (MDRD) Non-Af 176, BUN/Creatinine Ratio 8.7 L, Glucose 99, Calcium 9.0 Physical Exam Const alert and no apparent distress Resp normal respiratory effort, no retractions and no use of accessory muscles Cardio regular rate, regular rhythm, S1 normal heart sound and S2 normal heart sound GI normal to inspection, nondistended, normoactive bowel sounds, soft to palpation and non-distended GI Narrative: Left lower quadrant abdominal tenderness. Appears improved from the 12th. Extremity normal to inspection Neuro Sensorium / Orientation: awake and alert Assessment & Plan Assessment/Plan (1) Diverticulitis of large intestine with complication: PLAN: Plan Acute diverticulitis with suspected microperforation CT of the abdomen and pelvis obtained in the ED demonstrated Acute diverticulitis of the sigmoid colon associated inflammation of the distal ileum, likely reactive, and extraluminal air consistent with prior perforation. Cefepime and metronidazole TF to [facility] pending Clear liquid diet continue D5 1/2 NS Chronic/other conditions: Recent C. difficile colitis? Patient is on vancomycin plan is to complete therapy on 12/21/2023 Hypertension- Blood pressure controlled, home medications continued with dose adjustment as needed Abnormal gallbladder findings on CAT scan? CT did show Contracted gallbladder associated with gallstones and trace pericholecystic fluid may be reactive. General surgery on board Nonalcoholic fatty liver disease? Will continue with monitoring patient to follow-up with primary care physician for subsequent care anemia- Secondary to chronic disorder monitoring H&H and transfuse if patient becomes symptomatic or hemoglobin falls below 7 Hypokalemia-Corrected per protocol Tobacco dependence - Counseled on cessation, offered nicotine patch for tobacco cravings DVT prophylaxis- On enoxaparin Charges/Coding Visit Charges Inpatient E&M: 28191 Subs Hosp L2
[2023-12-22 08:40] VITALS: BP 118/77; PULSE 60; RESP 16; TEMP 36.6; O2SAT 98
[2023-12-22 08:41] VITALS: PULSE 60
[2023-12-22] MEDS: Metoprolol(XL)Succ 100 MG Tablet PO (08:41)
[2023-12-22] MEDS: Pantoprazole Sodium 40 MG Tablet PO (08:41)
[2023-12-22] MEDS: Enoxaparin 40 MG/0.4 ML Syringe SC (08:41)
[2023-12-22] MEDS: 0.9% Saline Lock 10 ML Syringe IV ×4 (09:17→22:30)
[2023-12-22 12:45] VITALS: BP 119/78; PULSE 56; RESP 18; TEMP 36.7; O2SAT 100
[2023-12-22 20:03] VITALS: BP 122/79; PULSE 66; RESP 18; TEMP 36.8; O2SAT 97
[2023-12-22] MEDS: proCHLORPERazine 10 MG/2 ML Vial 5 MG IV (22:36)
[2023-12-23 03:00] VITALS: BP 114/55; PULSE 63; RESP 18; TEMP 36.6; O2SAT 99
[2023-12-23] MEDS: HYDROmorphone 1 MG/ML Syringe IV ×4 (03:00→21:28)
[2023-12-23] MEDS: metroNIDAZOLE 500 MG/100 ML BAG 100 MG IV ×3 (05:42→21:28)
[2023-12-23] MEDS: Vancomycin 125 MG/5 ML Susp PO.SYRINGE PO ×4 (05:42→22:41)
[2023-12-23] MEDS: Cefepime HCl 2 GM in 0.9% Normal Saline (100mL MB+) 100 ML IV ×3 (06:48→22:41)
[2023-12-23 07:13] VITALS: BP 127/81; PULSE 50; RESP 12; TEMP 36.5; O2SAT 100
--- NOTE | 2023-12-23 07:25 | PN.SURG_ITS ---
Subjective Subjective Patient is a 28 y/o M I am following in conjunction with Dr. Elder. Patient denies nausea, vomiting with full liquid diet. He notes passing flatus and having formed bowel movements without any blood. He denies feeling feverish. He notes 3 out of 10 pain at rest and 7-8 out of 10 pain with movement and bowel movements. He notes he is slightly improved. Objective Data Objective Data Vital Signs: Vital Signs Temp Pulse Resp BP Pulse Ox O2 Del Method 97.9 F 63 18 114/55 L 99 Room Air 12/23/23 03:00 12/23/23 03:00 12/23/23 03:00 12/23/23 03:00 12/23/23 03:00 12/23/23 03:00 Oxygen Delivery Method Room Air Weight: 221 lb 12.807 oz Body Mass Index (BMI) 29.2 Intake & Output: Intake and Output for Last 24 Hours 12/21/23 12/22/23 12/23/23 23:59 23:59 23:59 Intake Total 2271.25 / 2271.25 1600 / 1600 200 / 200 Balance 2271.25 / 2271.25 1600 / 1600 200 / 200 Medical Nutrition Assessment Dietitian: Malnutrition Criteria Met Start: 12/20/23 09:28 Freq: Status: Active Protocol: Document 12/20/23 09:28 (Rec: 12/20/23 09:28 [id number]) Nutrition Malnutrition Evidence of Malnutrition Exists Yes Malnutrition (severe): Acute Illness/Injury Evidenced By Suboptimal Energy Intake ( Severe),Weight Loss (Severe) Clinical Problem Acute Disease or Injury Related Malnutrition Etiology severe, acute malnutrition related to inadequate energy intake d/t GI dysfunction Signs/Symptoms as evidenced by estimated PO intake meeting <75% of estimated energy needs > 1 week, unintentional 7.7kg/7% wt loss x 1 month Status Active Problem Recommendation Dietitian Recommendations/Changes Recommend advance diet as tolerated to transitional; ensure w/ medpass when diet advanced. If prolonged NPO status anticipated, recommend nutrition support- consult RDN for further recommendations/ management as indicated. Lab / Micro Data 12/22/23 07:00 12/22/23 07:00 Labs: Laboratory Results - last 24 hr 12/22/23 07:00: Sodium 139, Potassium 3.8, Chloride 105, Carbon Dioxide 30.0, Anion Gap 4 L, BUN 5 L, Creatinine 0.58 L, Estim Creat Clear Calc 232.28, Est GFR (MDRD) Af Amer 213, Est GFR (MDRD) Non-Af 176, BUN/Creatinine Ratio 8.7 L, Glucose 99, Calcium 9.0 Physical Exam GI GI Narrative: Abdomen- soft, tender in the left lower quadrant. Positive bowel sounds. Assessment & Plan Assessment/Plan (1) Diverticulitis of large intestine with complication: PLAN: I am following this patient in conjunction with Dr. Elder. He has indepe ndently evaluated this patient Continue full liquids Awaiting bed at [facility] for transfer, as patient has been accepted Labs pending Encouraged patient to be sitting in the chair and ambulating today Plan for repeat CT scan of ab/pel later today if no bed is available still Plan to transition patient to oral pain medication We will continue to monitor this patient Charges/Coding Visit Charges Inpatient E&M: 26465 Subs Hosp L1
[2023-12-23 07:54] VITALS: PULSE 50
[2023-12-23 07:54] LABS: Absolute Lymphocyte Count 1.75 X10^3/uL (0.83-4.51); Absolute Neutrophil Count 5.9 X10^3/uL (2.0-7.7); Basophil# 0.03 X10^3/uL; Basophil% 0.4 % (0-1); Eosinophil# 0.25 X10^3/uL; Hemoglobin 11.3 g/dL (13.0-16.5); Lymphocyte # 1.75 X10^3/ul (0.83-4.51); Lymphocyte % 20.7 % (19-41); Mean Corp Hgb Conc 32.3 g/dL (32-36); Mean Corpuscular Hgb 32.8 pg (27.0-32.0); Mean Corpuscular Volume 101.7 fL (80-94); Mean Platelet Vol. 10.9 fl (6.2-12.0); Monocyte# 0.48 X10^3/uL; Monocyte% 5.7 % (0-10); NRBC Flagged by Analyzer 0 % (0-5); Neutrophil # 5.93 X10^3/uL (2.7-7.7); Neutrophil % 69.8 % (47-70); Platelet Count 282 K/mm3 (150-450); RBC Distribution Width CV 12.1 % (11.6-14.6); RBC Distribution Width SD 45.2 fl (35.1-43.9); Red Blood Count 3.44 M/mm3 (4.6-6.2); White Blood Count 8.5 K/mm3 (4.4-11.0)
[2023-12-23] MEDS: Pantoprazole Sodium 40 MG Tablet PO (07:54)
[2023-12-23] MEDS: Enoxaparin 40 MG/0.4 ML Syringe SC (07:54)
[2023-12-23] MEDS: 0.9% Saline Lock 10 ML Syringe IV ×3 (07:54→21:28)
[2023-12-23] MEDS: SimETHICONE 80 MG Chewable Tablet PO ×2 (08:01→13:57)
[2023-12-23 08:25] LABS: Anion Gap 6 (5-15); BUN 3 mg/dL (7-18); BUN/Creat Ratio 4.9 RATIO (10-20); Calcium,Total 9.1 mg/dL (8.5-10.1); Chloride 107 mmol/L (98-107); Creatinine, Serum 0.61 mg/dL (0.70-1.30); EST Glomerular Filtration Rate 163 mL/min (>60); Est Glom Filt Rate - Afr Amer 198 mL/min (>60); Estimated Creatinine Clearance 220.86 ml/min; Glucose 97 mg/dL (74-106); Potassium 3.6 mmol/L (3.5-5.1); Sodium Level 141 mmol/L (136-145)
--- NOTE | 2023-12-23 08:36 | PN.HOSP_ITS ---
Reason for Visit Reason for Visit: Diagnoses Noninfective gastroenteritis and colitis, unspecified (12/19/23) Diverticulitis of large intestine without perforation or abscess without bleeding (12/19/23) Abnormal findings on diagnostic imaging of other abdominal regions, including retroperitoneum (12/19/23) Subjective Subjective Still with abdominal pain. Objective Data Objective Data Vital Signs: Vital Signs Temp Pulse Resp BP Pulse Ox O2 Del Method 36.5 C L 50 L 12 127/81 H 100 Room Air 12/23/23 07:13 12/23/23 07:54 12/23/23 07:13 12/23/23 07:13 12/23/23 07:13 12/23/23 07:13 Oxygen Delivery Method Room Air Weight: 100.607 kg Body Mass Index (BMI) 29.2 Intake & Output: Intake and Output for Last 24 Hours 12/21/23 12/22/23 12/23/23 23:59 23:59 23:59 Intake Total 2271.25 / 2271.25 1600 / 1600 200 / 200 Balance 2271.25 / 2271.25 1600 / 1600 200 / 200 Medical Nutrition Assessment Dietitian: Malnutrition Criteria Met Start: 12/20/23 09:28 Freq: Status: Active Protocol: Document 12/20/23 09:28 (Rec: 12/20/23 09:28 [id number]) Nutrition Malnutrition Evidence of Malnutrition Exists Yes Malnutrition (severe): Acute Illness/Injury Evidenced By Suboptimal Energy Intake ( Severe),Weight Loss (Severe) Clinical Problem Acute Disease or Injury Related Malnutrition Etiology severe, acute malnutrition related to inadequate energy intake d/t GI dysfunction Signs/Symptoms as evidenced by estimated PO intake meeting <75% of estimated energy needs > 1 week, unintentional 7.7kg/7% wt loss x 1 month Status Active Problem Recommendation Dietitian Recommendations/Changes Recommend advance diet as tolerated to transitional; ensure w/ medpass when diet advanced. If prolonged NPO status anticipated, recommend nutrition support- consult RDN for further recommendations/ management as indicated. Lab / Micro Data 12/23/23 07:13 12/23/23 07:13 Labs: Laboratory Results - last 24 hr 12/23/23 07:13: WBC 8.5, RBC 3.44 L, Hgb 11.3 L, Hct 35.0 L, MCV 101.7 H, MCH 32.8 H, MCHC 32.3, RDW Std Deviation 45.2 H, RDW Coeff of Kristen 12.1, Plt Count 282, MPV 10.9, Immature Gran % (Auto) 0.400, Neut % (Auto) 69.8, Lymph % (Auto) 20.7, [place] % (Auto) 5.7, Eos % (Auto) 3.0, Baso % (Auto) 0.4, Absolute Neuts (auto) 5.9, Absolute Lymphs (auto) 1.75, Nucleated RBC % 0, Sodium 141, Potass ium 3.6, Chloride 107, Carbon Dioxide 28.0, Anion Gap 6, BUN 3 L, Creatinine 0.61 L, Estim Creat Clear Calc 220.86, Est GFR (MDRD) Af Amer 198, Est GFR (M DRD) Non-Af 163, BUN/Creatinine Ratio 4.9 L, Glucose 97, Calcium 9.1 Physical Exam Const Constitutional Narrative: Sleeping, awoke but was groggy. Immediately was asking for Dilaudid. Resp normal respiratory effort, no retractions, no use of accessory muscles and clear to auscultation bilaterally Cardio regular rate, regular rhythm, S1 normal heart sound and S2 normal heart sound GI soft to palpation and non-distended GI Narrative: Tender to palpation in left lower quadrant with rebound tenderness. Auscultation: hypoactive bowel sounds Assessment & Plan Assessment/Plan (1) Diverticulitis of large intestine with complication: PLAN: Plan Acute diverticulitis with suspected microperforation * CT of the abdomen and pelvis obtained in the ED demonstrated Acute diverticulitis of the sigmoid colon associated inflammation of the distal ileum, likely reactive, and extraluminal air consistent with prior perforation. * Cefepime and metronidazole * TF to [facility] pending * Clear liquid diet * continue D5 1/2 NS * Repeat CT pending Chronic/other conditions: * Recent C. difficile colitis? Patient is on vancomycin plan is to complete therapy on 12/21/2023 * Hypertension- Blood pressure controlled, home medications continued with dose adjustment as needed * Abnormal gallbladder findings on CAT scan? CT did show Contracted gallbladder associated with gallstones and trace pericholecystic fluid may be reactive. General surgery on board * Nonalcoholic fatty liver disease? Will continue with monitoring patient to follow-up with primary care physician for subsequent care * anemia- Secondary to chronic disorder monitoring H&H and transfuse if patient becomes symptomatic or hemoglobin falls below 7 * Hypokalemia-Corrected per protocol * Tobacco dependence - Counseled on cessation, offered nicotine patch for tobacco cravings DVT prophylaxis- On enoxaparin Charges/Coding Visit Charges Inpatient E&M: 07407 Subs Hosp L2
[2023-12-23] MEDS: oxyCODONE 5 MG Tablet PO ×3 (12:07→22:40)
[2023-12-23] MEDS: Acetaminophen 325 MG Tablet 650 MG PO ×2 (12:07→18:17)
[2023-12-23] MEDS: 0.9% Normal Saline (250mL Bag) 250 ML 15 ML IV (13:51)
[2023-12-23 14:11] VITALS: BP 117/82; PULSE 57; RESP 14; TEMP 36.9; O2SAT 96
--- NOTE | 2023-12-23 15:14 | NURSING ---
reviewed student charting
[2023-12-23 21:25] VITALS: BP 131/77; PULSE 68; RESP 18; TEMP 36.5; O2SAT 99
[2023-12-24] MEDS: Acetaminophen 325 MG Tablet 650 MG PO ×3 (00:46→17:16)
--- NOTE | 2023-12-24 03:00 | NURSING ---
pt repeatedly calling out for pain meds, and asking for the specific times they are due. pt calling out almost exactly on the times that the meds are due. This RN goes into the room shortly after pt rings, and pt is alseep without distress. pt awoken and educated on the importance of PRN status of pain meds and only calling if he is in pain. educated pt that pain meds are not scheduled and just because they can be given at that time, does not mean he should take them, unless he is truly painful. this RN stated that we do not wake pts up for pain meds. pt acknowledged understanding.
[2023-12-24 03:27] VITALS: BP 124/79; PULSE 64; RESP 18; TEMP 36.7; O2SAT 93
[2023-12-24] MEDS: oxyCODONE 5 MG Tablet PO ×4 (03:30→17:16)
[2023-12-24] MEDS: Cefepime HCl 2 GM in 0.9% Normal Saline (100mL MB+) 100 ML IV ×2 (05:35→12:56)
[2023-12-24] MEDS: metroNIDAZOLE 500 MG/100 ML BAG 100 MG IV ×2 (06:31→16:12)
--- NOTE | 2023-12-24 06:44 | NURSING ---
this RN went in for third time since 529, reminding pt to drink his contrast for this AMs CT scan. pt acknowledged, and still has 1.5 bottles out of 2 to drink yet. pt educated and told him that they cannot complete the CT this AM if he does not drink the contrast. pt said okay i will
--- NOTE | 2023-12-24 07:30 | CT_ITS ---
STUDY: CT ABDOMEN AND PELVIS WITH CONTRAST REASON FOR EXAM: Male, 28 years old. Diverticulitis of large intestine with abscess. Inflammatory bowel disease and colitis. RADIATION DOSAGE (If Supplied By Facility): CTDIvol = ( 15.35 ) mGy, DLP = ( 1144.35 ) mGycm TECHNIQUE: Transaxial images were obtained from the dome of the diaphragm to the symphysis pubis without oral contrast. IV 100mL Isovue-370 was administered. Sagittal and coronal images were reconstructed. Individualized dose optimization techniques were used for this CT. COMPARISON: Comparison is made with prior study dated December 19, 2023. FINDINGS: Minimal left pleural effusion with left back The visualized portions of the heart are within normal limits. There is decreased attenuation of the liver consistent with steatosis. Hepatomegaly. Normal gallbladder and extrahepatic biliary system. Mild splenomegaly. Normal pancreas. Normal bilateral adrenal glands. Normal right kidney. Normal left kidney. There is a small hiatal hernia. Normal small intestine. This evidence of inflammatory changes in the distal ileum with increased markings in the surrounding peritoneal fat. Diffuse inflammatory changes in the surrounding mesenteric fat as well as in the pelvis. The appendix is visualized and appears normal. Normal abdominal aorta. Normal inferior vena cava. There is borderline retroperitoneal lymphadenopathy with enlarged nodes no greater than 10mm in the short axis diameter. Diffuse bladder wall thickening. A tiny air bubble is seen within the anterior aspect of the urinary bladder. A colovesical fistula should be ruled out. Normal abdominal wall. Normal osseous structures. CT/Abdomen/Pelvis WITH Contrast IMPRESSION: Severe sigmoid diverticulitis with surrounding inflammatory changes involving the small bowel loops as discussed. Finding suggestive of a colovesical fistula at this time. Hepatosplenomegaly. Diffuse fatty infiltration of the liver. Electronically Signed: Tip Grigsby MD at 9:35 EST ,
[2023-12-24 07:45] LABS: Absolute Lymphocyte Count 1.46 X10^3/uL (0.83-4.51); Absolute Neutrophil Count 5.8 X10^3/uL (2.0-7.7); Basophil# 0.03 X10^3/uL; Basophil% 0.4 % (0-1); Eosinophil# 0.24 X10^3/uL; Hematocrit 33.4 % (40-54); Hemoglobin 11.4 g/dL (13.0-16.5); Lymphocyte # 1.46 X10^3/ul (0.83-4.51); Lymphocyte % 18.3 % (19-41); Mean Corp Hgb Conc 34.1 g/dL (32-36); Mean Corpuscular Hgb 34.2 pg (27.0-32.0); Mean Corpuscular Volume 100.3 fL (80-94); Mean Platelet Vol. 10.9 fl (6.2-12.0); Monocyte# 0.47 X10^3/uL; Monocyte% 5.9 % (0-10); NRBC Flagged by Analyzer 0 % (0-5); Neutrophil # 5.76 X10^3/uL (2.7-7.7); Neutrophil % 72.1 % (47-70); Platelet Count 269 K/mm3 (150-450); RBC Distribution Width CV 12.2 % (11.6-14.6); RBC Distribution Width SD 44.9 fl (35.1-43.9); Red Blood Count 3.33 M/mm3 (4.6-6.2)
[2023-12-24 08:12] VITALS: PULSE 60
[2023-12-24] MEDS: Enoxaparin 40 MG/0.4 ML Syringe SC (08:12)
[2023-12-24] MEDS: Metoprolol(XL)Succ 100 MG Tablet PO (08:12)
[2023-12-24] MEDS: Pantoprazole Sodium 40 MG Tablet PO (08:13)
[2023-12-24] MEDS: Escitalopram Oxalate 20 MG Tablet PO (08:14)
[2023-12-24 08:15] LABS: Anion Gap 6 (5-15); BUN 2 mg/dL (7-18); BUN/Creat Ratio 4.1 RATIO (10-20); Calcium,Total 9.1 mg/dL (8.5-10.1); Chloride 108 mmol/L (98-107); Creatinine, Serum 0.48 mg/dL (0.70-1.30); EST Glomerular Filtration Rate 215 mL/min (>60); Est Glom Filt Rate - Afr Amer 261 mL/min (>60); Estimated Creatinine Clearance 280.67 ml/min; Glucose 107 mg/dL (74-106); Potassium 3.4 mmol/L (3.5-5.1); Sodium Level 140 mmol/L (136-145)
[2023-12-24] MEDS: proCHLORPERazine 10 MG/2 ML Vial 5 MG IV (08:22)
[2023-12-24] MEDS: 0.9% Saline Lock 10 ML Syringe IV ×3 (08:22→16:13)
--- NOTE | 2023-12-24 09:04 | PCM.PN.HOSP ---
Reason for Visit Reason for Visit: Diagnoses Noninfective gastroenteritis and colitis, unspecified (12/19/23) Diverticulitis of large intestine without perforation or abscess without bleeding (12/19/23) Abnormal findings on diagnostic imaging of other abdominal regions, including retroperitoneum (12/19/23) Subjective Subjective Still with abdominal pain. Objective Data Objective Data Vital Signs: Vital Signs Temp Pulse Resp BP Pulse Ox O2 Del Method 36.7 C 60 18 124/79 H 93 Room Air 12/24/23 03:27 12/24/23 08:12 12/24/23 03:27 12/24/23 03:27 12/24/23 03:27 12/24/23 03:27 Oxygen Delivery Method Room Air Weight: 100.607 kg Body Mass Index (BMI) 29.2 Intake & Output: Intake and Output for Last 24 Hours 12/22/23 12/23/23 12/24/23 23:59 23:59 23:59 Intake Total 1600 / 1600 699.25 / 699.25 200 / 200 Balance 1600 / 1600 699.25 / 699.25 200 / 200 Medical Nutrition Assessment Dietitian: Malnutrition Criteria Met Start: 12/20/23 09:28 Freq: Status: Active Protocol: Document 12/23/23 14:16 AG (Rec: 12/23/23 14:16 AG Desktop) Nutrition Malnutrition Evidence of Malnutrition Exists Yes Malnutrition (severe): Acute Illness/Injury Evidenced By Suboptimal Energy Intake ( Severe),Weight Loss (Severe) Clinical Problem Acute Disease or Injury Related Malnutrition Etiology severe, acute malnutrition related to inadequate energy intake d/t GI dysfunction Signs/Symptoms as evidenced by estimated PO intake meeting <75% of estimated energy needs > 1 week, unintentional 7.7kg/7% wt loss x 1 month Status Active Problem Recommendation Dietitian Recommendations/Changes Recommend advance diet as tolerated to transitional; will add 120mL ensure clear 4x /day w/ medpass for additional nutrition if consumed. Lab / Micro Data 12/24/23 07:17 12/24/23 07:17 Labs: Laboratory Results - last 24 hr 12/24/23 07:17: WBC 8.0, RBC 3.33 L, Hgb 11.4 L, Hct 33.4 L, MCV 100.3 H, MCH 34.2 H, MCHC 34.1 D, RDW Std Deviation 44.9 H, RDW Coeff of Kristen 12.2, Plt Count 269, MPV 10.9, Immature Gran % (Auto) 0.300, Neut % (Auto) 72.1 H, Lymph % (Auto) 18.3 L, [place] % (Auto) 5.9, Eos % (Auto) 3.0, Baso % (Auto) 0.4, Absolute Neuts (auto) 5.8, Absolute Lymphs (auto) 1.46, Nucleated RBC % 0, Sodium 140, Potassium 3.4 L, Chloride 108 H, Carbon Dioxide 26.0, Anion Gap 6, BUN 2 L, Creatinine 0.48 L, Estim Creat Clear Calc 280.67, Est GFR (MDRD) Af Amer 261, Est GFR (MDRD) Non-Af 215, BUN/Creatinine Ratio 4.1 L, Glucose 107 H, Calcium 9.1 Physical Exam Const Constitutional Narrative: Groggy. Afebrile. Nontoxic. GI GI Narrative: Tender to palpation in left lower quadrant with rebound tenderness. Nondistended. Assessment & Plan Assessment/Plan (1) Diverticulitis of large intestine with complication: PLAN: Plan Acute diverticulitis with suspected microperforation CT of the abdomen and pelvis obtained in the ED demonstrated Acute diverticulitis of the sigmoid colon associated inflammation of the distal ileum, likely reactive, and extraluminal air consistent with prior perforation. Cefepime and metronidazole TF to [facility] pending Clear liquid diet continue D5 1/[address] on the showed severe sigmoid diverticulitis with surrounding inflammatory changes involving the small bowel loops as discussed. Finding suggestive of colovesicular fistula. Given the developing complexity of the diverticulitis and possibly involving the bladder, general surgery, since we had not heard back from [facility]. Patient has been accepted. Were waiting on the patient to be transferred to either facility at the earliest possibility. Patient fortunately is still hemodynamically stable at present. Chronic/other conditions: Recent C. difficile colitis? Patient is on vancomycin plan is to complete therapy on 12/21/2023 Hypertension- Blood pressure controlled, home medications continued with dose adjustment as needed Abnormal gallbladder findings on CAT scan? CT did show Contracted gallbladder associated with gallstones and trace pericholecystic fluid may be reactive. General surgery on board Nonalcoholic fatty liver disease? Will continue with monitoring patient to follow-up with primary care physician for subsequent care anemia- Secondary to chronic disorder monitoring H&H and transfuse if patient becomes symptomatic or hemoglobin falls below 7 Hypokalemia-Corrected per protocol Tobacco dependence - Counseled on cessation, offered nicotine patch for tobacco cravings DVT prophylaxis- On enoxaparin Charges/Coding Visit Charges Inpatient E&M: 59805 Subs Hosp L2
[2023-12-24 09:25] VITALS: BP 116/82; PULSE 60; RESP 15; TEMP 36.6; O2SAT 96
--- NOTE | 2023-12-24 10:07 | PN.SURG_ITS ---
Subjective Subjective Patient is a 28 y/o M I am following with Dr. Elder. Patient notes abdominal pain at rest and worse with movement. Patient rates his pain at a 3-4 out of 10 at rest and 6-7 out of 10 pain with movement and using the restroom. Patient denies nausea, vomiting. Patient notes the pain medication was not helpful over night. Objective Data Objective Data Vital Signs: Vital Signs Temp Pulse Resp BP Pulse Ox O2 Del Method 98.1 F 60 18 124/79 H 93 Room Air 12/24/23 03:27 12/24/23 08:12 12/24/23 03:27 12/24/23 03:27 12/24/23 03:27 12/24/23 03:27 Oxygen Delivery Method Room Air Weight: 221 lb 12.807 oz Body Mass Index (BMI) 29.2 Intake & Output: Intake and Output for Last 24 Hours 12/22/23 12/23/23 12/24/23 23:59 23:59 23:59 Intake Total 1600 / 1600 699.25 / 699.25 200 / 200 Balance 1600 / 1600 699.25 / 699.25 200 / 200 Medical Nutrition Assessment Dietitian: Malnutrition Criteria Met Start: 12/20/23 09:28 Freq: Status: Active Protocol: Document 12/23/23 14:16 AG (Rec: 12/23/23 14:16 AG Desktop) Nutrition Malnutrition Evidence of Malnutrition Exists Yes Malnutrition (severe): Acute Illness/Injury Evidenced By Suboptimal Energy Intake ( Severe),Weight Loss (Severe) Clinical Problem Acute Disease or Injury Related Malnutrition Etiology severe, acute malnutrition related to inadequate energy intake d/t GI dysfunction Signs/Symptoms as evidenced by estimated PO intake meeting <75% of estimated energy needs > 1 week, unintentional 7.7kg/7% wt loss x 1 month Status Active Problem Recommendation Dietitian Recommendations/Changes Recommend advance diet as tolerated to transitional; will add 120mL ensure clear 4x /day w/ medpass for additional nutrition if consumed. Lab / Micro Data 12/24/23 07:17 12/24/23 07:17 Labs: Laboratory Results - last 24 hr 12/24/23 07:17: WBC 8.0, RBC 3.33 L, Hgb 11.4 L, Hct 33.4 L, MCV 100.3 H, MCH 34.2 H, MCHC 34.1 D, RDW Std Deviation 44.9 H, RDW Coeff of Kristen 12.2, Plt Count 269, MPV 10.9, Immature Gran % (Auto) 0.300, Neut % (Auto) 72.1 H, Lymph % (Auto) 18.3 L, [place] % (Auto) 5.9, Eos % (Auto) 3.0, Baso % (Auto) 0.4, Absolute Neuts (auto) 5.8, Absolute Lymphs (auto) 1.46, Nucleated RBC % 0, Sodium 140, Potassium 3.4 L, Chloride 108 H, Carbon Dioxide 26.0, Anion Gap 6, BUN 2 L, Creatinine 0.48 L, Estim Creat Clear Calc 280.67, Est GFR (MDRD) Af Amer 261, Est GFR (MDRD) Non-Af 215, BUN/Creatinine Ratio 4.1 L, Glucose 107 H, Calcium 9.1 Radiography Diagnostic Testing: Radiology Impression Abdomen/Pelvis CT 12/24/23 07:30 IMPRESSION: Severe sigmoid diverticulitis with surrounding inflammatory changes involving the small bowel loops as discussed. Finding suggestive of a colovesical fistula at this time. Hepatosplenomegaly. Diffuse fatty infiltration of the liver. Electronically Signed: Tip Grigsby MD at 9:35 EST , Physical Exam Const alert, oriented x3 and no apparent distress GI GI Narrative: Abdomen- soft, tenderness in the left lower quadrant with palpation. Hypoactive bowel sounds. Assessment & Plan Assessment/Plan (1) Diverticulitis of large intestine with complication: PLAN: I am following this patient in conjunction with Dr. Elder who has also evaluated this patient Plan to obtain CT scan of the ab/pel with contrast today Labs pending We will continue to monitor this patient Charges/Coding Visit Charges Inpatient E&M: [address] [facility] Hosp L1
[2023-12-24] MEDS: HYDROmorphone 1 MG/ML Syringe IV ×2 (10:50→16:13)
[2023-12-24] MEDS: Potassium Chloride Oral Tablet 20 MEQ 40 MEQ PO (10:56)
[2023-12-24] MEDS: SimETHICONE 80 MG Chewable Tablet PO (10:58)
[2023-12-24 14:00] VITALS: BP 109/68; PULSE 60; RESP 14; TEMP 36.6; O2SAT 96
--- NOTE | 2023-12-24 14:43 | PCA ---
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
--- NOTE | 2023-12-24 16:11 | DS.PCM_ITS ---
Providers Date of Admission: 12/19/23 Primary Care Physician: Dr. Evie Cox, Consultations 12/20/23 00:26 Consult: General Surgery Routine Consulting Provider: Klaus Elder Reason for Consult: acute on recurrent diverticulitis EMERGENT Consult: No MD Notified: Yes Date Notified: 12/20/23 Time Notified: 00:26 Method of Notification: ED Physician Initiated Reason For Visit: SIGMOID DIVERTICULITIS Diagnosis Discharge Diagnosis (1) Diverticulitis of large intestine with complication: Status: Acute Code(s): K57.32 - Diverticulitis of large intestine without perforation or abscess without bleeding Plan Acute diverticulitis with suspected microperforation * CT of the abdomen and pelvis obtained in the ED demonstrated Acute diverticulitis of the sigmoid colon associated inflammation of the distal ileum, likely reactive, and extraluminal air consistent with prior per foration. * Cefepime and metronidazole * TF to [facility] pending * Clear liquid diet * continue D5 1/2 NS * Repeat CT on the showed severe sigmoid diverticulitis with surrounding inflammatory changes involving the small bowel loops as discussed. Finding suggestive of colovesicular fistula. * Given the developing complexity of the diverticulitis and possibly involving the bladder, general surgery * Patient to be transferred to [facility]. Chronic/other conditions: * Recent C. difficile colitis? Patient is on vancomycin plan is to complete therapy on 12/21/2023 * Hypertension- Blood pressure controlled, home medications continued with dose adjustment as needed * Abnormal gallbladder findings on CAT scan? CT did show Contracted gallbladder associated with gallstones and trace pericholecystic fluid may be reactive. General surgery on board * Nonalcoholic fatty liver disease? Will continue with monitoring patient to follow-up with primary care physician for subsequent care * anemia- Secondary to chronic disorder monitoring H&H and transfuse if patient becomes symptomatic or hemoglobin falls below 7 * Hypokalemia-Corrected per protocol * Tobacco dependence - Counseled on cessation, offered nicotine patch for tobacco cravings DVT prophylaxis- On enoxaparin Medications at Discharge Home Medications metoprolol succinate 100 mg tablet,extended release 24 hr 100 mg PO DAILY high blood press 05/17/21 ascorbic acid (vitamin C) 500 mg tablet (Vitamin C) 1 g PO TID supple 06/02/23 ergocalciferol (vitamin D2) 1,250 mcg (50,000 unit) capsule 50,000 unit PO TUTH supp 06/02/23 ferrous sulfate 325 mg (65 mg iron) tablet (FeroSul) 325 mg PO QHS supplement 06/02/23 hyoscyamine sulfate 0.125 mg tablet 0.125 mg PO 4X/DAY spasms 06/02/23 escitalopram oxalate 20 mg tablet 20 mg PO DAILY depress 12/20/23 hyoscyamine sulfate 0.125 mg sublingual tablet 0.125 mg sublingual Q4H PRN spasms 12/20/23 Medical Records Data Medical Nutrition Assessment Dietitian: Malnutrition Criteria Met Start: 12/20/23 09:28 Freq: Status: Active Protocol: Document 12/23/23 14:16 AG (Rec: 12/23/23 14:16 AG Desktop) Nutrition Malnutrition Evidence of Malnutrition Exists Yes Malnutrition (severe): Acute Illness/Injury Evidenced By Suboptimal Energy Intake ( Severe),Weight Loss (Severe) Clinical Problem Acute Disease or Injury Related Malnutrition Etiology severe, acute malnutrition related to inadequate energy intake d/t GI dysfunction Signs/Symptoms as evidenced by estimated PO intake meeting <75% of estimated energy needs > 1 week, unintentional 7.7kg/7% wt loss x 1 month Status Active Problem Recommendation Dietitian Recommendations/Changes Recommend advance diet as tolerated to transitional; will add 120mL ensure clear 4x /day w/ medpass for additional nutrition if consumed. Weight / BMI Weight Weight: 100.607 kg Body Mass Index (BMI) 29.2 ABG / Lab / Microbiology Data 12/24/23 07:17 12/24/23 07:17 Laboratory: Laboratory Results - last 24 hr 12/24/23 07:17: WBC 8.0, RBC 3.33 L, Hgb 11.4 L, Hct 33.4 L, MCV 100.3 H, MCH 34.2 H, MCHC 34.1 D, RDW Std Deviation 44.9 H, RDW Coeff of Kristen 12.2, Plt Count 269, MPV 10.9, Immature Gran % (Auto) 0.300, Neut % (Auto) 72.1 H, Lymph % (Auto) 18.3 L, [place] % (Auto) 5.9, Eos % (Auto) 3.0, Baso % (Auto) 0.4, Absolute Neuts (auto) 5.8, Absolute Lymphs (auto) 1.46, Nucleated RBC % 0, Sodium 140, Potassium 3.4 L, Chloride 108 H, Carbon Dioxide 26.0, Anion Gap 6, BUN 2 L, Creatinine 0.48 L, Estim Creat Clear Calc 280.67, Est GFR (MDRD) Af Amer 261, Est GFR (MDRD) Non-Af 215, BUN/Creatinine Ratio 4.1 L, Glucose 107 H, Calcium 9.1 Radiography Diagnostic Testing: Radiology Impression Abdomen/Pelvis CT 12/24/23 07:30 IMPRESSION: Severe sigmoid diverticulitis with surrounding inflammatory changes involving the small bowel loops as discussed. Finding suggestive of a colovesical fistula at this time. Hepatosplenomegaly. Diffuse fatty infiltration of the liver. Electronically Signed: Tip Grigsby MD at 9:35 EST , D/C Instructions Discharge Diet: - (Clears) Meaningful Use Info Meaningful Use Diagnoses (Choose all that apply): None applicable Discharge Plan Admission Admit Date/Time: 12/19/23 23:22 Primary Reason for Your Visit: Diverticulitis Attending Provider: Hang Goodwin Primary Care Provider: Evie Cox Consulting Providers: Klaus Elder; Imer Kidd; Richi Christopher Discharge Orders/Prescriptions Prescriptions: No Action ascorbic acid (vitamin C) [Vitamin C] 500 mg tablet 1 g PO TID Hold Instructions: per pts GI while pt is on atb Patient Comments: TAKE with IRON hyoscyamine sulfate 0.125 mg tablet 0.125 mg PO 4X/DAY Patient Comments: take 1 tablet four times a day if needed for SPASM(S) ferrous sulfate [FeroSul] 325 mg (65 mg iron) tablet 325 mg PO QHS Hold Instructions: per pts GI do not take until atb complete Patient Comments: TAKE with VITAMIN C ergocalciferol (vitamin D2) 1,250 mcg (50,000 unit) capsule 50,000 unit PO TUTH metoprolol succinate 100 mg Tablet Extended Release 24 Hr 100 mg PO DAILY escitalopram oxalate 20 mg tablet 20 mg PO DAILY Patient Comments: TAKE ONE TABLET BY MOUTH EVERY DAY hyoscyamine sulfate 0.125 mg tablet, sublingual 0.125 mg sublingual Q4H PRN (Reason: spasms) Patient Comments: TAKE ONE TABLET UNDER THE TONGUE EVERY 4 HOURS DIRECTED Referrals / Follow Up: Evie Cox DO [Primary Care Provider] - Disposition Disposition (needs filled in before D/C Order can be placed): Acute Care Hospit [facility] Charges/Coding Visit Charges Inpatient E&M: 62202 Disch Hosp
== END 2023-12-24 17:21 | disposition short-term general hospital (02) | DRG 391 ==
LOC: ED 13:45 → MS3 23:42
PROVIDERS: Nurse Practitioner; Admitting Provider Internal Medicine; Emergency Provider Emergency Medicine; PCP Family Medicine
DX: K57.20 Diverticulitis of large intestine with perforation and abscess without bleeding (principal); E43 Unspecified severe protein-calorie malnutrition; A04.72 Enterocolitis due to Clostridium difficile, not specified as recurrent; N32.1 Vesicointestinal fistula; D63.8 Anemia in other chronic diseases classified elsewhere; I10 Essential (primary) hypertension; E87.6 Hypokalemia; F17.210 Nicotine dependence, cigarettes, uncomplicated; R73.9 Hyperglycemia, unspecified; Z79.899 Other long term (current) drug therapy; Z68.29 Body mass index [BMI] 29.0-29.9, adult
CPT/HCPCS: 36415; 74177; 80048; 80053; 83605; 83690; 83735; 84100; 85025; 97802; 97803; 99284; J7030; J7050; Q9967; A4216; J2405; J7799

== ENCOUNTER 2024-07-01 19:43 | Inpatient (IN) | payer OTHER, SELFPAY ==
[2024-07-01 19:44] VITALS: BP 147/85; PULSE 101; RESP 18; TEMP 36.8; O2SAT 98
[2024-07-01 19:47] VITALS: BMI 35.6
--- NOTE | 2024-07-01 20:38 | EKG12_ITS ---
Test Reason : DYSRHYTHMIA Blood Pressure : / mmHG Vent. Rate : 087 BPM Atrial Rate : 087 BPM P-R Int : 202 ms QRS Dur : 076 ms QT Int : 376 ms P-R-T Axes : 031 064 025 degrees QTc Int : 452 ms Normal sinus rhythm Normal ECG When compared with ECG of 12-MAY-2023 23:41, [place] interval has decreased Non-specific change in ST segment in Inferior leads ST no longer depressed in Anterior leads T wave inversion no longer evident in Inferior leads T wave inversion no longer evident in Anterolateral leads QT has shortened Confirmed by Klaus Morrison ([id number]), editor house organ AZIZA SMITH ([id number]) on 07/05/2024 8:35:43 AM Referred By: Confirmed By:Klaus Morrison
[2024-07-01 20:51] VITALS: BP 124/70; PULSE 87; RESP 23; O2SAT 100
[2024-07-01] MEDS: Furosemide 20 MG/2 ML VIAL IV (20:52)
--- NOTE | 2024-07-01 21:00 | RAD_ITS ---
INDICATION: Anasarca and basilar rales EXAMINATION/TECHNIQUE: X-RAY - XR Chest 1 View COMPARISON: 05/03/2019 chest radiograph. Findings: Single frontal view of the chest. LUNG PARENCHYMA: No acute focal airspace disease or mass lesion. PLEURA: No pleural effusion. No pneumothorax. HEART/GREAT VESSELS: Cardiomediastinal silhouette is unremarkable. BONES: Osseous structures are unremarkable for age. RAD/Chest 1 View (Portable) IMPRESSION: Chest with no acute disease. Electronically Signed: Elroy Grimes MD at 21:16 EDT ,
[2024-07-01 21:05] LABS: Absolute Lymphocyte Count 1.69 X10^3/uL (0.83-4.51); Absolute Neutrophil Count 11.8 X10^3/uL (2.0-7.7); Basophil# 0.05 X10^3/uL; Basophil% 0.3 % (0-1); Eosinophil# 0.22 X10^3/uL; Eosinophils% 1.5 % (0-5); Hematocrit 27.2 % (40-54); Hemoglobin 8.7 g/dL (13.0-16.5); Lymphocyte # 1.69 X10^3/ul (0.83-4.51); Lymphocyte % 11.6 % (19-41); Mean Corpuscular Hgb 35.5 pg (27.0-32.0); Mean Platelet Vol. 10.4 fl (6.2-12.0); Monocyte# 0.75 X10^3/uL; Monocyte% 5.1 % (0-10); NRBC Flagged by Analyzer 0 % (0-5); Neutrophil # 11.83 X10^3/uL (2.7-7.7); Neutrophil % 80.9 % (47-70); Platelet Count 230 K/mm3 (150-450); RBC Distribution Width CV 13.2 % (11.6-14.6); RBC Distribution Width SD 53.7 fl (35.1-43.9); Red Blood Count 2.45 M/mm3 (4.6-6.2); White Blood Count 14.6 K/mm3 (4.4-11.0)
--- NOTE | 2024-07-01 21:07 | EDS_ITS ---
HPI History of Present Illness Chief Complaint: Edema Detail of Chief Complaint: . 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 Relieved by: Nothing Associated Symptoms Associated Symptoms: Ascites with paracentesis x 2 at [facility] Narrative Narrative: Patient is a 29-year-old male. Patient has history of diverticulosis/diverticulitis, possible Crohn's who underwent lower endoscopy. He subsequently had surgery has a colostomy. He had a 13-day stay at [facility]. He had paracentesis x 2 for ascites. He now presents because of swelling of his feet, right and left leg and thigh, scrotum, penis abdomen. Patient states he has weeping fluid from his legs. Patient states he has not had an alcoholic beverage in 23 days. He denies orthopnea or PND. He denies chest discomfort. He lives with his parents. He does have trouble getting up. He states once he is up he is able to walk but he is becomes short of breath easily Prior similar symptoms: Yes Recent Illness/Hospitalization: Yes [facility] Medical History Anemia History of colitis Abdominal pain H/O diverticulitis of colon Colonic diverticular abscess Diverticulitis of large intestine with abscess Hypertension Home Medications ?Medication ?Instructions ?Recorded ?Last Taken ?Type metoprolol succinate 100 mg 100 mg PO DAILY high blood press 05/17/21 11/16/23 History tablet,extended release 24 hr ascorbic acid (vitamin C) 500 mg 1 g PO TID supple 06/02/23 11/16/23 History tablet (Vitamin C) ergocalciferol (vitamin D2) 1,250 50,000 unit PO TUTH supp 06/02/23 11/12/23 History mcg (50,000 unit) capsule ferrous sulfate 325 mg (65 mg 325 mg PO QHS supplement 06/02/23 11/16/23 History iron) tablet (FeroSul) hyoscyamine sulfate 0.125 mg tablet 0.125 mg PO 4X/DAY spasms 06/02/23 11/16/23 History escitalopram oxalate 20 mg tablet 20 mg PO DAILY depress 12/20/23 Unknown History hyoscyamine sulfate 0.125 mg 0.125 mg sublingual Q4H PRN spasms 12/20/23 Unknown History sublingual tablet Allergy/AdvReac Type Severity Reaction Status Date / Time No Known Allergies Allergy Verified 07/01/24 19:44 Family History Brother Cancer leukemia Uncle Diabetes Cancer skin Mother Cancer skin Surgical History H/O colonoscopy H/O knee surgery Social History Smoking Status: Current every day smoker tobacco type: cigarettes alcohol intake: current alcohol intake frequency: a few times a month substance use type: marijuana ROS ROS ED Constitutional Constitutional ED: Denies chills, fever(s), subjective or sweats Eyes Eyes: Denies blurry vision or change in vision ENT ENT ED: Denies ear pain, rhinorrhea or sore throat Cardiovascular Cardiovascular: Denies chest pain, orthopnea, palpitations or paroxysmal nocturnal dyspnea Respiratory/Chest Respiratory/Chest: Reports dyspnea on exertion; Denies cough, dyspnea, orthopnea or paroxysmal nocturnal dyspnea Gastrointestinal Gastrointestinal: Reports abdominal pain and nausea; Denies constipation, diarrhea, melena or vomiting Genitourinary Genitourinary ED: Reports other Details: . Urine is darker than normal. ; Denies dysuria, hematuria or urinary frequency Musculoskeletal Musculoskeletal: Denies arthralgias, back pain or myalgias Integumentary Denies rash Neurologic Neurologic: Reports weakness; Denies paresthesias Endocrine Endocrinology: Denies cold intolerance or heat intolerance Hematologic/Lymphatic Hematologic/Lymphatic: Reports systems reviewed and no addt'l complaints, except as documented EXAM Physical Exam Const Vital Signs: 07/01/24 19:44 07/01/24 20:51 07/01/24 20:57 Temperature 98.3 F Temperature Source Temporal Pulse Rate 101 H 87 Respiratory Rate 18 23 H Respiratory Pattern Normal Blood Pressure 147/85 H 124/70 H Blood Pressure Mean 105 88 Pulse Ox 98 100 Oxygen Delivery Method Room Air Room Air 07/01/24 22:00 Temperature 98.4 F Temperature Source Pulse Rate 92 Respiratory Rate 16 Respiratory Pattern Blood Pressure 116/79 Blood Pressure Mean 91 Pulse Ox 100 Oxygen Delivery Method Positive well nourished and well developed Constitutional Narrative: Patient becomes tachypneic with minimal activity in bed. Patient has anasarca. He appears jaundiced. General Appearance ED: well developed and pallor; Negative for cyanotic or diaphoretic HEENT Reports moist mucous membranes HEENT Narrative: Head is atraumatic, cephalic. Ears normal. Nares patent. Posterior pharynx is normal. Eyes PERRL and EOMs intact bilaterally General Eye ED: Yes pale conjunctiva and scleral icterus Neck No no lymphadenopathy, No supple and No no JVD Chest Wall inspection of chest normal and palpation of chest normal Resp normal respiratory effort and clear to auscultation bilaterally Cardio regular rate, regular rhythm, S1 normal heart sound, S2 normal heart sound and no murmurs GI non-tender and no masses; Negative for non-distended or hepatosplenomegaly GI Narrative: Patient has a fluid wave and shifting dullness. Patient has colostomy noted left lower quadrant. Is a large midline incision. Auscultation: hypoactive bowel sounds Palpation: soft Narrative: Patient has swelling of his penis and scrotum. Unable to visualize the glans because of the amount of swelling. Back/Spine no CVA tenderness Extremity General Extremety ED: Yes edema General Extremity: edema Neuro oriented x3, CN's II-XII intact bilaterally and no sensory deficits noted Sensorium / Orientation: Negative for alert Psych mental status grossly normal Skin General Skin Exam: elasticity normal, jaundice and pallor MDM MDM MDM Narrative Medical decision making narrative: He is awake but not alert. Patient with anasarca most likely due to his alcoholic liver disease with cirrhosis. He appears pale. Will obtain CBC to assess H&H and platelet count. Comprehensive metabolic panel was obtained to assess liver enzymes, bilirubin and electrolytes. Chest x-ray was obtained because of diminished breath sounds which probably due to his inability to move around and becoming winded easily to rule out pleural effusion fluid overload. Patient did receive Lasix to diurese him. Will review records from [facility] if available on [facility] Lab Data Attestation: I reviewed the patient's lab results. Lab results narrative: Patient is anemic with H&H of 8.7 and 27.2 with an MCV of 111. This would be consistent with patient's history of alcohol use. White count is elevated 14.6. H&H was 9.2 and 27.5 June 23. White count at that time was 18.4. Patient's albumin was 2.0. BUN and creatinine were normal at 13 and 0.8. Electrolyte panel was unremarkable. Total bili was 4.7. AST and ALT were 87 and 97 respectively. Reviewing prior records also indicates patient has had a chronic elevated white count. Labs: Laboratory Results - last 24 hr 07/01/24 20:56 WBC 14.6 H RBC 2.45 L Hgb 8.7 L Hct 27.2 L MCV 111.0 H MCH 35.5 H MCHC 32.0 RDW Std Deviation 53.7 H RDW Coeff of Kristen 13.2 Plt Count 230 MPV 10.4 Immature Gran % (Auto) 0.600 Neut % (Auto) 80.9 H Lymph % (Auto) 11.6 L [place] % (Auto) 5.1 Eos % (Auto) 1.5 Baso % (Auto) 0.3 Absolute Neuts (auto) 11.8 H Absolute Lymphs (auto) 1.69 Nucleated RBC % 0 Sodium 136 Potassium 2.7 L* Chloride 100 Carbon Dioxide 25.0 Anion Gap 11 BUN 15 Creatinine 0.74 Est GFR (MDRD) Af Amer 157 Est GFR (MDRD) Non-Af 130 BUN/Creatinine Ratio 20.2 H Glucose 88 Calcium 8.4 L Total Bilirubin 3.40 H AST 99 H ALT 54 Alkaline Phosphatase 94 Total Protein 5.9 L Albumin 2.3 L Globulin 3.6 Albumin/Globulin Ratio 0.6 L Radiography Diagnostic Testing: Clinical Impression(s) from Imaging Studies Chest X-Ray 07/01/24 21:00 IMPRESSION: Chest with no acute disease. Electronically Signed: Elroy Grimes MD at 21:16 EDT , EKG Initial EKG: Attestation: I personally reviewed and interpreted this EKG as follows: Interpretation: Sinus Rhythm (EKG is normal. Rate is 87. RI interval is 202 ms cures duration 76 ms. QT duration 176 ms. [place] is normal) Management Discussion w/another healthcare provider: Hospitalist (History and physical discussed with hospitalist. Since patient had recent lab work and revealed hypomagnesiumia magnesium level was added and may be the cause of his his acute hypokalemia since he is not on a loop diuretic.) Treatment and Re-Evaluation :: Will treat patient's hypokalemia with oral potassium. Discharge Plan Dx/Rx/DC Orders Clinical Impression: Anasarca, Abdominal ascites, Acute hypokalemia, Jaundice, Alcoholic liver disease, Leukocytosis Disposition Disposition: Acute Care Hospital [facility]
[2024-07-01 21:37] LABS: ALB/GLOB Ratio 0.6 RATIO (0.9-2.4); AST(SGOT) 99 U/L (15-37); Alanine Aminotransfer ALT/SGPT 54 U/L (16-61); Albumin, Serum 2.3 g/dL (3.2-5.0); Alkaline Phosphatase 94 U/L (45-117); Anion Gap 11 (5-15); BUN 15 mg/dL (7-18); BUN/Creat Ratio 20.2 RATIO (10-20); Calcium,Total 8.4 mg/dL (8.5-10.1); Chloride 100 mmol/L (98-107); Creatinine, Serum 0.74 mg/dL (0.70-1.30); EST Glomerular Filtration Rate 130 mL/min (>60); Est Glom Filt Rate - Afr Amer 157 mL/min (>60); Globulin 3.6 g/dL (2.2-4.2); Glucose 88 mg/dL (74-106); Potassium 2.7 mmol/L (3.5-5.1); Protein, Total 5.9 g/dL (6.4-8.2); Sodium Level 136 mmol/L (136-145)
[2024-07-01 22:00] VITALS: BP 116/79; PULSE 92; RESP 16; TEMP 36.9; O2SAT 100
[2024-07-01] MEDS: Potassium Chloride Oral Soln 20 MEQ/15 ML UDC 40 MEQ PO ×2 (22:18→23:38)
--- NOTE | 2024-07-01 22:19 | HP.PCM.HOS_ITS ---
HPI - General General Date of Admission: 07/01/24 Date of Service: 07/01/24 Chief Complaint: Edema HPI Narrative GABY BANG, is a 29 M who presented to the emergency department at [facility] on 07/01/2024 with a chief complaint of edema. The patient had a recent hospitalization at which time he ultimately ended up transferred over to [facility] He indicated he was taken to [facility] after he was found passed out from severe alcohol intoxication and does not recollect a whole lot of his stay at [place] but did indicate he was ultimately transferred over to [place]. He was there from June 09 or through June 22 and then discharged home. He was told that he had liver disease from his alcohol use there and states he has not had any alcohol or tobacco since he left there. He indicated he had been quite a heavy drinker prior to that. He stated shortly thereafter he began experiencing some swelling but over the last 48 hours it has been extensively worse. He denied being giving any fluid restriction was not placed on diuretics at the time of discharge. He did indicate he was diuresed in [place]. In addition to his anasarca he is complaining of severe scrotal edema that has significantly worsened to the point where his scrotum is extremely tender. He denies any wounds and states that his scrotum was firm until he was given Lasix in the emergency department and has urinated 500 cc and he states now his scrotum is soft. He denies any significant chest pain, shortness of breath, bowel issues, nausea or vomiting and has had no fever or chills. Vital signs on presentation showed a temperature of 98.3, heart rate 101 with a repeat 87, respiratory rate 18, blood pressure 147/85 and oxygen saturation was 98% on room air. CBC on presentation showed a white count of 14.6, hemoglobin of 8.7 which is stable in comparison to recent lab work at [facility] (hemoglobin at discharge was 9.4). Anemia is macrocytic. Platelet count is normal. Coags are slightly abnormal with a PT of 15.5, INR 1.2 and PTT of 41.1. Chemistry panel showed marked hypokalemia with a potassium of 2.7 on presentation, normal renal function, bilirubin of 3.4 which is stable in comparison to recent admission over at [facility] and an AST of 99 with a normal ALT. BNP was 39.9. EKG is normal sinus rhythm without any ST-T wave changes concerning for acute ischemia. Chest x-ray is unremarkable. [facility] Medical History Vitamin D deficiency Tobacco abuse History of alcohol abuse Anemia History of colitis Abdominal pain H/O diverticulitis of colon Colonic diverticular abscess Diverticulitis of large intestine with abscess Hypertension Home Medications ?Medication ?Instructions ?Recorded ?Last Taken ?Type metoprolol succinate 100 mg 100 mg PO DAILY high blood press 05/17/21 11/16/23 History tablet,extended release 24 hr ascorbic acid (vitamin C) 500 mg 1 g PO DAILY supple 06/02/23 11/16/23 History tablet (Vitamin C) ergocalciferol (vitamin D2) 1,250 50,000 unit PO TUTH supp 06/02/23 11/12/23 History mcg (50,000 unit) capsule ferrous sulfate 325 mg (65 mg 325 mg PO TID supplement 06/02/23 11/16/23 History iron) tablet (FeroSul) escitalopram oxalate 20 mg tablet 20 mg PO DAILY depress 12/20/23 Unknown History hyoscyamine sulfate 0.125 mg 0.125 mg sublingual Q4H PRN spasms 12/20/23 Unknown History sublingual tablet gabapentin 300 mg capsule 300 mg PO Q8H PRN PRN neuropathic 07/01/24 Unknown History pain rifaximin 550 mg tablet (Xifaxan) 550 mg PO BID 07/01/24 Unknown History sodium di- and 1 tab PO BID 07/01/24 Unknown History monophosphate-potassium phos monobasic 250 mg tablet (Phospha Neutral) spironolactone 25 mg tablet 25 mg PO DAILY 07/01/24 Unknown History Allergy/AdvReac Type Severity Reaction Status Date / Time No Known Allergies Allergy Verified 07/01/24 19:44 Family History Brother Cancer leukemia Uncle Diabetes Cancer skin Mother Cancer skin Surgical History History of colostomy H/O colonoscopy H/O knee surgery Social History (Updated 07/01/24 @ 23:[address] Maria Guadalupe Pop, DO) household members: family housing: house Smoking Status: Former smoker how long ago did patient quit smokin weeks ago alcohol intake: former details: No alcohol use in 23 days substance use type: marijuana ROS Constitutional Constitutional: Reports change in weight; Denies anorexia, chills, fatigue, fever(s), malaise, night sweats, weakness or other Eyes Eyes: Denies blurry vision, change in eye color, change in vision, discharge from eye(s), double vision, erythema, eye pain, loss of vision or other ENT HEENT: Denies abnormal hearing, dysphagia, ear pain, epistaxis, headache(s), hearing loss, nasal congestion, nasal discharge, post nasal drip, sinus pressure, sore throat or other Cardiovascular Cardiovascular: Reports edema; Denies chest pain, claudication, dyspnea on exertion, lightheadedness, orthopnea, palpitations, paroxysmal nocturnal dyspnea, rapid heart rate, syncope or other Respiratory/Chest Respiratory/Chest: Denies cough, dyspnea, excessive phlegm production, hemoptysis, productive cough, shortness of breath at rest, shortness of breath with exertion, wheezing or other Gastrointestinal Gastrointestinal: Reports other Details: Abdominal distention/anasarca ; Denies abdominal pain, coffee ground emesis, constipation, diarrhea, dyspepsia, hematemesis, hematochezia, loose stools, melena, nausea or vomiting Genitourinary Genitourinary: Reports other Details: Scrotal edema ; Denies burning urination, difficulty urinating, dysuria, hematuria, nocturia, urinary frequency, urinary hesitancy, urinary incontinence or urinary urgency Musculoskeletal Musculoskeletal: Denies arthralgias, back pain, joint pain, joint stiffness, joint swelling, myalgias, neck pain or other Neurologic Neurologic: Reports other Details: Memory issues ; Denies abnormal gait, abnormal speech, confusion, disequilibrium, dizziness, focal weakness, headache(s), numbness, paresthesias, seizure-like activity, seizures, syncope, tingling or tremor(s) Psychiatric Psychiatric: Denies anxiety, depression, homicidal ideation, suicidal ideation or other Endocrine Endocrinology: Denies change in body appearance, cold intolerance, excessive sweating, heat intolerance, polydipsia, polyuria or other Hematologic/Lymphatic Hematologic/Lymphatic: Denies anemia, easy bleeding, easy bruising, lymphadenopathy or other Allergic/Immunologic Allergic/Immunologic: Denies rhinitis, hives, eczemia, asthma or other Vital Signs Vital Signs Vital Signs: 07/01/24 19:44 07/01/24 20:51 07/01/24 20:57 Temperature 98.3 F Temperature Source Temporal Pulse Rate 101 H 87 Respiratory Rate 18 23 H Respiratory Pattern Normal Blood Pressure 147/85 H 124/70 H Blood Pressure Mean 105 88 Pulse Ox 98 100 Oxygen Delivery Method Room Air Room Air 07/01/24 22:00 Temperature 98.4 F Temperature Source Pulse Rate 92 Respiratory Rate 16 Respiratory Pattern Blood Pressure 116/79 Blood Pressure Mean 91 Pulse Ox 100 Oxygen Delivery Method Physical Exam Const alert, oriented x3, no apparent distress and well nourished; Negative for average body habitus or healthy appearing Constitutional Narrative: Lower middle-aged, white male, sitting up in bed, appears chronically ill, does not appear toxic, currently appears comfortable General Appearance: cooperative HEENT normocephalic, head/scalp atraumatic, hearing grossly normal bilaterally and moist oral mucous membranes HEENT Narrative: Mallampati 2, no thrush, dentition is fair for age Eyes PERRL, EOMs intact bilaterally and conjunctivae normal Eyes Narrative: Mild scleral icterus Neck no lymphadenopathy, supple and no JVD Neck Narrative: Trachea midline, no thyroid in enlargement Resp normal respiratory effort, no retractions, no use of accessory muscles and clear to auscultation bilaterally Auscultation: Negative for rales, rhonchi or wheezes Cardio regular rate, regular rhythm, S1 normal heart sound, S2 normal heart sound, no murmurs, no rub, no gallops and no clicks GI GI Narrative: Abdomen is distended with positive fluid wave, mild tenderness to palpation Extremity Extremity Narrative: Severe anasarca with 3-4+ pitting edema from feet all the way up into mid back area, marked scrotal edema, no cyanosis or clubbing Skin Skin Narrative: Marked scrotal edema and anasarca, scrotum is red without any signs of infection or cellulitis currently, no wounds are noted Neuro oriented x3, CN's II-XII intact bilaterally, moves all extremities and no focal motor deficits Speech: speech normal Psych affect normal Psych Narrative: Pleasant, appreciative, interacts appropriately Results Lab / Micro Data 07/01/24 20:56 07/01/24 20:56 Labs: Laboratory Results - last 24 hr 07/01/24 20:56: WBC 14.6 H, RBC 2.45 L, Hgb 8.7 L, Hct 27.2 L, MCV 111.0 H, MCH 35.5 H, MCHC 32.0, RDW Std Deviation 53.7 H, RDW Coeff of Kristen 13.2, Plt Count 230, MPV 10.4, Immature Gran % (Auto) 0.600, Neut % (Auto) 80.9 H, Lymph % (Auto) 11.6 L, [place] % (Auto) 5.1, Eos % (Auto) 1.5, Baso % (Auto) 0.3, Absolute Neuts (auto) 11.8 H, Absolute Lymphs (auto) 1.69, Nucleated RBC % 0, Sodium 136, Potassium 2.7 L*, Chloride 100, Carbon Dioxide 25.0, Anion Gap 11, BUN 15, Creatinine 0.74, Est GFR (MDRD) Af Amer 157, Est GFR (MDRD) Non-Af 130, B UN/Creatinine Ratio 20.2 H, Glucose 88, Calcium 8.4 L, Total Bilirubin 3.40 H, A ST 99 H, ALT 54, Alkaline Phosphatase 94, Total Protein 5.9 L, Albumin 2.3 L, Globulin 3.6, Albumin/Globulin Ratio 0.6 L Imaging Radiology Impression Chest X-Ray 07/01/24 21:00 IMPRESSION: Chest with no acute disease. Electronically Signed: Elroy Grimes MD at 21:16 EDT , Assessment & Plan Assessment/Plan (1) Leukocytosis: (2) Alcoholic liver disease: (3) Jaundice: (4) Acute hypokalemia: (5) Abdominal ascites: (6) Anasarca: PLAN: Plan Anasarca/scrotal edema -Highly suspect this is related to cirrhosis/alcoholic liver disease -Will check echocardiogram -Check bilateral lower extremity Dopplers -Check TSH -Lasix drip -Will check every 8 hour BMPs while on Lasix drip -Fluid restricted diet -Salt restricted diet -Check daily weights -Will place Freeman as scrotum is quite tender and sore and it is difficult for him to urinate Abdominal ascites -Paracentesis ordered--> patient is aware that this will not be done until Thursday but I do not think to be ready for discharge until then anyway due to the massive amount of anasarca and diuresis he needs -Fluid studies, cultures, and cytology ordered Alcoholic liver disease/cirrhosis/jaundice -Patient does not seem to be on any chronic therapy for liver disease at this time -Will hold off on the addition of Aldactone for now -Consult GI--> text sent to and acknowledged by Dr. Reyna -Recommend ongoing alcohol cessation -Records from [facility] about recent admission have been requested Hyperbilirubinemia -Likely related to his liver disease -Monitor Acute hypokalemia -Magnesium levels within normal limits -Potassium is 2.7 -Will be given 80 mill equivalents -Will need to monitor and may need scheduled potassium while on diuretics -Every 8-hour BMPs are scheduled to be done while on Lasix drip -Will repeat magnesium level in a.m. History of colitis status post colectomy -Patient with good ostomy output -Consult ostomy nurse Anemia -Hemoglobin appears to be stable -9.4 at the time of discharge from [facility] and currently 8.7 and I suspect some of this is dilutional and should improve with diuresis -repeat CBC in a.m. Hypertension -Will hold metoprolol for now due to need for Lasix drip -As needed metoprolol ordered for systolic blood pressure greater than 160 Depression -Has previously been on escitalopram -Awaiting confirmation and if confirmed we will reinitiate Vitamin D deficiency -Restart ergocalciferol at discharge Obesity -Recommend weight loss -Weight currently is likely skewed due to marked volume overload History of alcohol abuse -Has been sober for 23 days -Recommend ongoing cessation -Multivitamin Tobacco abuse -Nicotine patch available -Patient is trying to quit and has not had a cigarette in 3 weeks but is having significant cravings -Encourage ongoing cessation DVT prophylaxis -40 mg Lovenox subcu daily CODE STATUS -Full code Charges/Coding Visit Charges Inpatient E&M: 19210 Init Hosp L3
[2024-07-01 22:34] LABS: International Normalized Ratio 1.2; Prothrombin Time (Protime)PT. 15.5 SECONDS (11.7-14.9)
[2024-07-01 22:35] LABS: Partial Thromboplast Time 41.1 Seconds (24.1-36.2)
[2024-07-01 22:37] LABS: Magnesium 1.8 mg/dL (1.6-2.6)
[2024-07-01 22:43] LABS: BNP,B-Type NATRIURETIC PEPTIDE 39.9 pg/mL (0-100)
--- NOTE | 2024-07-01 23:16 | ECHOD_ITS ---
Reason For Study: EDEMA Procedure This was a 2D Doppler, Color Flow transthoracic echocardiogram. The study was technically difficult. Unable to lie in left lateral decubitus position due to edema of legs and testicles. Exam performed portable in patient room. Left Ventricle Normal size and thickness. The left ventricular ejection fraction is 65 %. Unable to assess diastolic function based on available data. Right Ventricle Normal right ventricle. Atria The left and right atria are normal. Mitral Valve Normal mitral valve. Tricuspid Valve Normal tricuspid valve. Aortic Valve The aortic valve is not well visualized in the short axis view. There is no aortic stenosis. No aortic valve insufficiency. Pulmonic Valve The pulmonic valve is not well visualized. Great Vessels The aortic root is not well visualized. Pericardium/Pleural No pericardial effusion. MMode/2D Measurements & Calculations LVIDd: 3.9 cm IVSd: 0.98 cm Ao root diam: 3.3 cm LVIDs: 2.3 cm LVPWd: 0.93 cm LA dimension: 3.8 cm RVDd: 3.1 cm FS: 40.3 % LAV(MOD-bp): 53.8 ml LVAd ap4: 33.7 cm2 SV(MOD-sp4): 65.4 ml LAV(MOD-bp) Indexed: 22.5 ml/m2 LVLd ap4: 9.2 cm LAV(MOD-sp2): 50.4 ml EDV(MOD-sp4): 102.5 ml LAV(MOD-sp4): 55.0 ml EDV(sp4-el): 104.3 ml LVAs ap4: 18.5 cm2 LVLs ap4: 8.1 cm ESV(MOD-sp4): 37.1 ml ESV(sp4-el): 36.1 ml EF(MOD-sp4): 63.8 % EF(sp4-el): 65.4 % SV(sp4-el): 68.2 ml LA A4 area: 18.4 cm2 Time Measurements MV dec time: 0.12 sec Doppler Measurements & Calculations MV E max gary: 45.6 cm/sec MV V2 max: 81.6 cm/sec MV P1/2t max gary: 70.4 cm/sec MV A max gary: 66.7 cm/sec MV max P.7 mmHg MV P1/2t: 44.0 msec MV E/A: 0.68 MV V2 mean: 49.0 cm/sec MV mean P.1 mmHg MV dec slope: 468.3 cm/sec2 MV V2 VTI: 15.2 cm MVA(P1/2t): 5.0 cm2 Ao V2 max: 115.0 cm/sec LV V1 max: 87.3 cm/sec Ao max P.3 mmHg LV V1 max P.0 mmHg Ao V2 mean: 76.2 cm/sec LV V1 mean P.7 mmHg Ao mean P.6 mmHg LV V1 mean: 61.7 cm/sec Ao V2 VTI: 17.2 cm LV V1 VTI: 14.1 cm AV (velocity ratio): 0.82 ECHO/Echo Complete Interpretation Summary The study was technically difficult. The left ventricular ejection fraction is 65 %. Ordering Physician: Maria Guadalupe Lord Referring Physician: Evie Cox Performed By: Rocío Louise, SHELLEY, RVT
--- NOTE | 2024-07-01 23:16 | VDLE_ITS ---
Reason For Study: BLE Swelling RIGHT LEFT GSV is normal. GSV is normal. CFV is compressible, spontaneous, phasic, CFV is compressible, spontaneous, phasic, competent and demonstrates normal competent, and demonstrates normal augmentation. augmentation. FV is compressible, spontaneous, phasic, FV is compressible, spontaneous, phasic, competent and demonstrates normal competent and demonstrates normal augmentation. augmentation. POP V is compressible, spontaneous, phasic, POP V is compressible, spontaneous, phasic, competent and demonstrates normal competent and demonstrates normal augmentation. augmentation. T/P Trunk is compressible. T/P Trunk is compressible. PTV is compressible. PTV is compressible. RT PerV is compressible. LT PerV is compressible. Procedure This is a venous duplex using B-mode, color flow and spectral Doppler. Exam performed portable in patient room. The exam was diagnostic. A preliminary report was called and/or faxed to PCU law office receptionist Nicole. VL/Venous Duplex US - Regino Extrem Interpretation Summary Deep veins of the lower extremities are bilaterally patent and compressible seg mentally. There is no evidence of deep vein thrombosis on either side. Valvular competence appears in tact within the proximal deep venous systems bilaterally. The great saphenous veins appear bila terally patent and compressible segmentally. Ordering Physician: Maria Guadalupe Lord Referring Physician: Evie Cox Performed By: Shane Florez, RVT
[2024-07-01 23:17] VITALS: BMI 35.4
[2024-07-01 23:26] VITALS: BP 123/81; PULSE 85; RESP 18; TEMP 36.4; O2SAT 100
[2024-07-01] MEDS: HYDROmorphone 0.5 MG/0.5 ML SYRINGE IV (23:40)
[2024-07-01] MEDS: 0.9% Saline Lock 10 ML Syringe IV (23:42)
[2024-07-01] MEDS: Furosemide 500 MG in Empty Viaflex 50 mL 1 EACH CONT INF (23:51)
[2024-07-02 00:16] LABS: Anion Gap 10 (5-15); BUN 14 mg/dL (7-18); BUN/Creat Ratio 20.3 RATIO (10-20); Calcium,Total 8.3 mg/dL (8.5-10.1); Chloride 101 mmol/L (98-107); Creatinine, Serum 0.69 mg/dL (0.70-1.30); EST Glomerular Filtration Rate 142 mL/min (>60); Est Glom Filt Rate - Afr Amer 172 mL/min (>60); Estimated Creatinine Clearance 212.08 ml/min; Glucose 97 mg/dL (74-106); Potassium 2.8 mmol/L (3.5-5.1); Sodium Level 137 mmol/L (136-145)
[2024-07-02 05:20] VITALS: BP 118/71; PULSE 84; RESP 18; TEMP 36.1; O2SAT 100
[2024-07-02] MEDS: Acetaminophen 325 MG Tablet 650 MG PO (05:40)
[2024-07-02 05:46] VITALS: BMI 34.1
[2024-07-02 06:59] LABS: Absolute Lymphocyte Count 1.72 X10^3/uL (0.83-4.51); Absolute Neutrophil Count 9.8 X10^3/uL (2.0-7.7); Basophil# 0.06 X10^3/uL; Basophil% 0.5 % (0-1); Eosinophil# 0.43 X10^3/uL; Eosinophils% 3.4 % (0-5); Hemoglobin 9.4 g/dL (13.0-16.5); Lymphocyte # 1.72 X10^3/ul (0.83-4.51); Lymphocyte % 13.6 % (19-41); Mean Corp Hgb Conc 32.4 g/dL (32-36); Mean Corpuscular Hgb 35.6 pg (27.0-32.0); Mean Corpuscular Volume 109.8 fL (80-94); Mean Platelet Vol. 10.2 fl (6.2-12.0); Monocyte# 0.59 X10^3/uL; Monocyte% 4.7 % (0-10); NRBC Flagged by Analyzer 0 % (0-5); Neutrophil # 9.82 X10^3/uL (2.7-7.7); Neutrophil % 77.3 % (47-70); Platelet Count 242 K/mm3 (150-450); RBC Distribution Width CV 12.9 % (11.6-14.6); RBC Distribution Width SD 51.6 fl (35.1-43.9); Red Blood Count 2.64 M/mm3 (4.6-6.2); White Blood Count 12.7 K/mm3 (4.4-11.0)
[2024-07-02] MEDS: Na Biphos/Potassium Phosphate PACKET 1 PACKET PO ×2 (08:19→21:37)
[2024-07-02] MEDS: rifAXIMin 550 MG Tablet PO ×2 (08:19→21:37)
[2024-07-02] MEDS: Ascorbic Acid 500 MG Tablet 1000 MG PO (08:19)
[2024-07-02] MEDS: Pantoprazole Sodium 40 MG Tablet PO (08:19)
[2024-07-02] MEDS: Potassium Chloride Oral Soln 20 MEQ/15 ML UDC 80 MEQ PO ×2 (08:20→21:31)
[2024-07-02] MEDS: Escitalopram Oxalate 20 MG Tablet PO (08:20)
[2024-07-02] MEDS: Spironolactone 25 MG Tablet PO (08:20)
[2024-07-02] MEDS: Ferrous Sulfate 325 MG Tablet PO ×3 (08:20→17:17)
[2024-07-02] MEDS: Enoxaparin 40 MG/0.4 ML Syringe SC (08:22)
[2024-07-02 09:04] LABS: ALB/GLOB Ratio 0.6 RATIO (0.9-2.4); AST(SGOT) 85 U/L (15-37); Alanine Aminotransfer ALT/SGPT 48 U/L (16-61); Albumin, Serum 2.3 g/dL (3.2-5.0); Alkaline Phosphatase 94 U/L (45-117); Anion Gap 10 (5-15); BUN 12 mg/dL (7-18); BUN/Creat Ratio 18.6 RATIO (10-20); Calcium,Total 8.5 mg/dL (8.5-10.1); Chloride 100 mmol/L (98-107); Creatinine, Serum 0.64 mg/dL (0.70-1.30); EST Glomerular Filtration Rate 153 mL/min (>60); Est Glom Filt Rate - Afr Amer 186 mL/min (>60); Estimated Creatinine Clearance 224.01 ml/min; Globulin 3.8 g/dL (2.2-4.2); Glucose 94 mg/dL (74-106); Magnesium 1.5 mg/dL (1.6-2.6); Phosphorus 3.4 mg/dL (2.5-4.9); Potassium 2.7 mmol/L (3.5-5.1); Protein, Total 6.1 g/dL (6.4-8.2); Sodium Level 137 mmol/L (136-145)
--- NOTE | 2024-07-02 09:50 | CASEMGMT ---
ANDRIA CRYSTAL Face to Face with patient for initial transition planning/care coordination assessment. ANDRIA CRYSTAL introduced self and role at [facility]. Patient lying in bed, alert and oriented. Patient willing to participate in assessment and is able to answer all questions appropriately. Care providers, pharmacy, and demographics verified. Strata: 2 PCP: Brooke Specialists: Dennis, colorectal surgeon, [facility] Preferred Pharmacy: [facility] Insurance: [facility] Prescription Benefit: yes Living Will/HPOA: none LNOK: mother, father, brother Living Arrangements: Patient lives with parents in a single story home with 3 steps and railing to enter the home. Patient states he is independent at home. Transportation: self, parents DME/HHC: Patient states he has shower chair, raised toilet, cane, walker at home. Patient states he was drinking 3.5 liters of [place] weekly, takes edibles daily, and was smoking 1ppd of cigarettes. Discussed addiction medicine with patient and agreeable to speak addiction navigator. Patient discussed family history and became emotional several times about brother that at the age of 16, RN MARAH offered emotional support and active listening. Patient voiced appreciation. RN CM updated SW regarding request to speak to addiction navigator and SW follow-up for emotional support. Patient wishes to discharge home, but is willing to go to SNF if needed for therapy. Patient states he has no further needs or concerns at this time. CM to follow for discharge planning needs that may arise. Disposition Plan: TBD, anticipate HHC vs SNF pending course of treatment and progress with therapy. Lupe TRISTAN, RN, CM
[2024-07-02 10:31] VITALS: O2SAT 96
--- NOTE | 2024-07-02 11:03 | CASEMGMT ---
Social Work As per admitting RN, pt does not have LW/POA, declined further information. YANCY Hand
--- NOTE | 2024-07-02 12:21 | CASEMGMT ---
Social Work- JUDAH and ELLIOT Vazquez navigator, saw pt and provided supports and printed mental health information, as well as [facility] contact information for medicaid. JUDAH completed referral to [facility] as well. Pt discussed substance use with ELLIOT noelator and resources were offered. DEA Travis
[2024-07-02 14:07] VITALS: BP 122/78; PULSE 100; RESP 16; TEMP 36.7; O2SAT 100
--- NOTE | 2024-07-02 14:13 | PN_ITS ---
Subjective Subjective Patient seen and examined. HE said he felt much better than when he came in, and that the scrotal swelling had improved slightly. He had no other complaints and review of systems is otherwise negative. He has remained hemodynamically stable. Objective Data Objective Data Vital Signs: Vital Signs Temp Pulse Resp BP Pulse Ox O2 Del Method 98.1 F 100 16 122/78 H 100 Room Air 07/02/24 14:07 07/02/24 14:07 07/02/24 14:07 07/02/24 14:07 07/02/24 14:07 07/02/24 14:07 Oxygen Delivery Method Room Air Weight: 257 lb 11.526 oz Body Mass Index (BMI) 34.1 Intake & Output: Intake and Output for Last 24 Hours 06/30/24 07/01/24 07/02/24 23:59 23:59 23:59 Intake Total 436.9 / 436.9 Output Total 500 / 1225 6060 / 6060 Balance -500 / -1225 -5623.1 / -5623.1 Lab / Micro Data 07/02/24 06:40 07/02/24 06:40 Labs: Laboratory Results - last 24 hr 07/01/24 20:50: PT 15.5 H, INR 1.2, APTT 41.1 H, Magnesium 1.8, B-Natriuretic Peptide 39.9 07/01/24 20:56: WBC 14.6 H, RBC 2.45 L, Hgb 8.7 L, Hct 27.2 L, MCV 111.0 H, MCH 35.5 H, MCHC 32.0, RDW Std Deviation 53.7 H, RDW Coeff of Kristen 13.2, Plt Count 230, MPV 10.4, Immature Gran % (Auto) 0.600, Neut % (Auto) 80.9 H, Lymph % (Auto) 11.6 L, [place] % (Auto) 5.1, Eos % (Auto) 1.5, Baso % (Auto) 0.3, Absolute Neuts (auto) 11.8 H, Absolute Lymphs (auto) 1.69, Nucleated RBC % 0, Sodium 136, Potassium 2.7 L*, Chloride 100, Carbon Dioxide 25.0, Anion Gap 11, BUN 15, Creatinine 0.74, Est GFR (MDRD) Af Amer 157, Est GFR (MDRD) Non-Af 130, B UN/Creatinine Ratio 20.2 H, Glucose 88, Calcium 8.4 L, Total Bilirubin 3.40 H, A ST 99 H, ALT 54, Alkaline Phosphatase 94, Total Protein 5.9 L, Albumin 2.3 L, Globulin 3.6, Albumin/Globulin Ratio 0.6 L 07/01/24 23:40: Sodium 137, Potassium 2.8 L, Chloride 101, Carbon Dioxide 26.0, Anion Gap 10, BUN 14, Creatinine 0.69 L, Estim Creat Clear Calc 212.08, Est GFR (MDRD) Af Amer 172, Est GFR (MDRD) Non-Af 142, BUN/Creatinine Ratio 20.3 H, Glucose 97, Calcium 8.3 L 07/02/24 06:40: WBC 12.7 H, RBC 2.64 L, Hgb 9.4 L, Hct 29.0 L, MCV 109.8 H, MCH 35.6 H, MCHC 32.4, RDW Std Deviation 51.6 H, RDW Coeff of Kristen 12.9, Plt Count 242, MPV 10.2, Immature Gran % (Auto) 0.500, Neut % (Auto) 77.3 H, Lymph % (Auto) 13.6 L, [place] % (Auto) 4.7, Eos % (Auto) 3.4, Baso % (Auto) 0.5, Absolute Neuts (auto) 9.8 H, Absolute Lymphs (auto) 1.72, Nucleated RBC % 0, Sodium 137, Potassium 2.7 L*, Chloride 100, Carbon Dioxide 27.0, Anion Gap 10, BUN 12, C reatinine 0.64 L, Estim Creat Clear Calc 224.01, Est GFR (MDRD) Af Amer 186, Est GFR (MDRD) Non-Af 153, BUN/Creatinine Ratio 18.6, Glucose 94, Calcium 8.5, Phosphorus 3.4, Magnesium 1.5 L, Total Bilirubin 2.90 H, AST 85 H, ALT 48, Alkaline Phosphatase 94, Total Protein 6.1 L, Albumin 2.3 L, Globulin 3.8, A lbumin/Globulin Ratio 0.6 L, TSH 3.120 Radiography Diagnostic Testing: Radiology Impression Chest X-Ray 07/01/24 21:00 IMPRESSION: Chest with no acute disease. Electronically Signed: Elroy Grimes MD at 21:16 EDT , Physical Exam Const alert, oriented x3, no apparent distress and well nourished General Appearance: cooperative HEENT normocephalic, head/scalp atraumatic, moist oral mucous membranes and oropharynx normal Eyes PERRL and EOMs intact bilaterally Neck no lymphadenopathy and supple Lymph Lymphatic: no lymphadenopathy noted and no lymphedema noted Resp normal respiratory effort, normal air movement and clear to auscultation bilaterally Cardio regular rate, regular rhythm, S1 normal heart sound and S2 normal heart sound GI normal to inspection, nondistended, normoactive bowel sounds, soft to palpation and non-tender Extremity normal capillary refill Extremity Narrative: 3+ bilateral pitting edema. Has generalised edema. 3+ scrotal swelling Skin General Skin Exam: no breakdown Neuro CN's II-XII intact bilaterally, no focal motor deficits and no sensory deficits noted Motor Exam: strength 5/5 throughout Psych thought process normal, cooperative and affect normal Appearance: appropriate Assessment & Plan Assessment/Plan (1) Abdominal ascites: (2) Anasarca: (3) Alcoholic liver disease: PLAN: Plan #Generalised anasarca likely due to alcoholic liver disease * Patient has a history of chronic alcohol abuse and says he is to drink about 2 bottles of 1.75 L of alcohol over a week. * Also has ascites. Has massive scrotal edema. * Currently on Lasix drip. 2D echo pending. TSH also pending. * Freeman catheter inserted due to massive scrotal edema. * On fluid restricted diet as well as salt restricted diet. * #Abdominal ascites due to alcoholic liver disease * Paracentesis ordered. This will be done on Thursday. Fluid studies ordered. #Likely liver cirrhosis due to alcoholic liver disease * Patient has a chronic history of alcohol use disorder. He is currently not on any therapy for this ascites. Gastroenterology consulted. * Currently on Lasix. Will add on spironolactone as well as lactulose. * Gastroenterology consulted. Await recs. Liver enzymes mildly elevated. Will trend. * * #Hypokalemia: Potassium was 2.7 on admission. Potassium still remains 2.7 today. Will replace aggressively and trend. #History of colitis: S/p colectomy. Patient states he thinks he has but is not sure. Colostomy in situ. #Hypertension: Metoprolol on hold due to patient being on Lasix drip. On IV Lopressor as needed #History of alcohol use disorder: States has been sober for about 23 days. Low risk for withdrawal now. Will monitor closely. Counseled to quit. #DVT prophylaxis: Lovenox. Charges/Coding Visit Charges Inpatient E&M: 84249 Subs Hosp L3
[2024-07-02] MEDS: Lactulose 20 GM/30 ML UDC PO ×2 (14:20→21:33)
[2024-07-02 15:44] LABS: Magnesium 1.5 mg/dL (1.6-2.6)
[2024-07-02] MEDS: Potassium Chloride Oral Tablet 20 MEQ 40 MEQ PO (17:13)
[2024-07-02] MEDS: Potassium Chloride 10mEq/100mL 10 MEQ/100 ML IV.SOLN. 100 MEQ IV BOLUS ×4 (17:14→21:01)
--- NOTE | 2024-07-02 17:21 | CON.PCM.GI_ITS ---
HPI Consult Data Date of Consult: 07/02/24 HPI Narrative Reason for Consultation: Alcoholic liver disease HPI Narrative: GABY BANG, is a s29 M who presented to the emergency department at [facility] on 07/01/2024 with a chief complaint of edema. I got the norm in the beginning of the year for worsening diarrhea. At the time we were working him up for inflammatory bowel disease. He underwent colonoscopy. He has not followed up in office after the colonoscopy. Findings: The perianal and digital rectal examinations were normal. A few small-mouthed diverticula were found in the sigmoid colon. Localized severe inflammation characterized by erosions and granularity was found in the sigmoid colon. Biopsies were taken with a cold forceps for histology. Verification of patient identification for the specimen was done. Estimated blood loss was minimal. The terminal ileum appeared normal. Biopsies were taken with a cold forceps for histology. Verification of patient identification for the specimen was done. Estimated blood loss was minimal. Impression: - Diverticulosis in the sigmoid colon. - Localized severe inflammation was found in the sigmoid colon. - The examined portion of the ileum was normal. It was biopsied. MICROSCOPIC DIAGNOSIS A. Terminal ileum, biopsy: A fragment of small intestinal mucosa, no pathologic diagnosis. B. Colon, random biopsy: Fragments of colonic mucosa, no pathologic diagnosis. C. Sigmoid colon, biopsy: Fragments of colonic mucosa, no pathologic diagnosis IBD Expanded Panel Isaiah 60 High units 0-50 Negative: <45 Equivocal: 45-50 Positive: >50 ACCA 431 High units 0-90 Negative: <80 Equivocal: 80-90 Positive: >90 ALCA 91 High units 0-60 Negative:<55 Equivocal: 55-60 Positive: >60 AMCA 265 High units 0-100 Negative: <90 Equivocal: 90-100 Positive: >100 This test was developed and its performance characteristics determined by [employer]. It has not been cleared or approved by the Food and Drug Administration. The FDA has determined that such clearance or approval is not necessary. Atypical pANCA Negative Negative Comments: Abnormal Suggestive of Crohn's Disease with the very high risk of aggressive disease behavior (development of structures of fistulae) The patient had a recent hospitalization at which time he ultimately ended up transferred over to [facility]. He indicated he was taken to [facility] after he was found passed out from severe alcohol intoxication and does not recollect a whole lot of his stay at [facility] but did indicate he was ultimately transferred over to [place]. He was there from June 09 or through June 22 and then discharged home. He was told that he had liver disease from his alcohol use there and states he has not had any alcohol or tobacco since he left there. He indicated he had been quite a heavy drinker prior to that. He stated shortly thereafter he began experiencing some swelling but over the last 48 hours it has been extensively worse. He denied being giving any fluid restriction was not placed on diuretics at the time of discharge. He is still having a lot of diarrhea. Since being in the hospital he has undergone aggressive diuresis. Vital signs on presentation showed a temperature of 98.3, heart rate 101 with a repeat 87, respiratory rate 18, blood pressure 147/85 and oxygen saturation was 98% on room air. CBC on presentation showed a white count of 14.6, hemoglobin of 8.7 which is stable in comparison to recent lab work at [facility] (hemoglobin at discharge was 9.4). Anemia is macrocytic. Platelet count is normal. Coags are slightly abnormal with a PT of 15.5, INR 1.2 and PTT of 41.1. Chemistry panel showed marked hypokalemia with a potassium of 2.7 on presentation, normal renal function, bilirubin of 3.4 which is stable in comparison to recent admission over at [facility] and an AST of 99 with a normal ALT. BNP was 39.9. EKG is normal sinus rhythm without any ST-T wave changes concerning for acute ischemia. Chest x-ray is unremarkable. [facility] Medical History Vitamin D deficiency Tobacco abuse History of alcohol abuse Anemia History of colitis Abdominal pain H/O diverticulitis of colon Colonic diverticular abscess Diverticulitis of large intestine with abscess Hypertension Home Medications ?Medication ?Instructions ?Recorded ?Last Taken ?Type metoprolol succinate 100 mg 100 mg PO DAILY high blood press 05/17/21 11/16/23 History tablet,extended release 24 hr ascorbic acid (vitamin C) 500 mg 1 g PO DAILY supple 06/02/23 11/16/23 History tablet (Vitamin C) ergocalciferol (vitamin D2) 1,250 50,000 unit PO TUTH supp 06/02/23 11/12/23 History mcg (50,000 unit) capsule ferrous sulfate 325 mg (65 mg 325 mg PO TID supplement 06/02/23 11/16/23 History iron) tablet (FeroSul) escitalopram oxalate 20 mg tablet 20 mg PO DAILY depress 12/20/23 Unknown History hyoscyamine sulfate 0.125 mg 0.125 mg sublingual Q4H PRN spasms 12/20/23 Unknown History sublingual tablet gabapentin 300 mg capsule 300 mg PO Q8H PRN PRN neuropathic 07/01/24 Unknown History pain rifaximin 550 mg tablet (Xifaxan) 550 mg PO BID 07/01/24 Unknown History sodium di- and 1 tab PO BID 07/01/24 Unknown History monophosphate-potassium phos monobasic 250 mg tablet (Phospha Neutral) spironolactone 25 mg tablet 25 mg PO DAILY 07/01/24 Unknown History pantoprazole 40 mg tablet,delayed 40 mg PO DAILY GERD 07/02/24 Unknown History release Allergy/AdvReac Type Severity Reaction Status Date / Time No Known Allergies Allergy Verified 07/01/24 19:44 Family History Brother Cancer leukemia Uncle Diabetes Cancer skin Mother Cancer skin Surgical History History of colostomy H/O colonoscopy H/O knee surgery Social History (Updated 07/01/24 @ 23:[address] Maria Guadalupe Lord DO) household members: family housing: house Smoking Status: Former smoker how long ago did patient quit smokin weeks ago alcohol intake: former details: No alcohol use in 23 days substance use type: marijuana ROS Constitutional Constitutional: Reports change in weight; Denies anorexia, chills, fatigue, fever(s), malaise, night sweats, weakness or other Eyes Eyes: Denies blurry vision, change in eye color, change in vision, discharge from eye(s), double vision, erythema, eye pain, loss of vision or other ENT HEENT: Denies abnormal hearing, dysphagia, ear pain, epistaxis, headache(s), hearing loss, nasal congestion, nasal discharge, post nasal drip, sinus pressure, sore throat or other Cardiovascular Cardiovascular: Reports edema; Denies chest pain, claudication, dyspnea on exertion, lightheadedness, orthopnea, palpitations, paroxysmal nocturnal dyspnea, rapid heart rate, syncope or other Respiratory/Chest Respiratory/Chest: Denies cough, dyspnea, excessive phlegm production, hemoptysis, productive cough, shortness of breath at rest, shortness of breath with exertion, wheezing or other Gastrointestinal Gastrointestinal: Reports other Details: Abdominal distention/anasarca ; Denies abdominal pain, coffee ground emesis, constipation, diarrhea, dyspepsia, hematemesis, hematochezia, loose stools, melena, nausea or vomiting Genitourinary Genitourinary: Reports other Details: Scrotal edema ; Denies burning urination, difficulty urinating, dysuria, hematuria, nocturia, urinary frequency, urinary hesitancy, urinary incontinence or urinary urgency Musculoskeletal Musculoskeletal: Denies arthralgias, back pain, joint pain, joint stiffness, joint swelling, myalgias, neck pain or other Neurologic Neurologic: Reports other Details: Memory issues ; Denies abnormal gait, abnormal speech, confusion, disequilibrium, dizziness, focal weakness, headache(s), numbness, paresthesias, seizure-like activity, seizures, syncope, tingling or tremor(s) Psychiatric Psychiatric: Denies anxiety, depression, homicidal ideation, suicidal ideation or other Endocrine Endocrinology: Denies change in body appearance, cold intolerance, excessive sweating, heat intolerance, polydipsia, polyuria or other Hematologic/Lymphatic Hematologic/Lymphatic: Denies anemia, easy bleeding, easy bruising, lymphadenopathy or other Allergic/Immunologic Allergic/Immunologic: Denies rhinitis, hives, eczemia, asthma or other Physical Exam Const alert, oriented x3, no apparent distress and well nourished General Appearance: cooperative HEENT normocephalic, head/scalp atraumatic, moist oral mucous membranes and oropharynx normal Eyes PERRL and EOMs intact bilaterally Neck no lymphadenopathy and supple Lymph Lymphatic: no lymphadenopathy noted and no lymphedema noted Resp normal respiratory effort, normal air movement and clear to auscultation bilaterally Cardio regular rate, regular rhythm, S1 normal heart sound and S2 normal heart sound GI normal to inspection, nondistended, normoactive bowel sounds, soft to palpation and non-tender Extremity normal capillary refill Extremity Narrative: 3+ bilateral pitting edema. Has generalised edema. 3+ scrotal swelling Skin General Skin Exam: no breakdown Neuro CN's II-XII intact bilaterally, no focal motor deficits and no sensory deficits noted Motor Exam: strength 5/5 throughout Psych thought process normal, cooperative and affect normal Appearance: appropriate Lab / Micro Data 07/02/24 06:40 07/02/24 06:40 Labs: Laboratory Results - last 24 hr 07/01/24 20:50: PT 15.5 H, INR 1.2, APTT 41.1 H, Magnesium 1.8, B-Natriuretic Peptide 39.9 07/01/24 20:56: WBC 14.6 H, RBC 2.45 L, Hgb 8.7 L, Hct 27.2 L, MCV 111.0 H, MCH 35.5 H, MCHC 32.0, RDW Std Deviation 53.7 H, RDW Coeff of Kristen 13.2, Plt Count 230, MPV 10.4, Immature Gran % (Auto) 0.600, Neut % (Auto) 80.9 H, Lymph % (Auto) 11.6 L, Williamson % (Auto) 5.1, Eos % (Auto) 1.5, Baso % (Auto) 0.3, Absolute Neuts (auto) 11.8 H, Absolute Lymphs (auto) 1.69, Nucleated RBC % 0, Sodium 136, Potassium 2.7 L*, Chloride 100, Carbon Dioxide 25.0, Anion Gap 11, BUN 15, Creatinine 0.74, Est GFR (MDRD) Af Amer 157, Est GFR (MDRD) Non-Af 130, B UN/Creatinine Ratio 20.2 H, Glucose 88, Calcium 8.4 L, Total Bilirubin 3.40 H, A ST 99 H, ALT 54, Alkaline Phosphatase 94, Total Protein 5.9 L, Albumin 2.3 L, Globulin 3.6, Albumin/Globulin Ratio 0.6 L 07/01/24 23:40: Sodium 137, Potassium 2.8 L, Chloride 101, Carbon Dioxide 26.0, Anion Gap 10, BUN 14, Creatinine 0.69 L, Estim Creat Clear Calc 212.08, Est GFR (MDRD) Af Amer 172, Est GFR (MDRD) Non-Af 142, BUN/Creatinine Ratio 20.3 H, Glucose 97, Calcium 8.3 L 07/02/24 06:40: WBC 12.7 H, RBC 2.64 L, Hgb 9.4 L, Hct 29.0 L, MCV 109.8 H, MCH 35.6 H, MCHC 32.4, RDW Std Deviation 51.6 H, RDW Coeff of Kristen 12.9, Plt Count 242, MPV 10.2, Immature Gran % (Auto) 0.500, Neut % (Auto) 77.3 H, Lymph % (Auto) 13.6 L, Williamson % (Auto) 4.7, Eos % (Auto) 3.4, Baso % (Auto) 0.5, Absolute Neuts (auto) 9.8 H, Absolute Lymphs (auto) 1.72, Nucleated RBC % 0, Sodium 137, Potassium 2.7 L*, Chloride 100, Carbon Dioxide 27.0, Anion Gap 10, BUN 12, C reatinine 0.64 L, Estim Creat Clear Calc 224.01, Est GFR (MDRD) Af Amer 186, Est GFR (MDRD) Non-Af 153, BUN/Creatinine Ratio 18.6, Glucose 94, Calcium 8.5, Phosphorus 3.4, Magnesium 1.5 L, Total Bilirubin 2.90 H, AST 85 H, ALT 48, Alkaline Phosphatase 94, Total Protein 6.1 L, Albumin 2.3 L, Globulin 3.8, A lbumin/Globulin Ratio 0.6 L, TSH 3.120 07/02/24 15:00: Magnesium 1.5 L Imaging Radiology Impression Chest X-Ray 07/01/24 21:00 IMPRESSION: Chest with no acute disease. Electronically Signed: Elroy Grimes MD at 21:16 EDT , Assessment & Plan Assessment/Plan (1) Leukocytosis: (2) Alcoholic liver disease: (3) Jaundice: (4) Acute hypokalemia: (5) Abdominal ascites: (6) Anasarca: PLAN: Plan 29-year-old gentleman with past medical history of alcoholism and history of alcoholic hepatitis currently with increased bilirubin, AST and ALT likely secondary to alcoholic hepatitis. His MELD is low at 25. He also has persistent diarrhea and is admitted for anasarca/scrotal edema -Differential diagnosis does include a protein-losing enteropathy secondary to inflammatory bowel disease. His biopsies of the colon were normal and of the terminal ileum but he still has 21 feet of small bowel that could be involved causing him to have a significant hypokalemia along with loss of alpha-1 antitrypsin secondary to malabsorption in the small bowel. That coupled with alcoholic hepatitis can lead to significant protein losing enteropathy via the GI tract resulting in diffuse edema. -The workup for inflammatory bowel disease should be finished with a capsule endoscopy and an MR enterography. I agree with echocardiogram , salt restriction and continue diuretics. I do not see any signs of cirrhosis at this time. He does have hyperbilirubinemia but that is secondary to alcoholic hepatitis. e Charges/Coding Visit Charges Inpatient E&M: 80014 Init Hosp L3
[2024-07-02] MEDS: Magnesium Sulfate 4gm/100mL 4 GM/100 ML IV.SOLN. IV (19:46)
[2024-07-02] MEDS: Furosemide 500 MG in Empty Viaflex 50 mL 1 EACH CONT INF (21:10)
[2024-07-02 21:26] VITALS: BP 135/84; PULSE 96; RESP 18; TEMP 36.8; O2SAT 98
[2024-07-02] MEDS: 0.9% Saline Lock 10 ML Syringe IV (21:30)
[2024-07-03] MEDS: Acetaminophen 325 MG Tablet 650 MG PO ×2 (00:02→10:52)
[2024-07-03 03:02] VITALS: BP 129/78; PULSE 94; RESP 18; TEMP 36.7; O2SAT 100
[2024-07-03 04:51] VITALS: BMI 33.7
[2024-07-03 05:14] LABS: Absolute Lymphocyte Count 2.21 X10^3/uL (0.83-4.51); Absolute Neutrophil Count 10.8 X10^3/uL (2.0-7.7); Basophil# 0.05 X10^3/uL; Basophil% 0.4 % (0-1); Eosinophil# 0.39 X10^3/uL; Eosinophils% 2.7 % (0-5); Hematocrit 31.1 % (40-54); Hemoglobin 9.9 g/dL (13.0-16.5); Lymphocyte # 2.21 X10^3/ul (0.83-4.51); Lymphocyte % 15.5 % (19-41); Mean Corp Hgb Conc 31.8 g/dL (32-36); Mean Corpuscular Hgb 35.2 pg (27.0-32.0); Mean Corpuscular Volume 110.7 fL (80-94); Mean Platelet Vol. 10.5 fl (6.2-12.0); Monocyte# 0.76 X10^3/uL; Monocyte% 5.3 % (0-10); NRBC Flagged by Analyzer 0 % (0-5); Neutrophil # 10.77 X10^3/uL (2.7-7.7); Neutrophil % 75.7 % (47-70); Platelet Count 271 K/mm3 (150-450); RBC Distribution Width CV 13.1 % (11.6-14.6); RBC Distribution Width SD 52.4 fl (35.1-43.9); Red Blood Count 2.81 M/mm3 (4.6-6.2); White Blood Count 14.2 K/mm3 (4.4-11.0)
[2024-07-03] MEDS: Lactulose 20 GM/30 ML UDC PO ×3 (05:30→20:30)
[2024-07-03 05:31] LABS: ALB/GLOB Ratio 0.6 RATIO (0.9-2.4); AST(SGOT) 98 U/L (15-37); Alanine Aminotransfer ALT/SGPT 56 U/L (16-61); Albumin, Serum 2.4 g/dL (3.2-5.0); Alkaline Phosphatase 104 U/L (45-117); Anion Gap 7 (5-15); BUN 9 mg/dL (7-18); BUN/Creat Ratio 14.2 RATIO (10-20); Calcium,Total 8.1 mg/dL (8.5-10.1); Chloride 95 mmol/L (98-107); Creatinine, Serum 0.63 mg/dL (0.70-1.30); EST Glomerular Filtration Rate 157 mL/min (>60); Est Glom Filt Rate - Afr Amer 190 mL/min (>60); Globulin 4.3 g/dL (2.2-4.2); Glucose 99 mg/dL (74-106); Potassium 2.8 mmol/L (3.5-5.1); Protein, Total 6.7 g/dL (6.4-8.2); Sodium Level 135 mmol/L (136-145)
[2024-07-03 07:14] LABS: Magnesium 2.2 mg/dL (1.6-2.6)
[2024-07-03 08:16] VITALS: O2SAT 95
[2024-07-03 09:00] VITALS: BP 121/72; PULSE 90; RESP 16; TEMP 36.6; O2SAT 99
[2024-07-03] MEDS: Ascorbic Acid 500 MG Tablet 1000 MG PO (09:44)
[2024-07-03] MEDS: Ferrous Sulfate 325 MG Tablet PO ×3 (09:45→17:37)
[2024-07-03] MEDS: rifAXIMin 550 MG Tablet PO ×2 (09:45→20:30)
[2024-07-03] MEDS: Enoxaparin 40 MG/0.4 ML Syringe SC (09:45)
[2024-07-03] MEDS: Spironolactone 25 MG Tablet PO (09:45)
[2024-07-03] MEDS: Escitalopram Oxalate 20 MG Tablet PO (09:45)
[2024-07-03] MEDS: Potassium Chloride Oral Soln 20 MEQ/15 ML UDC 80 MEQ PO (09:45)
[2024-07-03] MEDS: Na Biphos/Potassium Phosphate PACKET 1 PACKET PO ×2 (09:47→20:30)
[2024-07-03] MEDS: Pantoprazole Sodium 40 MG Tablet PO (09:48)
[2024-07-03] MEDS: Potassium Chloride 10mEq/100mL 10 MEQ/100 ML IV.SOLN. 100 MEQ IV BOLUS ×4 (09:48→15:20)
[2024-07-03] MEDS: 0.9% Saline Lock 10 ML Syringe IV (10:52)
--- NOTE | 2024-07-03 11:13 | PN_ITS ---
Subjective Subjective Patient seen and examined. He had no active complaints. He felt his scrotal swelling had gone down a little bit. He had an uneventful night and review of systems otherwise negative. He remains on Lasix drip. Objective Data Objective Data Vital Signs: Vital Signs Temp Pulse Resp BP Pulse Ox O2 Del Method 98.1 F 94 18 129/78 H 95 Room Air 07/03/24 03:02 07/03/24 03:02 07/03/24 03:02 07/03/24 03:02 07/03/24 08:16 07/03/24 08:16 Oxygen Delivery Method Room Air Weight: 255 lb 11.779 oz Body Mass Index (BMI) 33.7 Intake & Output: Intake and Output for Last 24 Hours 07/01/24 07/02/24 07/03/24 23:59 23:59 23:59 Intake Total 1402.63 / 1402.63 175 / 175 Output Total 500 / 1225 8460 / 8460 1450 / 1450 Balance -500 / -1225 -7057.37 / -7057.37 -1275 / -1275 Lab / Micro Data 07/03/24 04:47 07/03/24 04:47 Labs: Laboratory Results - last 24 hr 07/02/24 15:00: Magnesium 1.5 L 07/03/24 04:47: WBC 14.2 H, RBC 2.81 L, Hgb 9.9 L, Hct 31.1 L, MCV 110.7 H, MCH 35.2 H, MCHC 31.8 L, RDW Std Deviation 52.4 H, RDW Coeff of Kristen 13.1, Plt Count 271, MPV 10.5, Immature Gran % (Auto) 0.400, Neut % (Auto) 75.7 H, Lymph % (Auto) 15.5 L, [place] % (Auto) 5.3, Eos % (Auto) 2.7, Baso % (Auto) 0.4, Absolute Neuts (auto) 10.8 H, Absolute Lymphs (auto) 2.21, Nucleated RBC % 0, Sodium 135 L, Potassium 2.8 L, Chloride 95 L, Carbon Dioxide 33.0 H, Anion Gap 7, BUN 9, C reatinine 0.63 L, Estim Creat Clear Calc 226.70, Est GFR (MDRD) Af Amer 190, Est GFR (MDRD) Non-Af 157, BUN/Creatinine Ratio 14.2, Glucose 99, Calcium 8.1 L, T otal Bilirubin 2.50 H, AST 98 H, ALT 56, Alkaline Phosphatase 104, Total Protein 6.7, Albumin 2.4 L, Globulin 4.3 H, Albumin/Globulin Ratio 0.6 L 07/03/24 06:56: Magnesium 2.2 Physical Exam Const alert, oriented x3 and no apparent distress General Appearance: cooperative HEENT normocephalic, head/scalp atraumatic, hearing grossly normal bilaterally, moist oral mucous membranes and oropharynx normal Eyes PERRL, EOMs intact bilaterally and conjunctivae normal Neck no lymphadenopathy, supple and no JVD Lymph Lymphatic: no lymphadenopathy noted and no lymphedema noted Resp normal respiratory effort, normal air movement, no retractions, no use of accessory muscles and clear to auscultation bilaterally Cardio regular rate, regular rhythm, S1 normal heart sound and S2 normal heart sound GI soft to palpation and non-tender GI Narrative: Abdomen is distended with positive fluid wave, mild tenderness to palpation Extremity normal capillary refill Extremity Narrative: 3+ bilateral pitting edema. Has generalised edema. 3+ scrotal swelling Skin Skin Narrative: Marked scrotal edema and anasarca General Skin Exam: no breakdown Neuro oriented x3, CN's II-XII intact bilaterally, moves all extremities, no focal motor deficits and no sensory deficits noted Speech: speech normal Motor Exam: strength 5/5 throughout Psych thought process normal, cooperative and affect normal Appearance: appropriate Assessment & Plan Assessment/Plan (1) Abdominal ascites: (2) Anasarca: (3) Alcoholic liver disease: PLAN: Plan #Generalised anasarca likely due to alcoholic liver disease * Patient has a history of chronic alcohol abuse and says he is to drink about 2 bottles of 1.75 L of alcohol over a week. * Also has ascites. Has massive scrotal edema. Scrotal edema has improved slightly * Currently on Lasix drip. 2D echo pending. TSH also pending. * Freeman catheter inserted due to massive scrotal edema. * On fluid restricted diet as well as salt restricted diet. * #Abdominal ascites due to alcoholic liver disease * Paracentesis ordered. This will be done on Thursday. Fluid studies ordered. #Likely liver cirrhosis due to alcoholic liver disease * Patient has a chronic history of alcohol use disorder. He is currently not on any therapy for this ascites. Gastroenterology consulted. Await GI recs * Currently on Lasix and spironolactone * Liver enzymes mildly elevated. Will trend. * * #Hypokalemia: potassium is 2.8 #History of colitis: S/p colectomy. Patient states he thinks he has but is not sure. Colostomy in situ. #Hypertension: Metoprolol on hold due to patient being on Lasix drip. On IV Lopressor as needed #History of alcohol use disorder: States has been sober for about 23 days prior to admission. Low risk for withdrawal now. Will monitor closely. Counseled to quit. #DVT prophylaxis: Lovenox. Charges/Coding Visit Charges Inpatient E&M: 73286 Subs Hosp L2
[2024-07-03] MEDS: Furosemide 500 MG in Empty Viaflex 50 mL 1 EACH CONT INF (13:27)
[2024-07-03 15:00] VITALS: BP 118/76; PULSE 96; RESP 16; TEMP 36.6; O2SAT 99
[2024-07-03 21:00] VITALS: BP 122/75; PULSE 92; RESP 16; TEMP 36.6; O2SAT 98
[2024-07-03 22:00] VITALS: PULSE 90
[2024-07-03 22:18] VITALS: BMI 29.9
--- NOTE | 2024-07-03 23:23 | NURSING ---
pt very angry when he was told we had to change his leaking primo fit, he started screaming call security u arent toucing me. Linens changed, old leaking primo fit NOT removed, diaper applied over it. scrotal skin very dry and cracking and painful. will text the dr to see what can be applied to his scrotum for comfort
[2024-07-04] VITALS (10 sets, daily range): BP systolic 99–128; BP diastolic 57–77; PULSE 78–104; RESP 16–18; TEMP 36.6–36.7; O2SAT 96–100
--- NOTE | 2024-07-04 | FLU_PTH ---
PATIENT: GABY BANG LOC: [facility] U#:[id number] AGE/SX: 29/M ROOM: [facility] RE07/01/[address]: Dr. Gaby Goodwin DO : 1995 BED: 1 DIS: 07/06/2024 SPEC #: [id number] RECD: 07/04/24 14:55 STATUS: [place] HU #: [id number] SLIME: 07/04/24 00:[address]: Vianney Phillip DEPT: CYTOLOGY RECD BY: Luis Amaya ENTERED: 07/05/24 09:47 SP TYPE: Fluid OTHR DR: DO Dr. Evie Baptiste DO Tissues: PARACENTESIS FLUID Procedures: Special Stain Group II Surgery Specimen Level IV Cytospin Fluid HEADER OPERATION: Paracentesis fluid PRE-OP DIAGNOSIS: Ascites TISSUE SUBMITTED: Paracentesis fluid for cytology DIAGNOSIS CYTOLOGY Paracentesis fluid for cytology (cytospin and cellblock): Negative for malignant cells. AM/mr 07/06/2024 CYTOLOGY STUDY Slides are reviewed. CYTOLOGY GROSS Received is 90 ml of sabrina cloudy fluid labeled with the patient's name and and designated per the requisition as Paracentesis fluid. Submitted for cytology preparation including cell block. Mr 07/05/2024 TC:5 CPT: 66601,65311
--- NOTE | 2024-07-04 01:31 | NURSING ---
This RN was notified that patient was wanting to leave, and was requesting security be called. This RN went to patient room and allowed him to express his frustration. Pt intermittently crying during conversation. Pt parents were on the phone as well. Pt communicates that he was wanting to rig his Primofit, which was leaking, instead of having it removed. States his primary RN didn't want him to do it that way. This RN verified that pt A/O x3. Assessed Primofit, which appeared to be leaking. Colostomy dressing noted to have drainage as well. This RN asked if pt needed his colostomy appliance changed. He declined and said he's able to do it himself. Pt adamant that he doesn't want Primofit removed at this time. This RN explained to patient that placing more tape around Primofit on excoriated skin could make excoriation worse. Additionally, urine from the leaking Primofit could cause more skin breakdown as well. Per pt request, Primofit reinforced with tape. Also per pt request, a disposable chux pad was placed under patient rather than a brief. Notified patient that if this didn't work, we would need to explore additional options for voiding. (An indwelling catheter was previously attempted this admission, unsuccessfully. Pt also reports difficulty with using a urinal d/t scrotal swelling. Pt expresses thanks to this RN.
[2024-07-04] MEDS: Lactulose 20 GM/30 ML UDC PO ×3 (05:46→22:23)
[2024-07-04 06:21] LABS: Absolute Lymphocyte Count 1.93 X10^3/uL (0.83-4.51); Absolute Neutrophil Count 11.2 X10^3/uL (2.0-7.7); Basophil# 0.05 X10^3/uL; Basophil% 0.4 % (0-1); Eosinophil# 0.18 X10^3/uL; Eosinophils% 1.3 % (0-5); Hematocrit 28.9 % (40-54); Hemoglobin 9.3 g/dL (13.0-16.5); Lymphocyte # 1.93 X10^3/ul (0.83-4.51); Lymphocyte % 13.6 % (19-41); Mean Corp Hgb Conc 32.2 g/dL (32-36); Mean Corpuscular Hgb 35.2 pg (27.0-32.0); Mean Corpuscular Volume 109.5 fL (80-94); Mean Platelet Vol. 10.7 fl (6.2-12.0); Monocyte# 0.77 X10^3/uL; Monocyte% 5.4 % (0-10); NRBC Flagged by Analyzer 0 % (0-5); Neutrophil # 11.24 X10^3/uL (2.7-7.7); Platelet Count 252 K/mm3 (150-450); RBC Distribution Width CV 12.7 % (11.6-14.6); RBC Distribution Width SD 50.7 fl (35.1-43.9); Red Blood Count 2.64 M/mm3 (4.6-6.2); White Blood Count 14.2 K/mm3 (4.4-11.0)
[2024-07-04 06:53] LABS: ALB/GLOB Ratio 0.5 RATIO (0.9-2.4); AST(SGOT) 94 U/L (15-37); Alanine Aminotransfer ALT/SGPT 48 U/L (16-61); Albumin, Serum 2.3 g/dL (3.2-5.0); Alkaline Phosphatase 111 U/L (45-117); Anion Gap 10 (5-15); BUN 7 mg/dL (7-18); BUN/Creat Ratio 9.4 RATIO (10-20); Calcium,Total 7.9 mg/dL (8.5-10.1); Chloride 93 mmol/L (98-107); Creatinine, Serum 0.74 mg/dL (0.70-1.30); EST Glomerular Filtration Rate 130 mL/min (>60); Est Glom Filt Rate - Afr Amer 157 mL/min (>60); Estimated Creatinine Clearance 182.69 ml/min; Globulin 4.2 g/dL (2.2-4.2); Glucose 117 mg/dL (74-106); Potassium 2.6 mmol/L (3.5-5.1); Protein, Total 6.5 g/dL (6.4-8.2); Sodium Level 134 mmol/L (136-145)
[2024-07-04 08:21] LABS: Magnesium 1.8 mg/dL (1.6-2.6)
[2024-07-04] MEDS: Potassium Chloride Oral Tablet 20 MEQ 60 MEQ PO (08:30)
[2024-07-04] MEDS: Vitamins A and D Ointment 1 APPLIC TOPICAL ×2 (08:31→22:23)
[2024-07-04] MEDS: Pantoprazole Sodium 40 MG Tablet PO (08:32)
[2024-07-04] MEDS: rifAXIMin 550 MG Tablet PO ×2 (08:32→22:23)
[2024-07-04] MEDS: Spironolactone 25 MG Tablet PO (08:32)
[2024-07-04] MEDS: Ascorbic Acid 500 MG Tablet 1000 MG PO (08:32)
[2024-07-04] MEDS: Escitalopram Oxalate 20 MG Tablet PO (08:33)
--- NOTE | 2024-07-04 09:48 | PCM.PROGNOTE ---
Subjective Subjective Patient seen and examined. He thinks the scrotal swelling has gone down. He states his colostomy bag was leaking overnight and this got him upset. His generalized anasarca has improved with the Lasix drip. Review of symptoms otherwise negative. He is for paracentesis today. potassium remains low at 2.7 today. Objective Data Objective Data Vital Signs: Vital Signs Temp Pulse Resp BP Pulse Ox O2 Del Method 98.1 F 99 16 128/77 H 100 Room Air 07/04/24 08:00 07/04/24 08:00 07/04/24 08:00 07/04/24 08:00 07/04/24 08:00 07/04/24 08:00 Oxygen Delivery Method Room Air Weight: 227 lb 15.327 oz Body Mass Index (BMI) 30.0 Intake & Output: Intake and Output for Last 24 Hours 07/02/24 07/03/24 07/04/24 23:59 23:59 23:59 Intake Total 1402.63 / 1402.63 607.57 / 607.57 156.67 / 156.67 Output Total 8460 / 8460 4650 / 4650 650 / 650 Balance -7057.37 / -7057.37 -4042.43 / -4042.43 -493.33 / -493.33 Lab / Micro Data 07/04/24 05:09 07/04/24 05:09 Labs: Laboratory Results - last 24 hr 07/04/24 05:09: WBC 14.2 H, RBC 2.64 L, Hgb 9.3 L, Hct 28.9 L, MCV 109.5 H, MCH 35.2 H, MCHC 32.2, RDW Std Deviation 50.7 H, RDW Coeff of Kristen 12.7, Plt Count 252, MPV 10.7, Immature Gran % (Auto) 0.300, Neut % (Auto) 79.0 H, Lymph % (Auto) 13.6 L, Walker % (Auto) 5.4, Eos % (Auto) 1.3, Baso % (Auto) 0.4, Absolute Neuts (auto) 11.2 H, Absolute Lymphs (auto) 1.93, Nucleated RBC % 0, Sodium 134 L, Potassium 2.6 L*, Chloride 93 L, Carbon Dioxide 31.0, Anion Gap 10, BUN 7, Creatinine 0.74, Estim Creat Clear Calc 182.69, Est GFR (MDRD) Af Amer 157, Est GFR (MDRD) Non-Af 130, BUN/Creatinine Ratio 9.4 L, Glucose 117 H, Calcium 7.9 L, Magnesium 1.8, Total Bilirubin 2.60 H, AST 94 H, ALT 48, Alkaline Phosphatase 111, Total Protein 6.5, Albumin 2.3 L, Globulin 4.2, Albumin/Globulin Ratio 0.5 L Radiography Diagnostic Testing: Radiology Impression Echocardiogram 07/01/24 23:16 Interpretation Summary The study was technically difficult. The left ventricular ejection fraction is 65 %. Ordering Physician: Maria Guadalupe Lord Referring Physician: Evie Cox Performed By: Rocío Louise, SHELLEY, RVT Physical Exam Const alert, oriented x3, no apparent distress and well nourished General Appearance: cooperative HEENT normocephalic, head/scalp atraumatic, hearing grossly normal bilaterally, moist oral mucous membranes and oropharynx normal Eyes PERRL, EOMs intact bilaterally and conjunctivae normal Eyes Narrative: Mild scleral icterus Neck no lymphadenopathy, supple and no JVD Lymph Lymphatic: no lymphadenopathy noted and no lymphedema noted Resp normal respiratory effort, normal air movement, no retractions, no use of accessory muscles and clear to auscultation bilaterally Auscultation: Negative for rales, rhonchi or wheezes Cardio regular rate, regular rhythm, S1 normal heart sound, S2 normal heart sound, no murmurs, no rub, no gallops and no clicks GI normal to inspection, nondistended, normoactive bowel sounds, soft to palpation and non-tender GI Narrative: Abdomen is distended with positive fluid wave, mild tenderness to palpation Extremity normal capillary refill Extremity Narrative: 3+ bilateral pitting edema. Has generalised edema. 3+ scrotal swelling. Scrotal swelling has started to improve. General Extremity: no tenderness to palpation of joints or extremities Skin Skin Narrative: Marked scrotal edema and anasarca, which is improving. General Skin Exam: no breakdown Neuro oriented x3, CN's II-XII intact bilaterally, moves all extremities, no focal motor deficits and no sensory deficits noted Speech: speech normal Motor Exam: strength 5/5 throughout Psych thought process normal, cooperative and affect normal Appearance: appropriate Assessment & Plan Assessment/Plan (1) Abdominal ascites: (2) Anasarca: (3) Alcoholic liver disease: PLAN: Plan #Generalised anasarca likely due to alcoholic liver disease Patient has a history of chronic alcohol abuse and says he is to drink about 2 bottles of 1.75 L of alcohol over a week. Also has ascites. Has massive scrotal edema. Scrotal edema has improved slightly Currently on Lasix drip. 2D echo showed EF of 65% with diastolic function not assessed, abnormal valves. TSH also pending. Freeman catheter inserted due to massive scrotal edema. On fluid restricted diet as well as salt restricted diet. will dc lasix drip today and switch to PO lasix will order scrotal and testicular ultrasound due to massive scrotal edema though symptoms are likely due to edema for the liver disease. #Abdominal ascites due to alcoholic liver disease Paracentesis ordered. This will be done today. Fluid studies ordered. #Likely liver cirrhosis due to alcoholic liver disease Patient has a chronic history of alcohol use disorder. He is currently not on any therapy for this ascites. Gastroenterology consulted. Await GI recs Currently on Lasix and spironolactone Liver enzymes mildly elevated. Will trend. Total bilirubin is 2.6. It has been around 2.5-2.9. AST and ALT are WNL. #Hypokalemia: potassium is 2.6. Will replace aggressively and trend. Check magnesium levels also. #History of colitis: S/p colectomy. Patient states he thinks he has but is not sure. Colostomy in situ. #Hypertension: Metoprolol on hold due to patient being on Lasix drip. WIll resume metoprolol as lasix drip has been stopped. On IV Lopressor as needed #History of alcohol use disorder: States has been sober for about 23 days prior to admission. Low risk for withdrawal now. Will monitor closely. Counseled to quit. #DVT prophylaxis: Lovenox. Charges/Coding Visit Charges Inpatient E&M: 35326 Subs Hosp L2
--- NOTE | 2024-07-04 10:28 | US_ITS ---
STUDY: SCROTUM ULTRASOUND REASON FOR EXAM: Male, 29 years old. scrotal edema TECHNIQUE: Ultrasound evaluation of the scrotum was performed with color Doppler and static hull-scale imaging. COMPARISON: None. FINDINGS: RIGHT TESTICLE INTRATESTICULAR: There is a normal size of the right testicle. The right testicle measures 4.1 x 2.7 x 2.8 cm. There is a homogenous echotexture. There is normal arterial and normal venous vascularity. There is no demonstrated right testicular mass or cyst. EXTRATESTICULAR: The epididymis is normal in size. The epididymis head measures 1.3 cm. There is normal vascularity of the epididymis. There is no demonstrated epididymal cystic structure. There is no demonstrated hydrocele. There is no demonstrated varicocele. There is no demonstrated extratesticular mass or cyst. LEFT TESTICLE INTRATESTICULAR: There is a normal size of the left testicle. The left testicle measures 3.9 x 2.2 x 2.6 cm. There is a homogenous echotexture. There is normal arterial and normal venous vascularity. There is no demonstrated left testicular mass or cyst. EXTRATESTICULAR: The epididymis is normal in size. The epididymis head measures 6 1.3 cm. There is normal vascularity of the epididymis. There is no demonstrated epididymal cystic structure. There is no demonstrated hydrocele. There is no demonstrated varicocele. There is no demonstrated extratesticular mass or cyst. There is diffuse edema within the scrotal wall US/Testicular with Arterial Flow IMPRESSION: Normal bilateral testicles, no sonographic evidence of intratesticular mass or torsion. No sonographic evidence of hernia or hyperemia to suspect inflammation Extensive subcutaneous edema within the scrotal pompa Electronically Signed: Napoleon Sprague MD at 15:37 EDT ,
[2024-07-04] MEDS: Potassium Chloride 10mEq/100mL 10 MEQ/100 ML IV.SOLN. 100 MEQ IV BOLUS ×4 (10:48→16:17)
[2024-07-04] MEDS: 0.9% Saline Lock 10 ML Syringe IV (10:48)
[2024-07-04] MEDS: Acetaminophen 325 MG Tablet 650 MG PO ×2 (10:49→22:27)
[2024-07-04] MEDS: Na Biphos/Potassium Phosphate PACKET 1 PACKET PO ×2 (10:50→22:23)
[2024-07-04] MEDS: Furosemide 40 MG Tablet PO (12:26)
[2024-07-04] MEDS: Lidocaine 2% (20 ml mdv) 20 ML Vial INFILT (13:47)
--- NOTE | 2024-07-04 14:20 | WOUNDNOTE ---
Pt is currently off the unit
--- NOTE | 2024-07-04 15:00 | PRO.PCM_ITS ---
Procedure Report Date of Procedure: 07/04/24 Assessment & Plan Assessment/Plan (1) Abdominal ascites: QUALIFIERS: Ascites type: due to alcoholic cirrhosis Qualified Code(s): K70.31 - Alcoholic cirrhosis of liver with ascites PLAN: PROCEDURE: Ultrasound guided paracentesis ORDERING PROVIDER: Dr. Lord INDICATION: Male, 29 years old. Ascites. PROVIDER: LAURO Machado TECHNIQUE: The risks, benefits, and alternatives to the procedure were explained to the patient. The specific risks of bleeding, infection, and damage to bowel were detailed and accepted. Witnessed informed consent was obtained. The abdomen was ultrasonographically surveyed. An appropriate pocket of fluid was identified in the right upper quadrant. The skin was prepped with chlorhexidine and sterile field established. 2% lidocaine was used for local anesthetic. Using ultrasound guidance, the peritoneal cavity was accessed with a 5-Monegasque paracentesis needle/catheter system. The trocar was removed. A total of 4400 ml of dark yellow colored fluid was removed from the peritoneal cavity. The catheter was removed and a sterile dressing was applied. The procedure was well tolerated. IMPRESSION: Successful ultrasound-guided paracentesis with right upper quadrant access site. Procedures Radiology Radiology US Procedures: 55125 Paracentesis
[2024-07-04] MEDS: Ferrous Sulfate 325 MG Tablet PO ×2 (15:04→17:44)
[2024-07-04] MEDS: Enoxaparin 40 MG/0.4 ML Syringe SC (15:04)
[2024-07-04 15:20] LABS: Cytology, Body Fluid / CSF SEE PATHOLOGY REPORT
[2024-07-04 15:25] LABS: Body Fluid Mononuclear WBC # 0.129 10^3/uL; Body Fluid Mononuclear WBC % 87.8 %; Body Fluid Polynuclear WBC # 0.018 10^3/uL; Body Fluid Polynuclear WBC % 12.2 %; Body Fluid Total Cells Counted 0.153 10^3/ul; White Blood Count/Body Fluid 0.147 10^3/uL
--- NOTE | 2024-07-04 16:34 | NURSING ---
pt in bed with salad spilled all over bed sheets and gown. sack maker in and attempting to clean up. pt refusing and saying they treat me like im a little kid! in no way shape or form was pt treated any differently other than refusing help. laying in salad and cheese and stated, i can clean it myself if you just give me some napkins. pt then becomes tearful out of nowhere and again saying you guys are treating me like a child
[2024-07-04 16:45] LABS: Auto B Fluid Analyzer BKGD Ct COUNTS W/IN LIMITS (W/IN LIMITS); Color/Body Fluid YELLOW; Source- Body Fluid ASCITES FLUID
[2024-07-04 16:46] LABS: Appearance/Body Fluid SL CLDY
[2024-07-04 17:07] LABS: Red Cell Count/Body Fluid 1837 /mm3
[2024-07-04 17:16] LABS: Lymphocytes 55 %; Macrophages 1 %; Monocytes 33 %; Neutrophil (Segs) 8 %
[2024-07-04 17:17] LABS: Body Fluid QC Type(s) BF3Q; Mesothelial Cells 3 %
[2024-07-04 17:21] LABS: Glucose, Body Fluid 114 mg/dL (40-70); LDH,Body Fluid 60 Units/L (Not Establ.); Protein, Body Fluid 2.9 g/dL (Not Establ.)
[2024-07-05 03:47] VITALS: BP 115/70; PULSE 75; RESP 18; TEMP 36.4; O2SAT 100
[2024-07-05 03:49] VITALS: BP 115/70; PULSE 75; RESP 18; TEMP 36.4; O2SAT 100
[2024-07-05 05:38] VITALS: BMI 29.0
[2024-07-05] MEDS: Lactulose 20 GM/30 ML UDC PO ×3 (05:54→21:34)
[2024-07-05 07:12] LABS: Absolute Lymphocyte Count 1.81 X10^3/uL (0.83-4.51); Absolute Neutrophil Count 8.9 X10^3/uL (2.0-7.7); Basophil# 0.05 X10^3/uL; Basophil% 0.4 % (0-1); Eosinophil# 0.38 X10^3/uL; Eosinophils% 3.2 % (0-5); Hematocrit 29.4 % (40-54); Hemoglobin 9.5 g/dL (13.0-16.5); Lymphocyte # 1.81 X10^3/ul (0.83-4.51); Lymphocyte % 15.4 % (19-41); Mean Corp Hgb Conc 32.3 g/dL (32-36); Mean Corpuscular Hgb 34.9 pg (27.0-32.0); Mean Corpuscular Volume 108.1 fL (80-94); Mean Platelet Vol. 10.9 fl (6.2-12.0); Monocyte# 0.58 X10^3/uL; Monocyte% 4.9 % (0-10); NRBC Flagged by Analyzer 0 % (0-5); Neutrophil # 8.92 X10^3/uL (2.7-7.7); Neutrophil % 75.7 % (47-70); Platelet Count 224 K/mm3 (150-450); RBC Distribution Width CV 12.1 % (11.6-14.6); RBC Distribution Width SD 47.9 fl (35.1-43.9); Red Blood Count 2.72 M/mm3 (4.6-6.2); White Blood Count 11.8 K/mm3 (4.4-11.0)
[2024-07-05 09:30] VITALS: BP 120/78; PULSE 94; RESP 16; TEMP 36.8; O2SAT 99
[2024-07-05] MEDS: Ferrous Sulfate 325 MG Tablet PO ×3 (09:34→16:22)
[2024-07-05] MEDS: Spironolactone 25 MG Tablet PO (09:35)
[2024-07-05] MEDS: Escitalopram Oxalate 20 MG Tablet PO (09:36)
[2024-07-05] MEDS: Furosemide 40 MG Tablet PO (09:36)
[2024-07-05] MEDS: Enoxaparin 40 MG/0.4 ML Syringe SC (09:36)
[2024-07-05] MEDS: Na Biphos/Potassium Phosphate PACKET 1 PACKET PO ×2 (09:36→21:34)
[2024-07-05] MEDS: Pantoprazole Sodium 40 MG Tablet PO (09:36)
[2024-07-05] MEDS: Ascorbic Acid 500 MG Tablet 1000 MG PO (09:37)
[2024-07-05] MEDS: Vitamins A and D Ointment 1 APPLIC TOPICAL ×2 (09:37→21:36)
[2024-07-05] MEDS: rifAXIMin 550 MG Tablet PO ×2 (09:37→21:35)
--- NOTE | 2024-07-05 10:43 | CASEMGMT ---
Social Work SW met w/pt in regard to discharge plan. We reviewed options, home w/home health care vs SNF. Pt states when he was in the hospital recently he was going to go to someplace in [place]([facility]). Pt states that the plan on Thursday was to go there, then by Thursday he was told he was moving too well and had to go home. They set up Home Health with [facility]([phone]). Pt states he does not want to try for rehab again, just wants to go home. SW spoke w/pt about family support, pt states his parents are not very supportive. Supportive listening given. Pt states he may just go stay in a hotel or at his brother's home. SW asked for clarification so we can let the home health know where to see him, he states will initially go home and see how it goes. Pt also mentioned detoxing, he states that he has not drank since June 09. He did speak w/Jorden from [facility] on Thursday and was given resources, nothing further needed at this time. SW informed CM of pt's plan to return home w/[facility], CM will follow up. YANCY Hand
--- NOTE | 2024-07-05 11:34 | WOUNDNOTE ---
In to assess the colostomy appliance. appliance currently leaking and has numerous strips trying to hold it in place. pt reluctantly allowed this nurse to change the appliance. pt cut opening on the flange. the size cut was too small so this nurse educated patient that he will need to start cutting the opening slightly larger. this may be the cause of the increase in leaks. pt aware that the opening needs to be cut to 1 3/4. peristoma skin only slightly irritated. cleansed the skin with warm water and pat dry. applied a new 2 piece flay Paterson appliance with an [employer] ring. pt tolerated well and was appreciative of care once completed. will monitor. Pt denies further needs at this time.
[2024-07-05 12:22] LABS: ALB/GLOB Ratio 0.5 RATIO (0.9-2.4); AST(SGOT) 79 U/L (15-37); Alanine Aminotransfer ALT/SGPT 42 U/L (16-61); Albumin, Serum 1.9 g/dL (3.2-5.0); Alkaline Phosphatase 93 U/L (45-117); Anion Gap 8 (5-15); BUN 8 mg/dL (7-18); BUN/Creat Ratio 14.4 RATIO (10-20); Calcium,Total 8.4 mg/dL (8.5-10.1); Chloride 97 mmol/L (98-107); Creatinine, Serum 0.56 mg/dL (0.70-1.30); EST Glomerular Filtration Rate 182 mL/min (>60); Est Glom Filt Rate - Afr Amer 220 mL/min (>60); Estimated Creatinine Clearance 237.73 ml/min; Globulin 3.7 g/dL (2.2-4.2); Glucose 92 mg/dL (74-106); Potassium 2.7 mmol/L (3.5-5.1); Protein, Total 5.6 g/dL (6.4-8.2); Sodium Level 135 mmol/L (136-145)
[2024-07-05 13:47] LABS: Pathologist Comment/Body Fluid Reviewed
--- NOTE | 2024-07-05 14:03 | PN_ITS ---
Subjective Subjective Patient seen and examined. He said he felt much better and edema had improved markedly. He had paracentesis yesterday. Review of systems is otherwise negative. Objective Data Objective Data Vital Signs: Vital Signs Temp Pulse Resp BP Pulse Ox O2 Del Method 98.2 F 94 16 120/78 99 Room Air 07/05/24 09:30 07/05/24 09:30 07/05/24 09:30 07/05/24 09:30 07/05/24 09:30 07/05/24 10:00 Oxygen Delivery Method Room Air Weight: 220 lb 7.396 oz Body Mass Index (BMI) 29.0 Intake & Output: Intake and Output for Last 24 Hours 07/03/24 07/04/24 07/05/24 23:59 23:59 23:59 Intake Total 607.57 / 607.57 1500.00 / 1500.00 300 / 300 Output Total 4650 / 4650 9950 / 9950 100 / 100 Balance -4042.43 / -4042.43 -8450.00 / -8450.00 200 / 200 Lab / Micro Data 07/05/24 06:38 07/05/24 06:38 Labs: Laboratory Results - last 24 hr 07/04/24 13:43: Fluid Source ASCITES FLUID, Fluid Color YELLOW, Fluid Appearance SL CLDY, Fluid WBC 0.147, Fluid RBC 1837, Fluid Tot Cell Count 0.153, Fld Polynuclear WBCs # 0.018, Fld Polynuclear WBCs % 12.2, Fluid Mononuclear WBCs 0.129, Fld Mononuclear WBCs % 87.8, Fluid Neutrophils 8, Fluid Lymphocytes 55, Fluid Monocytes 33, Fluid Macrophages 1, Fld Mesothelial Cells 3, Fl Pathologist Comment Reviewed, Fluid Glucose 114 H, Fluid Total Protein 2.9, Fluid LDH 60, Fluid Comment 2 SEE COMMENT 07/05/24 06:38: WBC 11.8 H, RBC 2.72 L, Hgb 9.5 L, Hct 29.4 L, MCV 108.1 H, MCH 34.9 H, MCHC 32.3, RDW Std Deviation 47.9 H, RDW Coeff of Kristen 12.1, Plt Count 224, MPV 10.9, Immature Gran % (Auto) 0.400, Neut % (Auto) 75.7 H, Lymph % (Auto) 15.4 L, [place] % (Auto) 4.9, Eos % (Auto) 3.2, Baso % (Auto) 0.4, Absolute Neuts (auto) 8.9 H, Absolute Lymphs (auto) 1.81, Nucleated RBC % 0, Sodium 135 L , Potassium 2.7 L*, Chloride 97 L, Carbon Dioxide 30.0, Anion Gap 8, BUN 8, C reatinine 0.56 L, Estim Creat Clear Calc 237.73, Est GFR (MDRD) Af Amer 220, Est GFR (MDRD) Non-Af 182, BUN/Creatinine Ratio 14.4, Glucose 92, Calcium 8.4 L, T otal Bilirubin 2.50 H, AST 79 H, ALT 42, Alkaline Phosphatase 93, Total Protein 5.6 L, Albumin 1.9 L, Globulin 3.7, Albumin/Globulin Ratio 0.5 L Radiography Diagnostic Testing: Radiology Impression Venous Doppler Study 07/01/24 23:16 Interpretation Summary Deep veins of the lower extremities are bilaterally patent and compressible segmentally. There is no evidence of deep vein thrombosis on either side. Valvular competence appears intact within the proximal deep venous systems bilaterally. The great saphenous veins appear bilaterally patent and compressible segmentally. Ordering Physician: Maria Guadalupe Lord Referring Physician: Evie Cox Performed By: Shane Florez, T Testicular Ultrasound 07/04/24 10:28 IMPRESSION: Normal bilateral testicles, no sonographic evidence of intratesticular mass or torsion. No sonographic evidence of hernia or hyperemia to suspect inflammation Extensive subcutaneous edema within the scrotal pompa Electronically Signed: Napoleon Sprague MD at 15:37 EDT Reading Location ID and State: [facility] / [place] , Service support , Physical Exam Const alert, oriented x3, no apparent distress, average body habitus and healthy appearing General Appearance: cooperative HEENT normocephalic, head/scalp atraumatic, hearing grossly normal bilaterally, moist oral mucous membranes and oropharynx normal Eyes PERRL, EOMs intact bilaterally and conjunctivae normal Neck no lymphadenopathy, supple and no JVD Lymph Lymphatic: no lymphadenopathy noted and no lymphedema noted Resp normal respiratory effort, normal air movement, no retractions, no use of accessory muscles and clear to auscultation bilaterally Cardio regular rate, regular rhythm, S1 normal heart sound, S2 normal heart sound and no murmurs GI normal to inspection, nondistended, normoactive bowel sounds, soft to palpation and non-tender GI Narrative: abdomen soft, flaccid, nontender, mild shifting dullness. Extremity normal capillary refill Extremity Narrative: Bilateral 3+ lower extremity edema and scrotal edema have improved markedly. General Extremity: no tenderness to palpation of joints or extremities Skin Skin Narrative: Marked scrotal edema and anasarca, which has improved markedly General Skin Exam: no breakdown Neuro oriented x3, CN's II-XII intact bilaterally, moves all extremities, no focal motor deficits and no sensory deficits noted Speech: speech normal Motor Exam: strength 5/5 throughout Psych thought process normal, cooperative and affect normal Psych Narrative: Appearance: appropriate Assessment & Plan Assessment/Plan (1) Abdominal ascites: QUALIFIERS: Ascites type: due to alcoholic cirrhosis Qualified Code(s): K70.31 - Alcoholic cirrhosis of liver with ascites (2) Anasarca: (3) Alcoholic liver disease: PLAN: Plan #Generalised anasarca likely due to alcoholic liver disease * Patient has a history of chronic alcohol abuse and says he is to drink about 2 bottles of 1.75 L of alcohol over a week. * Also has ascites. Has massive scrotal edema. Scrotal edema has improved slightly * Currently on Lasix drip. 2D echo showed EF of 65% with diastolic function not assessed, abnormal valves. TSH also pending. * Freeman catheter inserted due to massive scrotal edema. * On fluid restricted diet as well as salt restricted diet. * was on lasix drip, now on PO lasix. * Testicular ultrasound showed normal bilateral testicles with no sonographic evidence of intratesticular mass or torsion and extensive subcutaneous edema within the scrotal pompa. * will order scrotal and testicular ultrasound due to massive scrotal edema though symptoms are likely due to edema for the liver disease. * #Abdominal ascites due to alcoholic liver disease * Had paracentesis with removal of 4.4 L of dark yellow-colored fluid. Fluid analysis shows no evidence of infection. * Will give albumin. * #alcoholic liver disease * Patient has a chronic history of alcohol use disorder. He is currently not on any therapy for this ascites. Gastroenterology consultedon board * Currently on Lasix and spironolactone * Liver enzymes mildly elevated. Will trend. * Total bilirubin is 2.6. It has been around 2.5-2.9. AST and ALT are WNL. * #Hypokalemia: potassium is 2.7. Will replace aggressively and trend. Magnesium levels are pending. #History of colitis: S/p colectomy. Colostomy in situ. 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 #Hypertension: Metoprolol on hold due to patient being on Lasix drip. WIll resume metoprolol as lasix drip has been stopped. On IV Lopressor as needed #History of alcohol use disorder: States has been sober for about 23 days prior to admission. Low risk for withdrawal now. Will monitor closely. Counseled to quit. #DVT prophylaxis: Lovenox. Charges/Coding Visit Charges Inpatient E&M: 27334 Subs Hosp L2
[2024-07-05] MEDS: Potassium Chloride Oral Tablet 20 MEQ 60 MEQ PO (14:28)
[2024-07-05] MEDS: Potassium Chloride 10mEq/100mL 10 MEQ/100 ML IV.SOLN. 100 MEQ IV BOLUS ×4 (14:30→18:28)
[2024-07-05 16:00] VITALS: BP 137/88; PULSE 99; RESP 16; TEMP 36.3; O2SAT 100
--- NOTE | 2024-07-05 17:00 | CASEMGMT ---
Social Work Pt's father is here, asked to speak w/SW. SW spoke w/pt's father, he had some specific questions around financial liability for parents when someone applies for Medicaid. SW called Senia from [employer], she states a parent does not have financial liablity for a child who is over 18, but can talk to pt's father if he has additional questions. SW let pt's father know this information, and gave him Senia's number to call should he have additional questions. YANCY Hand
[2024-07-05] MEDS: Albumin Human 25% (100 mL) 25 GM/100 ML BAG IV (19:34)
[2024-07-05] MEDS: Gabapentin 300 MG Capsule PO (21:48)
[2024-07-05 21:53] VITALS: BP 126/69; PULSE 107; RESP 16; TEMP 37.5; O2SAT 99
[2024-07-05 21:58] VITALS: PULSE 107
[2024-07-06] VITALS (10 sets, daily range): BP systolic 102–120; BP diastolic 53–76; PULSE 71–101; RESP 14–23; TEMP 35.9–36.8; O2SAT 96–100; BMI 28.9
--- NOTE | 2024-07-06 | LIVB_PTH ---
PATIENT: GABY BANG LOC: [facility] U#:[id number] AGE/SX: 29/M ROOM: [facility] RE07/01/[address]: Dr. Gaby Goodwin DO : 1995 BED: 1 DIS: 07/06/2024 SPEC #: [id number] RECD: 07/06/24 14:16 STATUS: LAKHWINDER VANGReese #: [id number] SLIME: 07/06/24 00:[address]: Gaby Goodwin DEPT: SURGICAL PATHOLOGY RECD BY: Talita Camargo ENTERED: 07/07/24 08:18 SP TYPE: LIVER BX OTHR DR: DO Dr. Evie Baptiste DO Dr. Nana Yaa Koram, MD Tissues: Liver, NOS Procedures: PAS with Diastase (control) Trichrome (control) Special Stain Group I PAS Stain (control) Surgery Specimen Level V Retic (control) Iron Stain (control) HEADER OPERATION: CT guided liver biopsy PRE-OP DIAGNOSIS: Liver disease TISSUE SUBMITTED: 18 gauge x3 cores MICROSCOPIC DIAGNOSIS Liver, CT guided core biopsy: Consistent with cirrhosis. See microscopic description and comment. Mikael 07/08/2024 COMMENT Correlation with clinical, laboratory, radiologic findings and appropriate follow up are necessary. MICROSCOPIC DESCRIPTION Slides are reviewed. The specimen shows liver parenchymal tissue with distortion of normal lobular architecture into multiple nodules divided by fibrous septa. Hepatocytes in the nodule shows reactive changes and extensive macrovesicular steatosis. Nodular acute and chronic inflammation is also noted. Fibrous septa in between the nodule also shows predominantly chronic inflammation and mild acute inflammation. Focal bile ductular proliferation is also noted. Iron stain shows trace to 1+ iron deposition in the hepatocytes. Trichrome and reticulin stains highlights the fibrous septa in between hepatocytes nodule. PAS stain with and without diastase do not show any abnormal accumulation of protein. All stains are performed with appropriate matched controls. GROSS DESCRIPTION Received is one container labeled with the patient's name and not further designated. The specimen consists of three elongated fragments of smallwood soft tissue each measuring 1.8cm in length and 0.1cm in diameter. The entire specimen is submitted in one cassette. SJ.mr 07/07/2024 TC:5 CPT:11618,50693f9
--- NOTE | 2024-07-06 05:56 | NURSING ---
iv sl disconnected, only left w the hub in place in the left ac and open to air. site then dc'd. pt did not want me to restart a new one, stated he didnt need it now. pt now asking to see the pt advocate stating he was wrongly being accused of pulling his iv out.
[2024-07-06 06:03] LABS: Absolute Lymphocyte Count 1.79 X10^3/uL (0.83-4.51); Absolute Neutrophil Count 12.9 X10^3/uL (2.0-7.7); Basophil# 0.05 X10^3/uL; Basophil% 0.3 % (0-1); Eosinophil# 0.24 X10^3/uL; Eosinophils% 1.5 % (0-5); Hematocrit 30.6 % (40-54); Hemoglobin 9.8 g/dL (13.0-16.5); Lymphocyte # 1.79 X10^3/ul (0.83-4.51); Lymphocyte % 11.3 % (19-41); Mean Corpuscular Hgb 34.9 pg (27.0-32.0); Mean Corpuscular Volume 108.9 fL (80-94); Mean Platelet Vol. 10.6 fl (6.2-12.0); Monocyte# 0.77 X10^3/uL; Monocyte% 4.9 % (0-10); NRBC Flagged by Analyzer 0 % (0-5); Neutrophil # 12.89 X10^3/uL (2.7-7.7); Neutrophil % 81.6 % (47-70); Platelet Count 264 K/mm3 (150-450); RBC Distribution Width CV 12.2 % (11.6-14.6); RBC Distribution Width SD 49.1 fl (35.1-43.9); Red Blood Count 2.81 M/mm3 (4.6-6.2); White Blood Count 15.8 K/mm3 (4.4-11.0)
[2024-07-06 06:52] LABS: ALB/GLOB Ratio 0.6 RATIO (0.9-2.4); AST(SGOT) 84 U/L (15-37); Alanine Aminotransfer ALT/SGPT 40 U/L (16-61); Albumin, Serum 2.3 g/dL (3.2-5.0); Alkaline Phosphatase 114 U/L (45-117); Anion Gap 8 (5-15); BUN 14 mg/dL (7-18); BUN/Creat Ratio 20.2 RATIO (10-20); Calcium,Total 9.1 mg/dL (8.5-10.1); Chloride 101 mmol/L (98-107); Creatinine, Serum 0.69 mg/dL (0.70-1.30); EST Glomerular Filtration Rate 141 mL/min (>60); Est Glom Filt Rate - Afr Amer 171 mL/min (>60); Estimated Creatinine Clearance 192.51 ml/min; Globulin 3.9 g/dL (2.2-4.2); Glucose 119 mg/dL (74-106); Potassium 3.6 mmol/L (3.5-5.1); Protein, Total 6.2 g/dL (6.4-8.2); Sodium Level 136 mmol/L (136-145)
[2024-07-06] MEDS: Lidocaine 2% (20 ml mdv) 20 ML Vial INFILT (14:00)
--- NOTE | 2024-07-06 14:14 | PCM.OP.PRO ---
Procedure Report Date of Procedure: 07/06/24 Assessment & Plan Assessment/Plan (1) Alcoholic liver disease: PLAN: PROCEDURE: CT DIRECTED CORE LIVER BIOPSY ORDERING PROVIDER: Dr. Reyna INDICATION: Male, 29 years old. Alcoholic liver disease. PROVIDER: LAURO Machado CONSENT: Written informed consent was obtained having explained the risks, benefits and alternatives in detail with the patient who accepted the risks and agreed to proceed. Laboratory review and clinical assessment was performed. PRE-PROCEDURE SEDATION ASSESSMENT: Current history and physical dictated by referring provider and reviewed. No clinical changes since date of exam. Patient has a Mallampati Score of Class 1 and ASA Class of 3. While the patient is alert and oriented to sign informed consent, he does quickly fall back asleep and began snoring. Given this, the patient will be given local anesthetic only for the procedure unless the need to give sedation which would include Versed and fentanyl arises. PROCEDURAL SEDATION PROTOCOL: Local anesthesia was used only. RADIATION DOSAGE (If Supplied By Facility): CTDIvol = 21.24 mGy, DLP = 1487.09 mGycm Individualized dose optimization techniques were used for this CT. TECHNIQUE: The patient was placed in a supine position. Using CT image guidance with image documentation, a suitable location in the left lobe of the liver was identified. The skin surface was prepped with betadine and draped in a sterile fashion. 2% lidocaine was used for local anesthesia. Using an anterior approach, puncture of the liver was uneventful with an 18-gauge core needle system. 3, 18-gauge core samples were obtained, and submitted in formalin to the pathologist for further assessment. The needle was removed. An occlusive sterile dressing was applied. Patient tolerated the procedure well, and returned to the holding bay for nursing monitoring. IMPRESSION: 1. CT directed core needle biopsy of the liver, using CT image guidance with image documentation as described. 2. Local anesthesia only was used. Patient tolerated this well. Procedures Radiology Radiology CT Procedures: 41267 Biopsy Liver Multi Select Codes Radiology Radiology CT Procedures: [id number] CT guidance parenchymal tissue
--- NOTE | 2024-07-06 14:20 | PN.HOSP_ITS ---
Reason for Visit Reason for Visit: Diagnoses Elevated white blood cell count, unspecified (07/01/24) Hypokalemia (07/01/24) Alcoholic cirrhosis of liver with ascites (07/01/24) Alcoholic liver disease, unspecified (07/01/24) Unspecified jaundice (07/01/24) Other ascites (07/01/24) Generalized edema (07/01/24) Subjective Subjective Feels well. Abdomen still distended but not as taut as it was. Lower extremity edema ongoing but much improved from previous. Objective Data Objective Data Vital Signs: Vital Signs Temp Pulse Resp BP Pulse Ox O2 Del Method 36.6 C 78 20 H 109/60 99 Room Air 07/06/24 10:00 07/06/24 14:05 07/06/24 14:05 07/06/24 14:05 07/06/24 13:27 07/06/24 14:05 Oxygen Delivery Method Room Air Weight: 99.5 kg Body Mass Index (BMI) 28.9 Intake & Output: Intake and Output for Last 24 Hours 07/04/24 07/05/24 07/06/24 23:59 23:59 23:59 Intake Total 1500.00 / 1500.00 1900 / 2100 300 / 300 Output Total 9950 / 9950 635 / 635 Balance -8450.00 / -8450.00 1265 / 1465 300 / 300 Lab / Micro Data 07/06/24 05:45 07/06/24 05:45 Labs: Laboratory Results - last 24 hr 07/05/24 06:38: Magnesium 2.0 07/06/24 05:45: WBC 15.8 H, RBC 2.81 L, Hgb 9.8 L, Hct 30.6 L, MCV 108.9 H, MCH 34.9 H, MCHC 32.0, RDW Std Deviation 49.1 H, RDW Coeff of Kristen 12.2, Plt Count 264, MPV 10.6, Immature Gran % (Auto) 0.400, Neut % (Auto) 81.6 H, Lymph % (Auto) 11.3 L, [place] % (Auto) 4.9, Eos % (Auto) 1.5, Baso % (Auto) 0.3, Absolute Neuts (auto) 12.9 H, Absolute Lymphs (auto) 1.79, Nucleated RBC % 0, Sodium 136, Potassium 3.6, Chloride 101, Carbon Dioxide 27.0, Anion Gap 8, BUN 14, C reatinine 0.69 L, Estim Creat Clear Calc 192.51, Est GFR (MDRD) Af Amer 171, Est GFR (MDRD) Non-Af 141, BUN/Creatinine Ratio 20.2 H, Glucose 119 H, Calcium 9.1, Total Bilirubin 1.90 H, AST 84 H, ALT 40, Alkaline Phosphatase 114, Total Protein 6.2 L, Albumin 2.3 L, Globulin 3.9, Albumin/Globulin Ratio 0.6 L Micro: Microbiology 07/04/24 13:43 Fluid - Paracentesis (Abd) Gram Stain - Final 07/04/24 13:43 Fluid - Paracentesis (Abd) Body Fluid Culture - Preliminary No growth-Final to follow 07/04/24 13:43 Fluid - Paracentesis (Abd) Anaerobic Culture - Preliminary No growth in 48 hours. Physical Exam Const alert and no apparent distress HEENT head/scalp atraumatic and moist oral mucous membranes GI GI Narrative: Distended but nontender. Not taut. Extremity Extremity Narrative: Bilateral lower extremity edema involving his feet. Skin Skin Narrative: Venous stasis changes to the dorsums of his feet bilaterally. Assessment & Plan Assessment/Plan (1) Abdominal ascites: QUALIFIERS: Ascites type: due to alcoholic cirrhosis Qualified Code(s): K70.31 - Alcoholic cirrhosis of liver with ascites (2) Anasarca: (3) Alcoholic liver disease: PLAN: Plan Anasarca and ascites * Likely secondary to alcoholic liver disease/cirrhosis * Earlier this week, patient underwent an ultrasound-guided paracentesis to remove 4.4 L of fluid. Patient also underwent a liver biopsy today. Results of which will be available in a week or 2. Patient instructed to follow-up with gastroenterology as patient further results of his liver biopsy. * Patient to continue with spironolactone and furosemide. * Fluid and salt restricted diet. Optimize spironolactone dosing as blood pressure allows. Will increase from 25-50 for now and ideally patient should be on 100. alcoholic liver disease * Patient will need to stop drinking alcohol altogether. * Follow-up with alcohol support groups as outpatient. VTE prophylaxis with enoxaparin
[2024-07-06] MEDS: Escitalopram Oxalate 20 MG Tablet PO (14:59)
[2024-07-06] MEDS: Na Biphos/Potassium Phosphate PACKET 1 PACKET PO (15:00)
[2024-07-06] MEDS: Ascorbic Acid 500 MG Tablet 1000 MG PO (15:00)
[2024-07-06] MEDS: Pantoprazole Sodium 40 MG Tablet PO (15:00)
[2024-07-06] MEDS: Ferrous Sulfate 325 MG Tablet PO (15:00)
[2024-07-06] MEDS: rifAXIMin 550 MG Tablet PO (15:00)
[2024-07-06] MEDS: Enoxaparin 40 MG/0.4 ML Syringe SC (15:00)
[2024-07-06] MEDS: Lactulose 20 GM/30 ML UDC PO (15:00)
[2024-07-06] MEDS: Furosemide 40 MG Tablet PO (15:01)
[2024-07-06] MEDS: Vitamins A and D Ointment 1 APPLIC TOPICAL (15:01)
[2024-07-06] MEDS: 0.9% Normal Saline (250mL Bag) 250 ML 15 ML IV (16:00)
--- NOTE | 2024-07-06 16:33 | CASEMGMT ---
Dr. Goodwin states that he may DC the pt home today. This RN CM to pt room at this time to discuss DC planning. Pt states that he has a ride home and denies concerns with transportation. Pt states that he would like to resume HHC through [facility]. Referral sent to [facility] at this time and [facility] is able to resume the pt care (SN & PT) for Thursday. Pt updated with this information and states that he is comfortable with this. Pt denies further questions or concerns at this time.
--- NOTE | 2024-07-06 17:15 | DS.PCM_ITS ---
Providers Date of Admission: 07/01/24 Primary Care Physician: Dr. vEie Cox, Consultations 07/01/24 23:16 Consult: Gastroenterology Routine Consulting Provider: [facility] Reason for Consult: anasarca with cirrhosis EMERGENT Consult: No Notified: Yes Date Notified: 07/01/24 Time Notified: 22:12 Method of Notification: Text Consult: Onc/Wound/maple sugar maker Routine Comment: 07/05/24 19:32 Consult: Interventional Radiology Routine Consulting Provider: Tip Grigsby Reason for Consult: liver biopsy EMERGENT Consult: No Notified: No Date Notified: 07/05/24 Time Notified: 19:32 Reason For Visit: ANASARCA Diagnosis Discharge Diagnosis (1) Abdominal ascites: Status: Acute Code(s): R18.8 - Other ascites Qualifiers: Ascites type: due to alcoholic cirrhosis Qualified Code(s): K70.31 - Alcoholic cirrhosis of liver with ascites (2) Anasarca: Status: Acute Code(s): R60.1 - Generalized edema (3) Alcoholic liver disease: Status: Acute Code(s): K70.9 - Alcoholic liver disease, unspecified Plan Anasarca and ascites * Likely secondary to alcoholic liver disease/cirrhosis * Earlier this week, patient underwent an ultrasound-guided paracentesis to remove 4.4 L of fluid. Patient also underwent a liver biopsy today. Results of which will be available in a week or 2. Patient instructed to follow-up with gastroenterology as patient further results of his liver biopsy. * Patient to continue with spironolactone and furosemide. * Fluid and salt restricted diet. Optimize spironolactone dosing as blood pressure allows. Will increase from 25-50 for now and ideally patient should be on 100. alcoholic liver disease * Patient will need to stop drinking alcohol altogether. * Follow-up with alcohol support groups as outpatient. VTE prophylaxis with enoxaparin Medications at Discharge Home Medications ascorbic acid (vitamin C) 500 mg tablet (Vitamin C) 1 g PO DAILY supple 06/02/23 ergocalciferol (vitamin D2) 1,250 mcg (50,000 unit) capsule 50,000 unit PO TUTH supp 06/02/23 ferrous sulfate 325 mg (65 mg iron) tablet (FeroSul) 325 mg PO TID supplement 06/02/23 escitalopram oxalate 20 mg tablet 20 mg PO DAILY depress 12/20/23 hyoscyamine sulfate 0.125 mg sublingual tablet 0.125 mg sublingual Q4H PRN spasms 12/20/23 gabapentin 300 mg capsule 300 mg PO Q8H PRN PRN neuropathic pain 07/01/24 rifaximin 550 mg tablet (Xifaxan) 550 mg PO BID 07/01/24 pantoprazole 40 mg tablet,delayed release 40 mg PO DAILY GERD 07/02/24 furosemide 40 mg tablet 40 mg PO DAILY #30 tabs 07/06/24 lactulose 20 gram/30 mL oral solution 20 g (30 mL) PO TID #2,880 mL 07/06/24 spironolactone 50 mg tablet 50 mg PO DAILY #30 tabs 07/06/24 Hospital Course Operations None Procedures Paracentesis and - (CT-guided liver biopsy) Summary of Care Provided Minutes Spent on Discharge: 35 Weight / BMI Weight Weight: 99.5 kg Body Mass Index (BMI) 28.9 ABG / Lab / Microbiology Data 07/06/24 05:45 07/06/24 05:45 Laboratory: Laboratory Results - last 24 hr 07/06/24 05:45: WBC 15.8 H, RBC 2.81 L, Hgb 9.8 L, Hct 30.6 L, MCV 108.9 H, MCH 34.9 H, MCHC 32.0, RDW Std Deviation 49.1 H, RDW Coeff of Kristen 12.2, Plt Count 264, MPV 10.6, Immature Gran % (Auto) 0.400, Neut % (Auto) 81.6 H, Lymph % (Auto) 11.3 L, [place] % (Auto) 4.9, Eos % (Auto) 1.5, Baso % (Auto) 0.3, Absolute Neuts (auto) 12.9 H, Absolute Lymphs (auto) 1.79, Nucleated RBC % 0, Sodium 136, Potassium 3.6, Chloride 101, Carbon Dioxide 27.0, Anion Gap 8, BUN 14, C reatinine 0.69 L, Estim Creat Clear Calc 192.51, Est GFR (MDRD) Af Amer 171, Est GFR (MDRD) Non-Af 141, BUN/Creatinine Ratio 20.2 H, Glucose 119 H, Calcium 9.1, Total Bilirubin 1.90 H, AST 84 H, ALT 40, Alkaline Phosphatase 114, Total Protein 6.2 L, Albumin 2.3 L, Globulin 3.9, Albumin/Globulin Ratio 0.6 L Microbiology: Microbiology 07/04/24 13:43 Fluid - Paracentesis (Abd) Gram Stain - Final 07/04/24 13:43 Fluid - Paracentesis (Abd) Body Fluid Culture - Preliminary No growth-Final to follow 07/04/24 13:43 Fluid - Paracentesis (Abd) Anaerobic Culture - Preliminary No growth in 48 hours. D/C Instructions Discharge Diet: - (1.5 L of fluid per day. 2 g salt maximum per day.) Meaningful Use Info Meaningful Use Meaningful Use Diagnoses (Choose all that apply): None applicable Ischemic Stroke Statin Dosing Therapy Reference: STATIN DOSE THERAPY REFERENCE: * Patients > 75 years receive moderate or high dose statin therapy. * Patients 75 years or YOUNGER should receive HIGH intensity statin dose unless contraindicated. You will be required to document reason for non-treatment if statin daily dose does not meet guidelines. HIGH DOSE STATIN THERAPY DAILY Atorvastatin > than or = to 40 mg Rosuvastatin > than or = to 20 mg Amlodipine + Atorvastatin > than or = to 2.5/40 mg Ezetimibe + Simvastatin 10/80 mg Simvastatin 80mg Discharge Plan Admission Admit Date/Time: 07/01/24 22:11 Primary Reason for Your Visit: Ascites Attending Provider: Hang Goodwin Primary Care Provider: Evie Cox Consulting Providers: Maria Guadalupe Lord; Vianney Phillip Instructions Patient Instructions: IRMA AYERS Biopsy Liver Dc, IRMA AYERS Procedural Sedation Additional Instructions / Restrictions: You have fluid buildup in your abdomen called ascites. That was drained. This is likely due to your underlying liver disease. The biopsy that you had will confirm if you have underlying cirrhosis. Please follow-up with Dr. Reyna or any hole digger truck driver in regards to having follow-up regards to liver biopsy and also regards to management of your liver disease. To help prevent fluid from room reaccumulating will be utilizing diuretics. You are already taking spironolactone but am increasing the dose from 25-50 daily but also continuing another diuretic called furosemide. With being on the diuretics also important for you to monitor your fluid and sodium intake. What I would like for you to use to have no more than 1-1/2 L of fluid per day and no more than 2 g salt per day. Please follow-up with your primary care physician next week or 2. Would like for you to have labs to monitor your kidney function as well as your potassium. Discharge Orders/Prescriptions Prescriptions: New furosemide 40 mg Tablet 40 mg PO DAILY Qty: 30 0RF lactulose 20 gram/30 mL Solution 20 g PO TID Qty: 2880 1RF spironolactone 50 mg Tablet 50 mg PO DAILY Qty: 30 0RF Continued ascorbic acid (vitamin C) [Vitamin C] 500 mg tablet 1 g PO DAILY Patient Comments: TAKE with IRON ferrous sulfate [FeroSul] 325 mg (65 mg iron) tablet 325 mg PO TID Patient Comments: TAKE with VITAMIN C ergocalciferol (vitamin D2) 1,250 mcg (50,000 unit) capsule 50,000 unit PO TUTH escitalopram oxalate 20 mg tablet 20 mg PO DAILY Patient Comments: TAKE ONE TABLET BY MOUTH EVERY DAY hyoscyamine sulfate 0.125 mg tablet, sublingual 0.125 mg sublingual Q4H PRN (Reason: spasms) Patient Comments: TAKE ONE TABLET UNDER THE TONGUE EVERY 4 HOURS DIRECTED gabapentin 300 mg capsule 300 mg PO Q8H PRN PRN (Reason: neuropathic pain) Xifaxan 550 mg tablet 550 mg PO BID pantoprazole 40 mg tablet,delayed release (DR/EC) 40 mg PO DAILY Discontinued metoprolol succinate 100 mg Tablet Extended Release 24 Hr 100 mg PO DAILY Patient Comments: D/T LIVER FIGHTING ITSELF spironolactone 25 mg tablet 25 mg PO DAILY Phospha 250 Neutral 250 mg tablet 1 tab PO BID Referrals / Follow Up: [facility] [Provider Group] - Within 1 Month Evie Cox DO [Primary Care Provider] - Within 2 Weeks Disposition Disposition (needs filled in before D/C Order can be placed): Home, Self Care Charges/Coding Visit Charges Inpatient E&M: 20200 Disch Hosp >30min
--- NOTE | 2024-07-06 18:10 | PN.GI_ITS ---
Subjective Subjective Patient received his liver biopsy today. Strong suspicion for alcoholic cirrhosis. Objective Data Objective Data Vital Signs: Vital Signs Temp Pulse Resp BP Pulse Ox O2 Del Method 96.6 F L 72 16 102/53 L 98 Room Air 07/06/24 15:00 07/06/24 15:00 07/06/24 15:00 07/06/24 15:00 07/06/24 15:00 07/06/24 15:00 Oxygen Delivery Method Room Air Weight: 219 lb 5.759 oz Body Mass Index (BMI) 28.9 Intake & Output: Intake and Output for Last 24 Hours 07/04/24 07/05/24 07/06/24 23:59 23:59 23:59 Intake Total 1500.00 / 1500.00 1900 / 2100 550 / 550 Output Total 9950 / 9950 635 / 635 Balance -8450.00 / -8450.00 1265 / 1465 550 / 550 Lab / Micro Data 07/06/24 05:45 07/06/24 05:45 Labs: Laboratory Results - last 24 hr 07/06/24 05:45: WBC 15.8 H, RBC 2.81 L, Hgb 9.8 L, Hct 30.6 L, MCV 108.9 H, MCH 34.9 H, MCHC 32.0, RDW Std Deviation 49.1 H, RDW Coeff of Kristen 12.2, Plt Count 264, MPV 10.6, Immature Gran % (Auto) 0.400, Neut % (Auto) 81.6 H, Lymph % (Auto) 11.3 L, [place] % (Auto) 4.9, Eos % (Auto) 1.5, Baso % (Auto) 0.3, Absolute Neuts (auto) 12.9 H, Absolute Lymphs (auto) 1.79, Nucleated RBC % 0, Sodium 136, Potassium 3.6, Chloride 101, Carbon Dioxide 27.0, Anion Gap 8, BUN 14, C reatinine 0.69 L, Estim Creat Clear Calc 192.51, Est GFR (MDRD) Af Amer 171, Est GFR (MDRD) Non-Af 141, BUN/Creatinine Ratio 20.2 H, Glucose 119 H, Calcium 9.1, Total Bilirubin 1.90 H, AST 84 H, ALT 40, Alkaline Phosphatase 114, Total Protein 6.2 L, Albumin 2.3 L, Globulin 3.9, Albumin/Globulin Ratio 0.6 L Micro: Microbiology 07/04/24 13:43 Fluid - Paracentesis (Abd) Gram Stain - Final 07/04/24 13:43 Fluid - Paracentesis (Abd) Body Fluid Culture - Preliminary No growth-Final to follow 07/04/24 13:43 Fluid - Paracentesis (Abd) Anaerobic Culture - Preliminary No growth in 48 hours. Physical Exam Const alert, oriented x3, no apparent distress, average body habitus and healthy appearing General Appearance: cooperative HEENT normocephalic, head/scalp atraumatic, hearing grossly normal bilaterally, moist oral mucous membranes and oropharynx normal Eyes PERRL, EOMs intact bilaterally and conjunctivae normal Neck no lymphadenopathy, supple and no JVD Lymph Lymphatic: no lymphadenopathy noted and no lymphedema noted Resp normal respiratory effort, normal air movement, no retractions, no use of accessory muscles and clear to auscultation bilaterally Cardio regular rate, regular rhythm, S1 normal heart sound, S2 normal heart sound and no murmurs GI normal to inspection, nondistended, normoactive bowel sounds, soft to palpation and non-tender GI Narrative: abdomen soft, flaccid, nontender, mild shifting dullness. Extremity normal capillary refill Extremity Narrative: Bilateral 3+ lower extremity edema and scrotal edema have improved markedly. General Extremity: no tenderness to palpation of joints or extremities Skin Skin Narrative: Marked scrotal edema and anasarca, which has improved markedly General Skin Exam: no breakdown Neuro oriented x3, CN's II-XII intact bilaterally, moves all extremities, no focal motor deficits and no sensory deficits noted Speech: speech normal Motor Exam: strength 5/5 throughout Psych thought process normal, cooperative and affect normal Psych Narrative: Appearance: appropriate Assessment & Plan Assessment/Plan (1) Abdominal ascites: QUALIFIERS: Ascites type: due to alcoholic cirrhosis Qualified Code(s): K70.31 - Alcoholic cirrhosis of liver with ascites (2) Anasarca: (3) Alcoholic liver disease: PLAN: Plan #Generalised anasarca likely due to alcoholic liver disease * Patient has a history of chronic alcohol abuse and says he is to drink about 2 bottles of 1.75 L of alcohol over a week. * Also has ascites. Has massive scrotal edema. Scrotal edema has improved slightly * Currently on Lasix drip. 2D echo showed EF of 65% with diastolic function not assessed, abnormal valves. TSH also pending. * Freeman catheter inserted due to massive scrotal edema. * On fluid restricted diet as well as salt restricted diet. * was on lasix drip, now on PO lasix. * Testicular ultrasound showed normal bilateral testicles with no sonographic evidence of intratesticular mass or torsion and extensive subcutaneous edema within the scrotal pompa. * will order scrotal and testicular ultrasound due to massive scrotal edema though symptoms are likely due to edema for the liver disease. * #Abdominal ascites due to alcoholic liver disease * Had paracentesis with removal of 4.4 L of dark yellow-colored fluid. Fluid analysis shows no evidence of infection. * Will give albumin. * #alcoholic liver disease * Patient has a chronic history of alcohol use disorder. He is currently not on any therapy for this ascites. * Currently on Lasix and spironolactone * Liver enzymes mildly elevated. Will trend. * Total bilirubin is 2.6. It has been around 2.5-2.9. AST and ALT are WNL. * #Hypokalemia: potassium is 2.7. Will replace aggressively and trend. Magnesium levels are pending. #History of colitis: S/p colectomy. Colostomy in situ. 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 #Hypertension: Metoprolol on hold due to patient being on Lasix drip. WIll resume metoprolol as lasix drip has been stopped. On IV Lopressor as needed #History of alcohol use disorder: States has been sober for about 23 days prior to admission. Low risk for withdrawal now. Will monitor closely. Counseled to quit. #DVT prophylaxis: Lovenox. Charges/Coding Visit Charges Inpatient E&M: 96932 Subs Hosp L3
--- NOTE | 2024-07-06 19:37 | NURSING ---
Patient non compliant with much of todays care.
--- NOTE | 2024-07-07 08:18 | CASEMGMT ---
Discharge Planning Discharge Summary sent via [facility] to [facility]. Iman Brower DC Planning Asst.
== END 2024-07-06 19:40 | disposition home health service (06) | DRG 434 ==
LOC: ED 21:48 → PCU 22:56
PROVIDERS: Student in an Organized Health Care Education/Training Program; Admitting Provider Internal Medicine; Emergency Provider Emergency Medicine; PCP Family Medicine
DX: K70.31 Alcoholic cirrhosis of liver with ascites (principal); E55.9 Vitamin D deficiency, unspecified; K70.11 Alcoholic hepatitis with ascites; I10 Essential (primary) hypertension; F32.A Depression, unspecified; E66.9 Obesity, unspecified; Z93.3 Colostomy status; E87.6 Hypokalemia; F10.11 Alcohol abuse, in remission; R19.7 Diarrhea, unspecified; Z79.899 Other long term (current) drug therapy; Z87.891 Personal history of nicotine dependence; Z68.33 Body mass index [BMI] 33.0-33.9, adult; Z87.19 Personal history of other diseases of the digestive system
CPT/HCPCS: 36415; 49083; 71045; 76870; 77012; 80048; 80053; 82945; 83615; 83735; 83880; 84100; 84157; 84443; 85025; 85610; 85730; 87070; 87075; 87205; 88108; 88305; 88307; 88312; 88313; 89050; 93005; 93306; 93970; 93976; 94668; 97162; 97167; 97530; 97802; 99252; 99285; J7040; J7050; P9047; Q9957; A4216; G0463; J1940

== ENCOUNTER → 2024-08-18 | Outpatient (CLI) | payer MEDICAID, SELFPAY | END | disposition home or self-care (01) | PROVIDERS: PCP Family Medicine; Referring Provider Student in an Organized Health Care Education/Training Program; Visit Provider Student in an Organized Health Care Education/Training Program | DX: K74.60 Unspecified cirrhosis of liver (principal) | CPT/HCPCS: 36415; 82140 ==

== ENCOUNTER → 2024-09-20 | Outpatient (CLI) | payer OTHER, MEDICAID, SELFPAY ==
[2024-09-20 10:18] VITALS: BP 111/66; PULSE 58; RESP 18; O2SAT 97; BMI 23.7
[2024-09-20] MEDS: 0.9% Saline Lock 10 ML Syringe IV (11:48)
[2024-09-20] MEDS: Glucagon 1 MG/ML Syringe IV (11:48)
[2024-09-20 12:07] VITALS: BP 126/62; PULSE 63; RESP 18; O2SAT 99
== END | disposition home or self-care (01) ==
PROVIDERS: PCP Family Medicine; Referring Provider Student in an Organized Health Care Education/Training Program; Visit Provider Student in an Organized Health Care Education/Training Program
DX: K50.90 Crohn's disease, unspecified, without complications (principal)
CPT/HCPCS: 74183; 96374; A9575; A4216; J1610

== ENCOUNTER 2024-09-28 06:53 | Day surgery (SDC) | payer OTHER, MEDICAID, SELFPAY ==
[2024-09-28] VITALS (8 sets, daily range): BP systolic 84–114; BP diastolic 52–73; PULSE 57–72; RESP 14–16; TEMP 36.4–36.8; O2SAT 96–99; BMI 25.9
--- NOTE | 2024-09-28 07:17 | PRE.ANES_ITS ---
ASA Classification* ASA Classification ASA Classification: 3 Assessment & Plan Anesthesia* Anesthesia Assessment Anesthesia Assessment: Discussed sedation and/or anesthesia options, risks, benefits, and alternatives with patient/parents/legal guardian/POA. Questions invited. The patient/parents/legal guardian/POA seems to understand and agrees to proceed with anesthesia plan. Reviewed the physical assessment, medical history, allergy history and patient home medications list prior to surgery/procedure/anesthetic and documented any changes. Performed airway and anesthesia risk assessments. Anesthesia Type Anesthesia Type: MAC Anesthesia Focused Assessment* Airway Assessment Mouth opens: >3 cm Mallampati Score: II Focused Labs Anesthesia Preop lab: CBC WBC 15.8 K/mm3 (4.4-11.0) H 07/06/24 05:45 RBC 2.81 M/mm3 (4.6-6.2) L 07/06/24 05:45 Hgb 9.8 g/dL (13.0-16.5) L 07/06/24 05:45 Hct 30.6 % (40-54) L 07/06/24 05:45 Plt Count 264 K/mm3 (150-450) 07/06/24 05:45 CHEMISTRY Potassium 3.6 mmol/L (3.5-5.1) 07/06/24 05:45 Sodium 136 mmol/L (136-145) 07/06/24 05:45 Magnesium 2.0 mg/dL (1.6-2.6) 07/05/24 06:38 Phosphorus 3.4 mg/dL (2.5-4.9) 07/02/24 06:40 BUN 14 mg/dL (7-18) 07/06/24 05:45 Creatinine 0.69 mg/dL (0.70-1.30) L 07/06/24 05:45 Glucose 119 mg/dL (74-106) H 07/06/24 05:45 TSH 3.120 uIU/mL (0.358-3.740) 07/02/24 06:40 COAG PT 15.5 SECONDS (11.7-14.9) H 07/01/24 20:50 Pre-Assessment Diagnosis/Proposed Procedure Planned Operative Procedure(s): EGD Anesthesia History Anesthesia History - regional administrative assistant: Anesthesia History - regional administrative assistant Hx Hospitalization No 09/27/24 08:41 Any Problems With Anesthesia No 09/27/24 08:41 Cholinesterase deficiency No 09/27/24 08:41 You/Your Family Experience No 09/27/24 08:41 fever (hyperthermia) with Relationship Recent Exposure to Contagious No 11/17/23 13:33 Disease Does patient have nerve No 09/27/24 08:41 stimulator Patient instructed to have device shut off --Does patient have Pacemaker or ICD? When Was Last Pacemaker Check QUESTION #4 FULL TEXT: You/Your Family Experience fever (hyperthermia) with Anesthesia Last Oral Intake Last Oral intake: Last Oral Intake NPO since Meds taken in AM with sips of water? Meds patient instructed to take am of surgery PONV PONV - regional administrative assistant: PONV - regional administrative assistant Female No 09/27/24 08:41 HX of Motion Sickness No 09/27/24 08:41 HX of N/V After Surgery No 09/27/24 08:41 Non-Smoker No 09/27/24 08:41 Duration of Surgery greater No 09/27/24 08:41 than 60 minutes Number of Risk Factors PONV Score Height & Weight Height & Weight: Anesthesia: Height & Weight Height 6 ft 1 in 09/20/24 10:18 Respiratory Assessment Respiratory Assessment - regional administrative assistant: Respiratory Tract Infection Hx - regional administrative assistant Hx Respiratory Tract Infection No 09/27/24 08:41 STOP Sleep Apnea STOP Sleep Apnea - regional administrative assistant: STOP Sleep Apnea - regional administrative assistant Hx Hypertension Yes: ON WATER PILL/LOST 80 09/27/24 08:41 LBS Hx Sleep Apnea No 09/27/24 08:41 CPAP BIPAP Do you snore loudly (louder No 09/27/24 08:41 than talking or can be heard Do you often feel tired/ No 09/27/24 08:41 fatigued/ sleepy during daytime? Has anyone observed you stop No 09/27/24 08:41 breathing during sleep? STOP Results Negative 09/27/24 08:41 QUESTION #5 FULL TEXT : Do you snore loudly (louder than talking or can be heard through closed doors)? 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 Specify any problems Hx of Preganancy in last 3 N/A 09/27/24 08:41 Months Nurse Filling Out Transfusion DSCHRIBER 09/27/24 08:41 & Questions: Date: 09/27/24 09/27/24 08:41 Time: 08:43 09/27/24 08:41 Patient unable to answer at this time (ie. confused, unrespo /Reproduction History /Reproductive History - regional administrative assistant: /Reproductive Hx- regional administrative assistant Hx Now No 09/27/24 08:41 Gestational Age (in weeks): EDC: Hx Hx Para Hx Section SAB No 09/27/24 08:41 [facility] Medical History Smoker Depression History of Crohn's disease History of echocardiogram Vitamin D deficiency History of alcohol abuse Alcoholic liver disease Anemia History of colitis Abdominal pain H/O diverticulitis of colon Colonic diverticular abscess Diverticulitis of large intestine with abscess Hypertension Home Medications ?Medication ?Instructions ?Recorded ?Last Taken ?Type ascorbic acid (vitamin C) 500 mg 1 g PO DAILY supple 06/02/23 11/16/23 History tablet (Vitamin C) ergocalciferol (vitamin D2) 1,250 50,000 unit PO TUTH supp 06/02/23 11/12/23 History mcg (50,000 unit) capsule ferrous sulfate 325 mg (65 mg 325 mg PO TID supplement 06/02/23 11/16/23 History iron) tablet (FeroSul) escitalopram oxalate 20 mg tablet 10 mg PO DAILY depress 12/20/23 Unknown History rifaximin 550 mg tablet (Xifaxan) 550 mg PO BID 07/01/24 Unknown History pantoprazole 40 mg tablet,delayed 40 mg PO DAILY GERD 07/02/24 Unknown History release furosemide 40 mg tablet 40 mg PO DAILY #30 tabs 07/06/24 Unknown Rx lactulose 20 gram/30 mL oral 20 g (30 mL) PO TID #2,880 mL 07/06/24 Unknown Rx solution spironolactone 50 mg tablet 50 mg PO DAILY #30 tabs 07/06/24 Unknown Rx magnesium oxide 500 mg capsule 500 mg PO DAILY 09/27/24 Unknown History potassium chloride 20 mEq 20 meq PO DAILY SUPPLEMENT 09/27/24 Unknown History tablet,extended release(part/cryst) Allergy/AdvReac Type Severity Reaction Status Date / Time No Known Allergies Allergy Verified 09/27/24 08:38 Family History Brother Cancer leukemia Uncle Diabetes Cancer skin Mother Cancer skin Surgical History History of abdominal paracentesis History of colostomy H/O colonoscopy H/O knee surgery Social History household members: family housing: house Smoking Status: Current every day smoker tobacco type: cigarettes how long ago did patient quit smokin weeks ago alcohol intake: former details: No alcohol use in 23 days substance use type: marijuana Review of Systems (Anesthesia) ROS Narrative System reviewed and no additional complaints, except as documented.
--- NOTE | 2024-09-28 07:56 | HP.PCM_ITS ---
History and Physical Date of Admission: 09/28/24 Jayy White who presents to the office today for hospital f/u. Pt was hospitalized at [facility] 07.01.24-07.06.24 for abdominal ascites. He underwent liver biopsy and results revealed cirrhosis likely from alcohol. Since then he has been doing well. He is taking furosemide, spironolactone, lactulose and Xifaxan. He has not had alcohol since May and is working with one [employer] to continue his sobriety. In January 2024 he underwent colon resection for diverticulitis with perforation and also has had antibody testing indicating severe Crohns. He is unsure and confused about his Crohns diagnosis. He has never been treated for Crohns. He tells me he is having a hard time with his short term memory and feels its related to his liver. He has been urinating a lot since being on the diuretics. He denies swelling, itching, abdominal pain, constipation or diarrhea. ROS Const Constitutional: Positive for weight change Eyes Eyes: No change in vision ENT ENT: No abnormal hearing, difficulty swallowing, mouth lesions, tongue swelling or throat swelling Resp Respiratory: No cough or shortness of breath Cardio Cardiology: No chest pain at rest, chest pain with exertion, shortness of breath or dyspnea on exertion Gastro GI: Positive for diarrhea; No difficulty swallowing Genitourinary Male: No difficulty urinating or burning urination Musc Musculoskeletal: No joint pain, joint swelling, muscle weakness or decreased muscle mass Skin Skin: No hair loss in leg, yellowing of the eye, itchy eyes, rash, skin ulcer or skin swelling Neuro Neurology: No abnormal hearing, abnormal movements, confusion, unsteady gait/balance or memory loss Psych Psychiatric: No anxiety, No confusion and No memory loss Endo Endocrine: Positive for weight change Aller/Imm Allergy/Immunologic: No itchy eyes, throat swelling or tongue swelling Harvinder/Lymp Hematologic/Lymphatic: No easy bleeding, easy bruising or enlarged lymph nodes Exam Const General: cooperative and comfortable Nutritional Appearance: average body habitus and well nourished [facility] Head: normal to inspection Ears: hearing grossly normal bilaterally Nose: external nose normal Face and sinus: normal facial exam Mouth: oral mucosae normal Throat: posterior oropharynx normal Eyes General: appearance normal, both eyes and all related structures Neck Neck: normal visual inspection Chest Chest palpation & inspection: normal inspection of the chest and normal palpation of entire chest wall Resp Effort & Inspection: normal respiratory effort GI Inspection: normal to inspection Percussion: normal to percussion Palpation: soft and no hepatosplenomegaly Skin General: no rashes or lesions noted Neuro General: patient alert Extrem General: normal to inspection Psych Affect: normal affect Assessment and Plan Assessment and Plan (1) Cirrhosis: Status: Acute Plan: Pt is a 29 yo male who was recently diagnosed with alcoholic cirrhosis during a hospital stay for abdominal ascites. He has a PMHx of colon perforation requiring colon resection. It is unclear wether this was related to diverticulitis or Crohns disease. I discussed his liver biopsy results with him and explained cirrhosis of the liver. He is understanding. He will avoid acetaminophen and continue avoidance of all alcohol. He will continue spironolactone 50 mg, furosemide 40 mg, Xifaxan 550 mg BID, and lactulose 20 grams TID. We can consider increasing these medications in the future. He denies all symptoms besides having some short term memory loss. I will order an ammonia level to rule out encephalopathy. he will undergo EGD for surveillance of varices. Regarding his Crohns, we will finish work up with MR enterography and capsule endoscopy. -Continue medications as prescribed -EGD -MR enterography -Capsule endoscopy -Ammonia level -F/u in [address] Reyna (2) Colitis: Status: Acute (3) Crohn's disease: Status: Acute Orders: Orders Ammonia Today K74.60 - Unspecified cirrhosis of liver Enterography Abd/Pel Today K50.90 - Crohn's disease, unspecified, without complications I have examined the patient and the H&P has been reviewed. There are no clinical changes since date of exam.
--- NOTE | 2024-09-28 08:19 | PCM.POST.ANE ---
Anesthesia: Postop Eval I Current Vital Signs Temperature: 98.2 F Pulse Rate: 57 Blood Pressure: 84/52 Respiratory Rate: 14 Pulse Ox: 97 Oxygen Delivery Method: Room Air Assessment Airway patent: Yes Spontaneous unlabored respirations: Yes Mental status: Asleep nausea: No Vomiting: No Anesthesia Complication: No Fluid Hydration Crystalloid volume administer (ml): 30 Total IV fluid infused: 30 Progress Note Anesthesia document: Postop Eval 1 completed: Yes
--- NOTE | 2024-09-28 08:20 | OP.CCLET_ITS ---
09/28/2024 Evie Peterson Do Re : Upper GI endoscopy procedure for Hang Degroot Dear Nicholas This procedure was performed on Saturday, September 28, 2024. My impressions and recommendations are as follows: Impressions : - Normal esophagus. - Portal hypertensive gastropathy. - A large amount of food (residue) in the stomach. - No gross lesions in the duodenal bulb. - No specimens collected. Recommendations : - Discharge patient to home. - Gastroparesis diet. - Continue present medications. - Repeat upper endoscopy in 3 months because the preparation was poor. - Gastric emptying study My findings are described in the full procedure note, which is enclosed. If I can be of further assistance, please feel free to contact me at . Sincerely, Claude Reyna, 09/28/2024 8:20:05 AM This report has been signed electronically.
--- NOTE | 2024-09-28 08:20 | OP.EGD_ITS ---
Patient Name: Hang Degroot Procedure Date: 09/28/2024 7:56 AM Date of : 1995 Age: 29 Procedure: Upper GI endoscopy Indications: Peptic ulcer, Cirrhosis with suspected esophageal varices Providers: Claude Reyna DO Referring MD: Evie Peterson Do Medicines: Monitored Anesthesia Care Patient Profile: This is a 29 year old male. Refer to note in patient chart for documentation of history and physical. Patient has symptoms of chronic dyspepsia, chronic nausea and chronic vomiting. Complications: No immediate complications. Procedure: Pre-Anesthesia Assessment: - Prior to the procedure, a History and Physical was performed, and patient medications and allergies were reviewed. The patient is competent. The risks and benefits of the procedure and the sedation options and risks were discussed with the patient. All questions were answered and informed consent was obtained. Patient identification and proposed procedure were verified by the physician in the pre-procedure area. Mental Status Examination: alert and oriented. Airway Examination: normal oropharyngeal airway and neck mobility. Respiratory Examination: clear to auscultation. CV Examination: normal. Prophylactic Antibiotics: The patient does not require prophylactic antibiotics. Prior Anticoagulants: The patient has taken no anticoagulant or antiplatelet agents except for NSAID medication. ASA Grade Assessment: II - A patient with mild systemic disease. After reviewing the risks and benefits, the patient was deemed in satisfactory condition to undergo the procedure. The anesthesia plan was to use monitored anesthesia care (MAC). Immediately prior to administration of medications, the patient was re-assessed for adequacy to receive sedatives. The heart rate, respiratory rate, oxygen saturations, blood pressure, adequacy of pulmonary ventilation, and response to care were monitored throughout the procedure. The physical status of the patient was re-assessed after the procedure. After obtaining informed consent, the endoscope was passed under direct vision. Throughout the procedure, the patient's blood pressure, pulse, and oxygen saturations were monitored continuously. The Endoscope was introduced through the mouth, and advanced to the second part of duodenum. The upper GI endoscopy was accomplished without difficulty. The patient tolerated the procedure well. Scope In: 8:10:07 AM Scope Out: 8:10:55 AM Total Procedure Duration Time 0 hours 0 minutes 48 seconds Findings: The examined esophagus was normal. Mild portal hypertensive gastropathy was found in the entire examined stomach. A large amount of food (residue) was found in the entire examined stomach. No gross lesions were noted in the duodenal bulb. Impression: - Normal esophagus. - Portal hypertensive gastropathy. - A large amount of food (residue) in the stomach. - No gross lesions in the duodenal bulb. - No specimens collected. Recommendation: - Discharge patient to home. - Gastroparesis diet. - Continue present medications. - Repeat upper endoscopy in 3 months because the preparation was poor. - Gastric emptying study Procedure Code(s): --- Professional --- 51918, Esophagogastroduodenoscopy, flexible, transoral; diagnostic, including collection of specimen(s) by brushing or washing, when performed (separate procedure) CPT copyright 2021 [employer]. All rights reserved. The codes documented in this report are preliminary and upon automation tester review may be revised to meet current compliance requirements. Claude Reyna DO 09/28/2024 8:20:05 AM This report has been signed electronically. Number of Addenda: 0 Note Initiated On: 09/28/2024 7:56 AM
--- NOTE | 2024-09-28 08:26 | PCM.POSTANE2 ---
Anesthesia Postop Eval I Sum Postop Eval Completion status Anesthesia document: Postop Eval 1 completed: Yes Anesthesia Postop Eval I Summary Anesthesia Postop Eval I Summary: Anesthesia Postop Eval I: Assessment Summary Airway patent Yes 09/28/24 08:20 [email or web address] Spontaneous unlabored Yes 09/28/24 08:20 [email or web address] respirations Mental status Asleep 09/28/24 08:20 [email or web address] nausea No 09/28/24 08:20 [email or web address] Vomiting No 09/28/24 08:20 [email or web address] Anesthesia Postop Eval I: Fluid Summary Crystalloid volume administer 30 09/28/24 08:20 [email or web address] (ml) Colloids volume administered ( ml) Blood Product volume administered (ml) Total IV fluid infused 30 09/28/24 08:20 [email or web address] Anesthesia Postop Eval I: Summary Notes Anesthesia Complication No 09/28/24 08:20 [email or web address] Anesthesia Complication Comment: Post-operative progress note Anesthesia: Postop Eval II Evaluation Mental status: Awake Pain Level: 0 nausea: No Vomiting: No
== END 2024-09-28 10:25 | disposition home or self-care (01) ==
LOC: EN 07:00 → AC 07:01
PROVIDERS: PCP Family Medicine; Referring Provider Family Medicine; Visit Provider Internal Medicine Gastroenterology
PROC: 0DJ08ZZ Inspection of Upper Intestinal Tract, Via Natural or Artificial Opening Endoscopic (ICD-10-PCS; CPT 43235; principal; 2024-09-28 08:10)
DX: K70.30 Alcoholic cirrhosis of liver without ascites (principal); K76.6 Portal hypertension; K27.9 Peptic ulcer, site unspecified, unspecified as acute or chronic, without hemorrhage or perforation; K31.89 Other diseases of stomach and duodenum; E55.9 Vitamin D deficiency, unspecified; F32.A Depression, unspecified; F10.11 Alcohol abuse, in remission; Y90.9 Presence of alcohol in blood, level not specified; F17.210 Nicotine dependence, cigarettes, uncomplicated; Z79.899 Other long term (current) drug therapy
CPT/HCPCS: 43235; A4216; J2405

== ENCOUNTER 2024-11-22 05:38 | Emergency (ER) | payer MEDICAID, SELFPAY ==
[2024-11-22 05:39] VITALS: BP 149/86; PULSE 93; RESP 16; TEMP 36.1; O2SAT 99; BMI 21.7
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
[2024-11-22] MEDS: HYDROcodone Bitartrate/Apap 5/325 Tablet PO (06:23)
== END 2024-11-22 06:52 | disposition home or self-care (01) ==
PROVIDERS: Emergency Provider Emergency Medicine; PCP Family Medicine; Visit Provider Emergency Medicine
DX: S29.012A Strain of muscle and tendon of back wall of thorax, initial encounter (principal); V53.5XXA Driver of pick-up truck or van injured in collision with car, pick-up truck or van in traffic accident, initial encounter; F17.210 Nicotine dependence, cigarettes, uncomplicated
CPT/HCPCS: 71046; 72070; 99284

== ENCOUNTER 2024-11-24 17:30 | Emergency (ER) | payer MEDICAID, SELFPAY ==
[2024-11-24 17:31] VITALS: BP 163/98; PULSE 112; RESP 16; TEMP 36.7; O2SAT 98; BMI 23.2
--- NOTE | 2024-11-24 17:56 | EX.ED.DYSGE1 ---
HPI History of Present Illness Chief Complaint: Abd Pain [facility] Medical History Smoker Depression History of Crohn's disease History of echocardiogram Vitamin D deficiency History of alcohol abuse Alcoholic liver disease Anemia History of colitis Abdominal pain H/O diverticulitis of colon Colonic diverticular abscess Diverticulitis of large intestine with abscess Hypertension Home Medications ?Medication ?Instructions ?Recorded ?Last Taken ?Type ascorbic acid (vitamin C) 500 mg 1 g PO DAILY supple 06/02/23 11/16/23 History tablet (Vitamin C) ergocalciferol (vitamin D2) 1,250 50,000 unit PO TUTH supp 06/02/23 11/12/23 History mcg (50,000 unit) capsule ferrous sulfate 325 mg (65 mg 325 mg PO TID supplement 06/02/23 11/16/23 History iron) tablet (FeroSul) pantoprazole 40 mg tablet,delayed 40 mg PO DAILY GERD 07/02/24 09/28/24 History release furosemide 40 mg tablet 40 mg PO DAILY #30 tabs 07/06/24 Unknown Rx spironolactone 50 mg tablet 50 mg PO DAILY #30 tabs 07/06/24 Unknown Rx magnesium oxide 500 mg capsule 500 mg PO DAILY 09/27/24 Unknown History potassium chloride 20 mEq 20 meq PO DAILY SUPPLEMENT 09/27/24 Unknown History tablet,extended release(part/cryst) fluoxetine 20 mg capsule 20 mg PO DAILY 11/24/24 Unknown History Allergy/AdvReac Type Severity Reaction Status Date / Time No Known Allergies Allergy Verified 11/22/24 05:43 Family History Brother Cancer leukemia Uncle Diabetes Cancer skin Mother Cancer skin Surgical History History of abdominal paracentesis History of colostomy H/O colonoscopy H/O knee surgery Social History household members: family housing: house Smoking Status: Current every day smoker tobacco type: cigarettes how long ago did patient quit smokin weeks ago alcohol intake: former details: No alcohol use in 23 days substance use type: marijuana EXAM Physical Exam Const Vital Signs: 11/24/24 17:31 11/24/24 20:00 11/24/24 20:37 Temperature 98.1 F 98.4 F Temperature Source Oral Pulse Rate 112 H 84 84 Respiratory Rate 16 16 16 Blood Pressure 163/98 H 129/80 H Blood Pressure Mean 119 96 Pulse Ox 98 98 98 Oxygen Delivery Method Room Air Room Air [facility] Narrative Medical decision making narrative: HISTORY OF PRESENT ILLNESS: 29-year-old male presents with concern for pain on his ileostomy. He notes he had surgery on the 03 November. He notes he has difficulty with psych care. Notes he cannot follow-up with his doctor. He notes he does have transportation. Notes pain for the last week. No vomiting. No urinary complaints. No fever. Notes irritation around his ostomy site. Patient immediately requested transfer to [facility]. REVIEW OF SYSTEMS: Pertinent positives: Abdominal Pertinent negatives: PHYSICAL EXAM: Nursing triage notes reviewed, Vital signs reviewed Constitutional: please see mdm HENT: MMM Eyes: Pupils equal round and reactive to light, Extraocular muscles intact Neck: No stridor, no JVD, full neck ROM Lungs: Clear to auscultation, No wheezing or rales. No increased work of breathing, no conversational dyspnea, no accessory muscle use, no nasal flaring. No respiratory distress noted Heart: Regular rate and rhythm, No murmurs, No rubs and No gallops, 2+ distal pulses (radial, femoral, posterior tibial) in all extremities Abdomen: Soft, there is no tenderness, rigidity, rebound or guarding, no obvious peritoneal signs, no palpable pulsatile abdominal masses, no auscultated abdominal bruit : No CVAT Extremities: No edema Neuro: No new focal neurological deficits, cranial nerves II through XII intact, 5/5 strength in all present extremities. Intact sensation to light touch in all present extremities, 2+ reflexes bilateral patella tendons. Skin: Erythema noted on ostomy site, no fluctuance induration or crepitus. TTP around ostomy site. MEDICAL DECISION MAKING: Chief Complaint: Pain ostomy site, abdominal pain External records reviewed: Reviewed prior imaging. Reviewed prior ED visits. Was seen here 2 days ago with no mention of abdominal pain or pain or ostomy site. Reviewed Clinisync: Patient was noted undergo robotic Yoel reversal and takedown of colovesical fistula on [address] Hickman. Factors affecting care: Crohn disease, abdominal ascites, diverticulitis Social determinants of health: none History obtained from others: none Consults: General Surgery (Dr. Tyler [facility], Dr. Hankins [facility]), Emergency Medicine MDM Narrative: Patient was initially hypertensive with a blood pressure 160/98, tachycardic with heart rate of 112, abdomen I considered the following differential diagnosis: Intra-abdominal pathology such as obstruction or perforation, pancreatitis, hepatobiliary obstruction In terms of transfer to another facility I told the patient we will await lab and imaging results and if there is a medical necessity for transfer we will approach at that time. ALL IMAGES (IF OBTAINED) HAVE BEEN PERSONALLY REVIEWED AND INTERPRETED BY MYSELF. CBC with no leukocytosis, mild anemia, no thrombocytopenia BMP with mild hypokalemia otherwise no significant Yary normalities, no signs of metabolic acidosis or endorgan hypoperfusion, no acute kidney injury Lipase is wnl indicating no pancreatic inflammation. CT scan of the abdomen pelvis shows evidence of large intra-abdominal abscesses. Lipase is wnl indicating no pancreatic inflammation. On reevaluation the patient abdominal exam remained stable. Vitals improved with a blood pressure 129/80 and a heart rate of 84. Discussed with our surgeon here Dr. Florentino recommended transfer given we do not have IR the patient had her surgery at an outside hospital. Discussed with surgeon at [facility] Dr. Hankins who agreed to see the patient. Recommended ED to ED transfer for prompt evaluation and disposition. Discussed with the emergency physician at [facility] Dr. Horne who accepted the patient in transfer. He was transferred in stable condition. The patient and/or family, caregivers express understanding. The patient and/or family, caregivers agrees with the plan. Shared decision making: I will have a discussion with the patient and or visitors regarding risk/benefits of further testing or admission. They will be made aware of of the risk/benefits inherent in this decision they will be given the opportunity to voice understanding. Total critical care time today provided was at least 0 minutes. This excludes separately billable procedures. Critical care time (if documented) is secondary to the patient having high probability of clinically significant/life threatening deterioration in the patient's condition which required my urgent intervention. Impression: 1. Abdominal pain 2. History of Crohn's disease 3. Intra-abdominal abscess Dispo: Transfer to [facility] for definitive surgical evaluation This note was generated with Silistixation software. It may contain incorrect words, spelling, and punctuation that were not noted in review of the chart prior to signing. Lab Data Labs: Laboratory Results - last 24 hr 11/24/24 18:30 WBC 10.4 RBC 3.48 L Hgb 10.3 L Hct 31.8 L MCV 91.4 MCH 29.6 MCHC 32.4 RDW Std Deviation 47.3 H RDW Coeff of Kristen 14.1 Plt Count 541 H MPV 9.5 Immature Gran % (Auto) 0.500 Neut % (Auto) 72.2 H Lymph % (Auto) 20.3 Wilson % (Auto) 5.5 Eos % (Auto) 1.1 Baso % (Auto) 0.4 Absolute Neuts (auto) 7.5 Absolute Lymphs (auto) 2.11 Nucleated RBC % 0 Sodium 136 Potassium 3.3 L Chloride 101 Carbon Dioxide 27.0 Anion Gap 8 BUN 6 L Creatinine 0.62 L Estim Creat Clear Calc 195.10 Est GFR (MDRD) Af Amer 193 Est GFR (MDRD) Non-Af 159 BUN/Creatinine Ratio 9.6 L Glucose 105 Calcium 9.1 Total Bilirubin 0.70 Direct Bilirubin 0.37 H AST 14 L ALT 13 L Alkaline Phosphatase 90 Total Protein 8.2 Albumin 2.9 L Globulin 5.3 H Lipase 15 Radiography Diagnostic Testing: Clinical Impression(s) from Imaging Studies Abdomen/Pelvis CT 11/24/24 18:23 IMPRESSION: Multiple abscesses in the abdomen and pelvis. Cirrhosis. Splenomegaly. Mild retroperitoneal adenopathy. Electronically Signed: Walter Moulton DO at 19:12 EST Reading Location ID and State: [facility] / [place] Tel [phone], Service support , Discharge Plan Triage Chief Complaint: Abd Pain ED Provider: Alan Jain Dx/Rx/DC Orders Prescriptions: No Action ascorbic acid (vitamin C) [Vitamin C] 500 mg tablet 1 g PO DAILY Patient Comments: TAKE with IRON ferrous sulfate [FeroSul] 325 mg (65 mg iron) tablet 325 mg PO TID Patient Comments: TAKE with VITAMIN C ergocalciferol (vitamin D2) 1,250 mcg (50,000 unit) capsule 50,000 unit PO TUTH potassium chloride 20 mEq tablet,ER particles/crystals 20 meq PO DAILY magnesium oxide 500 mg capsule 500 mg PO DAILY fluoxetine 20 mg capsule 20 mg PO DAILY pantoprazole 40 mg tablet,delayed release (DR/EC) 40 mg PO DAILY furosemide 40 mg Tablet 40 mg PO DAILY Qty: 30 0RF spironolactone 50 mg Tablet 50 mg PO DAILY Qty: 30 0RF Primary Care Provider: Evie Cox Referrals: Evie Cox DO [Primary Care Provider] - Print Language: Panamanian
--- NOTE | 2024-11-24 18:23 | CT_ITS ---
STUDY: CT ABDOMEN AND PELVIS WITH CONTRAST REASON FOR EXAM: Male, 29 years old. abdominal pain RADIATION DOSAGE (If Supplied By Facility): CTDIvol = ( 10.94 ) mGy, DLP = ( 841.24 ) mGycm TECHNIQUE: Transaxial images were obtained from the dome of the diaphragm to the symphysis pubis without oral contrast. IV 100mL Isovue-370 was administered. Sagittal and coronal images were reconstructed. Individualized dose optimization techniques were used for this CT. COMPARISON: None. FINDINGS: The visualized lung bases are unremarkable. The visualized portions of the heart are within normal limits. Cirrhosis of the liver. There are heterogeneous collections adjacent to the liver the largest in the gastrohepatic space measuring 16 x 9 cm, likely representing abscesses. Normal gallbladder and extrahepatic biliary system. Enlarged spleen. This a 5.1 x 2.1 cm collection along the inferior edge of the spleen likely an abscess. Normal pancreas. Mesenteric stranding/thickening. Normal bilateral adrenal glands. Normal right kidney. Normal left kidney. Normal visualized stomach. Normal small intestine. Prior surgery at the colon. The appendix is visualized and appears normal. Normal abdominal aorta. Normal inferior vena cava. Mild adenopathy in the retroperitoneum. Normal urinary bladder. There is a 5.6 x 8.3 cm collection in the pelvis likely an abscess. There is an ostomy in the right anterior abdominal wall. Mild old wedge compression T11-L1. CT/Abdomen/Pelvis W IV Cont ONLY IMPRESSION: Multiple abscesses in the abdomen and pelvis. Cirrhosis. Splenomegaly. Mild retroperitoneal adenopathy. Electronically Signed: Walter Moulton DO at 19:12 EST ,
[2024-11-24] MEDS: 0.9% Normal Saline (1000mL) 1,000 ML 999 ML IV (18:31)
[2024-11-24 18:40] LABS: Absolute Lymphocyte Count 2.11 X10^3/uL (0.83-4.51); Absolute Neutrophil Count 7.5 X10^3/uL (2.0-7.7); Basophil# 0.04 X10^3/uL; Basophil% 0.4 % (0-1); Eosinophil# 0.11 X10^3/uL; Eosinophils% 1.1 % (0-5); Hematocrit 31.8 % (40-54); Hemoglobin 10.3 g/dL (13.0-16.5); Lymphocyte # 2.11 X10^3/ul (0.83-4.51); Lymphocyte % 20.3 % (19-41); Mean Corp Hgb Conc 32.4 g/dL (32-36); Mean Corpuscular Hgb 29.6 pg (27.0-32.0); Mean Corpuscular Volume 91.4 fL (80-94); Mean Platelet Vol. 9.5 fl (6.2-12.0); Monocyte# 0.57 X10^3/uL; Monocyte% 5.5 % (0-10); NRBC Flagged by Analyzer 0 % (0-5); Neutrophil # 7.53 X10^3/uL (2.7-7.7); Neutrophil % 72.2 % (47-70); Platelet Count 541 K/mm3 (150-450); RBC Distribution Width CV 14.1 % (11.6-14.6); RBC Distribution Width SD 47.3 fl (35.1-43.9); Red Blood Count 3.48 M/mm3 (4.6-6.2); White Blood Count 10.4 K/mm3 (4.4-11.0)
[2024-11-24 18:52] LABS: Anion Gap 8 (5-15); BUN 6 mg/dL (7-18); BUN/Creat Ratio 9.6 RATIO (10-20); Calcium,Total 9.1 mg/dL (8.5-10.1); Chloride 101 mmol/L (98-107); Creatinine, Serum 0.62 mg/dL (0.70-1.30); EST Glomerular Filtration Rate 159 mL/min (>60); Est Glom Filt Rate - Afr Amer 193 mL/min (>60); Glucose 105 mg/dL (74-106); Lipase 15 U/L (13-75); Potassium 3.3 mmol/L (3.5-5.1); Sodium Level 136 mmol/L (136-145)
[2024-11-24 20:00] VITALS: PULSE 84; RESP 16; O2SAT 98
[2024-11-24 20:04] LABS: AST(SGOT) 14 U/L (15-37); Alanine Aminotransfer ALT/SGPT 13 U/L (16-61); Albumin, Serum 2.9 g/dL (3.2-5.0); Alkaline Phosphatase 90 U/L (45-117); Bilirubin, Direct 0.37 mg/dL (0.00-0.30); Globulin 5.3 g/dL (2.2-4.2); Protein, Total 8.2 g/dL (6.4-8.2)
[2024-11-24] MEDS: Piperacil/Tazobactam 4.5 GM in 0.9% Normal Saline (100mL MB+) 100 ML IV (20:16)
[2024-11-24 20:37] VITALS: BP 129/80; PULSE 84; RESP 16; TEMP 36.9; O2SAT 98
[2024-11-24] MEDS: Vancomycin HCl 1,250 MG in 0.9% Normal Saline (250mL Bag) 250 ML 167 MG IV (21:00)
--- NOTE | 2024-11-24 21:09 | ED.RN ---
CALLED [facility] TO SET UP A RIDE, SPOKE TO LARRY. ETA IS 4-5 HOURS ([phone]).
[2024-11-24 22:00] VITALS: BP 120/75; PULSE 81; RESP 18; O2SAT 98
--- NOTE | 2024-11-24 22:40 | ED.RN ---
This RN walked in to obtain vital signs for the patient. Upon entering the room, the patient was standing beside his bed with the IV pump in his hand and his antibiotic disconnected from the tubing. This RN educated the patient on the importance of not touching the IV pump and not disconnecting his own IV while an antibiotic was running. The patient also did not have his ostomy bag attached at the time, this RN asked if the patient needed assistance with his ostomy bag, the patient declined. This RN instructed the patient to reattach his ostomy bag and educated the importance on keeping the bag attached. This RN stated that this RN would be back in a few minutes to restart his antibiotic since the patient had disconnected it and needed to go to the bathroom. The patient verbalized understanding.
--- NOTE | 2024-11-24 22:55 | ED.RN ---
This RN entered the patient's room to restart the antibiotics. Upon entering the room, the patient was standing beside the bed with the IV pump in his hand and his antibiotics connected to the IV. This RN questioned what the patient was doing. The patient responded with the tubing was too short so I couldn't change the channel. This RN explained the patient was not allowed to touch his IV pump for the second time. This RN educated the patient on the importance of not altering an antibiotic, especially because this is a medication with certain rules on how it can be administered. The patient verbalized understanding.
[2024-11-25] VITALS: BP 121/74; PULSE 79; RESP 18; O2SAT 97
[2024-11-25] MEDS: Morphine 4 MG/ML Syringe IV (00:59)
[2024-11-25 02:00] VITALS: BP 120/70; PULSE 69; RESP 16; O2SAT 98
--- NOTE | 2024-11-28 17:36 | CM.ED ---
Social work This SW received a call from Vane at [facility] ([phone]) and Vane stated patient's name and , asking if this SW knew of patient's location upon patient's discharge from [facility] ED on 11/24/24. Vane stated [facility] had a request to follow up with the patient and Vane stated knowing patient had been hospitalized in [place] after being at [facility]. Per doctor's note, patient was transferred to [facility] upon request for medical reasoning (definitive surgical evaluation); this was told to Vane. Vane denied further needs at this time. Aparna Leon, PAINTER [employer], STAFF RESEARCH ASSOCIATE
== END 2024-11-25 02:53 | disposition short-term general hospital (02) ==
LOC: ED 18:23
PROVIDERS: Emergency Provider Emergency Medicine; PCP Family Medicine; Referring Provider Emergency Medicine; Visit Provider Emergency Medicine
DX: K65.1 Peritoneal abscess (principal); Z93.2 Ileostomy status; K50.914 Crohn's disease, unspecified, with abscess; F17.210 Nicotine dependence, cigarettes, uncomplicated; Z79.899 Other long term (current) drug therapy
CPT/HCPCS: 74177; 80048; 80076; 83690; 85025; 96365; 96366; 96367; 96375; 99284; Q9967; A4216

== ENCOUNTER → 2024-12-29 | Outpatient (CLI) | payer MEDICAID, SELFPAY ==
[2024-12-29 17:21] LABS: Absolute Lymphocyte Count 2.03 X10^3/uL (0.83-4.51); Basophil# 0.07 X10^3/uL; Basophil% 0.6 % (0-1); Eosinophils% 2.5 % (0-5); Hematocrit 44.5 % (40-54); Hemoglobin 14.7 g/dL (13.0-16.5); Lymphocyte # 2.03 X10^3/ul (0.83-4.51); Lymphocyte % 16.6 % (19-41); Mean Corpuscular Hgb 29.5 pg (27.0-32.0); Mean Corpuscular Volume 89.2 fL (80-94); Mean Platelet Vol. 11.3 fl (6.2-12.0); Monocyte# 0.75 X10^3/uL; Monocyte% 6.1 % (0-10); NRBC Flagged by Analyzer 0 % (0-5); Neutrophil # 9.02 X10^3/uL (2.7-7.7); Neutrophil % 73.8 % (47-70); Platelet Count 247 K/mm3 (150-450); RBC Distribution Width CV 14.6 % (11.6-14.6); RBC Distribution Width SD 47.7 fl (35.1-43.9); Red Blood Count 4.99 M/mm3 (4.6-6.2); White Blood Count 12.2 K/mm3 (4.4-11.0)
[2024-12-29 17:47] LABS: ALB/GLOB Ratio 0.9 RATIO (0.9-2.4); AST(SGOT) 25 U/L (15-37); Alanine Aminotransfer ALT/SGPT 27 U/L (16-61); Albumin, Serum 3.8 g/dL (3.2-5.0); Alkaline Phosphatase 110 U/L (45-117); Anion Gap 7 (5-15); BUN 16 mg/dL (7-18); BUN/Creat Ratio 22.4 RATIO (10-20); CRP 5.43 mg/L (0.0-3.0); Calcium,Total 9.3 mg/dL (8.5-10.1); Chloride 102 mmol/L (98-107); Creatinine, Serum 0.72 mg/dL (0.70-1.30); EST Glomerular Filtration Rate 136 mL/min (>60); Est Glom Filt Rate - Afr Amer 164 mL/min (>60); Globulin 4.2 g/dL (2.2-4.2); Glucose 85 mg/dL (74-106); Potassium 3.8 mmol/L (3.5-5.1); Sodium Level 135 mmol/L (136-145)
[2024-12-29 18:17] LABS: Erythrocyte Sedimentation Rate 22 mm/hr (0-20)
[2025-01-02 16:09] LABS: ACCA 174 units (0-90); ALCA 99 units (0-60); AMCA 375 units (0-100); gASCA 67 units (0-50)
== END | disposition home or self-care (01) ==
LOC: LAB 16:13
PROVIDERS: Student in an Organized Health Care Education/Training Program; PCP Family Medicine; Referring Provider Internal Medicine Gastroenterology; Visit Provider Internal Medicine Gastroenterology
DX: K50.90 Crohn's disease, unspecified, without complications (principal); K74.60 Unspecified cirrhosis of liver
CPT/HCPCS: 36415; 80053; 83516; 85025; 85652; 86036; 86140; 86671

== ENCOUNTER 2025-02-04 11:23 | Emergency (ER) | payer MEDICAID, SELFPAY ==
[2025-02-04 11:24] VITALS: BP 161/101; PULSE 103; RESP 16; TEMP 36.4; O2SAT 100; BMI 26.4
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
[2025-02-04 12:07] LABS: Absolute Lymphocyte Count 1.28 X10^3/uL (0.83-4.51); Absolute Neutrophil Count 5.7 X10^3/uL (2.0-7.7); Basophil# 0.05 X10^3/uL; Basophil% 0.7 % (0-1); Eosinophil# 0.19 X10^3/uL; Eosinophils% 2.5 % (0-5); Hematocrit 49.8 % (40-54); Hemoglobin 17.1 g/dL (13.0-16.5); Lymphocyte # 1.28 X10^3/ul (0.83-4.51); Lymphocyte % 16.9 % (19-41); Mean Corp Hgb Conc 34.3 g/dL (32-36); Mean Corpuscular Hgb 29.8 pg (27.0-32.0); Mean Corpuscular Volume 86.8 fL (80-94); Mean Platelet Vol. 10.3 fl (6.2-12.0); Monocyte# 0.33 X10^3/uL; Monocyte% 4.4 % (0-10); NRBC Flagged by Analyzer 0 % (0-5); Neutrophil # 5.71 X10^3/uL (2.7-7.7); Neutrophil % 75.2 % (47-70); Platelet Count 200 K/mm3 (150-450); RBC Distribution Width SD 44.6 fl (35.1-43.9); Red Blood Count 5.74 M/mm3 (4.6-6.2); White Blood Count 7.6 K/mm3 (4.4-11.0)
[2025-02-04 12:23] VITALS: PULSE 87; RESP 16; O2SAT 99
[2025-02-04 12:49] LABS: Alcohol, Blood (Medical)-Serum < 10.1 mg/dL (<=10.0)
[2025-02-04 12:54] LABS: AST(SGOT) 28 U/L (<=37); Alanine Aminotransfer ALT/SGPT 45 U/L (<=46); Albumin, Serum 4.5 g/dL (3.5-5.0); Alkaline Phosphatase 110 U/L (40-129); Anion Gap 15 (5-15); BUN 9 mg/dL (4-19); BUN/Creat Ratio 9.9 RATIO (10-20); Bilirubin, Direct 0.31 mg/dL (0.00-0.30); Calcium,Total 9.7 mg/dL (7.6-11.0); Carbon Dioxide 22.9 mmol/L (21.0-32.0); Chloride 99 mmol/L (98-108); Creatinine, Serum 0.88 mg/dL (0.70-1.20); EST Glomerular Filtration Rate 118 (>60); Estimated Creatinine Clearance 137.45 ml/min (50-250); Globulin 3.3 g/dL (2.2-4.2); Glucose 168 mg/dL (70-99); Potassium 3.6 mmol/L (3.3-5.1); Protein, Total 7.8 g/dL (5.9-8.4); Sodium Level 136 mmol/L (133-145); Total Bilirubin 0.51 mg/dL (0.00-1.30)
[2025-02-04 12:58] LABS: Amphetamine Urine NEGATIVE (<1000 ng/mL); Barbiturate Urine NEGATIVE (< 200 ng/mL); Benzodiazepine Urine NEGATIVE (< 200 ng/mL); Buprenorphine Urine NEGATIVE (< 200 ng/mL); Cocaine Urine NEGATIVE (< 300 ng/mL); Fentanyl, Urine NEGATIVE; Methadone Urine NEGATIVE (< 300 ng/mL); Opiates Urine NEGATIVE (< 300 ng/mL); Oxycodone, Urine NEGATIVE (< 100 ng/mL); PCP Urine NEGATIVE (< 25 ng/mL); THC Urine NEGATIVE (< 50 ng/mL)
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
[2025-02-04] MEDS: hydrOXYzine PAM 25 MG Capsule PO (15:51)
--- NOTE | 2025-02-04 16:36 | ED.RN ---
pt reports his mind is racing and i wish i wasnt honest. i wish i didnt say anything.. states im afraid im trapped and that i will never get out now. explained 72hr hold and goals and that it is a temporary stay, goal is to get him stabilized and help him have better tools to get through what he is struggling to cope with right now. pt seemed to calm some with talking. offered distractions. assisted pt with tv. encouraged him that we are here if he needs more talking.
--- NOTE | 2025-02-04 19:50 | CM.ED ---
Social Work: coating line worker made phone contact with [facility] who stated they have an open bed. [employer] faxed over referral packet. coating line worker later learned that patient has been accepted and that transportation has already been arranged. coating line worker will make contact with [facility] per previous patient request to let them know patient will be gone for an unknown amount of time so they don't get rid of patient's belongings. coating line worker went to patient's room to update; patient sleeping and social human services assistants did not wake to discuss. [employer] did leave a hand-out on [facility] in room for patient for when patient wakes. Christina Wise, PUBLIC RECORDS OFFICER, QUALITY ASSURANCE MONITOR FINAL
[2025-02-04 19:51] VITALS: BP 145/95; PULSE 81; RESP 18; O2SAT 97
--- NOTE | 2025-02-04 20:03 | CM.ED ---
Social Work: Unsuccessful phone contact with the [facility] . No answer. Travel Rn left a message with her name and number requesting a return call in regards to patient. Christina Wise MSW, AUTO MOTOR MECHANIC
[2025-02-04 20:31] VITALS: BP 145/95; PULSE 81; RESP 16; TEMP 36.4; O2SAT 97
--- NOTE | 2025-02-06 14:06 | CM.ED ---
Social work This SW received call from Devora at [facility] ([phone]) who stated patient was at [facility] and came in for SI over the weekend. Devora requested to know what hospital patient went to. This SW updated that patient went to [place] per notes. Devora had no other questions. Aparna Leon, LEHR STRIPPER, METALLOGRAPHY TEACHER
== END 2025-02-04 22:22 ==
LOC: ED 12:00
PROVIDERS: Emergency Provider Emergency Medicine; PCP Family Medicine; Visit Provider Emergency Medicine
DX: F32.A Depression, unspecified (principal); Z93.3 Colostomy status; R45.851 Suicidal ideations; F17.200 Nicotine dependence, unspecified, uncomplicated; I10 Essential (primary) hypertension; Z79.899 Other long term (current) drug therapy
CPT/HCPCS: 36415; 80048; 80076; 80307; 82077; 85025; 99284

== ENCOUNTER 2025-02-19 15:29 | Emergency (ER) | payer OTHER, MEDICAID, SELFPAY ==
[2025-02-19 15:32] VITALS: BP 112/80; PULSE 83; RESP 18; TEMP 36.8; O2SAT 97; BMI 26.9
--- NOTE | 2025-02-19 16:12 | EX.ED.DYSGE1 ---
HPI <MADAY Santacruz - Last Filed: 02/19/25 21:28> History of Present Illness Chief Complaint: Wound Check Narrative Narrative: 30-year-old male with history of recurrent diverticulitis, possible Crohn's disease, ileostomy in October 2025 at [facility] presents with increased loose stool output x 1 week causing excoriation and leakage around the stoma site. He had to change the adhesive 4 times today because it keeps leaking. The skin around the stoma has had bright red blood but there is no blood in his bowel movements. No fever or vomiting. His colorectal surgeon is Dr. Hickman at [facility]. PFSH <MADAY Santacruz - Last Filed: 02/19/25 21:28> [facility] Medical History Smoker Depression History of Crohn's disease History of echocardiogram Vitamin D deficiency History of alcohol abuse Alcoholic liver disease Anemia History of colitis Abdominal pain H/O diverticulitis of colon Colonic diverticular abscess Diverticulitis of large intestine with abscess Hypertension Home Medications ?Medication ?Instructions ?Recorded ?Last Taken ?Type ascorbic acid (vitamin C) 500 mg 0.5 g PO Q8H supple 06/02/23 11/16/23 History tablet (Vitamin C) ergocalciferol (vitamin D2) 1,250 50,000 unit PO TUTH supp 06/02/23 11/12/23 History mcg (50,000 unit) capsule ferrous sulfate 325 mg (65 mg 325 mg PO TID supplement 06/02/23 11/16/23 History iron) tablet (FeroSul) pantoprazole 40 mg tablet,delayed 40 mg PO DAILY GERD 07/02/24 09/28/24 History release furosemide 40 mg tablet 40 mg PO DAILY #30 tabs 07/06/24 Unknown Rx spironolactone 50 mg tablet 50 mg PO DAILY #30 tabs 07/06/24 Unknown Rx potassium chloride 20 mEq 20 meq PO DAILY SUPPLEMENT 09/27/24 Unknown History tablet,extended release(part/cryst) fluoxetine 20 mg capsule 20 mg PO DAILY 11/24/24 Unknown History dicyclomine 20 mg tablet 20 mg PO Q6H 02/04/25 Unknown History hydroxyzine HCl 25 mg tablet 25 mg PO Q6H PRN anxiety 02/04/25 Unknown History hyoscyamine sulfate 0.125 mg 0.125 mg PO Q4H 02/04/25 Unknown History disintegrating tablet (Anaspaz) Allergy/AdvReac Type Severity Reaction Status Date / Time No Known Allergies Allergy Verified 02/19/25 15:31 Family History Brother Cancer leukemia Uncle Diabetes Cancer skin Mother Cancer skin Surgical History History of abdominal paracentesis History of colostomy H/O colonoscopy H/O knee surgery Social History household members: family housing: house Smoking Status: Heavy Smoker (>10/day) how long ago did patient quit smokin weeks ago alcohol intake: former details: No alcohol use in 23 days substance use type: marijuana ROS <MADAY Santacruz - Last Filed: 02/19/25 21:28> ROS ED ROS Narrative Constitutional: Negative for fever, chills, malaise. GI: Positive for diarrhea. No melena, vomiting. EXAM <MADAY Santacruz - Last Filed: 02/19/25 21:28> Physical Exam Narrative Exam Narrative: CONST: Patient sitting in no acute distress. EYES: Normal inspection. NECK: Normal inspection. RESP: No respiratory distress, CTAB. CVS: Regular rate and rhythm, no murmur, no gallop. ABD: Soft and nontender, no guarding or rebound, nondistended. Stoma bag is clean dry and intact with no leakage currently. The skin outside of the tape is red and irritated. SKIN: Color normal, warm, dry, intact. EXTREMITIES: Normal appearance, no pedal edema. NEURO: Alert and answering questions appropriately. PSYCH: Normal affect. Const Vital Signs: 02/19/25 15:32 02/19/25 18:47 Temperature 98.3 F 98.3 F Temperature Source Oral Pulse Rate 83 79 Respiratory Rate 18 16 Blood Pressure 112/80 128/83 H Blood Pressure Mean 90 98 Pulse Ox 97 100 Oxygen Delivery Method Room Air <Dr. Antonio Ponce DO - Last Filed: 02/21/25 14:24> Physical Exam Const Vital Signs: 02/19/25 15:32 02/19/25 18:47 Temperature 98.3 F 98.3 F Temperature Source Oral Pulse Rate 83 79 Respiratory Rate 18 16 Blood Pressure 112/80 128/83 H Blood Pressure Mean 90 98 Pulse Ox 97 100 Oxygen Delivery Method Room Air [facility] <MADAY Santacruz - Last Filed: 02/19/25 21:28> [facility] Narrative Medical decision making narrative: Consults: [facility] colorectal surgery 30-year-old male with right lower quadrant ileostomy presents with 1 week of increased loose stool output and excoriation and skin breakdown around the stoma site. He appears well and nontoxic. Vital signs stable. Around the stoma there is skin breakdown and sloughing of bright red blood with the stoma itself appears healthy and the rest of his abdomen is soft and nontender. CBC is normal with WBC of 8.4, hemoglobin 14.8. Chemistry unremarkable. CT scan shows right lower quadrant, just community question mesenteric soft tissue stranding concerning for infectious process. There is also a RLQ mesenteric cystic mass with differential of pseudocyst or mesenteric cyst. She has prior CT scan on 11/24/2024 showed multiple abscesses in the abdomen and pelvis. On my review of this imaging it looks like there was a larger fluid collection in the same area in November. I called the radiologist who read today's study to discuss any send unfortunately he cannot access the prior study to compare. Records from 11/24/2024 state the patient was transferred to [facility] but he does not recall what treatment they did there. I called the on-call [facility] colorectal team and spoke with Dr. Wasserman. He states they had imaging at [facility] from October 2024 showing multiple intra-abdominal fluid collections and he had an IR drain at that time. He followed up with Dr. Amaya in January 2025 in the office and there was not a comment about the fluid collections. He agreed that since the patient has no fever or systemic symptoms and the leukocytosis that he does not require admission but they will reach out to him for close follow-up in our office over the next few days. He advised against antibiotics as the patient has a history of C. difficile. Regarding his stoma site the patient was advised to use Desitin to avoid further skin breakdown. Patient was comfortable with this plan and discharged in stable condition. Lab Data Attestation: I reviewed the patient's lab results. Labs: Laboratory Results - last 24 hr 02/19/25 16:15 WBC 8.4 RBC 4.97 Hgb 14.8 Hct 44.0 MCV 88.5 MCH 29.8 MCHC 33.6 RDW Std Deviation 44.7 H RDW Coeff of Kristen 13.8 Plt Count 167 MPV 11.2 Immature Gran % (Auto) 0.200 Neut % (Auto) 68.3 Lymph % (Auto) 21.2 Rapides % (Auto) 5.1 Eos % (Auto) 4.6 Baso % (Auto) 0.6 Absolute Neuts (auto) 5.7 Absolute Lymphs (auto) 1.78 Nucleated RBC % 0 Sodium 137 Potassium 4.2 Chloride 100 Carbon Dioxide 25.0 Anion Gap 11 BUN 10 Creatinine 0.95 Estim Creat Clear Calc 126.16 Est GFR (MDRD) Non-Af 109 BUN/Creatinine Ratio 10.9 Glucose 106 H Calcium 9.5 Radiography Diagnostic Testing: Clinical Impression(s) from Imaging Studies Abdomen/Pelvis CT 02/19/25 16:50 IMPRESSION: 1. Diffusely heterogenous hepatic attenuation, concerning for chronic liver disease. 2. Right lower quadrant colostomy, with mesenteric soft tissue stranding and nodularity. Findings concerning for an infectious process, given reported history of leaking stoma. 3. 5.4 x 8.8 x 6.3 cm right lower quadrant mesenteric cystic mass. Differential considerations include pseudocyst or mesenteric cyst. 4. Other findings as described above. Reading Location: [facility] <[facility], - Last Filed: 02/21/25 14:24> [facility] Narrative Medical decision making narrative: Consults: [facility] colorectal surgery 30-year-old male with right lower quadrant ileostomy presents with 1 week of increased loose stool output and excoriation and skin breakdown around the stoma site. He appears well and nontoxic. Vital signs stable. Around the stoma there is skin breakdown and sloughing of bright red blood with the stoma itself appears healthy and the rest of his abdomen is soft and nontender. CBC is normal with WBC of 8.4, hemoglobin 14.8. Chemistry unremarkable. CT scan shows right lower quadrant, just community question mesenteric soft tissue stranding concerning for infectious process. There is also a RLQ mesenteric cystic mass with differential of pseudocyst or mesenteric cyst. She has prior CT scan on 11/24/2024 showed multiple abscesses in the abdomen and pelvis. On my review of this imaging it looks like there was a larger fluid collection in the same area in November. I called the radiologist who read today's study to discuss any send unfortunately he cannot access the prior study to compare. Records from 11/24/2024 state the patient was transferred to [facility] but he does not recall what treatment they did there. I called the on-call [facility] colorectal team and spoke with Dr. Wasserman. He states they had imaging at [facility] from October 2024 showing multiple intra-abdominal fluid collections and he had an IR drain at that time. He followed up with Dr. Amaya in January 2025 in the office and there was not a comment about the fluid collections. He agreed that since the patient has no fever or systemic symptoms and the leukocytosis that he does not require admission but they will reach out to him for close follow-up in our office over the next few days. He advised against antibiotics as the patient has a history of C. difficile. Regarding his stoma site the patient was advised to use Desitin to avoid further skin breakdown. Patient was comfortable with this plan and discharged in stable condition. Supervisory Physician Note Patient was seen and examined with the Advanced Practice Provider. Nursing notes and vital signs have been reviewed. Pertinent old records have been reviewed. I agree with the essential elements of the RADHA's history, physical exam, assessment, and plan. The differential diagnosis and management options were discussed with the RADHA. I participated in determining and agree with the management, procedures, final impression and disposition as documented. See changes noted by me. Please see addendum or separate note for any additional details. Gen: A&O x3, NAD Head: Normocephalic, atraumatic Eyes: No sclera icterus, conjunctiva clear ENT: Moist mucous membranes Neck: Trachea midline, No JVD CV: RRR, no murmurs, no peripheral edema Resp: Lungs CTA BL, no w/r/c GI: Abd soft, non-distended, non-tender, no r/r/g, ileostomy bag was removed and stoma is pink and healthy-no blood in the ileostomy output, patient has some mild skin breakdown around the stoma from likely irritation from leakage, no signs of cellulitis Musc: Full ROM, no deformity Skin: Warm, dry Neuro: Alert, oriented, grossly intact, sensation intact Psych: Cooperative, appropriate mood and affect Impression: 1. Skin excoriation from ileostomy output 2. Increased ileostomy output 3. Right lower quadrant mesenteric cystic mass Lab Data Labs: Laboratory Results - last 24 hr 02/19/25 16:15 WBC 8.4 RBC 4.97 Hgb 14.8 Hct 44.0 MCV 88.5 MCH 29.8 MCHC 33.6 RDW Std Deviation 44.7 H RDW Coeff of Kristen 13.8 Plt Count 167 MPV 11.2 Immature Gran % (Auto) 0.200 Neut % (Auto) 68.3 Lymph % (Auto) 21.2 Rapides % (Auto) 5.1 Eos % (Auto) 4.6 Baso % (Auto) 0.6 Absolute Neuts (auto) 5.7 Absolute Lymphs (auto) 1.78 Nucleated RBC % 0 Sodium 137 Potassium 4.2 Chloride 100 Carbon Dioxide 25.0 Anion Gap 11 BUN 10 Creatinine 0.95 Estim Creat Clear Calc 126.16 Est GFR (MDRD) Non-Af 109 BUN/Creatinine Ratio 10.9 Glucose 106 H Calcium 9.5 Radiography Diagnostic Testing: Clinical Impression(s) from Imaging Studies Abdomen/Pelvis CT 02/19/25 16:50 IMPRESSION: 1. Diffusely heterogenous hepatic attenuation, concerning for chronic liver disease. 2. Right lower quadrant colostomy, with mesenteric soft tissue stranding and nodularity. Findings concerning for an infectious process, given reported history of leaking stoma. 3. 5.4 x 8.8 x 6.3 cm right lower quadrant mesenteric cystic mass. Differential considerations include pseudocyst or mesenteric cyst. 4. Other findings as described above. Reading Location: [facility] Discharge Plan Triage Chief Complaint: Wound Check ED Midlevel Provider: Savanna Phillips ED Provider: Antonio Ponce Dx/Rx/DC Orders Clinical Impression: History of colostomy, Abdominal cyst, Skin breakdown Instructions: Colostomy FAQs Prescriptions: No Action ascorbic acid (vitamin C) [Vitamin C] 500 mg tablet 0.5 g PO Q8H Patient Comments: TAKE with IRON ferrous sulfate [FeroSul] 325 mg (65 mg iron) tablet 325 mg PO TID Patient Comments: TAKE with VITAMIN C ergocalciferol (vitamin D2) 1,250 mcg (50,000 unit) capsule 50,000 unit PO TUTH potassium chloride 20 mEq tablet,ER particles/crystals 20 meq PO DAILY fluoxetine 20 mg capsule 20 mg PO DAILY hydroxyzine HCl 25 mg tablet 25 mg PO Q6H PRN (Reason: anxiety) hyoscyamine sulfate [Anaspaz] 0.125 mg tablet,disintegrating 0.125 mg PO Q4H dicyclomine 20 mg tablet 20 mg PO Q6H pantoprazole 40 mg tablet,delayed release (DR/EC) 40 mg PO DAILY furosemide 40 mg Tablet 40 mg PO DAILY Qty: 30 0RF spironolactone 50 mg Tablet 50 mg PO DAILY Qty: 30 0RF Primary Care Provider: Evie Cox Referrals: Evie Cox, [Primary Care Provider] - Activity Restrictions/Additional Instructions: I spoke with [address] Hickman's partners and reviewed all your labs and imaging. He said in October [address] scan showing multiple fluid collections and an IR drain was placed. Since you have no signs of fever or infection on your blood work he recommended you go home and their office will reach out to you soon for an appointment. If you do not hear for them over the next 24 hours please reach out for an appointment. Print Language: Divehi Disposition Disposition: Home, Self Care Discharge Date/Time: 02/19/25 18:50
[2025-02-19] MEDS: 0.9% Normal Saline (1000mL) 1,000 ML 999 ML IV (16:34)
--- NOTE | 2025-02-19 16:50 | CT_ITS ---
PROCEDURE: ABDOMEN/PELVIS W IV CONT ONLY 02/19/2025 REASON FOR EXAM: DIARRHEA TECHNIQUE: Abdomen and pelvis CT with intravenous contrast. Coronal and Sagittal reconstruction series were provided. PATIENT PREPARATION: Per protocol ORAL CONTRAST TYPE: None. AMOUNT: mL CONTRAST: Omnipaque 350 VOLUME: 100 mL Not Provided Gauge IV One or more dose reduction techniques were used (e.g., Automated exposure control, adjustment of the mA and/or kV according to patient size, use of iterative reconstruction technique. COMPARISON: None FINDINGS: Lung bases: Mild bibasilar atelectasis. Right lower lobe ground-glass opacity, likely infectious/inflammatory etiology. Liver: Diffusely heterogenous hepatic attenuation. Hepatomegaly, craniocaudal length 18.1 cm. No focal lesion. Gallbladder: Gallbladder is collapsed. No ductal dilation. Spleen: Splenomegaly, craniocaudal length 17.4 cm. Pancreas: Normal size without evidence of mass surrounding inflammation or ductal dilation. Adrenals: Unremarkable Kidneys: Normal renal sizes. No hydronephrosis. Bladder: Urinary bladder is unremarkable. Reproductive Organs: No pelvic mass. Bowel: Stomach is unremarkable. No bowel dilation. Status post partial colectomy and rectosigmoid anastomosis, with right lower quadrant colostomy. No areas moderate perinephric soft tissue stranding about the right lower quadrant stoma. Small simple fluid collection is noted within the anterior abdominal mesentery. Appendix is normal. Appendix: Appendix is normal Lymph nodes: Multiple subcentimeter retroperitoneal, likely reactive lymph nodes are noted. Vasculature: The abdominal aorta and IVC are normal. Peritoneum / Retroperitoneum: 5.4 x 8.8 x 6.3 cm right abdominal cystic mass (series 2, image 57, series 601, image 47). Trace ascites, predominantly perihepatic and perisplenic regions, as well as the bilateral pericolic gutters. Bones: Mild T11-L1 compression deformities, secondary to herniated Schmorl's nodes. CT/Abdomen/Pelvis W IV Cont ONLY IMPRESSION: 1. Diffusely heterogenous hepatic attenuation, concerning for chronic liver dis ease. 2. Right lower quadrant colostomy, with mesenteric soft tissue stranding and no dularity. Findings concerning for an infectious process, given reported history of leaking stoma. 3. 5.4 x 8.8 x 6.3 cm right lower quadrant mesenteric cystic mass. Differentia l considerations include pseudocyst or mesenteric cyst. 4. Other findings as described above. Reading Location: [facility]
[2025-02-19 17:00] LABS: Absolute Lymphocyte Count 1.78 X10^3/uL (0.83-4.51); Absolute Neutrophil Count 5.7 X10^3/uL (2.0-7.7); Basophil# 0.05 X10^3/uL; Basophil% 0.6 % (0-1); Eosinophil# 0.39 X10^3/uL; Eosinophils% 4.6 % (0-5); Hemoglobin 14.8 g/dL (13.0-16.5); Lymphocyte # 1.78 X10^3/ul (0.83-4.51); Lymphocyte % 21.2 % (19-41); Mean Corp Hgb Conc 33.6 g/dL (32-36); Mean Corpuscular Hgb 29.8 pg (27.0-32.0); Mean Corpuscular Volume 88.5 fL (80-94); Mean Platelet Vol. 11.2 fl (6.2-12.0); Monocyte# 0.43 X10^3/uL; Monocyte% 5.1 % (0-10); NRBC Flagged by Analyzer 0 % (0-5); Neutrophil # 5.72 X10^3/uL (2.7-7.7); Neutrophil % 68.3 % (47-70); Platelet Count 167 K/mm3 (150-450); RBC Distribution Width CV 13.8 % (11.6-14.6); RBC Distribution Width SD 44.7 fl (35.1-43.9); Red Blood Count 4.97 M/mm3 (4.6-6.2); White Blood Count 8.4 K/mm3 (4.4-11.0)
[2025-02-19 17:20] LABS: Anion Gap 11 (5-15); BUN 10 mg/dL (4-19); BUN/Creat Ratio 10.9 RATIO (10-20); Calcium,Total 9.5 mg/dL (7.6-11.0); Chloride 100 mmol/L (98-108); Creatinine, Serum 0.95 mg/dL (0.70-1.20); EST Glomerular Filtration Rate 109 (>60); Estimated Creatinine Clearance 126.16 ml/min (50-250); Glucose 106 mg/dL (70-99); Potassium 4.2 mmol/L (3.3-5.1); Sodium Level 137 mmol/L (133-145)
[2025-02-19 18:47] VITALS: BP 128/83; PULSE 79; RESP 16; TEMP 36.8; O2SAT 100
== END 2025-02-19 18:50 | disposition home or self-care (01) ==
LOC: ED 16:41
PROVIDERS: Physician Assistant; Emergency Provider Surgery; PCP Family Medicine; Visit Provider Surgery
DX: Z43.2 Encounter for attention to ileostomy (principal); L24.B3 Irritant contact dermatitis related to fecal or urinary stoma or fistula; R19.03 Right lower quadrant abdominal swelling, mass and lump; F17.200 Nicotine dependence, unspecified, uncomplicated
CPT/HCPCS: 36415; 74177; 80048; 85025; 96360; 96361; 99283; Q9967

== ENCOUNTER 2025-03-28 17:26 | Emergency (ER) | payer MEDICAID, SELFPAY ==
[2025-03-28] VITALS (12 sets, daily range): BP systolic 126–162; BP diastolic 91–105; PULSE 84–117; RESP 18–27; TEMP 36.8; O2SAT 91–100; BMI 28.8
--- NOTE | 2025-03-28 17:47 | EKG12_ITS ---
Test Reason : Blood Pressure : */* mmHG Vent. Rate : 101 BPM Atrial Rate : 101 BPM P-R Int : 204 ms QRS Dur : 74 ms QT Int : 260 ms P-R-T Axes : 46 83 30 degrees QTcB Int : 337 ms Sinus tachycardia Nonspecific T wave abnormality Abnormal ECG Confirmed by ERIC HI, ALFONSO ([id number]), editorial writer AZIZA SMITH ([id number]) on 03/29/2025 10:37:05 AM Referred By: Confirmed By: ALFONSO REYES MD
[2025-03-28] MEDS: 0.9% Normal Saline (500mL Bag) 500 ML 999 ML IV (17:53)
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
[2025-03-28] MEDS: Ketamine HCl 500 MG/5 ML Vial 320 MG IM (18:05)
[2025-03-28] MEDS: Ondansetron 4 MG/2 ML Vial IV (18:05)
[2025-03-28 18:06] LABS: Absolute Lymphocyte Count 2.73 X10^3/uL (0.83-4.51); Absolute Neutrophil Count 8.3 X10^3/uL (2.0-7.7); Basophil# 0.04 X10^3/uL; Basophil% 0.3 % (0-1); Eosinophil# 0.16 X10^3/uL; Eosinophils% 1.4 % (0-5); Hematocrit 44.5 % (40-54); Hemoglobin 15.5 g/dL (13.0-16.5); Lymphocyte # 2.73 X10^3/ul (0.83-4.51); Lymphocyte % 23.1 % (19-41); Mean Corp Hgb Conc 34.8 g/dL (32-36); Mean Corpuscular Hgb 30.1 pg (27.0-32.0); Mean Corpuscular Volume 86.4 fL (80-94); Mean Platelet Vol. 10.6 fl (6.2-12.0); Monocyte% 5.1 % (0-10); NRBC Flagged by Analyzer 0 % (0-5); Neutrophil # 8.25 X10^3/uL (2.7-7.7); Neutrophil % 69.8 % (47-70); Platelet Count 228 K/mm3 (150-450); Red Blood Count 5.15 M/mm3 (4.6-6.2); White Blood Count 11.8 K/mm3 (4.4-11.0)
[2025-03-28 18:18] LABS: Bedside Glucose 98 mg/dL (74-106)
--- NOTE | 2025-03-28 18:20 | CT_ITS ---
PROCEDURE: CT CHEST, ABD, PEL W/CONTRAST 03/28/2025 REASON FOR EXAM: [facility] TECHNIQUE: Chest, abdomen and pelvis CT with intravenous contrast. Coronal and Sagittal reconstruction series were provided. One or more dose reduction techniques were used (e.g., Automated exposure control, adjustment of the mA and/or kV according to patient size, use of iterative reconstruction technique. CONTRAST: Isovue-300 VOLUME: 300mL RADIATION DOSE SUMMARY: DLP: 3737 mGycm COMPARISON: 02/19/2025 CT. FINDINGS: CT CHEST: Hardware: None. Lymph nodes: Normal. Heart and Vasculature: Normal. Lungs and Airways: Right middle lobe 4 mm nodule (series 12, image 74 of 115). Pleura: Bones: No acute abnormalities. CT ABDOMEN/PELVIS: Liver: Mildly nodular hepatic surface contour suggestive of cirrhosis. Gallbladder: Normal. Spleen: Enlarged spleen. Pancreas: Normal size without evidence of mass surrounding inflammation or ductal dilation. Adrenals: Normal. Kidneys: Normal. Bladder: Normal. Reproductive Organs: Normal. Bowel: Partially colectomy. Right lower quadrant ostomy. Normal caliber small bowel. Lymph nodes: Normal. Vasculature: Normal. Peritoneum / Retroperitoneum: Stable right upper quadrant 4.7 x 6.9 cm unilocular cystic lesion. Small volume ascites. Bones: Stable mild superior endplate compression of T11, T12, and L1. CT/CT Chest, Abd, Pel w/Contrast IMPRESSION: No acute traumatic injury of the chest, abdomen, or pelvis. Cirrhosis. Splenomegaly. Stable right upper quadrant unilocular cystic lesion. Likely pseudocyst or mes enteric cyst. Reading Location: [place] [id number]
--- NOTE | 2025-03-28 18:20 | CT_ITS ---
PROCEDURE: SPINE CERVICAL WITHOUT CONTRAS 03/28/2025 REASON FOR EXAM: [facility] TECHNIQUE: Cervical spine CT without contrast. Coronal and Sagittal reconstruction series were provided. One or more dose reduction techniques were used (e.g., Automated exposure control, adjustment of the mA and/or kV according to patient size, use of iterative reconstruction technique RADIATION DOSE SUMMARY: DLP: 3737 mGycm COMPARISON: None. FINDINGS: Alignment: Normal. Vertebrae: Vertebral body heights are maintained. No evidence of acute fracture. Soft Tissues: Normal. Other: Moderate discogenic degenerative changes C5-6. Up to mild discogenic degenerative changes of the remainder of the visualized spine. CT/Spine Cervical without Contras IMPRESSION: No acute osseous abnormality. Reading Location: [place] [id number]
--- NOTE | 2025-03-28 18:20 | CT_ITS ---
PROCEDURE: BRAIN/HEAD WITHOUT CONTRAST 03/28/2025 REASON FOR EXAM: [facility] TECHNIQUE: Head CT without intravenous contrast. Coronal and Sagittal reconstruction series were provided. One or more dose reduction techniques were used (e.g., Automated exposure control, adjustment of the mA and/or kV according to patient size, use of iterative reconstruction technique. RADIATION DOSE SUMMARY: DLP: 3737 mGycm COMPARISON: None. FINDINGS: Brain: Normal CSF Spaces: Normal Sinuses/Mastoids: Clear at visualized levels Bones: No acute abnormalities. CT/Brain/Head without Contrast IMPRESSION: NO ACUTE FINDINGS Reading Location: [place] [id number]
[2025-03-28 18:27] LABS: Anion Gap 15 (5-15); BUN 19 mg/dL (4-19); BUN/Creat Ratio 20.4 RATIO (10-20); Calcium,Total 9.4 mg/dL (7.6-11.0); Carbon Dioxide 23.6 mmol/L (21.0-32.0); Chloride 100 mmol/L (98-108); Creatinine, Serum 0.94 mg/dL (0.70-1.20); EST Glomerular Filtration Rate 111 (>60); Estimated Creatinine Clearance 139.76 ml/min (50-250); Glucose 89 mg/dL (70-99); Potassium 3.3 mmol/L (3.3-5.1); Sodium Level 138 mmol/L (133-145)
[2025-03-28 18:36] LABS: Bacteria 0 SEEN /hpf (None Seen); Mucous, Urine 0 SEEN /hpf (<or=2+); Red Blood Cells-Urine 0 SEEN /hpf (0-5); Squamous Epithelial Cells - UA 0 SEEN /hpf (0-5)
[2025-03-28 18:40] LABS: Alcohol, Blood (Medical)-Serum < 10.1 mg/dL (<=10.0); Lactic Acid 1.9 mmol/L (0.0-2.0)
[2025-03-28 18:46] LABS: Amphetamine Urine NEGATIVE (<1000 ng/mL); Barbiturate Urine NEGATIVE (< 200 ng/mL); Benzodiazepine Urine PRESUMPTIVE POSITIVE (< 200 ng/mL); Buprenorphine Urine NEGATIVE (< 200 ng/mL); Cocaine Urine NEGATIVE (< 300 ng/mL); Fentanyl, Urine NEGATIVE; Methadone Urine NEGATIVE (< 300 ng/mL); Opiates Urine NEGATIVE (< 300 ng/mL); Oxycodone, Urine NEGATIVE (< 100 ng/mL); PCP Urine PRESUMPTIVE POSITIVE (< 25 ng/mL); THC Urine PRESUMPTIVE POSITIVE (< 50 ng/mL)
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
[2025-03-28 19:11] LABS: International Normalized Ratio 1.1; Partial Thromboplast Time 28.1 Seconds (24.1-36.2); Prothrombin Time (Protime)PT. 14.3 SECONDS (11.7-14.9)
[2025-03-28 19:31] LABS: Glucose, Dipstick Normal (Normal); Ketone-Dipstick 5 mg/dl (Negative); Leukocyte Esterase-Dipstick 25 /ul (Negative); Nitrite-Dipstick Negative (Negative); Occult Blood-Urine Negative /ul (Negative); Protein-Dipstick 100 mg/dl (Negative); Urine Bilirubin Dipstick Negative (Negative); Urine Urobilinogen 1 mg/dl (Normal)
[2025-03-28 19:32] LABS: Color, Urine Yellow (Yellow); Urine Clarity Turbid (Clear)
[2025-03-28 20:06] LABS: Amorphous Sediment 4+; Calcium Oxalate Crystals Ur 1+ /hpf (<or=2+); White Blood Cells 0-5 SEEN /hpf (0-5)
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
[2025-03-29] MEDS: DiphenhydrAMINE 50 MG/ML Syringe IV (02:06)
--- NOTE | 2025-03-29 06:47 | ED.RN ---
Throughout night, pt has been alert and oriented to person, place and time but has exhibited odd behavior such as searching through drawers, trying to log on to the computer and having bizarre conversation. Pt found roaming through halls and repeatedly removes colostomy bag.
[2025-03-29 06:50] VITALS: PULSE 93; RESP 16; O2SAT 97
--- NOTE | 2025-03-29 07:04 | ED.RN ---
Pt has removed clothing and ostomy bag several times during this RN's shift. Ostomy bag replaced, pt educated on importance of keeping bag in place and staying in bed.
== END 2025-03-29 07:36 | disposition home or self-care (01) ==
PROVIDERS: Emergency Provider Emergency Medicine; PCP Family Medicine; Visit Provider Emergency Medicine
DX: S90.02XA Contusion of left ankle, initial encounter (principal); K70.30 Alcoholic cirrhosis of liver without ascites; W18.40XA Slipping, tripping and stumbling without falling, unspecified, initial encounter; F17.200 Nicotine dependence, unspecified, uncomplicated
CPT/HCPCS: 51701; 70450; 71260; 72125; 74177; 80048; 80307; 81001; 82077; 82962; 83605; 85025; 85610; 85730; 93005; 96361; 96372; 96374; 96375; 99285; P9612; Q9967; A4216; J2405

== ENCOUNTER 2025-03-29 11:41 | Emergency (ER) | payer MEDICAID, SELFPAY ==
[2025-03-29 11:44] VITALS: BP 118/76; PULSE 94; RESP 18; TEMP 36.6; O2SAT 100; BMI 28.3
--- NOTE | 2025-03-29 11:48 | EX.ED.DYSGE1 ---
HPI History of Present Illness Chief Complaint: Lower Extremity Injury [facility] Medical History Smoker Depression History of Crohn's disease History of echocardiogram Vitamin D deficiency History of alcohol abuse Alcoholic liver disease Anemia History of colitis Abdominal pain H/O diverticulitis of colon Colonic diverticular abscess Diverticulitis of large intestine with abscess Hypertension Home Medications ?Medication ?Instructions ?Recorded ?Last Taken ?Type ascorbic acid (vitamin C) 500 mg 0.5 g PO Q8H supple 06/02/23 11/16/23 History tablet (Vitamin C) ergocalciferol (vitamin D2) 1,250 50,000 unit PO TUTH supp 06/02/23 11/12/23 History mcg (50,000 unit) capsule ferrous sulfate 325 mg (65 mg 325 mg PO TID supplement 06/02/23 11/16/23 History iron) tablet (FeroSul) pantoprazole 40 mg tablet,delayed 40 mg PO DAILY GERD 07/02/24 09/28/24 History release furosemide 40 mg tablet 40 mg PO DAILY #30 tabs 07/06/24 Unknown Rx spironolactone 50 mg tablet 50 mg PO DAILY #30 tabs 07/06/24 Unknown Rx potassium chloride 20 mEq 20 meq PO DAILY SUPPLEMENT 09/27/24 Unknown History tablet,extended release(part/cryst) fluoxetine 20 mg capsule 20 mg PO DAILY 11/24/24 Unknown History dicyclomine 20 mg tablet 20 mg PO Q6H 02/04/25 Unknown History hydroxyzine HCl 25 mg tablet 25 mg PO Q6H PRN anxiety 02/04/25 Unknown History hyoscyamine sulfate 0.125 mg 0.125 mg PO Q4H 02/04/25 Unknown History disintegrating tablet (Anaspaz) Allergy/AdvReac Type Severity Reaction Status Date / Time No Known Allergies Allergy Verified 03/28/25 17:34 Family History Brother Cancer leukemia Uncle Diabetes Cancer skin Mother Cancer skin Surgical History History of abdominal paracentesis History of colostomy H/O colonoscopy H/O knee surgery Social History household members: family housing: house Smoking Status: Heavy Smoker (>10/day) how long ago did patient quit smokin weeks ago alcohol intake: former details: No alcohol use in 23 days substance use type: marijuana EXAM Physical Exam Const Vital Signs: 03/29/25 11:44 Temperature 97.9 F Temperature Source Oral Pulse Rate 94 Respiratory Rate 18 Blood Pressure 118/76 Blood Pressure Mean 90 Pulse Ox 100 Oxygen Delivery Method Room [facility] Narrative Medical decision making narrative: HISTORY OF PRESENT ILLNESS: Chief complaint: Left ankle pain 30-year-old male presents with left ankle pain after mechanical injury. Notes he rolled his ankle when he tripped this morning. Denies head trauma or loss of consciousness. Denies abdominal pain. Denies syncope. Denies chest pain REVIEW OF SYSTEMS: Pertinent positives: Left ankle pain Pertinent negatives: Numbness tingling loss sensation, suicide ideation, house ideation, auditory visualizations PHYSICAL EXAM: Nursing triage notes reviewed, Vital signs reviewed Constitutional: please see mdm Extremities: Edema and swelling to the left lateral dorsal foot Cardiovascular: Regular in rhythm Respiratory: Lungs are clear with no rales Abdomen: Ostomy bag in place, reddish ostomy output noted Neuro: Alert, oriented person place and time, no n intact sensation L1-S1 dermatomal distributions. Intact 5/5 strength in hip flexion (T12-L3). Knee extension (L2-L4). Ankle dorsiflexion (L4-L5). Ankle plantar flexion (S1). Great toe extension (L5). 2+ patellar and Achilles DTRs. Skin: No rash or lesions noted MEDICAL DECISION MAKING: Chief Complaint: please see HPI External records reviewed: Reviewed recent imaging studies from recent trauma. Also noted the patient's urine tox was positive for PCP, benzodiazepines and marijuana. Factors affecting care: Crohn disease, polysubstance use, cirrhosis Social determinants of health: History of polysubstance abuse History obtained from others: none Consults: none [facility] Narrative: The patient was initially hemodynamically stable, afebrile nontoxic-appearing. Exam with edema and swelling to left lateral dorsal foot otherwise left lower extremity neurovascular intact I considered the following differential diagnosis: Ankle contusion, ankle sprain, fracture dislocation I obtained an x-ray. ALL IMAGES (IF OBTAINED) HAVE BEEN PERSONALLY REVIEWED AND INTERPRETED BY MYSELF. X-ray left ankle read and reviewed personally myself showed no evidence of obvious fracture or dislocation. The patient's chief complaint was r left ankle pain after minor trauma. There is no head trauma or loss of conscious reported. Based on the patient's chief complaint of ankle pain no obvious life or limb threat etiology to be ascertained. The patient's father presented to the ED later on as well as some ED staff including security noted the patient's behavior was abnormal I went back into the room and start discussing with the patient and father. 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 Father states patient is actually improved in terms of agitation since that time. And his mental status and affect are essentially normal. I informed the father the patient's workup within the last 24 hours including negative imaging of the brain chest abdomen and pelvis. As well as labs including CBC and BMP. Father requested additional blood work to make sure his liver function was within normal limits. I obtain additional labs, social work consult. CBC with worsening leukocytosis [no focus of infection on exam, could be reactive from recent trauma] CMP without evidence of acute kidney injury, significant electrolyte abnormality, anion gap to suggest end organ hypo-perfusion, no evidence of metabolic acidosis with a normal bicarbonate, no evidence of hepatobiliary obstructive pathology. Ammonia negative making hepatic encephalopathy less likely I agree the patient behavior is not completely normal however does not have any specific life-limiting issues in terms of mental health or medically admit the patient for the synthesis of additional labs and social consult feels reveal any obvious inpatient needs. No severe disease process including suicidal ideation, homicidal ideation, acute psychosis. There is no hepatic or metabolic issues that require hospitalization at this time. In fact the only labs that show significant issues for his talk screen. This is likely the cause of everyone's concern. And saying that the patient here was clinically sober, did not appear to be acutely intoxicated. On reevaluation the patient remained alert and oriented x 3. He continued to display capacity to make his own medical decisions. He ambulated with an antalgic but non-ataxic gait. He notes he sees GI at [facility] and notes he has a phone number and his phone will make an appoint with them as soon as possible at this time patient is appropriate discharge home. The patient and/or family, caregivers express understanding. The patient and/or family, caregivers agrees with the plan. Shared decision making: I will have a discussion with the patient and or visitors regarding risk/benefits of further testing or admission. They will be made aware of of the risk/benefits inherent in this decision they will be given the opportunity to voice understanding. Total critical care time today provided was at least 0 minutes. This excludes separately billable procedures. Critical care time (if documented) is secondary to the patient having high probability of clinically significant/life threatening deterioration in the patient's condition which required my urgent intervention. Impression: 1. Acute left ankle pain 2. Left ankle contusion Dispo: Discharge home This note was generated with [employer] software. It may contain incorrect words, spelling, and punctuation that were not noted in review of the chart prior to signing. History & Record Review Discussion w/independent historian: EMS personnel and Patient Additional record(s) reviewed:: Prior inpatient record, Prior outpatient record, Prior ED visit, Prior labs, No prior records and Other Lab Data Attestation: I reviewed the patient's lab results. Labs: Laboratory Results - last 24 hr 03/29/25 12:53 WBC 16.7 H RBC 4.71 Hgb 14.1 Hct 41.8 MCV 88.7 MCH 29.9 MCHC 33.7 RDW Std Deviation 43.3 RDW Coeff of Kristen 13.2 Plt Count 198 MPV 10.7 Immature Gran % (Auto) 0.400 Neut % (Auto) 84.5 H Lymph % (Auto) 9.6 L Wells % (Auto) 5.3 Eos % (Auto) 0.1 Baso % (Auto) 0.1 Absolute Neuts (auto) 14.2 H Absolute Lymphs (auto) 1.60 Nucleated RBC % 0 Sodium 136 Potassium 3.9 Chloride 101 Carbon Dioxide 22.1 Anion Gap 13 BUN 16 Creatinine 0.97 Estim Creat Clear Calc 134.46 Est GFR (MDRD) Non-Af 107 BUN/Creatinine Ratio 16.3 Glucose 81 Calcium 9.7 Total Bilirubin 1.11 Direct Bilirubin 0.56 H AST 26 ALT 30 Alkaline Phosphatase 92 Ammonia < 10.0 L Total Protein 7.5 Albumin 4.5 Globulin 3.0 Radiography Diagnostic Testing: Clinical Impression(s) from Imaging Studies Ankle X-Ray 03/29/25 12:15 IMPRESSION: 1. Soft tissue swelling without acute fracture. 2. If symptoms persist, further evaluation with CT is recommended. Reading Location: [facility] Discharge Plan Triage Chief Complaint: Lower Extremity Injury ED Provider: Alan Jain Dx/Rx/DC Orders Instructions: ED Ankle Sprain (Adult) Prescriptions: No Action ascorbic acid (vitamin C) [Vitamin C] 500 mg tablet 0.5 g PO Q8H Patient Comments: TAKE with IRON ferrous sulfate [FeroSul] 325 mg (65 mg iron) tablet 325 mg PO TID Patient Comments: TAKE with VITAMIN C ergocalciferol (vitamin D2) 1,250 mcg (50,000 unit) capsule 50,000 unit PO TUTH potassium chloride 20 mEq tablet,ER particles/crystals 20 meq PO DAILY fluoxetine 20 mg capsule 20 mg PO DAILY hydroxyzine HCl 25 mg tablet 25 mg PO Q6H PRN (Reason: anxiety) hyoscyamine sulfate [Anaspaz] 0.125 mg tablet,disintegrating 0.125 mg PO Q4H dicyclomine 20 mg tablet 20 mg PO Q6H pantoprazole 40 mg tablet,delayed release (DR/EC) 40 mg PO DAILY furosemide 40 mg Tablet 40 mg PO DAILY Qty: 30 0RF spironolactone 50 mg Tablet 50 mg PO DAILY Qty: 30 0RF Primary Care Provider: Evie Cox Referrals: Evie Cox DO [Primary Care Provider] - Activity Restrictions/Additional Instructions: Thank you for trusting us with your care today! Your labs images were reassuring. Specifically the ankle x-ray showed no evidence of bony fracture, break or dislocation, Your labs are equally as reassuring. Your ammonia level was completely negative. Your liver function appears to be within normal limits despite your history of alcohol-induced liver cirrhosis. No clear life or limb threatening etiology could be ascertained. You are appropriate for discharge home Please take Tylenol (2 pills, 650 mg), ibuprofen (2 pills, 400 mg) every 6 hours as needed for pain and fever control. Please return to the emergency department if your symptoms change or worsen. Please follow with your primary care physician for further outpatient evaluation and management. Print Language: Danish Disposition Disposition: Home, Self Care
--- NOTE | 2025-03-29 12:15 | RAD_ITS ---
EXAM: XR Left Ankle Complete, 3 or More Views CLINICAL INDICATION: PAIN TECHNIQUE: Frontal, lateral and oblique views of the left ankle. COMPARISON: No relevant prior studies available. FINDINGS: BONES/JOINTS: See below. SOFT TISSUES: Soft tissue swelling without acute fracture. RAD/Ankle min 3 Views IMPRESSION: 1. Soft tissue swelling without acute fracture. 2. If symptoms persist, further evaluation with CT is recommended. Reading Location: [facility]
[2025-03-29] MEDS: Acetaminophen 325 MG Tablet 650 MG PO (12:23)
[2025-03-29 13:09] LABS: Absolute Neutrophil Count 14.2 X10^3/uL (2.0-7.7); Basophil# 0.02 X10^3/uL; Basophil% 0.1 % (0-1); Eosinophil# 0.01 X10^3/uL; Eosinophils% 0.1 % (0-5); Hematocrit 41.8 % (40-54); Hemoglobin 14.1 g/dL (13.0-16.5); Lymphocyte % 9.6 % (19-41); Mean Corp Hgb Conc 33.7 g/dL (32-36); Mean Corpuscular Hgb 29.9 pg (27.0-32.0); Mean Corpuscular Volume 88.7 fL (80-94); Mean Platelet Vol. 10.7 fl (6.2-12.0); Monocyte# 0.89 X10^3/uL; Monocyte% 5.3 % (0-10); NRBC Flagged by Analyzer 0 % (0-5); Neutrophil # 14.15 X10^3/uL (2.7-7.7); Neutrophil % 84.5 % (47-70); Platelet Count 198 K/mm3 (150-450); RBC Distribution Width CV 13.2 % (11.6-14.6); RBC Distribution Width SD 43.3 fl (35.1-43.9); Red Blood Count 4.71 M/mm3 (4.6-6.2); White Blood Count 16.7 K/mm3 (4.4-11.0)
[2025-03-29 13:31] LABS: Ammonia < 10.0 umol/L (16-60)
[2025-03-29 13:37] LABS: AST(SGOT) 26 U/L (<=37); Alanine Aminotransfer ALT/SGPT 30 U/L (<=46); Albumin, Serum 4.5 g/dL (3.5-5.0); Alkaline Phosphatase 92 U/L (40-129); Anion Gap 13 (5-15); BUN 16 mg/dL (4-19); BUN/Creat Ratio 16.3 RATIO (10-20); Bilirubin, Direct 0.56 mg/dL (0.00-0.30); Calcium,Total 9.7 mg/dL (7.6-11.0); Carbon Dioxide 22.1 mmol/L (21.0-32.0); Chloride 101 mmol/L (98-108); Creatinine, Serum 0.97 mg/dL (0.70-1.20); EST Glomerular Filtration Rate 107 (>60); Estimated Creatinine Clearance 134.46 ml/min (50-250); Glucose 81 mg/dL (70-99); Potassium 3.9 mmol/L (3.3-5.1); Protein, Total 7.5 g/dL (5.9-8.4); Sodium Level 136 mmol/L (133-145); Total Bilirubin 1.11 mg/dL (0.00-1.30)
[2025-03-29 15:44] VITALS: PULSE 71; RESP 18; O2SAT 99
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
[2025-03-29 16:32] VITALS: BP 110/88; PULSE 76; RESP 16; TEMP 36.6; O2SAT 99
== END 2025-03-29 16:33 | disposition home or self-care (01) ==
PROVIDERS: Emergency Provider Emergency Medicine; PCP Family Medicine; Visit Provider Emergency Medicine
DX: S90.02XA Contusion of left ankle, initial encounter (principal); K70.30 Alcoholic cirrhosis of liver without ascites; W18.40XA Slipping, tripping and stumbling without falling, unspecified, initial encounter; F17.200 Nicotine dependence, unspecified, uncomplicated; F10.10 Alcohol abuse, uncomplicated; Y90.9 Presence of alcohol in blood, level not specified
CPT/HCPCS: 73610; 80048; 80076; 82140; 85025; 99283